=== PATIENT | female | born 1960 | race African-American/Black ===

== ENCOUNTER → 2017-08-13 | Outpatient (CLI) | payer MEDICARE, MEDICAID ==
[~2017-08-13] MED LIST: APIX5TAB PO; ATOR20TA50 PO; BENA10TA9 PO; FURO20TA3 PO; GABA300C10 PO; ISOS60TA24 PO; METO25TA62 PO; NITR0.4S29 SL
[2017-08-13 13:49] LABS: Urine Amorphous Crystal FEW /hpf (None Seen); Urine Bacteria FEW /hpf (None Seen); Urine Blood Negative /uL (Negative); Urine Specific Gravity 1.004 (1.001-1.035); Urine WBC <1 /hpf (0 - 5)
[2017-08-13 13:52] LABS: Basophils # (auto) 0.1 uL; Basophils % (auto) 1.9 % (0.0-2.0); Eosinophils # (auto) 0 uL; Eosinophils % (auto) 0.2 % (0.0-7.0); Hematocrit 44.4 % (36.0-46.0); Hemoglobin 14.7 g/dL (12.2-16.2); Lymphocytes # (auto) 2.1 uL; Lymphocytes % (auto) 41.7 % (10.0-50.0); Mean Corpuscular Hemoglobin 30.1 pg (28.0-32.0); Mean Corpuscular Hgb Conc. 33.1 g/dL (32.0-36.0); Mean Corpuscular Volume 90.8 fL (80.0-100.0); Monocytes # (auto) 0.6 uL; Monocytes % (auto) 12.1 % (0.0-12.0); Neutrophils # (auto) 2.2 uL; Neutrophils % (auto) 44.1 % (37.0-80.0); Nucleated Red Blood Cells % 0.2 %; Platelet Count (auto) 111 10^3/uL (140-450); Red Cell Distribution Width 13.2 % (11.8-14.3)
[2017-08-13 15:14] LABS: Albumin 2.9 g/dL (3.4-5.0); BUN/Creatinine Ratio 7.8; Bilirubin, Total 0.6 mg/dL (0.2-1.0); Calcium 8.5 mg/dL (8.5-10.1); Potassium 3.7 mmol/L (3.5-5.1); Total Protein 7.6 g/dL (6.4-8.2)
[2017-08-13 15:44] LABS: Folate (Folic Acid) 6.49 ng/mL (5.38-24)
== END | disposition home or self-care (01) ==
LOC: LAB 13:13
PROVIDERS: ATTEND Family Medicine
DX: E78.5 Hyperlipidemia, unspecified (principal); I10 Essential (primary) hypertension; E55.9 Vitamin D deficiency, unspecified; R79.89 Other specified abnormal findings of blood chemistry; Z79.899 Other long term (current) drug therapy
CPT/HCPCS: 36415; 80053; 80061; 81001; 82306; 82607; 82746; 83036; 84443; 85025

== ENCOUNTER → 2018-11-04 | Outpatient (CLI) | payer MEDICARE, MEDICAID | END | disposition home or self-care (01) | LOC: XYW 09:23 | PROVIDERS: ATTEND Internal Medicine | DX: I08.3 Combined rheumatic disorders of mitral, aortic and tricuspid valves (principal); I11.0 Hypertensive heart disease with heart failure; I50.9 Heart failure, unspecified | CPT/HCPCS: 93306 ==

== ENCOUNTER 2018-11-30 09:19 | Day surgery (SDC) | payer MEDICARE, MEDICAID ==
[2018-11-26 11:57] LABS: Urine WBC None Seen /hpf (0 - 5)
[2018-11-26 12:02] LABS: Basophils # (auto) 0 uL; Basophils % (auto) 0.4 % (0.0-2.0); Eosinophils # (auto) 0 uL; Eosinophils % (auto) 0.5 % (0.0-7.0); Hematocrit 44.9 % (36.0-46.0); Hemoglobin 14.7 g/dL (12.2-16.2); Lymphocytes # (auto) 1.1 uL; Lymphocytes % (auto) 25.1 % (10.0-50.0); Mean Corpuscular Hemoglobin 30.5 pg (28.0-32.0); Mean Corpuscular Hgb Conc. 32.7 g/dL (32.0-36.0); Mean Corpuscular Volume 93.3 fL (80.0-100.0); Monocytes # (auto) 0.5 uL; Monocytes % (auto) 10.9 % (0.0-12.0); Neutrophils # (auto) 2.8 uL; Neutrophils % (auto) 63.1 % (37.0-80.0); Nucleated Red Blood Cells % 0.2 %; Platelet Count (auto) 103 10^3/uL (140-450); Red Blood Cells 4.81 10^6/uL (4.0-5.20); White Blood Cell 4.4 10^3/uL (4.4-10.8)
[2018-11-26 12:08] LABS: Urine Bacteria FEW /hpf (None Seen); Urine Blood 1+ /uL (Negative); Urine Specific Gravity 1.021 (1.001-1.035)
[2018-11-26 12:17] LABS: INR 0.93 (0.9-1.15); Partial Thromboplastin Time 25.9 sec (23.64-32.05)
[2018-11-26 13:17] LABS: Albumin 2.8 g/dL (3.4-5.0); Calcium 8.4 mg/dL (8.5-10.1)
[2018-11-26 13:22] LABS: Bilirubin, Total 0.6 mg/dL (0.2-1.0); Total Protein 6.9 g/dL (6.4-8.2)
[~2018-11-30] VITALS: Ht 167.6 cm; Wt 166.0 kg
[~2018-11-30 09:19] MED LIST changes: +FOLI1TAB6 PO; -NITR0.4S29 SL
[2018-11-30] MEDS ORDERED: MIDAZOLAM HCL 1MG/1ML-2 ML VIAL ONE (10:52)
[2018-11-30] MEDS ORDERED: GLYCOPYRROLATE 0.2 MG/ML 1ML VIAL ONE (10:53)
[2018-11-30] MEDS ORDERED: diphenhdrAMINE HCL 50 MG/1 ML VL ONE (10:53)
[2018-11-30] MEDS ORDERED: METOCLOPRAMIDE HCL 5MG/ml INJ 2ml VIAL ONE (10:53)
[2018-11-30] MEDS ORDERED: PROPOFOL 10 MG/ML 20 ML IV ONE (10:55)
[2018-11-30] MEDS ORDERED: NALOXONE HCL 0.4 MG/ML VIAL IV PRN (11:15)
[2018-11-30] MEDS ORDERED: ONDANSETRON HCL 4 MG/2 ML VIAL IV ONE (11:15)
[2018-11-30] MEDS ORDERED: HYDROmorphone HCL 2 MG/ML VL IV PRN (11:15)
[2018-11-30 11:48] VITALS: BP 120/67
== END 2018-11-30 12:08 | disposition home or self-care (01) ==
LOC: GI 09:19
PROVIDERS: ATTEND Internal Medicine Gastroenterology
DX: Z12.11 Encounter for screening for malignant neoplasm of colon (principal); K57.30 Diverticulosis of large intestine without perforation or abscess without bleeding; K64.8 Other hemorrhoids; E66.8 Other obesity; J45.909 Unspecified asthma, uncomplicated; G47.33 Obstructive sleep apnea (adult) (pediatric); K21.9 Gastro-esophageal reflux disease without esophagitis; I11.0 Hypertensive heart disease with heart failure; I50.9 Heart failure, unspecified; E78.00 Pure hypercholesterolemia, unspecified; G62.9 Polyneuropathy, unspecified; I26.99 Other pulmonary embolism without acute cor pulmonale; Z68.43 Body mass index [BMI] 50.0-59.9, adult; Z78.0 Asymptomatic menopausal state; Z79.82 Long term (current) use of aspirin; Z79.899 Other long term (current) drug therapy; Z88.8 Allergy status to other drugs, medicaments and biological substances; Z98.890 Other specified postprocedural states; Z90.49 Acquired absence of other specified parts of digestive tract; Z82.49 Family history of ischemic heart disease and other diseases of the circulatory system
CPT/HCPCS: 36415; 80053; 81001; 85025; 85610; 85730; G0121; J1200; J2250; J2704; J2765; J7030

== ENCOUNTER 2018-12-14 19:00 | Inpatient (IN) | payer MEDICARE, MEDICAID ==
[~2018-12-14] VITALS: Ht 167.6 cm; Wt 185.5 kg
[2018-12-14 20:08] LABS: Urine Bacteria MANY /hpf (None Seen); Urine Blood 2+ /uL (Negative); Urine Mucus FEW (None Seen); Urine Specific Gravity 1.019 (1.001-1.035); Urine WBC 3 /hpf (0 - 5)
[2018-12-14 20:18] LABS: Basophils # (auto) 0 uL; Basophils % (auto) 0.3 % (0.0-2.0); Eosinophils # (auto) 0 uL; Eosinophils % (auto) 0.1 % (0.0-7.0); Hematocrit 43.8 % (36.0-46.0); Hemoglobin 14.5 g/dL (12.2-16.2); Lymphocytes # (auto) 1.7 uL; Lymphocytes % (auto) 20.1 % (10.0-50.0); Mean Corpuscular Hemoglobin 30.4 pg (28.0-32.0); Mean Corpuscular Hgb Conc. 33.2 g/dL (32.0-36.0); Mean Corpuscular Volume 91.7 fL (80.0-100.0); Monocytes % (auto) 11.3 % (0.0-12.0); Neutrophils # (auto) 5.7 uL; Neutrophils % (auto) 68.2 % (37.0-80.0); Platelet Count (auto) 115 10^3/uL (140-450); Red Blood Cells 4.78 10^6/uL (4.0-5.20); Red Cell Distribution Width 13.2 % (11.8-14.3); White Blood Cell 8.4 10^3/uL (4.4-10.8)
[2018-12-14 20:31] LABS: Albumin 2.7 g/dL (3.4-5.0); BUN/Creatinine Ratio 7.6; Calcium 8.2 mg/dL (8.5-10.1); Potassium 3.4 mmol/L (3.5-5.1)
[2018-12-14 20:34] LABS: Total Protein 7.4 g/dL (6.4-8.2)
[2018-12-14] MEDS ORDERED: IOHEXOL 300 MG/ML 100ML BOTTLE IJ ONE (23:43)
[2018-12-15] MEDS ORDERED: SODIUM CHLORIDE 0.9% 500 ML IV ONE
[2018-12-15] MEDS ORDERED: LIDOCAINE W/ EPINEPHRINE 1% 20ML VIAL SC ONE (00:15)
[2018-12-15] MEDS ORDERED: BACITRACIN TOP OINT 1 UD PKG TOP ONE (00:15)
[2018-12-15] MEDS ORDERED: metroNIDAZOLE 500MG/100ML 100 ML IV ONE (01:15)
[2018-12-15] MEDS ORDERED: CIPROFLOXACIN 400MG/200ML 200 ML IV ONE (01:15)
[2018-12-15] MEDS ORDERED: HYDROmorphone HCL 2 MG/ML VL IV ONE (02:00)
[2018-12-15] MEDS ORDERED: ONDANSETRON HCL 4 MG/2 ML VIAL IV PRN (03:15)
[2018-12-15] MEDS ORDERED: SODIUM CHLORIDE 0.9% 1,000 ML IV SCH (03:15)
[2018-12-15] MEDS ORDERED: MORPHINE SULF INJ 2 MG/ML SYRINGE 1ML IV PRN (03:15)
[2018-12-15] MEDS: cefTRIAXone 1GM/50ML D5W 50 ML IV SCH (04:06)
[2018-12-15 04:40] VITALS: BP 126/52
--- NOTE | 2018-12-15 05:00 | NUR ---
MED SURG ADMIT FROM ER RECEIVED PATIENT VIA WHEELCHAIR FROM ER. PATIENT SHOWING NO S/S OF DISTRESS OR SOB. NO PAIN NOTED OR REPORTED AT THIS TIME. PATIENT IS A/O X4, AMBULATORY. LEFT MIDDLE FINGER IV INFILTRATED, WILL ATTEMPT NEW IV. UPDATED PATIENT ON POC, VERBALIZED UNDERSTANDING. BED LOCKED IN LOW POSITION, CALL LIGHT WITHIN REACH. WILL CONTINUE TO MONITOR PATIENT Q1HR AND PRN.
[2018-12-15 05:36] VITALS: BP 126/52
[2018-12-15] MEDS: SODIUM CHLORIDE 0.9% 1,000 ML IV SCH ×2 (05:43→21:48)
--- NOTE | 2018-12-15 08:00 | NUR ---
Morning note patient resting in bed with even and unlabored respirations, no distress noted. Instructed patient on POC, fall precautions and to call for assistance. Patient verbalized understanding. Fall precautions in place with call light within reach. Will continue to monitor q1hr & PRN.
--- NOTE | 2018-12-15 08:25 | NUR ---
Paged PICC/Midline RN
[2018-12-15] MEDS: ACETAMINOPHEN 500 MG TAB PO PRN ×2 (08:53→17:41)
[2018-12-15] MEDS: PANTOPRAZOLE 40 MG TAB PO SCH (08:53)
[2018-12-15] MEDS: FOLIC ACID 1 MG TAB PO SCH (08:53)
[2018-12-15] MEDS: FUROSEMIDE 40 MG TAB PO SCH (08:54)
[2018-12-15] MEDS: ISOSORBIDE MONONITRATE 60 MG TAB PO SCH (08:54)
[2018-12-15] MEDS: METOPROLOL SUCCINATE XL 50 MG TAB PO SCH (08:55)
[2018-12-15] MEDS: BENAZEPRIL HCL 10 MG TAB PO SCH ×2 (08:55→21:59)
[2018-12-15] MEDS: metroNIDAZOLE 500MG/100ML 100 ML IV SCH ×2 (08:55→17:38)
[2018-12-15 09:00] VITALS: BP 101/59
--- NOTE | 2018-12-15 09:13 | NUR ---
Patient ambulated to restroom with a steady gait. Patient returned to bed with no complications. Call light within reach.
[2018-12-15 09:54] LABS: Basophils # (auto) 0 uL; Basophils % (auto) 0.4 % (0.0-2.0); Eosinophils # (auto) 0 uL; Eosinophils % (auto) 0.5 % (0.0-7.0); Hematocrit 38.7 % (36.0-46.0); Hemoglobin 12.9 g/dL (12.2-16.2); Lymphocytes # (auto) 1.1 uL; Lymphocytes % (auto) 19.1 % (10.0-50.0); Mean Corpuscular Hemoglobin 30.4 pg (28.0-32.0); Mean Corpuscular Hgb Conc. 33.3 g/dL (32.0-36.0); Mean Corpuscular Volume 91.4 fL (80.0-100.0); Monocytes # (auto) 0.9 uL; Monocytes % (auto) 15.8 % (0.0-12.0); Neutrophils # (auto) 3.7 uL; Neutrophils % (auto) 64.2 % (37.0-80.0); Nucleated Red Blood Cells % 0.3 %; Platelet Count (auto) 110 10^3/uL (140-450); Red Blood Cells 4.23 10^6/uL (4.0-5.20); Red Cell Distribution Width 13.4 % (11.8-14.3); White Blood Cell 5.8 10^3/uL (4.4-10.8)
[2018-12-15 10:12] LABS: Calcium 7.7 mg/dL (8.5-10.1); Potassium 3.1 mmol/L (3.5-5.1)
[2018-12-15 10:15] LABS: BUN/Creatinine Ratio 7.4
--- NOTE | 2018-12-15 11:49 | NUR ---
was at bedside - Dr. Fry Orders received and read back to verify.
[2018-12-15] MEDS ORDERED: APIXABAN 5 MG TAB PO ONE (12:00)
[2018-12-15] MEDS: traMADol HCL 50 MG TAB PO PRN ×2 (12:26→21:59)
--- NOTE | 2018-12-15 12:33 | NUR ---
Midline Placement Patient educated on need for midline placement. All risks and benefits explained and all questions and concerns addresses prior to procedure. 18g/10cm midline inserted via right basilic vein using Ultrasound. Sterile technique utilized. Blood return obtained from single lumen and flushed easily with NS using proper technique. Midline secured with saline lock; biodisc and occlusive dressing applied. Primary RN notified. Midline lot #[id number].
--- NOTE | 2018-12-15 12:51 | NUR ---
IV removed IV removed from left finger with clean technique, catheter intact. Dressing applied. Patient tolerated well.
[2018-12-15 14:40] VITALS: BP 116/50
[2018-12-15] MEDS ORDERED: POTASSIUM CHLORIDE 60 MEQ, LIDOCAINE 1% (LOCAL ANESTH.) 6 ML in SODIUM CHL 0.9% 500 ML IV ONE (15:00)
--- NOTE | 2018-12-15 15:10 | NUR ---
Tay Fry to clarify medication order. Addendum: 12/15/18 at 1906 by Treva Michel RN Order was clarified at 1530.
[2018-12-15 16:42] VITALS: BP 120/61
--- NOTE | 2018-12-15 19:00 | NUR ---
Care endorsed to PATRICIA Meza.
--- NOTE | 2018-12-15 19:05 | NUR ---
closing note patient resting in bed with even and unlabored respirations, no distress noted. Fall precautions in place with call light within reach.
--- NOTE | 2018-12-15 19:45 | NUR ---
OPENING SHIFT NOTE RECEIVED REPORT FROM DAYSHIFT RN. PATIENT RESTING COMFORTABLY IN BED WATCHING TELEVISION. NO S/S OF DISTRESS OR SOB, PATIENT DENIES PAIN AT THIS TIME. PATIENT A/O X4, AMBULATORY. UPDATED PATIENT ON POC, VERBALIZED UNDERSTANDING. BED LOCKED IN LOW POSITION, CALL LIGHT WITHIN REACH. WILL CONTINUE TO MONITOR PATIENT Q1HR AND PRN.
[2018-12-15] MEDS: APIXABAN 5 MG TAB PO SCH (21:58)
[2018-12-15] MEDS: GABAPENTIN 300 MG CAP PO SCH (21:59)
[2018-12-15 22:00] VITALS: BP 122/55
[2018-12-16] MEDS: metroNIDAZOLE 500MG/100ML 100 ML IV SCH ×3 (00:41→18:26)
[2018-12-16] MEDS: cefTRIAXone 1GM/50ML D5W 50 ML IV SCH (03:42)
[2018-12-16 05:00] VITALS: BP 127/66
--- NOTE | 2018-12-16 07:35 | NUR ---
Opening Shift Note Assumed care of patient, awake and alert, sitting up in bed watching television. No S/S of distress/SOB, no pain noted or reported at this time. Respirations are even and unlabored. Instructed on POC and instructed to call for assistance as needed, pt. verbalized understanding. Bed locked in lowest position, side rails up x2, call light within reach. Will continue to monitor for changes Q1hr and PRN.
[2018-12-16 08:56] LABS: Albumin 2.2 g/dL (3.4-5.0); Magnesium 2.5 mg/dL (1.6-2.6)
[2018-12-16 09:00] VITALS: BP 136/57
[2018-12-16 09:00] LABS: BUN/Creatinine Ratio 7.1; Bilirubin, Total 0.7 mg/dL (0.2-1.0); Total Protein 6.2 g/dL (6.4-8.2)
[2018-12-16] MEDS: METOPROLOL SUCCINATE XL 50 MG TAB PO SCH (09:09)
[2018-12-16] MEDS: PANTOPRAZOLE 40 MG TAB PO SCH (09:09)
[2018-12-16] MEDS: APIXABAN 5 MG TAB PO SCH ×2 (09:10→22:55)
[2018-12-16] MEDS: ISOSORBIDE MONONITRATE 60 MG TAB PO SCH (09:10)
[2018-12-16] MEDS: FUROSEMIDE 40 MG TAB PO SCH (09:10)
[2018-12-16] MEDS: FOLIC ACID 1 MG TAB PO SCH (09:11)
[2018-12-16] MEDS: BENAZEPRIL HCL 10 MG TAB PO SCH ×2 (09:11→22:55)
[2018-12-16] MEDS: SODIUM CHLORIDE 0.9% 1,000 ML IV SCH (09:11)
[2018-12-16] MEDS: traMADol HCL 50 MG TAB PO PRN (09:13)
[2018-12-16 12:46] VITALS: BP 140/63
[2018-12-16 17:23] VITALS: BP 130/55
--- NOTE | 2018-12-16 18:49 | NUR ---
Endorsed care to steward/stewardess night RN. No S/S of distress or SOB, respirations are even and unlabored.
--- NOTE | 2018-12-16 19:40 | NUR ---
received pt from day rn poc reviewed
[2018-12-16 22:00] VITALS: BP 154/79
[2018-12-16] MEDS: GABAPENTIN 300 MG CAP PO SCH (22:32)
--- NOTE | 2018-12-16 22:45 | NUR ---
resting comfortable no c/o discomfort
[2018-12-17] MEDS: SODIUM CHLORIDE 0.9% 1,000 ML IV SCH ×2 (01:49→14:12)
[2018-12-17] MEDS: metroNIDAZOLE 500MG/100ML 100 ML IV SCH ×3 (01:50→18:03)
[2018-12-17] MEDS: cefTRIAXone 1GM/50ML D5W 50 ML IV SCH (04:17)
[2018-12-17 05:00] VITALS: BP 122/60
--- NOTE | 2018-12-17 06:58 | NUR ---
resting with no c/o discomfort will report off to am nurse
[2018-12-17 09:00] VITALS: BP 124/67
[2018-12-17] MEDS: PANTOPRAZOLE 40 MG TAB PO SCH (09:29)
[2018-12-17] MEDS: APIXABAN 5 MG TAB PO SCH ×2 (09:29→21:25)
[2018-12-17] MEDS: FOLIC ACID 1 MG TAB PO SCH (09:31)
[2018-12-17] MEDS: ISOSORBIDE MONONITRATE 60 MG TAB PO SCH (09:31)
[2018-12-17] MEDS: METOPROLOL SUCCINATE XL 50 MG TAB PO SCH (09:31)
[2018-12-17] MEDS: FUROSEMIDE 40 MG TAB PO SCH (09:33)
[2018-12-17] MEDS: BENAZEPRIL HCL 10 MG TAB PO SCH ×2 (09:33→21:25)
[2018-12-17 12:42] VITALS: BP 125/69
[2018-12-17 16:34] VITALS: BP 133/72
--- NOTE | 2018-12-17 19:15 | NUR ---
Change of shift given to concrete tester RN. No distress noted.
--- NOTE | 2018-12-17 19:56 | NUR ---
RECEIVED PT FROM DAY RN POC REVIEWED
[2018-12-17] MEDS: GABAPENTIN 300 MG CAP PO SCH (21:24)
[2018-12-17] MEDS: traMADol HCL 50 MG TAB PO PRN (21:26)
[2018-12-17 22:00] VITALS: BP 127/68
[2018-12-18] MEDS: metroNIDAZOLE 500MG/100ML 100 ML IV SCH ×3 (02:36→16:58)
[2018-12-18 05:30] VITALS: BP 135/65
[2018-12-18] MEDS: SODIUM CHLORIDE 0.9% 1,000 ML IV SCH ×2 (05:31→18:43)
[2018-12-18] MEDS: ACETAMINOPHEN 500 MG TAB PO PRN (06:24)
--- NOTE | 2018-12-18 07:25 | NUR ---
Opening Note Received report from foundation coordinator RN. Patient is awake, alert and oriented x4. No signs or symptoms of distress noted at this time. Patient denies pain at this time. Patient is on room air, respirations even and unlabored, denies shortness of breath at this time. Patient states she has not had a bowel movement today. Reviewed plan of care with patient, patient verbalized understanding. Bed in low and locked position, call light within reach. Will continue to monitor Q1 hour and PRN.
[2018-12-18 08:00] VITALS: BP 130/59
[2018-12-18 08:29] LABS: Basophils # (auto) 0 uL; Basophils % (auto) 0.8 % (0.0-2.0); Eosinophils # (auto) 0 uL; Eosinophils % (auto) 1.1 % (0.0-7.0); Hemoglobin 13.1 g/dL (12.2-16.2); Lymphocytes % (auto) 26.5 % (10.0-50.0); Mean Corpuscular Hemoglobin 30.5 pg (28.0-32.0); Mean Corpuscular Hgb Conc. 33.5 g/dL (32.0-36.0); Mean Corpuscular Volume 91.1 fL (80.0-100.0); Monocytes # (auto) 0.7 uL; Monocytes % (auto) 17.6 % (0.0-12.0); Neutrophils # (auto) 2.1 uL; Nucleated Red Blood Cells % 1.4 %; Platelet Count (auto) 117 10^3/uL (140-450); Red Blood Cells 4.28 10^6/uL (4.0-5.20); Red Cell Distribution Width 13.2 % (11.8-14.3); White Blood Cell 3.9 10^3/uL (4.4-10.8)
[2018-12-18 08:42] LABS: Albumin 2.3 g/dL (3.4-5.0); BUN/Creatinine Ratio 6.1; Calcium 7.6 mg/dL (8.5-10.1); Potassium 3.4 mmol/L (3.5-5.1)
[2018-12-18 08:45] LABS: Bilirubin, Total 0.4 mg/dL (0.2-1.0); Total Protein 6.1 g/dL (6.4-8.2)
[2018-12-18] MEDS: LEVOFLOXACIN 750MG 150 ML IV SCH (09:48)
[2018-12-18] MEDS: BENAZEPRIL HCL 10 MG TAB PO SCH ×2 (09:48→22:18)
[2018-12-18] MEDS: APIXABAN 5 MG TAB PO SCH ×2 (09:49→22:17)
[2018-12-18] MEDS: FOLIC ACID 1 MG TAB PO SCH (09:49)
[2018-12-18] MEDS: METOPROLOL SUCCINATE XL 50 MG TAB PO SCH (09:49)
[2018-12-18] MEDS: PANTOPRAZOLE 40 MG TAB PO SCH (09:49)
[2018-12-18] MEDS: ISOSORBIDE MONONITRATE 60 MG TAB PO SCH (09:49)
[2018-12-18] MEDS: FUROSEMIDE 40 MG TAB PO SCH (09:50)
[2018-12-18] MEDS ORDERED: POTASSIUM CHL 20 Meq TABLET PO ONE (11:00)
[2018-12-18 12:11] VITALS: BP 144/53
--- NOTE | 2018-12-18 12:15 | NUR ---
Dr. Fry at bedside Dr. Fry at bedside reviewing plan of care with patient.
--- NOTE | 2018-12-18 14:51 | NUR ---
Nutrition Assessment Notes Please see attached link for complete assessment Est. Needs ABW [id number] kcal (17-20 kcal/kgBW), 120-132 gms pro (1.0-1.1 gms/kgBW). Will continue to monitor pertinent labs and reassess nutrient need prn Addendum: 12/18/18 at [address] Amended: Links added.
[2018-12-18 16:29] VITALS: BP 130/94
--- NOTE | 2018-12-18 17:25 | NUR ---
Closing Note Report given to nightclub manager RN. Patient is awake, alert and oriented x4. No signs or symptoms of distress noted at this time.
--- NOTE | 2018-12-18 20:00 | NUR ---
Opening Shift Note Assumed care of patient, awake and alert. Patient states she had taken a large pill earlier (possibly Potassium pill) and she feels she needs to "burp". Denies chest pain and shortness of breath. Instructed on POC and to call for assist PRN, will continue to monitor for changes Q1hr and PRN.
[2018-12-18 22:01] VITALS: BP 131/70
[2018-12-18] MEDS: GABAPENTIN 300 MG CAP PO SCH (22:19)
--- NOTE | 2018-12-18 23:11 | NUR ---
Patient provided with a Coke from the [employer] machine per her request. Symptom of the need of "burping" has been relieved. No distress noted at this time.
[2018-12-19] MEDS: metroNIDAZOLE 500MG/100ML 100 ML IV SCH ×3 (01:02→17:00)
[2018-12-19 05:00] VITALS: BP 121/60
[2018-12-19] MEDS: SODIUM CHLORIDE 0.9% 1,000 ML IV SCH (05:51)
[2018-12-19 07:58] VITALS: BP 140/64
[2018-12-19] MEDS: APIXABAN 5 MG TAB PO SCH (08:56)
[2018-12-19] MEDS: FOLIC ACID 1 MG TAB PO SCH (08:56)
[2018-12-19] MEDS: BENAZEPRIL HCL 10 MG TAB PO SCH (08:56)
[2018-12-19] MEDS: ISOSORBIDE MONONITRATE 60 MG TAB PO SCH (08:56)
[2018-12-19] MEDS: PANTOPRAZOLE 40 MG TAB PO SCH (08:56)
[2018-12-19] MEDS: METOPROLOL SUCCINATE XL 50 MG TAB PO SCH (08:57)
[2018-12-19] MEDS: FUROSEMIDE 40 MG TAB PO SCH (08:57)
[2018-12-19] MEDS ORDERED: POTASSIUM CHL 20 Meq TABLET PO ONE (09:45)
[2018-12-19] MEDS ORDERED: FUROSEMIDE 20 MG/2 ML VIAL IV ONE (09:45)
[2018-12-19] MEDS: LEVOFLOXACIN 750MG 150 ML IV SCH (10:05)
[2018-12-19 12:00] VITALS: BP 133/69
--- NOTE | 2018-12-19 12:40 | NUR ---
at bedside MD Fry at bedside, aware of patient's status. MD states patient will be d/c home today. New prescription for Levaquin, flagyl and probiotic obtained and will be given to patient on d/c. Awaiting d/c order at this time. Pt verbalized understanding. Cont care
--- NOTE | 2018-12-19 15:44 | NUR ---
Discharge instructions given as ordered. Encourage to follow up with PMD and specialist as instructed. All questions and concerns addressed. Patient verbalized understanding. Medication reconciliation form completed and copy given to patient. IV removed with catheter intact, pressure dressing applied. Patient will change at this time and waiting on her daughter to pick her up "from down the hill." No distress noted, sob or pain at this time.
--- NOTE | 2018-12-19 17:16 | NUR ---
Patient transported via wheelchair to vehicle, with all personal belongings. No distress or sob noted on departure. Patient Addendum: 12/19/18 at 1732 by Gilda Johnson RN Patient accompanied by staff and daughter.
== END 2018-12-19 17:30 | disposition home or self-care (01) | DRG 392 ==
LOC: ER 19:00 → OVERFLOW 19:01 → WEST WING 12-15 04:51
PROVIDERS: ADMIT Nurse Practitioner Family; ATTEND Internal Medicine
DX: K57.32 Diverticulitis of large intestine without perforation or abscess without bleeding (principal); N39.0 Urinary tract infection, site not specified; E44.0 Moderate protein-calorie malnutrition; I50.32 Chronic diastolic (congestive) heart failure; Z68.44 Body mass index [BMI] 60.0-69.9, adult; A04.72 Enterocolitis due to Clostridium difficile, not specified as recurrent; E87.6 Hypokalemia; E78.5 Hyperlipidemia, unspecified; E66.9 Obesity, unspecified; I11.0 Hypertensive heart disease with heart failure; D69.6 Thrombocytopenia, unspecified; Z88.6 Allergy status to analgesic agent; Z83.3 Family history of diabetes mellitus; Z79.01 Long term (current) use of anticoagulants; Z86.711 Personal history of pulmonary embolism; Z90.49 Acquired absence of other specified parts of digestive tract; Z79.899 Other long term (current) drug therapy
CPT/HCPCS: 36415; 74176; 74177; 80048; 80053; 81001; 82150; 83605; 83690; 83735; 83880; 85025; 87045; 87086; 87493; 87899; 96365; 96375; G0378; J0696; J1956; J2001; J2405; J3490

== ENCOUNTER → 2020-02-03 | Outpatient (CLI) | payer MEDICARE, MEDICAID ==
[~2020-02-03] MED LIST changes: -METO25TA62 PO; +METO25TA93 PO
[2020-02-03 10:50] LABS: Basophils # (auto) 0 10 ^3/uL (0-0.2); Basophils % (auto) 0.5 % (0.0-2.0); Eosinophils # (auto) 0.1 10 ^3/uL (0-0.8); Eosinophils % (auto) 1.9 % (0.0-7.0); Hematocrit 42.2 % (36.0-46.0); Hemoglobin 13.7 g/dL (12.2-16.2); Lymphocytes # (auto) 1.3 10 ^3/uL (0.4-5.4); Lymphocytes % (auto) 39.5 % (10.0-50.0); Mean Corpuscular Hemoglobin 29.6 pg (28.0-32.0); Mean Corpuscular Hgb Conc. 32.5 g/dL (32.0-36.0); Mean Corpuscular Volume 91.1 fL (80.0-100.0); Monocytes # (auto) 0.5 10 ^3/uL (0-1.3); Monocytes % (auto) 14.3 % (0.0-12.0); Neutrophils # (auto) 1.5 10 ^3/uL (1.6-8.6); Neutrophils % (auto) 43.8 % (37.0-80.0); Platelet Count (auto) 89 10^3/uL (140-450); Red Blood Cells 4.63 10^6/uL (4.0-5.20); White Blood Cell 3.4 10^3/uL (4.4-10.8)
[2020-02-03 11:14] LABS: Urine Bacteria NONE SEEN /hpf (None Seen); Urine Blood Negative /uL (Negative); Urine Specific Gravity 1.019 (1.001-1.035); Urine WBC 1 /hpf (0 - 5)
[2020-02-03 12:05] LABS: Albumin 2.9 g/dL (3.4-5.0); Calcium 8.8 mg/dL (8.5-10.1); Potassium 3.8 mmol/L (3.5-5.1)
[2020-02-03 12:09] LABS: BUN/Creatinine Ratio 12.2; Bilirubin, Total 0.6 mg/dL (0.2-1.0); Total Protein 7.2 g/dL (6.4-8.2)
== END | disposition home or self-care (01) ==
LOC: LAB 10:29
PROVIDERS: ATTEND Nurse Practitioner
DX: I10 Essential (primary) hypertension (principal); E78.5 Hyperlipidemia, unspecified
CPT/HCPCS: 36415; 80053; 80061; 81001; 85025

== ENCOUNTER → 2020-04-11 | Outpatient (CLI) | payer MEDICARE, MEDICAID ==
[2020-04-11 10:13] LABS: Basophils # (auto) 0 10 ^3/uL (0-0.2); Basophils % (auto) 0.3 % (0.0-2.0); Eosinophils # (auto) 0 10 ^3/uL (0-0.8); Eosinophils % (auto) 1.3 % (0.0-7.0); Hematocrit 40.6 % (36.0-46.0); Hemoglobin 13.3 g/dL (12.2-16.2); Lymphocytes # (auto) 1.4 10 ^3/uL (0.4-5.4); Lymphocytes % (auto) 40.6 % (10.0-50.0); Mean Corpuscular Hemoglobin 30.2 pg (28.0-32.0); Mean Corpuscular Hgb Conc. 32.9 g/dL (32.0-36.0); Monocytes # (auto) 0.5 10 ^3/uL (0-1.3); Monocytes % (auto) 14.4 % (0.0-12.0); Neutrophils # (auto) 1.4 10 ^3/uL (1.6-8.6); Neutrophils % (auto) 43.4 % (37.0-80.0); Nucleated Red Blood Cells % 0.1 %; Platelet Count (auto) 91 10^3/uL (140-450); Red Blood Cells 4.41 10^6/uL (4.0-5.20); Red Cell Distribution Width 13.1 % (11.8-14.3); White Blood Cell 3.3 10^3/uL (4.4-10.8)
[2020-04-11 10:18] LABS: INR 1.01 (0.9-1.15); Partial Thromboplastin Time 25.6 sec (23.0-31.2)
[2020-04-11 10:57] LABS: Potassium 3.9 mmol/L (3.5-5.1)
[2020-04-11 11:16] LABS: Albumin 2.9 g/dL (3.4-5.0); BUN/Creatinine Ratio 12.7; Bilirubin, Total 0.7 mg/dL (0.2-1.0); Calcium 8.7 mg/dL (8.5-10.1); Total Protein 7.3 g/dL (6.4-8.2)
== END | disposition home or self-care (01) ==
LOC: LAB 09:13
PROVIDERS: ATTEND Nurse Practitioner
DX: Z01.818 Encounter for other preprocedural examination (principal); Z01.812 Encounter for preprocedural laboratory examination; I50.32 Chronic diastolic (congestive) heart failure
CPT/HCPCS: 36415; 80053; 85025; 85610; 85730

== ENCOUNTER 2020-06-16 09:22 | Emergency (ER) | payer MEDICARE, MEDICAID ==
[~2020-06-16] VITALS: Ht 167.6 cm; Wt 140.6 kg
[2020-06-16 13:15] VITALS: BP 150/52
[2020-06-16 13:51] LABS: Basophils # (auto) 0 10 ^3/uL (0-0.2); Basophils % (auto) 0.3 % (0.0-2.0); Eosinophils # (auto) 0 10 ^3/uL (0-0.8); Eosinophils % (auto) 0.3 % (0.0-7.0); Hemoglobin 13.5 g/dL (12.2-16.2); Lymphocytes # (auto) 1.1 10 ^3/uL (0.4-5.4); Lymphocytes % (auto) 27.6 % (10.0-50.0); Mean Corpuscular Hemoglobin 30.8 pg (28.0-32.0); Mean Corpuscular Hgb Conc. 33.7 g/dL (32.0-36.0); Mean Corpuscular Volume 91.3 fL (80.0-100.0); Monocytes # (auto) 0.5 10 ^3/uL (0-1.3); Monocytes % (auto) 12.2 % (0.0-12.0); Neutrophils # (auto) 2.4 10 ^3/uL (1.6-8.6); Neutrophils % (auto) 59.6 % (37.0-80.0); Nucleated Red Blood Cells % 0.2 %; Platelet Count (auto) 90 10^3/uL (140-450); Red Blood Cells 4.38 10^6/uL (4.0-5.20); Red Cell Distribution Width 12.7 % (11.8-14.3)
[2020-06-16 14:06] LABS: INR 1.04 (0.9-1.15); Partial Thromboplastin Time 26.2 sec (23.0-31.2)
[2020-06-16 14:13] LABS: BUN/Creatinine Ratio 14.3; Calcium 8.8 mg/dL (8.5-10.1); Potassium 3.7 mmol/L (3.5-5.1)
== END 2020-06-16 17:48 | disposition home or self-care (01) ==
LOC: ER 09:22
DX: H54.7 Unspecified visual loss (principal); E23.7 Disorder of pituitary gland, unspecified; I10 Essential (primary) hypertension; Z90.49 Acquired absence of other specified parts of digestive tract; Z88.6 Allergy status to analgesic agent
CPT/HCPCS: 36415; 70450; 80048; 85025; 85610; 85730

== ENCOUNTER → 2021-04-09 | Outpatient (CLI) | payer MEDICARE, MEDICAID ==
[~2021-04-09] MED LIST changes: +BENA10TA15 PO; -BENA10TA9 PO
[2021-04-09 10:58] LABS: Basophils # (auto) 0 10 ^3/uL (0-0.2); Basophils % (auto) 0.5 % (0.0-2.0); Eosinophils # (auto) 0 10 ^3/uL (0-0.8); Eosinophils % (auto) 0.3 % (0.0-7.0); Hematocrit 43.3 % (36.0-46.0); Lymphocytes # (auto) 1.6 10 ^3/uL (0.4-5.4); Lymphocytes % (auto) 35.3 % (10.0-50.0); Mean Corpuscular Hemoglobin 29.1 pg (28.0-32.0); Mean Corpuscular Hgb Conc. 32.2 g/dL (32.0-36.0); Mean Corpuscular Volume 90.4 fL (80.0-100.0); Monocytes # (auto) 0.7 10 ^3/uL (0-1.3); Monocytes % (auto) 15.8 % (0.0-12.0); Neutrophils # (auto) 2.2 10 ^3/uL (1.6-8.6); Neutrophils % (auto) 48.1 % (37.0-80.0); Nucleated Red Blood Cells % 0.1 %; Red Cell Distribution Width 12.8 % (11.8-14.3); White Blood Cell 4.6 10^3/uL (4.4-10.8)
[2021-04-09 11:18] LABS: Urine Bacteria FEW /hpf (None Seen); Urine Blood Negative /uL (Negative); Urine Specific Gravity 1.007 (1.001-1.035); Urine WBC <1 /hpf (0 - 5)
[2021-04-09 11:21] LABS: Potassium 3.9 mmol/L (3.5-5.1)
[2021-04-09 11:29] LABS: BUN/Creatinine Ratio 12.4; Bilirubin, Total 0.5 mg/dL (0.2-1.0); Total Protein 7.7 g/dL (6.4-8.2)
== END | disposition home or self-care (01) ==
LOC: LAB 10:41
PROVIDERS: ATTEND Nurse Practitioner
DX: I10 Essential (primary) hypertension (principal); E78.5 Hyperlipidemia, unspecified
CPT/HCPCS: 36415; 80053; 80061; 81001; 85025

== ENCOUNTER 2021-07-08 16:16 | Emergency (ER) | payer MEDICARE, MEDICAID ==
[~2021-07-08] VITALS: Ht 167.6 cm; Wt 149.7 kg
[2021-07-08] MEDS ORDERED: HYDROcodone-ACET 10/325MG TAB PO ONE (23:15)
[2021-07-09 02:30] VITALS: BP 119/64
== END 2021-07-09 02:02 | disposition home or self-care (01) ==
LOC: EDBD 16:16 → ER 16:16
DX: M79.672 Pain in left foot (principal); I10 Essential (primary) hypertension; Z90.49 Acquired absence of other specified parts of digestive tract
CPT/HCPCS: 73630

== ENCOUNTER → 2022-04-24 | Outpatient (CLI) | payer MEDICARE, MEDICAID | END | disposition home or self-care (01) | LOC: XYW 10:42 | PROVIDERS: ATTEND Podiatrist | DX: I77.9 Disorder of arteries and arterioles, unspecified (principal) | CPT/HCPCS: 93925 ==

== ENCOUNTER → 2022-08-15 | Outpatient (CLI) | payer MEDICARE, MEDICAID ==
[2022-08-15 11:13] LABS: Basophils # (auto) 0 10 ^3/uL (0-0.2); Basophils % (auto) 0.7 % (0.0-2.0); Eosinophils # (auto) 0 10 ^3/uL (0-0.8); Eosinophils % (auto) 0.3 % (0.0-7.0); Hemoglobin 13.2 g/dL (12.2-16.2); Lymphocytes # (auto) 1.2 10 ^3/uL (0.4-5.4); Mean Corpuscular Hemoglobin 29.7 pg (28.0-32.0); Mean Corpuscular Hgb Conc. 33.1 g/dL (32.0-36.0); Mean Corpuscular Volume 89.9 fL (80.0-100.0); Monocytes # (auto) 0.5 10 ^3/uL (0-1.3); Monocytes % (auto) 12.3 % (0.0-12.0); Neutrophils # (auto) 2.1 10 ^3/uL (1.6-8.6); Neutrophils % (auto) 54.7 % (37.0-80.0); Nucleated Red Blood Cells % 0.1 %; Red Blood Cells 4.45 10^6/uL (4.0-5.20); Red Cell Distribution Width 13.1 % (11.8-14.3); White Blood Cell 3.9 10^3/uL (4.4-10.8)
[2022-08-15 11:46] LABS: Urine Bacteria MANY /hpf (None Seen); Urine Blood TRACE /uL (Negative); Urine Mucus FEW (None Seen); Urine Specific Gravity 1.012 (1.001-1.035); Urine WBC 27 /hpf (0 - 5)
[2022-08-15 11:51] LABS: Albumin 3.2 g/dL (3.4-5.0); BUN/Creatinine Ratio 10.1; Calcium 8.9 mg/dL (8.5-10.1); Potassium 3.9 mmol/L (3.5-5.1); Total Protein 7.4 g/dL (6.4-8.2)
[2022-08-15 12:00] LABS: Bilirubin, Total 0.8 mg/dL (0.2-1.0)
== END | disposition home or self-care (01) ==
LOC: LAB 10:57
PROVIDERS: ATTEND Nurse Practitioner
DX: I10 Essential (primary) hypertension (principal); E78.5 Hyperlipidemia, unspecified
CPT/HCPCS: 36415; 80053; 80061; 81001; 85025

== ENCOUNTER → 2023-01-08 | Outpatient (CLI) | payer MEDICARE, MEDICAID ==
[~2023-01-08] MED LIST changes: +BENA-19 PO; -BENA10TA15 PO; +FOLI-119 PO; -FOLI1TAB6 PO; +GABA-1250 PO; -GABA300C10 PO
[2023-01-08 13:22] LABS: Basophils # (auto) 0 10 ^3/uL (0-0.2); Basophils % (auto) 0.6 % (0.0-2.0); Eosinophils # (auto) 0 10 ^3/uL (0-0.8); Eosinophils % (auto) 0.4 % (0.0-7.0); Hematocrit 40.9 % (36.0-46.0); Hemoglobin 13.1 g/dL (12.2-16.2); Lymphocytes # (auto) 2.1 10 ^3/uL (0.4-5.4); Lymphocytes % (auto) 47.6 % (10.0-50.0); Mean Corpuscular Hemoglobin 28.8 pg (28.0-32.0); Mean Corpuscular Hgb Conc. 31.9 g/dL (32.0-36.0); Mean Corpuscular Volume 90.4 fL (80.0-100.0); Monocytes # (auto) 0.6 10 ^3/uL (0-1.3); Monocytes % (auto) 13.6 % (0.0-12.0); Neutrophils # (auto) 1.6 10 ^3/uL (1.6-8.6); Neutrophils % (auto) 37.8 % (37.0-80.0); Nucleated Red Blood Cells % 0.1 %; Red Blood Cells 4.52 10^6/uL (4.0-5.20); Red Cell Distribution Width 13.4 % (11.8-14.3); White Blood Cell 4.3 10^3/uL (4.4-10.8)
[2023-01-08 14:32] LABS: Folate (Folic Acid) 11.48 ng/mL (5.38-24)
[2023-01-08 14:35] LABS: Ferritin 36.2 ng/mL (10-322)
[2023-01-08 16:58] LABS: % Iron Saturation 21.5 % (15-50)
[2023-01-08 17:09] LABS: Alanine Aminotransferase 15 U/L (13-56); Albumin 3.3 g/dL (3.4-5.0); Alkaline Phosphatase 107 U/L (45-117); Anion Gap 9 (5-15); Aspartate Aminotransferase 15 U/L (15-37); BUN/Creatinine Ratio 7.4 (10.0-20.0); Bilirubin, Total 0.5 mg/dL (0.2-1.0); Blood Urea Nitrogen 10 mg/dL (7-18); Carbon Dioxide 25 mmol/L (21-32); Chloride 107 mmol/L (98-107); GFR African American 51 mL/min; GFR Non-African American 42 mL/min; Glucose 94 mg/dL (74-106); Potassium 4.8 mmol/L (3.5-5.1); Sodium 141 mmol/L (136-145); Total Protein 7.5 g/dL (6.4-8.2)
== END | disposition home or self-care (01) ==
LOC: LAB 12:44
PROVIDERS: ATTEND Internal Medicine
DX: D51.9 Vitamin B12 deficiency anemia, unspecified (principal); E66.01 Morbid (severe) obesity due to excess calories; K57.30 Diverticulosis of large intestine without perforation or abscess without bleeding; D69.6 Thrombocytopenia, unspecified; Z88.8 Allergy status to other drugs, medicaments and biological substances
CPT/HCPCS: 36415; 80053; 82607; 82728; 82746; 83540; 83550; 83615; 85025

== ENCOUNTER → 2023-06-12 | Outpatient (CLI) | payer MEDICARE, MEDICAID ==
[2023-06-12 14:19] LABS: Basophils # (auto) 0 10 ^3/uL (0-0.2); Basophils % (auto) 0.6 % (0.0-2.0); Eosinophils # (auto) 0 10 ^3/uL (0-0.8); Hematocrit 39.4 % (36.0-46.0); Hemoglobin 12.9 g/dL (12.2-16.2); Lymphocytes # (auto) 1.7 10 ^3/uL (0.4-5.4); Lymphocytes % (auto) 47.8 % (10.0-50.0); Mean Corpuscular Hemoglobin 28.9 pg (28.0-32.0); Mean Corpuscular Hgb Conc. 32.7 g/dL (32.0-36.0); Mean Corpuscular Volume 88.5 fL (80.0-100.0); Monocytes # (auto) 0.5 10 ^3/uL (0-1.3); Monocytes % (auto) 14.5 % (0.0-12.0); Neutrophils # (auto) 1.3 10 ^3/uL (1.6-8.6); Neutrophils % (auto) 36.1 % (37.0-80.0); Nucleated Red Blood Cells % 0.1 %; Red Blood Cells 4.45 10^6/uL (4.0-5.20); Red Cell Distribution Width 13.6 % (11.8-14.3); White Blood Cell 3.6 10^3/uL (4.4-10.8)
[2023-06-12 14:34] LABS: INR 1.03 (0.9-1.15); Partial Thromboplastin Time 28.4 SEC (24.5-34.5); Prothrombin Time 10.8 sec (9.3-11.8)
[2023-06-12 14:52] LABS: Alanine Aminotransferase 15 U/L (7-40); Alkaline Phosphatase 128 U/L (46-116); Anion Gap 8 (5-15); Aspartate Aminotransferase 17 U/L (13-40); BUN/Creatinine Ratio 11.8 (10.0-20.0); Bilirubin, Total 0.6 mg/dL (0.2-1.0); Blood Urea Nitrogen 16 mg/dL (9-23); Calcium 9.4 mg/dL (8.5-10.1); Carbon Dioxide 27 mmol/L (20-30); Chloride 105 mmol/L (98-107); Glucose 85 mg/dL (74-106); Sodium 140 mmol/L (136-145); Total Protein 7.6 g/dL (5.7-8.2)
[2023-06-12 14:53] LABS: % Iron Saturation 25.8 % (15-50)
[2023-06-12 14:56] LABS: Hepatitis B Surface Antibody Positive (Negative)
[2023-06-12 15:02] LABS: Folate (Folic Acid) 11.24 ng/mL (>5.38)
[2023-06-12 15:03] LABS: Ferritin 33.7 ng/mL (10-291)
[2023-06-12 15:09] LABS: Hepatitis B Surface Antigen Negative (Negative)
[2023-06-12 15:30] LABS: Hepatitis C Antibody Negative (Negative)
== END | disposition home or self-care (01) ==
LOC: LAB 13:41
PROVIDERS: ATTEND Physician Assistant
DX: E66.01 Morbid (severe) obesity due to excess calories (principal); D51.9 Vitamin B12 deficiency anemia, unspecified; D69.6 Thrombocytopenia, unspecified; K57.30 Diverticulosis of large intestine without perforation or abscess without bleeding
CPT/HCPCS: 36415; 80053; 82607; 82728; 82746; 83540; 83550; 83615; 85025; 85610; 85730; 86038; 86706; 86803; 87340

== ENCOUNTER → 2023-08-25 | Outpatient (CLI) | payer MEDICARE, MEDICAID ==
[2023-08-25 10:41] LABS: Basophils # (auto) 0 10 ^3/uL (0-0.2); Basophils % (auto) 0.4 % (0.0-2.0); Eosinophils # (auto) 0 10 ^3/uL (0-0.8); Eosinophils % (auto) 0.6 % (0.0-7.0); Hematocrit 39.1 % (36.0-46.0); Hemoglobin 12.6 g/dL (12.2-16.2); Mean Corpuscular Hemoglobin 28.5 pg (28.0-32.0); Mean Corpuscular Hgb Conc. 32.1 g/dL (32.0-36.0); Mean Corpuscular Volume 88.7 fL (80.0-100.0); Monocytes # (auto) 0.6 10 ^3/uL (0-1.3); Monocytes % (auto) 12.4 % (0.0-12.0); Neutrophils # (auto) 2.3 10 ^3/uL (1.6-8.6); Neutrophils % (auto) 46.6 % (37.0-80.0); Nucleated Red Blood Cells % 0.2 %; Red Blood Cells 4.41 10^6/uL (4.0-5.20); Red Cell Distribution Width 13.7 % (11.8-14.3)
[2023-08-25 11:19] LABS: Urine Bacteria NONE SEEN /hpf (None Seen); Urine Blood TRACE /uL (Negative); Urine Clarity HAZY (Clear); Urine Color Yellow (Yellow); Urine Protein, UAD TRACE (Negative); Urine Specific Gravity 1.017 (1.001-1.035); Urine Urobilinogen Normal (Negative); Urine WBC 94 /hpf (0 - 5)
[2023-08-25 11:28] LABS: Alanine Aminotransferase 13 U/L (7-40); Albumin 3.9 g/dL (3.2-4.8); Alkaline Phosphatase 135 U/L (46-116); Anion Gap 5 (5-15); Aspartate Aminotransferase 15 U/L (13-40); BUN/Creatinine Ratio 9.7 (10.0-20.0); Blood Urea Nitrogen 14 mg/dL (9-23); Calcium 9.5 mg/dL (8.5-10.1); Carbon Dioxide 26 mmol/L (20-30); Chloride 108 mmol/L (98-107); Glucose 95 mg/dL (74-106); LDL Cholesterol 41 mg/dL (< 100); Potassium 4.5 mmol/L (3.5-5.1); Sodium 139 mmol/L (136-145); Triglycerides 62 mg/dL (< 150)
[2023-08-25 11:29] LABS: Bilirubin, Total 0.8 mg/dL (0.2-1.0); Cholesterol 90 mg/dL (< 200); HDL Cholesterol 38 mg/dL (40-59); Total Protein 7.1 g/dL (5.7-8.2)
== END | disposition home or self-care (01) ==
LOC: LAB 10:06
PROVIDERS: ATTEND Nurse Practitioner
DX: I10 Essential (primary) hypertension (principal); E78.5 Hyperlipidemia, unspecified; R73.9 Hyperglycemia, unspecified; E03.9 Hypothyroidism, unspecified
CPT/HCPCS: 36415; 80053; 80061; 81001; 83036; 84443; 85025

== ENCOUNTER → 2023-09-05 | Outpatient (CLI) | payer MEDICARE, MEDICAID ==
[2023-09-05 10:55] LABS: Basophils # (auto) 0 10 ^3/uL (0-0.2); Basophils % (auto) 0.4 % (0.0-2.0); Eosinophils # (auto) 0 10 ^3/uL (0-0.8); Eosinophils % (auto) 0.9 % (0.0-7.0); Hematocrit 38.9 % (36.0-46.0); Hemoglobin 12.7 g/dL (12.2-16.2); Lymphocytes # (auto) 1.9 10 ^3/uL (0.4-5.4); Lymphocytes % (auto) 37.9 % (10.0-50.0); Mean Corpuscular Hemoglobin 28.5 pg (28.0-32.0); Mean Corpuscular Hgb Conc. 32.6 g/dL (32.0-36.0); Mean Corpuscular Volume 87.5 fL (80.0-100.0); Monocytes # (auto) 0.7 10 ^3/uL (0-1.3); Monocytes % (auto) 13.8 % (0.0-12.0); Neutrophils # (auto) 2.3 10 ^3/uL (1.6-8.6); Nucleated Red Blood Cells % 0.1 %; Red Blood Cells 4.45 10^6/uL (4.0-5.20); Red Cell Distribution Width 14.1 % (11.8-14.3)
[2023-09-05 12:02] LABS: Folate (Folic Acid) 16.65 ng/mL (>5.38)
[2023-09-05 12:03] LABS: Albumin 3.8 g/dL (3.2-4.8); Alkaline Phosphatase 141 U/L (46-116); Anion Gap 4 (5-15); Aspartate Aminotransferase 13 U/L (13-40); BUN/Creatinine Ratio 10.2 (10.0-20.0); Bilirubin, Total 0.6 mg/dL (0.2-1.0); Blood Urea Nitrogen 14 mg/dL (9-23); Calcium 9.3 mg/dL (8.7-10.4); Carbon Dioxide 28 mmol/L (20-30); Chloride 107 mmol/L (98-107); Ferritin 16.9 ng/mL (10-291); Glucose 96 mg/dL (74-106); Potassium 4.5 mmol/L (3.5-5.1); Sodium 139 mmol/L (136-145); Total Protein 7.4 g/dL (5.7-8.2)
[2023-09-05 12:13] LABS: Alanine Aminotransferase < 9 U/L (7-40)
[2023-09-05 12:52] LABS: % Iron Saturation 15.1 % (15-50)
== END | disposition home or self-care (01) ==
LOC: LAB 10:02
DX: D51.9 Vitamin B12 deficiency anemia, unspecified (principal); D69.6 Thrombocytopenia, unspecified; K57.30 Diverticulosis of large intestine without perforation or abscess without bleeding; E66.01 Morbid (severe) obesity due to excess calories
CPT/HCPCS: 36415; 80053; 82607; 82728; 82746; 83540; 83550; 85025

== ENCOUNTER → 2024-01-12 | Outpatient (CLI) | payer MEDICARE, MEDICAID ==
[~2024-01-12] MED LIST changes: -BENA-19 PO; +BENA10TA90 PO; +ISOS1TAB29 PO; -ISOS60TA24 PO
[2024-01-12 12:54] LABS: Basophils # (auto) 0 10 ^3/uL (0-0.2); Basophils % (auto) 0.4 % (0.0-2.0); Eosinophils # (auto) 0.1 10 ^3/uL (0-0.8); Eosinophils % (auto) 1.1 % (0.0-7.0); Hematocrit 38.1 % (36.0-46.0); Hemoglobin 12.6 g/dL (12.2-16.2); Lymphocytes # (auto) 1.9 10 ^3/uL (0.4-5.4); Lymphocytes % (auto) 37.9 % (10.0-50.0); Monocytes # (auto) 0.6 10 ^3/uL (0-1.3); Monocytes % (auto) 12.5 % (0.0-12.0); Neutrophils # (auto) 2.5 10 ^3/uL (1.6-8.6); Neutrophils % (auto) 48.1 % (37.0-80.0); Nucleated Red Blood Cells % 0.1 %; Red Blood Cells 4.32 10^6/uL (4.0-5.20); Red Cell Distribution Width 14.2 % (11.8-14.3); White Blood Cell 5.1 10^3/uL (4.4-10.8)
[2024-01-12 13:29] LABS: % Iron Saturation 18.5 % (15-50)
== END | disposition home or self-care (01) ==
LOC: LAB 12:19
PROVIDERS: ATTEND Internal Medicine
DX: K57.30 Diverticulosis of large intestine without perforation or abscess without bleeding (principal); D51.9 Vitamin B12 deficiency anemia, unspecified; E66.01 Morbid (severe) obesity due to excess calories; D69.6 Thrombocytopenia, unspecified
CPT/HCPCS: 36415; 82728; 83540; 83550; 85025

== ENCOUNTER → 2024-02-12 | Outpatient (CLI) | payer MEDICARE, MEDICAID ==
[2024-02-12 14:31] LABS: Basophils # (auto) 0 10 ^3/uL (0-0.2); Basophils % (auto) 0.6 % (0.0-2.0); Eosinophils # (auto) 0 10 ^3/uL (0-0.8); Eosinophils % (auto) 0.5 % (0.0-7.0); Hematocrit 34.8 % (36.0-46.0); Hemoglobin 11.5 g/dL (12.2-16.2); Lymphocytes % (auto) 35.6 % (10.0-50.0); Mean Corpuscular Hgb Conc. 32.9 g/dL (32.0-36.0); Monocytes # (auto) 0.9 10 ^3/uL (0-1.3); Monocytes % (auto) 15.9 % (0.0-12.0); Neutrophils # (auto) 2.6 10 ^3/uL (1.6-8.6); Neutrophils % (auto) 47.4 % (37.0-80.0); Nucleated Red Blood Cells % 0.1 %; Platelet Count (auto) 109 10^3/uL (140-450); Red Blood Cells 3.95 10^6/uL (4.0-5.20); Red Cell Distribution Width 14.4 % (11.8-14.3); White Blood Cell 5.5 10^3/uL (4.4-10.8)
[2024-02-12 15:07] LABS: Alanine Aminotransferase 12 U/L (7-40); Albumin 3.7 g/dL (3.2-4.8); Alkaline Phosphatase 131 U/L (46-116); Anion Gap 5 (5-15); Aspartate Aminotransferase 15 U/L (13-40); BUN/Creatinine Ratio 12.1 (10.0-20.0); Bilirubin, Total 0.8 mg/dL (0.2-1.0); Blood Urea Nitrogen 17 mg/dL (9-23); Calcium 9.7 mg/dL (8.7-10.4); Carbon Dioxide 27 mmol/L (20-30); Chloride 108 mmol/L (98-107); Glucose 80 mg/dL (74-106); Potassium 4.4 mmol/L (3.5-5.1); Sodium 140 mmol/L (136-145); Total Protein 7.3 g/dL (5.7-8.2)
[2024-02-12 15:10] LABS: Folate (Folic Acid) 10.58 ng/mL (>5.38)
== END | disposition home or self-care (01) ==
LOC: LAB 14:11
PROVIDERS: ATTEND Nurse Practitioner Family
DX: K57.30 Diverticulosis of large intestine without perforation or abscess without bleeding (principal); D51.9 Vitamin B12 deficiency anemia, unspecified; E66.01 Morbid (severe) obesity due to excess calories; D69.6 Thrombocytopenia, unspecified
CPT/HCPCS: 36415; 80053; 82607; 82728; 82746; 83540; 83550; 85025

== ENCOUNTER 2025-04-15 22:08 | Inpatient (IN) | payer MEDICARE, MEDICAID ==
[~2025-04-15] VITALS: Ht 162.6 cm; Wt 157.9 kg
--- NOTE | 2025-04-15 22:42 | ED.PDOC ---
History of Present Illness HPI Comments 65 y/o morbidly obese F is BIBA for c/c of nonradiating, lower abdominal pain and nausea. Significant history for CVA w/left-sided deficits, diverticulitis, hypertension, and UTI's. Patient endorses 4x day history of pain following initial, unprovoked and atraumatic onset. She comments on pain feeling similar to previous time she had diverticulitis. No reported recent travel or sick contact. Denies any vomiting, diarrhea, constipation, urinary problems, or further acute symptoms. Per EMS personnel report, patient received 100umg fentanyl IM. Chief Complaint: Abdominal Pain Time Seen by MD: 23:00 Reviewed Notes: Nurses Notes, Medications, Allergies Allergies: Coded Allergies: Acetaminophen (Verified Allergy, Unknown, 04/15/25) Aspirin (Verified Allergy, Unknown, 04/15/25) Information Source: Patient Mode of Arrival: EMS Severity: Moderate Timing: Days Duration: Since onset Prehospital treatment: None Past Medical History PAST MEDICAL HISTORY: CVA (with left-sided deficits), HTN, UTI'S Past Medical History (Other): Morbid obesity Diverticulitis Surgical History: Denies all surgeries Family History Family History: Unknown Social History Smoker: Non-Smoker Alcohol: Denies ETOH Use Drugs: Denies Drug Use Lives In: Home All Other Systems: Reviewed and Negative (Comprehensive systems review obtained and negative except for what is stated in the HPI.) Physical Exam General Appearance: No Apparent Distress, Obese HEENT: Normal ENT Inspection, Pharynx Normal, TMs Normal Neck: Full Range of Motion, Non-Tender, Normal, Normal Inspection Respiratory: Chest Non-Tender, Lungs Clear, No Accessory Muscle Use, No Respiratory Distress, Normal Breath Sounds Cardiovascular: No Edema, No JVD, No Murmur, No Gallop, Normal Peripheral Pulses, Regular Rate/Rhythm Breast Exam: Deferred Gastrointestinal: Diffuse (tenderness ), No Organomegaly, No Pulsatile Mass, Normal Bowel Sounds, Soft, Tenderness (diffused ) Genitalia: Deferred Pelvic: Deferred Rectal: Deferred Extremities: No calf tenderness, Normal capillary refill, Normal inspection, Normal range of motion, Non-tender, No pedal edema Musculoskeletal : Apperance: Normal Neurologic: Alert, correctional treatment specialist II-XII nml as Tested, No Motor Deficits, Normal Affect, Normal Mood, No Sensory Deficits Cerebellar Function: Normal Reflexes: Normal Skin: Dry, Normal Color, Warm Lymphatic: No Adenopathy Was a procedure done? Was a procedure done?: No Differential Dx Considerations may include: diverticulitis, gastritis, gastroenteritis, GERD, cholelithiasis, nephrolithiasis, pyelonephritis, cystitis, among others X-Ray, Labs, Meds, VS Vital Signs Date Time Temp Pulse Resp B/P (MAP) Pulse Ox O2 Delivery O2 Flow Rate FiO2 04/16/25 01:11 98.1 71 20 114/46 (68) 97 98.1 04/15/25 22:29 98.7 79 13 107/52 (70) 99 98.7 04/15/25 22:28 Room Air* 0 21 04/15/25 22:15 78 04/15/25 22:10 97.3 80 20 134/53 100 97.3 Lab Test 04/15/25 23:59 04/15/25 22:53 Range/Units Urine Color Yellow Yellow Urine Clarity Ex.turbid Clear Urine pH 5.5 5.0-9.0 Urine Specific [place] 1.038 H 1.001-1.035 Urine Protein 1+ H Negative Urine Ketones Trace Negative Urine Blood 3+ H Negative /uL Urine Nitrite Negative Negative Urine Bilirubin Negative Negative Urine Urobilinogen 2 H Negative mg/dL Urine Leukocyte Esterase 3+ Negative /uL Urine RBC 147 0 - 4 /hpf Urine Microscopic WBC 67 H 0-5 /HPF Urine Squamous Epithelial Cells Many <5 /hpf Urine Calcium Oxalate Crystals Few None Seen Urine Bacteria None seen None Seen /hpf Urine Mucus Few None Seen Urine Glucose Normal Normal mg/dL White Blood Count 7.0 4.4-10.8 10^3/uL Red Blood Count 2.65 L 4.0-5.20 10^6/uL Hemoglobin 7.7 L 12.2-16.2 g/dL Hematocrit 24.0 L 36.0-46.0 % Mean Corpuscular Volume 90.7 80.0-100.0 fL Mean Corpuscular Hemoglobin 29.0 28.0-32.0 pg Mean Corpuscular Hemoglobin Concent 32.0 32.0-36.0 g/dL Red Cell Distribution Width 18.1 H 11.8-14.3 % Platelet Count 245 140-450 10^3/uL Mean Platelet Volume 6.9 6.9-10.8 fL Neutrophils (%) (Auto) 74.3 37.0-80.0 % Lymphocytes (%) (Auto) 16.0 10.0-50.0 % Monocytes (%) (Auto) 8.7 0.0-12.0 % Eosinophils (%) (Auto) 0.5 0.0-7.0 % Basophils (%) (Auto) 0.5 0.0-2.0 % Neutrophils # (Auto) 5.2 1.6-8.6 10 ^3/uL Lymphocytes # (Auto) 1.1 0.4-5.4 10 ^3/uL Monocytes # (Auto) 0.6 0-1.3 10 ^3/uL Eosinophils # (Auto) 0 0-0.8 10 ^3/uL Basophils # (Auto) 0 0-0.2 10 ^3/uL Nucleated Red Blood Cells 0.2 % Sodium Level 138 136-145 mmol/L Potassium Level 3.5 3.5-5.1 mmol/L Chloride Level 108 H 98-107 mmol/L Carbon Dioxide Level 21 20-31 mmol/L Anion Gap 9 5-15 Blood Urea Nitrogen 11 9-23 mg/dL Creatinine 0.66 0.550-1.02 mg/dL Glomerular Filtration Rate Calc 97 >90 mL/min BUN/Creatinine Ratio 16.7 10.0-20.0 Serum Glucose 83 74-106 mg/dL Calcium Level 7.8 L 8.7-10.4 mg/dL Total Bilirubin 0.3 0.2-1.0 mg/dL Aspartate Amino Transferase (AST) 22 13-40 U/L Alanine Aminotransferase (ALT) 20 7-40 U/L Alkaline Phosphatase 97 46-116 U/L Total Protein 5.9 5.7-8.2 g/dL Albumin 2.4 L 3.2-4.8 g/dL Lipase 31 12-53 U/L X-Ray, Labs, Meds, VS Comment Patient will be admitted for abdominal pain urinary tract infection Patient be started on Rocephin 1 g IM Patient may need social service consult upon discharge Time of 1ST Reevaluation: 01:37 Reevaluation 1ST: Unchanged Patient Education/Counseling: Diagnosis, Treatment Family Education/Counseling: No Family Present SEPSIS Sepsis Screen Date sepsis recognized/suspect: Apr 15, 2025 Time Sepsis recognized/suspect: 2209 Recent Procedure: No On Antibiotic Therapy: No Respiratory Rate >20: Yes Heart Rate >90: No Temp<36 C (96.8 F) or >38.3 C: Yes SBP <90 or MAP <65 mmHG: No New Acute Mental Status Change: No Is the patient on CPAP, BIPAP,: No Physician Orders Electrocardigram (04/15/25 22:29) Ct Ab Pel Wo Con-No Oral Or Iv (04/15/25 22:37) Ceftriaxone W Lidocaine (Rocephin W Lido (04/16/25 01:45) Vital Signs Date Time Temp Pulse Resp B/P (MAP) Pulse Ox O2 Delivery O2 Flow Rate FiO2 04/16/25 01:11 98.1 71 20 114/46 (68) 97 98.1 04/15/25 22:29 98.7 79 13 107/52 (70) 99 98.7 04/15/25 22:28 Room Air* 0 21 04/15/25 22:15 78 04/15/25 22:10 97.3 80 20 134/53 100 97.3 Laboratory Tests Test 04/15/25 22:53 White Blood Count 7.0 10^3/uL (4.4-10.8) Departure 1 Departure Time of Disposition: 00:18 Impression: Primary Impression: Non-specific colitis Additional Impressions: Abdominal pain Qualified Codes: R10.84 - Generalized abdominal pain UTI (urinary tract infection) Qualified Codes: N30.01 - Acute cystitis with hematuria Disposition: ADMITTED INPATIENT Condition: Stable Discharged With: Self Critical Care Note Critical Care Time?: No Stability Stability form required: No Heart Score Heart Score: Heart Score Response (Comments) Value History N/A 0 EKG N/A 0 Age N/A 0 Risk Factors N/A 0 Troponin N/A 0 Total 0 I personally scribed for ESTRELLA POSADAS ([email or web address]) on 04/15/25 at 22:42. Electronically submitted by Milind Delgado ([email or web address]). ESTRELLA POSADAS Apr 15, 2025 22:42
[2025-04-15 23:02] LABS: Hemoglobin 7.7 g/dL (12.2-16.2); Nucleated Red Blood Cells % 0.2 %
[2025-04-15 23:04] LABS: Hematocrit 24.0 % (36.0-46.0); Mean Corpuscular Hemoglobin 29.0 pg (28.0-32.0); Mean Corpuscular Volume 90.7 fL (80.0-100.0)
[2025-04-15 23:21] LABS: Alanine Aminotransferase 20 U/L (7-40); Alkaline Phosphatase 97 U/L (46-116); Anion Gap 9 (5-15); BUN/Creatinine Ratio 16.7 (10.0-20.0); Blood Urea Nitrogen 11 mg/dL (9-23); Carbon Dioxide 21 mmol/L (20-31); Glucose 83 mg/dL (74-106); Lipase 31 U/L (12-53); Potassium 3.5 mmol/L (3.5-5.1); Sodium 138 mmol/L (136-145); Total Protein 5.9 g/dL (5.7-8.2)
[2025-04-15 23:22] LABS: Albumin 2.4 g/dL (3.2-4.8); Bilirubin, Total 0.3 mg/dL (0.2-1.0); Calcium 7.8 mg/dL (8.7-10.4); Chloride 108 mmol/L (98-107)
--- NOTE | 2025-04-15 23:47 | DVH ---
Exam: CT CT AB PEL WO CON-NO ORAL OR IV History: abd pain Comparison Study: None TECHNIQUE: Multidetector CT of the abdomen and pelvis was performed from lung bases to pubic symphysi s. Imaging was performed without IV contrast. Axial, coronal, and sagittal multiplanar reformats were obtained from the axial data set by the technologist. RADIATION DOSE: CTDI vol 27.14 mGy. DLP 1505.89 mGy.cm Findings: Limited evaluation of the solid organs in the absence of IV contrast. Evaluation is also degraded by poor signal to noise ratio. Lungs: Minimal basilar atelectasis. Liver: Unremarkable. Spleen: Unremarkable. Pancreas: Unremarkable. Gallbladder: Prior cholecystectomy. Adrenals: Unremarkable Kidneys: Unremarkable. Pelvic Viscera: Unremarkable. Vasculature: Unremarkable. Retroperitoneum: Nonspecific surgical clips/radiopaque densities are seen within the right pelvis. Bowel: No bowel obstruction. Colonic diverticulosis without CT evidence of diverticulitis. The append ix is normal. Musculoskeletal: Unremarkable. Soft tissues: Unremarkable Impression: 1. Limited evaluation as above without acute abdominopelvic abnormality.
[2025-04-16 01:27] LABS: Urine Protein, UAD 1+ (Negative)
[2025-04-16] MEDS: cefTRIAXone W LIDOCAINE 1 GM IM IM ONE ×2 (01:45→03:52)
[2025-04-16] MEDS ORDERED: ONDANSETRON HCL 4 MG/2 ML VIAL IV PRN (02:00)
[2025-04-16] MEDS ORDERED: DOCUSATE SOD 100 MG CAP PO PRN (02:00)
[2025-04-16] MEDS: CALCIUM GLUC 1,000mg/50ml-NS 50 ML IV ONE (02:00)
[2025-04-16 02:17] LABS: Hemoglobin 7.9 g/dL (12.2-16.2)
[2025-04-16 02:18] LABS: Hematocrit 24.4 % (36.0-46.0); Mean Corpuscular Hemoglobin 28.9 pg (28.0-32.0); Mean Corpuscular Volume 89.2 fL (80.0-100.0); Nucleated Red Blood Cells % 0.2 %
[2025-04-16 02:35] LABS: Alanine Aminotransferase 21 U/L (7-40); Alkaline Phosphatase 101 U/L (46-116); Anion Gap 9 (5-15); BUN/Creatinine Ratio 19.7 (10.0-20.0); Bilirubin, Total 0.3 mg/dL (0.2-1.0); Blood Urea Nitrogen 13 mg/dL (9-23); Carbon Dioxide 23 mmol/L (20-31); Glucose 84 mg/dL (74-106); Potassium 3.6 mmol/L (3.5-5.1); Sodium 139 mmol/L (136-145); Total Protein 6.1 g/dL (5.7-8.2)
[2025-04-16 02:36] LABS: Albumin 2.5 g/dL (3.2-4.8); Calcium 7.8 mg/dL (8.7-10.4); Chloride 107 mmol/L (98-107)
[2025-04-16] MEDS ORDERED: NITROGLYCERIN 0.4 MG SL TAB SL PRN (03:30)
[2025-04-16] MEDS ORDERED: MORPHINE SULFATE INJ 2 MG/ml SYRG IV PRN (03:30)
[2025-04-16] MEDS: ALBUMIN 25% 100 ML IV ONE (03:30)
--- NOTE | 2025-04-16 03:54 | DVHHP2 ---
History of Present Illness Reason for Visit: Abdominal pain History of Present Illness The patient is a 65-year-old female morbidly obese with past medical history of diverticulitis, hypertension, CVA with left-sided deficit, and UTIs presented to [facility] ED with complaint of abdominal pain. Patient reports she has been experiencing lower abdominal pain, rating 8/10 numeric scale, associated with nausea and vomiting. Patient was seen and evaluated in the ED, laboratory data shows WBC 7.0, hemoglobin 7.7, hematocrit 24.0, platelets 245, sodium 138, potassium 3.5, BUN 11, creatinine 0.66, glucose 83, calcium 7.8, albumin 2.4, lipase 31, blood pressure 114/46, heart rate 72, temperature 98.1 F, O2 saturation 97% on room air. Abdomen/pelvis CT showed no acute abdominopelvic abnormality; urinalysis positive for urinary tract infection. Patient was started on IV antibiotic regimen Rocephin, please see medication orders section in the computer. On my assessment, patient denied chest pain, no headache, dizziness, diaphoresis, shortness of breaths, no abdominal pain, diar cale, nausea or vomiting at this moment, fever, no chills. Patient was admitted for further evaluation and medical management. Past Medical History CVA, Hypertension, UTIs, Morbid obesity, Diverticulitis Past Surgical History Abdominal surgery Family History Reviewed, noncontributory to the management of this case. Past Social History The patient lives at home, denies smoking, alcohol or illicit drugs abuse. Review of Systems Constitutional: No: Fever, Chills, Sweats, Weakness, Malaise, Other Eyes: No: Pain, Vision change, Conjunctivae inflammation, Eyelid inflammation, Other, Redness ENT: No: Ear pain, Ear discharge, Nose pain, Nose discharge, Nose congestion, Mouth pain, Mouth swelling, Throat pain, Throat swelling, Other Respiratory: No: Cough, Dry, Shortness of breath, SOB with excertion, Wheezing, Hemoptysis, Pleuritic Pain, Sputum, Wheezing, Other Cardiovascular: No: Chest Pain, Palpitations, Orthopnea, Paroxysmal Noc. Dysp elian, Edema, Lt Headedness, Other Gastrointestinal: Nausea, Vomiting, Abdominal Pain; No: Diarrhea, Constipation, Melena, Hematochezia, Other Genitourinary: No Dysuria, No Frequency, No Incontinence, No Hematuria, No Retention, No Other Musculoskeletal: No: other, neck pain, shoulder pain, arm pain, back pain, hand pain, leg pain, foot pain Skin: No: Rash, Lesions, Jaundice, Bruising, Other Neurological: No: Weakness, Numbness, Incoordination, Change in speech, Confusion, Seizures, Other Allergies: Coded Allergies: Acetaminophen (Verified Allergy, Unknown, 04/15/25) Aspirin (Verified Allergy, Unknown, 04/15/25) Medications Current Medications Medications Dose Ordered Sig/Jon Route Start Time Stop Time Status Last Admin Dose Admin Ceftriaxone Sodium 50 ml @ 100 mls/hr DAILY@09 IV 04/16/25 09:00 Sodium Chloride 1,000 ml @ 60 mls/hr [id number] IV 04/16/25 02:00 Ondansetron HCl 4 mg Q4HP PRN IV 04/16/25 02:00 Docusate Sodium 100 mg BIDPRN PRN PO 04/16/25 02:00 Tramadol HCl 50 mg Q6HP PRN PO 04/16/25 02:00 Exam Vital Signs Vital Signs Date Time Temp Pulse Resp B/P (MAP) Pulse Ox O2 Delivery O2 Flow Rate FiO2 04/16/25 03:13 98.1 81 20 114/46 (68) 97 98.1 04/15/25 22:28 Room Air* 0 21 General Appearance: Alert, Oriented X3, Cooperative, No acute distress HEENT: Atraumatic, PERRLA, EOMI, Mucous membr. moist/pink Respiratory: Normal air movement Cardiovascular: Regular rate, Normal S1, Normal S2, No murmurs Abdominal: Normal bowel sounds, Soft, No hepatospenomegaly, No masses, Other (Reports tenderness) Extremities: No clubbing, No cyanosis, No edema, Normal pulses, No tenderness/swelling Skin: No rashes, No significant lesion Neuro: Normal speech, Normal tone, Sensation intact, Cranial nerves 3-12 NL, Reflexes 2+, Other (Weakness) Psych/Mental Status: Mental status NL, Mood NL Labs/Xrays Labs Test 04/16/25 02:08 04/15/25 23:59 04/15/25 22:53 Range/Units White Blood Count 6.0 4.4-10.8 10^3/uL Red Blood Count 2.73 L 4.0-5.20 10^6/uL Hemoglobin 7.9 L 12.2-16.2 g/dL Hematocrit 24.4 L 36.0-46.0 % Mean Corpuscular Volume 89.2 80.0-100.0 fL Mean Corpuscular Hemoglobin 28.9 28.0-32.0 pg Mean Corpuscular Hemoglobin Concent 32.4 32.0-36.0 g/dL Red Cell Distribution Width 17.0 H 11.8-14.3 % Platelet Count 258 140-450 10^3/uL Mean Platelet Volume 6.8 L 6.9-10.8 fL Neutrophils (%) (Auto) 77.4 37.0-80.0 % Lymphocytes (%) (Auto) 15.7 10.0-50.0 % Monocytes (%) (Auto) 6.0 0.0-12.0 % Eosinophils (%) (Auto) 0.5 0.0-7.0 % Basophils (%) (Auto) 0.4 0.0-2.0 % Neutrophils # (Auto) 4.6 1.6-8.6 10 ^3/uL Lymphocytes # (Auto) 0.9 0.4-5.4 10 ^3/uL Monocytes # (Auto) 0.4 0-1.3 10 ^3/uL Eosinophils # (Auto) 0 0-0.8 10 ^3/uL Basophils # (Auto) 0 0-0.2 10 ^3/uL Nucleated Red Blood Cells 0.2 % Sodium Level 139 136-145 mmol/L Potassium Level 3.6 3.5-5.1 mmol/L Chloride Level 107 98-107 mmol/L Carbon Dioxide Level 23 20-31 mmol/L Anion Gap 9 5-15 Blood Urea Nitrogen 13 9-23 mg/dL Creatinine 0.66 0.550-1.02 mg/dL Glomerular Filtration Rate Calc 97 >90 mL/min BUN/Creatinine Ratio 19.7 10.0-20.0 Serum Glucose 84 74-106 mg/dL Calcium Level 7.8 L 8.7-10.4 mg/dL Total Bilirubin 0.3 0.2-1.0 mg/dL Aspartate Amino Transferase (AST) 22 13-40 U/L Alanine Aminotransferase (ALT) 21 7-40 U/L Alkaline Phosphatase 101 46-116 U/L Total Protein 6.1 5.7-8.2 g/dL Albumin 2.5 L 3.2-4.8 g/dL Urine Color Yellow Yellow Urine Clarity Ex.turbid Clear Urine pH 5.5 5.0-9.0 Urine Specific [place] 1.038 H 1.001-1.035 Urine Protein 1+ H Negative Urine Ketones Trace Negative Urine Blood 3+ H Negative /uL Urine Nitrite Negative Negative Urine Bilirubin Negative Negative Urine Urobilinogen 2 H Negative mg/dL Urine Leukocyte Esterase 3+ Negative /uL Urine RBC 147 0 - 4 /hpf Urine Microscopic WBC 67 H 0-5 /HPF Urine Squamous Epithelial Cells Many <5 /hpf Urine Calcium Oxalate Crystals Few None Seen Urine Bacteria None seen None Seen /hpf Urine Mucus Few None Seen Urine Glucose Normal Normal mg/dL Lipase 31 12-53 U/L PATIENT: ROMINA COMER ACCT: [id number] UNIT: [id number] : 12/06/1959 LOC: ER ROOM / BED: / AGE / SEX: 65 / F ADM STATUS: REG ER SERVICE 36 ORDERING PHYSICIAN: ESTRELLA POSADAS PROCEDURE(s): ABPL - CT AB PEL WO CON-NO ORAL OR IV REASON: abd pain ORDER NUMBER(s): [id number], ACCESSION NUMBER(s): [id number] Exam: CT CT AB PEL WO CON-NO ORAL OR IV History: abd pain Comparison Study: None TECHNIQUE: Multidetector CT of the abdomen and pelvis was performed from lung bases to pubic symphysis. Imaging was performed without IV contrast. Axial, coronal, and sagittal multiplanar reformats were obtained from the axial data set by the technologist. RADIATION DOSE: CTDI vol 27.14 mGy. DLP 1505.89 mGy.cm Findings: Limited evaluation of the solid organs in the absence of IV contrast. Evaluation is also degraded by poor signal to noise ratio. Lungs: Minimal basilar atelectasis. Liver: Unremarkable. Spleen: Unremarkable. Pancreas: Unremarkable. Gallbladder: Prior cholecystectomy. Adrenals: Unremarkable Kidneys: Unremarkable. Pelvic Viscera: Unremarkable. Vasculature: Unremarkable. Retroperitoneum: Nonspecific surgical clips/radiopaque densities are seen within the right pelvis. Bowel: No bowel obstruction. Colonic diverticulosis without CT evidence of diverticulitis. The appendix is normal. Musculoskeletal: Unremarkable. Soft tissues: Unremarkable Impression: 1. Limited evaluation as above without acute abdominopelvic abnormality. SEPSIS Sepsis Screen Date sepsis recognized/suspect: Apr 15, 2025 Time Sepsis recognized/suspect: 2209 Recent Procedure: No On Antibiotic Therapy: No Respiratory Rate >20: Yes Heart Rate >90: No Temp<36 C (96.8 F) or >38.3 C: Yes SBP <90 or MAP <65 mmHG: No New Acute Mental Status Change: No Is the patient on CPAP, BIPAP,: No Physician Orders Electrocardigram (04/15/25 22:29) Ct Ab Pel Wo Con-No Oral Or Iv (04/15/25 22:37) Urine Bacterial Culture (04/16/25 01:50) Ceftriaxone 1gm/50ml (Rocephin) (04/16/25 09:00) Type And Screen (04/16/25 01:50) Allergies (04/16/25 01:50) Code Status (04/16/25 01:50) Sodium Chloride 0.9% (04/16/25 02:00) Oxygen Per Hour (04/16/25 01:50) Ondansetron Hcl (Zofran) (04/16/25 02:00) Docusate Sodium Capsule (Colace Capsule) (04/16/25 02:00) Fall Risk Precautions In Place QSHIFT (04/16/25 01:50) Complete Blood Count (04/17/25 04:00) Comprehensive Metabolic Panel (04/17/25 04:00) Cardiac Diet-2gna,Lofat,Lochol (04/16/25 Breakfast) Condition: Serious (04/16/25 01:50) Maintain Bed Rest (04/16/25 01:50) Sequential Compression Device (04/16/25 ) Tramadol Hcl (Ultram) (04/16/25 02:00) * Picc Line Consult (04/16/25 02:56) Vital Signs Date Time Temp Pulse Resp B/P (MAP) Pulse Ox O2 Delivery O2 Flow Rate FiO2 04/16/25 03:13 98.1 81 20 114/46 (68) 97 98.1 04/16/25 01:11 98.1 71 20 114/46 (68) 97 98.1 04/16/25 00:00 79 04/15/25 22:29 98.7 79 13 107/52 (70) 99 98.7 04/15/25 22:28 Room Air* 0 21 04/15/25 22:15 78 04/15/25 22:10 97.3 80 20 134/53 100 97.3 Laboratory Tests Test 04/15/25 22:53 04/16/25 02:08 White Blood Count 7.0 10^3/uL (4.4-10.8) 6.0 10^3/uL (4.4-10.8) Assessment/Plan Assessment/Plan Abdominal pain Urinary tract infection Anemia, unspecified Electrolyte imbalance Generalized weakness Plan 1. Admit to med surge unit 2. Breathing treatment 3. Pain control management 4. IV antibiotic management 5. Management of fluids and electrolytes 6. Consultation for hospitalist 7. Diagnostic test abdomen/pelvis CT 8. DVT prophylaxis on SCDs 9. Repeat labs CBC, CMP in a.m. 10. Continue with current medical management 11. Treatment plan discussed with patient and RN. Patient verbalized understanding. Plan discussed with: Patient, Other (RN) My Orders Orders - STIVEN MCNEIL DNP Procedure Category Date Status Time Urine Bacterial NEREIDA 04/16/25 Logged Culture 01:50 Ceftriaxone 1gm/50ml PHA 04/16/25 In Process (Rocephin) 09:00 Type And Screen BBK 04/16/25 In Process 01:50 Allergies EDUARDO 04/16/25 In Process 01:50 Code Status CODE 04/16/25 Transmitted 01:50 Sodium Chloride 0.9% PHA 04/16/25 In Process 02:00 Oxygen Per Hour RT 04/16/25 Transmitted 01:50 Ondansetron Hcl PHA 04/16/25 In Process (Zofran) 02:00 Docusate Sodium PHA 04/16/25 In Process Capsule (Colace 02:00 Fall Risk Precautions EDUARDO 04/16/[address] 01:50 Complete Blood Count LAB 04/17/25 Verified 04:00 Comprehensive LAB 04/17/25 Verified Metabolic Panel 04:00 Cardiac DIET 04/16/25 Transmitted Diet-2gna,Lofat,Lochol Breakfast Condition: Serious EDUARDO 04/16/25 In Process 01:50 Maintain Bed Rest EDUARDO 04/16/25 In Process 01:50 Sequential EDUARDO 04/16/25 In Process Compression Device Tramadol Hcl (Ultram) PHA 04/16/25 In Process 02:00 * Picc Line Consult CONS 04/16/25 Transmitted 02:56 Problem List: (1) Abdominal pain (2) UTI (urinary tract infection) (3) Anemia, unspecified (4) Electrolyte imbalance (5) Generalized weakness Date of Service: Apr 16, 2025 Billing Provider: STIVEN MCNEIL DNP Common Visit Codes: [id number] INP/OBS CARE (HIGH) STIVEN MCNEIL DNP Apr 16, 2025 03:54
[2025-04-16 09:00] VITALS: BP 111/49; PULSE 83; RESP 16; TEMP 97.9; O2SAT 98
[2025-04-16 12:36] VITALS: BP 108/82; PULSE 77; RESP 16; TEMP 98.2; O2SAT 100
--- NOTE | 2025-04-16 13:10 | DVHPN2 ---
Reviewed: Care Plan, H&P, Labs, Medications, Previous Orders, Radiology Changes from previous H/P or p: No Changes Eyes: No Pain, No Vision change, No Conjunctivae inflammation, No Eyelid inflammation, No Other, No Redness ENT: No Ear pain, No Ear discharge, No Nose pain, No Nose discharge, No Nose congestion, No Mouth pain, No Mouth swelling, No Throat pain, No Throat swelling, No Other Cardiovascular: No Chest Pain, No Palpitations, No Orthopnea, No Paroxysmal Noc. Dyspnea, No Edema, No Lt Headedness, No Other Respiratory: No Cough, No Dry, No Shortness of breath, No SOB with excertion, No Wheezing, No Hemoptysis, No Pleuritic Pain, No Sputum, No Other Gastrointestinal: Nausea, Vomiting, Abdominal Pain; No Diarrhea, No Constipation, No Melena, No Hematochezia, No Other Genitourinary: No Dysuria, No Frequency, No Incontinence, No Hematuria, No Retention, No Other Musculoskeletal: No other, No neck pain, No shoulder pain, No arm pain, No back pain, No hand pain, No leg pain, No foot pain Skin: No Rash, No Lesions, No Jaundice, No Bruising, No Other Objective Vitals Vital Signs Date Time Temp Pulse Resp B/P (MAP) Pulse Ox O2 Delivery O2 Flow Rate FiO2 04/16/25 12:36 98.2 77 16 108/82 (91) 100 98.2 04/15/25 22:28 Room Air* 0 21 Medications Current Medications Medications Dose Ordered Sig/Jon Route Start Time Stop Time Status Last Admin Dose Admin Ceftriaxone Sodium 50 ml @ 100 mls/hr DAILY@09 IV 04/17/25 09:00 Sodium Chloride 1,000 ml @ 60 mls/hr [id number] IV 04/16/25 02:00 Ondansetron HCl 4 mg Q4HP PRN IV 04/16/25 02:00 Docusate Sodium 100 mg BIDPRN PRN PO 04/16/25 02:00 Tramadol HCl 50 mg Q6HP PRN PO 04/16/25 02:00 Nitroglycerin 0.4 mg Q5MINP PRN SL 04/16/25 03:30 Morphine Sulfate 2 mg Q30M PRN IV 04/16/25 03:30 Laboratory Results Laboratory Tests 04/16/25 02:08 Chemistry Test 04/15/25 22:53 04/16/25 02:08 Albumin 2.4 g/dL (3.2-4.8) L 2.5 g/dL (3.2-4.8) L Calcium Level 7.8 mg/dL (8.7-10.4) L 7.8 mg/dL (8.7-10.4) L Total Protein 5.9 g/dL (5.7-8.2) 6.1 g/dL (5.7-8.2) Lipid panel Test 04/15/25 22:53 Lipase 31 U/L (12-53) LFT Test 04/15/25 22:53 04/16/25 02:08 Alanine Aminotransferase (ALT) 20 U/L (7-40) 21 U/L (7-40) Alkaline Phosphatase 97 U/L (46-116) 101 U/L (46-116) Aspartate Amino Transferase (AST) 22 U/L (13-40) 22 U/L (13-40) Total Bilirubin 0.3 mg/dL (0.2-1.0) 0.3 mg/dL (0.2-1.0) Urinalysis Test 04/15/25 23:59 Urine Color Yellow (Yellow) Urine Clarity Ex.turbid (Clear) Urine pH 5.5 (5.0-9.0) Urine Specific [place] 1.038 (1.001-1.035) Urine Protein 1+ (Negative) H Urine Ketones Trace (Negative) Urine Blood 3+ /uL (Negative) H Urine Nitrite Negative (Negative) Urine Bilirubin Negative (Negative) Urine Urobilinogen 2 mg/dL (Negative) H Urine Leukocyte Esterase 3+ /uL (Negative) Urine RBC 147 /hpf (0 - 4) Urine Microscopic WBC 67 /HPF (0-5) H Urine Squamous Epithelial Cells Many /hpf (<5) Urine Calcium Oxalate Crystals Few (None Seen) Urine Bacteria None seen /hpf (None Seen) Urine Mucus Few (None Seen) Urine Glucose Normal mg/dL (Normal) Labs and/or images reviewed: Labs reviewed by me, Image(s) reviewed by me Assessment/Plan Assessment/Plan Sepsis secondary to urinary tract infection: Blood cultures urine cultures Rocephin Acute abdominal pain CT abdomen pelvis without contrast negative Anemia hemoglobin 7.7: Consult for GI Dr. Fam to rule out GI causes for anemia History of diverticulosis Acute generalized weakness Hypertension History of CVA Moderate obesity Time spent 70 minutes Advanced care planning time 20 mts Patient is full code Plan discussed with: Patient My Orders Orders - BELLA TOSCANO MD Procedure Category Date Status Time * Gi Dvh Qc Manager CONS 04/16/25 Transmitted 13:04 Pantoprazole PHA 04/17/25 Verified (Protonix) 10:00 Pantoprazole PHA 04/16/25 Verified (Protonix) 13:15 Date of Service: Apr 16, 2025 Billing Provider: BELLA TOSCANO MD Common Visit Codes: [id number] CARE 30-74 MIN BELLA TOSCANO MD Apr 16, 2025 13:10
[2025-04-16] MEDS: PANTOPRAZOLE 40 MG/10 ML VIAL INJ IV ONE (13:35)
[2025-04-16] MEDS: SODIUM CHLORIDE 0.9% 1,000 ML IV SCH (13:36)
[2025-04-16 17:00] VITALS: BP 126/30; PULSE 77; RESP 20; TEMP 98.3; O2SAT 100
--- NOTE | 2025-04-16 17:17 | DVHINCON2 ---
Date of service: Apr 16, 2025 Referring Physician Jeffrey Reason for Consultation Anemia History of Present Illness The patient is a 65-year-old female with a history of hypertension history of CVA with left-sided residual, history of UTI history of diverticulosis admitted with abdominal pain found to be anemia in a care with a hemoglobin of 7.7. Repeat hemoglobin 7.9. Patient denies any recent colonoscopy she denies any anemia. Patient is not the best historian due to side effects. Prior stroke. She has not noted to have any gross bleeding since admission. MCV was normal. CT scan of the abdomen was normal. Patient is on a pureed diet. GI consultation was obtained for evaluation. Patient is on Eliquis for history of CVA Past Medical History As above Past Surgical History Prior cholecystectomy Family History: Diabetes mellitus G8 BROTHER FH: lung cancer G8 MOTHER Hypertension G8 MOTHER G8 BROTHER Social History No tobacco alcohol recreational drug use currently Allergies: Coded Allergies: Acetaminophen (Unverified Allergy, Unknown, 04/15/25) Aspirin (Verified Allergy, Unknown, 11/26/18) Tomato (Unverified Allergy, Unknown, 04/16/25) Home Meds Reported Medications Folic Acid (Folic Acid) 1 Mg Tab, 1 MG PO DAILY for 30 Days, MG 11/26/18 Furosemide (Furosemide) 20 Mg Tab, 20 MG PO DAILY for 30 Days, MG 05/07/17 Benazepril Hcl (Benazepril Hcl) 10 Mg Tab, 10 MG PO BID for 30 Days, MG 05/07/17 Metoprolol Succinate (Metoprolol Succinate Er) 25 Mg Tab, 25 MG PO BID for 30 Days, MG 05/07/17 Apixaban Base (ELIQUIS) 5 Mg Tab, 5 MG PO BID, TAB 05/07/17 Isosorbide Mononitrate (Isosorbide Mononitrate Er) 60 Mg Tab, 1.5 TAB PO DAILY for 30 Days, MG 05/07/17 Atorvastatin Calcium (ATORVASTATIN CALCIUM) 20 Mg Tab, 20 MG PO DAILY, TAB 05/07/17 Gabapentin (Gabapentin) 300 Mg Cap, 300 MG PO HS for 30 Days, MG 05/07/17 Current Medications Current Medications Medications (Trade) Dose Ordered Sig/Jon Route PRN Reason Start Time Stop Time Status Last Admin Ceftriaxone Sodium 50 ml @ 100 mls/hr DAILY@09 IV 04/17/25 09:00 Sodium Chloride 1,000 ml @ 60 mls/hr [id number] IV 04/16/25 02:00 04/16/25 13:36 Ondansetron HCl (Zofran) 4 mg Q4HP PRN IV NAUSEA / VOMITING 04/16/25 02:00 Docusate Sodium (Colace Capsule) 100 mg BIDPRN PRN PO FOR CONSTIPATION 04/16/25 02:00 Tramadol HCl (Ultram) 50 mg Q6HP PRN PO MILD PAIN (1-3 PAIN SCALE) 04/16/25 02:00 04/16/25 13:36 Nitroglycerin (Ntrostat Sublingual) 0.4 mg Q5MINP PRN SL FOR CHEST PAIN 04/16/25 03:30 Morphine Sulfate 2 mg Q30M PRN IV FOR CHEST PAIN 04/16/25 03:30 Pantoprazole Sodium (Protonix) 40 mg DAILY IV 04/17/25 10:00 Review of Systems Review of systems as per HPI Vital Signs Vital Signs Date Time Temp Pulse Resp B/P (MAP) Pulse Ox O2 Delivery O2 Flow Rate FiO2 04/16/25 12:36 98.2 77 16 108/82 (91) 100 98.2 04/15/25 22:28 Room Air* 0 21 Physical Exam Morbidly obese female NC/AT EOMI O/P clear Regular rate and rhythm Soft nondistended mild right upper quadrant tenderness to palpation Morbidly obese No clubbing cyanosis or edema Left-sided side effects from CVA Labs/Diagnostic Data Labs Test 04/16/25 02:08 04/15/25 23:59 04/15/25 22:53 Range/Units White Blood Count 6.0 4.4-10.8 10^3/uL Red Blood Count 2.73 L 4.0-5.20 10^6/uL Hemoglobin 7.9 L 12.2-16.2 g/dL Hematocrit 24.4 L 36.0-46.0 % Mean Corpuscular Volume 89.2 80.0-100.0 fL Mean Corpuscular Hemoglobin 28.9 28.0-32.0 pg Mean Corpuscular Hemoglobin Concent 32.4 32.0-36.0 g/dL Red Cell Distribution Width 17.0 H 11.8-14.3 % Platelet Count 258 140-450 10^3/uL Mean Platelet Volume 6.8 L 6.9-10.8 fL Neutrophils (%) (Auto) 77.4 37.0-80.0 % Lymphocytes (%) (Auto) 15.7 10.0-50.0 % Monocytes (%) (Auto) 6.0 0.0-12.0 % Eosinophils (%) (Auto) 0.5 0.0-7.0 % Basophils (%) (Auto) 0.4 0.0-2.0 % Neutrophils # (Auto) 4.6 1.6-8.6 10 ^3/uL Lymphocytes # (Auto) 0.9 0.4-5.4 10 ^3/uL Monocytes # (Auto) 0.4 0-1.3 10 ^3/uL Eosinophils # (Auto) 0 0-0.8 10 ^3/uL Basophils # (Auto) 0 0-0.2 10 ^3/uL Nucleated Red Blood Cells 0.2 % Sodium Level 139 136-145 mmol/L Potassium Level 3.6 3.5-5.1 mmol/L Chloride Level 107 98-107 mmol/L Carbon Dioxide Level 23 20-31 mmol/L Anion Gap 9 5-15 Blood Urea Nitrogen 13 9-23 mg/dL Creatinine 0.66 0.550-1.02 mg/dL Glomerular Filtration Rate Calc 97 >90 mL/min BUN/Creatinine Ratio 19.7 10.0-20.0 Serum Glucose 84 74-106 mg/dL Calcium Level 7.8 L 8.7-10.4 mg/dL Total Bilirubin 0.3 0.2-1.0 mg/dL Aspartate Amino Transferase (AST) 22 13-40 U/L Alanine Aminotransferase (ALT) 21 7-40 U/L Alkaline Phosphatase 101 46-116 U/L Total Protein 6.1 5.7-8.2 g/dL Albumin 2.5 L 3.2-4.8 g/dL Urine Color Yellow Yellow Urine Clarity Ex.turbid Clear Urine pH 5.5 5.0-9.0 Urine Specific [place] 1.038 H 1.001-1.035 Urine Protein 1+ H Negative Urine Ketones Trace Negative Urine Blood 3+ H Negative /uL Urine Nitrite Negative Negative Urine Bilirubin Negative Negative Urine Urobilinogen 2 H Negative mg/dL Urine Leukocyte Esterase 3+ Negative /uL Urine RBC 147 0 - 4 /hpf Urine Microscopic WBC 67 H 0-5 /HPF Urine Squamous Epithelial Cells Many <5 /hpf Urine Calcium Oxalate Crystals Few None Seen Urine Bacteria None seen None Seen /hpf Urine Mucus Few None Seen Urine Glucose Normal Normal mg/dL Lipase 31 12-53 U/L Assessment CVA Anemia History of anticoagulant use Hypertension Morbid obese Differential diagnosis includes IBS versus peptic ulcer disease versus muscul oskeletal versus other. CT scan negative in the patient has had a cholecystectomy Problems(with codes): (1) Anemia, unspecified (2) Abdominal pain (3) UTI (urinary tract infection) Plan/Recommendation Follow H&H and transfuse Hold Eliquis Consider EGD and colonoscopy Iron supplementation Pain management We will follow Continue thyroid Ppi Plan discussed with: Patient NORMA SCOTT MD Apr 16, 2025 17:17
[2025-04-16 17:59] VITALS: PULSE 78; RESP 18; O2SAT 100
[2025-04-16 20:00] VITALS: PULSE 80; RESP 18; O2SAT 96
[2025-04-16 21:00] VITALS: BP 136/54; PULSE 80; RESP 16; TEMP 98.1; O2SAT 96
[2025-04-17] VITALS (8 sets, daily range): BP systolic 115–140; BP diastolic 48–88; PULSE 72–84; RESP 16–18; TEMP 97–98.7; O2SAT 96–100
[2025-04-17 06:23] LABS: Hematocrit 30.3 % (36.0-46.0); Hemoglobin 9.7 g/dL (12.2-16.2); Mean Corpuscular Hemoglobin 29.6 pg (28.0-32.0); Mean Corpuscular Volume 92.5 fL (80.0-100.0); Nucleated Red Blood Cells % 0.1 %
[2025-04-17 06:54] LABS: Alanine Aminotransferase 19 U/L (7-40); Alkaline Phosphatase 110 U/L (46-116); Anion Gap 10 (5-15); BUN/Creatinine Ratio 22.4 (10.0-20.0); Blood Urea Nitrogen 13 mg/dL (9-23); Carbon Dioxide 23 mmol/L (20-31); Potassium 3.9 mmol/L (3.5-5.1); Sodium 141 mmol/L (136-145); Total Protein 6.0 g/dL (5.7-8.2)
[2025-04-17 06:56] LABS: Bilirubin, Total 0.4 mg/dL (0.2-1.0)
[2025-04-17 07:01] LABS: Albumin 2.5 g/dL (3.2-4.8); Calcium 7.7 mg/dL (8.7-10.4); Chloride 108 mmol/L (98-107); Glucose 68 mg/dL (74-106)
[2025-04-17] MEDS: PANTOPRAZOLE 40 MG/10 ML VIAL INJ IV SCH (08:53)
--- NOTE | 2025-04-17 09:22 | DVHPN2 ---
Reviewed: Care Plan, H&P, Labs, Medications, Previous Orders, Radiology Changes from previous H/P or p: No Changes Eyes: No Pain, No Vision change, No Conjunctivae inflammation, No Eyelid inflammation, No Other, No Redness ENT: No Ear pain, No Ear discharge, No Nose pain, No Nose discharge, No Nose congestion, No Mouth pain, No Mouth swelling, No Throat pain, No Throat swelling, No Other Cardiovascular: No Chest Pain, No Palpitations, No Orthopnea, No Paroxysmal Noc. Dyspnea, No Edema, No Lt Headedness, No Other Respiratory: No Cough, No Dry, No Shortness of breath, No SOB with excertion, No Wheezing, No Hemoptysis, No Pleuritic Pain, No Sputum, No Other Gastrointestinal: Nausea, Vomiting, Abdominal Pain; No Diarrhea, No Constipation, No Melena, No Hematochezia, No Other Genitourinary: No Dysuria, No Frequency, No Incontinence, No Hematuria, No Retention, No Other Musculoskeletal: No other, No neck pain, No shoulder pain, No arm pain, No back pain, No hand pain, No leg pain, No foot pain Skin: No Rash, No Lesions, No Jaundice, No Bruising, No Other Objective Vitals Vital Signs Date Time Temp Pulse Resp B/P (MAP) Pulse Ox O2 Delivery O2 Flow Rate FiO2 04/17/25 08:02 17 96 Room Air* 0 21 04/17/25 05:00 97.8 82 125/66 (85) 97.8 Intake/Output Intake and Output 04/17/25 07:00 Intake Total 1550 ml Output Total 50 ml Balance 1500 ml Intake Oral 550 ml IV Total 1000 ml Output Urine Total 50 ml # Bowel Movements 1 Medications Current Medications Medications Dose Ordered Sig/Jon Route Start Time Stop Time Status Last Admin Dose Admin Ceftriaxone Sodium 50 ml @ 100 mls/hr DAILY@09 IV 04/17/25 09:00 04/17/25 08:54 100 MLS/HR Sodium Chloride 1,000 ml @ 60 mls/hr [id number] IV 04/16/25 02:00 04/16/25 19:31 60 MLS/HR Ondansetron HCl 4 mg Q4HP PRN IV 04/16/25 02:00 Docusate Sodium 100 mg BIDPRN PRN PO 04/16/25 02:00 Tramadol HCl 50 mg Q6HP PRN PO 04/16/25 02:00 04/16/25 13:36 50 MG Nitroglycerin 0.4 mg Q5MINP PRN SL 04/16/25 03:30 Morphine Sulfate 2 mg Q30M PRN IV 04/16/25 03:30 Pantoprazole Sodium 40 mg DAILY IV 04/17/25 10:00 04/17/25 08:53 40 MG Laboratory Results Laboratory Tests 04/17/25 04:55 Chemistry Test 04/17/25 04:55 Albumin 2.5 g/dL (3.2-4.8) L Calcium Level 7.7 mg/dL (8.7-10.4) L Total Protein 6.0 g/dL (5.7-8.2) LFT Test 04/17/25 04:55 Alanine Aminotransferase (ALT) 19 U/L (7-40) Alkaline Phosphatase 110 U/L (46-116) Aspartate Amino Transferase (AST) 21 U/L (13-40) Total Bilirubin 0.4 mg/dL (0.2-1.0) Urinalysis Test 04/15/25 23:59 Urine Color Yellow (Yellow) Urine Clarity Ex.turbid (Clear) Urine pH 5.5 (5.0-9.0) Urine Specific [place] 1.038 (1.001-1.035) Urine Protein 1+ (Negative) H Urine Ketones Trace (Negative) Urine Blood 3+ /uL (Negative) H Urine Nitrite Negative (Negative) Urine Bilirubin Negative (Negative) Urine Urobilinogen 2 mg/dL (Negative) H Urine Leukocyte Esterase 3+ /uL (Negative) Urine RBC 147 /hpf (0 - 4) Urine Microscopic WBC 67 /HPF (0-5) H Urine Squamous Epithelial Cells Many /hpf (<5) Urine Calcium Oxalate Crystals Few (None Seen) Urine Bacteria None seen /hpf (None Seen) Urine Mucus Few (None Seen) Urine Glucose Normal mg/dL (Normal) Labs and/or images reviewed: Labs reviewed by me, Image(s) reviewed by me Assessment/Plan Assessment/Plan Sepsis secondary to urinary tract infection: Blood cultures pending, urine cultures pending, continue Rocephin Acute abdominal pain CT abdomen pelvis without contrast negative Anemia hemoglobin 7.7: Consult for GI Dr. Fam to rule out GI causes for anemia appreciated History of diverticulosis Acute generalized weakness Hypertension History of CVA: With left hemiplegia, Hold Eliquis for possible endoscopy Moderate obesity Time spent 50 minutes Advanced care planning time 20 mts Patient is full code Plan discussed with: Patient My Orders Orders - BELLA TOSCANO MD Procedure Category Date Status Time * Gi Dvh Senior Interactive Producer CONS 04/16/25 Transmitted 13:04 Pantoprazole PHA 04/17/25 In Process (Protonix) 10:00 Pureed DIET 04/16/25 Transmitted Dinner Date of Service: Apr 17, 2025 Billing Provider: BELLA TOSCANO MD Common Visit Codes: [id number] INP/OBS CARE(HIGH) BELLA TOSCANO MD Apr 17, 2025 09:22
--- NOTE | 2025-04-17 15:29 | PRN ---
Misceleneous Note Note Note April 17, 2025 Subjective: Patient still has abdominal pain that does not change with or without eating. Current Medications Medications (Trade) Dose Ordered Sig/Jon Route Start Time Stop Time Status Last Admin Dose Admin Ceftriaxone Sodium 50 ml @ 100 mls/hr DAILY@09 IV 04/17/25 09:00 04/17/25 08:54 100 MLS/HR Sodium Chloride 1,000 ml @ 60 mls/hr [id number] IV 04/16/25 02:00 04/16/25 19:31 60 MLS/HR Ondansetron HCl (Zofran) 4 mg Q4HP PRN IV 04/16/25 02:00 Docusate Sodium (Colace Capsule) 100 mg BIDPRN PRN PO 04/16/25 02:00 Tramadol HCl (Ultram) 50 mg Q6HP PRN PO 04/16/25 02:00 04/17/25 10:35 50 MG Nitroglycerin (Ntrostat Sublingual) 0.4 mg Q5MINP PRN SL 04/16/25 03:30 Morphine Sulfate 2 mg Q30M PRN IV 04/16/25 03:30 Pantoprazole Sodium (Protonix) 40 mg DAILY IV 04/17/25 10:00 04/17/25 08:53 40 MG Vital Signs Date Time Temp Pulse Resp B/P (MAP) Pulse Ox O2 Delivery O2 Flow Rate FiO2 04/17/25 12:31 97.6 72 16 140/76 (97) 100 97.6 04/17/25 08:02 Room Air* 0 21 General: Obese HEENT: NC/AT EOMI PERRLA O/P clear, no JVD or cervical lymphadenopathy, no scleral icterus Heart: Regular rate and rhythm, no murmurs rubs or gallops Lungs: Clear to auscultation bilaterally, no wheezes rales or rhonchi Abdomen: Soft, mild epigastric tenderness to palpation Extremity: No clubbing cyanosis or edema, no rashes or bruises Neuro: Residual left-sided weakness and contracture Vital Signs Date Time Temp Pulse Resp B/P (MAP) Pulse Ox O2 Delivery O2 Flow Rate FiO2 04/17/25 12:31 97.6 72 16 140/76 (97) 100 97.6 04/17/25 09:00 97.0 73 16 119/48 (71) 97 97.0 04/17/25 08:02 17 96 Room Air* 0 21 04/17/25 05:00 97.8 82 18 125/66 (85) 100 97.8 04/17/25 01:00 98.2 84 16 115/56 (75) 100 98.2 04/16/25 21:00 98.1 80 16 136/54 (81) 96 98.1 04/16/25 20:00 80 18 96 Room Air* 0 21 04/16/25 17:59 78 18 100 Room Air* 0 21 04/16/25 17:00 98.3 77 20 126/30 (62) 100 98.3 Lab Test 04/17/25 04:55 Range/Units White Blood Count 5.0 4.4-10.8 10^3/uL Red Blood Count 3.27 L 4.0-5.20 10^6/uL Hemoglobin 9.7 #L 12.2-16.2 g/dL Hematocrit 30.3 #L 36.0-46.0 % Mean Corpuscular Volume 92.5 80.0-100.0 fL Mean Corpuscular Hemoglobin 29.6 28.0-32.0 pg Mean Corpuscular Hemoglobin Concent 32.0 32.0-36.0 g/dL Red Cell Distribution Width 18.0 H 11.8-14.3 % Platelet Count 197 140-450 10^3/uL Mean Platelet Volume 6.7 L 6.9-10.8 fL Neutrophils (%) (Auto) 68.4 37.0-80.0 % Lymphocytes (%) (Auto) 20.9 10.0-50.0 % Monocytes (%) (Auto) 8.8 0.0-12.0 % Eosinophils (%) (Auto) 1.4 0.0-7.0 % Basophils (%) (Auto) 0.5 0.0-2.0 % Neutrophils # (Auto) 3.4 1.6-8.6 10 ^3/uL Lymphocytes # (Auto) 1.0 0.4-5.4 10 ^3/uL Monocytes # (Auto) 0.4 0-1.3 10 ^3/uL Eosinophils # (Auto) 0.1 0-0.8 10 ^3/uL Basophils # (Auto) 0 0-0.2 10 ^3/uL Nucleated Red Blood Cells 0.1 % Sodium Level 141 136-145 mmol/L Potassium Level 3.9 3.5-5.1 mmol/L Chloride Level 108 H 98-107 mmol/L Carbon Dioxide Level 23 20-31 mmol/L Anion Gap 10 5-15 Blood Urea Nitrogen 13 9-23 mg/dL Creatinine 0.58 0.550-1.02 mg/dL Glomerular Filtration Rate Calc 100 >90 mL/min BUN/Creatinine Ratio 22.4 H 10.0-20.0 Serum Glucose 68 L 74-106 mg/dL Calcium Level 7.7 L 8.7-10.4 mg/dL Total Bilirubin 0.4 0.2-1.0 mg/dL Aspartate Amino Transferase (AST) 21 13-40 U/L Alanine Aminotransferase (ALT) 19 7-40 U/L Alkaline Phosphatase 110 46-116 U/L Total Protein 6.0 5.7-8.2 g/dL Albumin 2.5 L 3.2-4.8 g/dL Current Medications Medications (Trade) Dose Ordered Sig/Jon Route Start Time Stop Time Status Last Admin Ceftriaxone Sodium 50 ml @ 100 mls/hr DAILY@09 IV 04/17/25 09:00 04/17/25 08:54 Pantoprazole Sodium (Protonix) 40 mg DAILY IV 04/17/25 10:00 04/17/25 08:53 Impression: History of CVA History of anticoagulation Anemia Abdominal pain UTI Hemoglobin stable no gross bleeding Abdominal pain still persists Recommendations: 1. Diet as tolerated 2. Hold anticoagulation for now 3. Follow H&H 4. Iron supplementation 5. Proton pump inhibitor twice daily 6. We will arrange for inpatient endoscopy with NORMA Miller MD Apr 17, 2025 15:29
[2025-04-18] VITALS (8 sets, daily range): BP systolic 120–132; BP diastolic 46–68; PULSE 61–83; RESP 17–19; TEMP 97.3–98.2; O2SAT 92–100
[2025-04-18] MEDS: PANTOPRAZOLE 40 MG/10 ML VIAL INJ IV SCH (11:00)
[2025-04-18] MEDS: FLUCONAZOLE 200MG/100ML 100 ML IV ONE (11:00)
--- NOTE | 2025-04-18 11:02 | DVHPN2 ---
Reviewed: Care Plan, H&P, Labs, Medications, Previous Orders, Radiology Changes from previous H/P or p: No Changes Eyes: No Pain, No Vision change, No Conjunctivae inflammation, No Eyelid inflammation, No Other, No Redness ENT: No Ear pain, No Ear discharge, No Nose pain, No Nose discharge, No Nose congestion, No Mouth pain, No Mouth swelling, No Throat pain, No Throat swelling, No Other Cardiovascular: No Chest Pain, No Palpitations, No Orthopnea, No Paroxysmal Noc. Dyspnea, No Edema, No Lt Headedness, No Other Respiratory: No Cough, No Dry, No Shortness of breath, No SOB with excertion, No Wheezing, No Hemoptysis, No Pleuritic Pain, No Sputum, No Other Gastrointestinal: Nausea, Vomiting, Abdominal Pain; No Diarrhea, No Constipation, No Melena, No Hematochezia, No Other Genitourinary: No Dysuria, No Frequency, No Incontinence, No Hematuria, No Retention, No Other Musculoskeletal: No other, No neck pain, No shoulder pain, No arm pain, No back pain, No hand pain, No leg pain, No foot pain Skin: No Rash, No Lesions, No Jaundice, No Bruising, No Other Objective Vitals Vital Signs Date Time Temp Pulse Resp B/P (MAP) Pulse Ox O2 Delivery O2 Flow Rate FiO2 04/18/25 09:00 97.8 61 18 126/68 (87) 98 97.8 04/18/25 07:54 Room Air* 0 21 Intake/Output Intake and Output 04/18/25 07:00 Intake Total 1360 ml Output Total 275 ml Balance 1085 ml Intake Oral 700 ml IV Total 660 ml Output Urine Total 275 ml Medications Current Medications Medications Dose Ordered Sig/Jon Route Start Time Stop Time Status Last Admin Dose Admin Ceftriaxone Sodium 50 ml @ 100 mls/hr DAILY@09 IV 04/17/25 09:00 04/18/25 08:46 100 MLS/HR Sodium Chloride 1,000 ml @ 60 mls/hr [id number] IV 04/16/25 02:00 04/17/25 11:20 60 MLS/HR Ondansetron HCl 4 mg Q4HP PRN IV 04/16/25 02:00 Docusate Sodium 100 mg BIDPRN PRN PO 04/16/25 02:00 Tramadol HCl 50 mg Q6HP PRN PO 04/16/25 02:00 04/17/25 22:05 50 MG Nitroglycerin 0.4 mg Q5MINP PRN SL 04/16/25 03:30 Morphine Sulfate 2 mg Q30M PRN IV 04/16/25 03:30 Pantoprazole Sodium 40 mg BID IV 04/18/25 11:00 UNV Fluconazole 100 ml @ 100 mls/hr DAILY IV 04/19/25 10:00 UNV Laboratory Results Laboratory Tests 04/17/25 04:55 Urinalysis Test 04/15/25 23:59 Urine Color Yellow (Yellow) Urine Clarity Ex.turbid (Clear) Urine pH 5.5 (5.0-9.0) Urine Specific [place] 1.038 (1.001-1.035) Urine Protein 1+ (Negative) H Urine Ketones Trace (Negative) Urine Blood 3+ /uL (Negative) H Urine Nitrite Negative (Negative) Urine Bilirubin Negative (Negative) Urine Urobilinogen 2 mg/dL (Negative) H Urine Leukocyte Esterase 3+ /uL (Negative) Urine RBC 147 /hpf (0 - 4) Urine Microscopic WBC 67 /HPF (0-5) H Urine Squamous Epithelial Cells Many /hpf (<5) Urine Calcium Oxalate Crystals Few (None Seen) Urine Bacteria None seen /hpf (None Seen) Urine Mucus Few (None Seen) Urine Glucose Normal mg/dL (Normal) Microbiology Microbiology Date/Time Source Procedure Growth Status 04/15/25 23:59 Voided Urine Urine Culture - Preliminary Presumptive Terrie albicans Resulted Labs and/or images reviewed: Labs reviewed by me, Image(s) reviewed by me Assessment/Plan Assessment/Plan Sepsis secondary to urinary tract infection: Blood cultures pending, urine cultures growing yeast, continue Rocephin, add Diflucan Acute abdominal pain CT abdomen pelvis without contrast negative Anemia hemoglobin 7.7: Consult for GI Dr. Fam to rule out GI causes for anemia appreciated, possible EGD by Dr. Brett Curtis History of diverticulosis Acute generalized weakness Hypertension History of CVA: With left hemiplegia, Hold Eliquis for possible endoscopy Moderate obesity Stage II sacral decubitus ulcer present on admission History of stroke 06/15 Left hemiplegia Chronically bed-bound Sister Tracy/ Yanet [phone] at bedside Time spent 50 minutes Advanced care planning time 20 mts Patient is full code Plan discussed with: Patient My Orders Orders - TOSCANO,BELLA M MD Procedure Category Date Status Time * Dietary Consult CONS 04/17/25 Transmitted 11:16 Cleanse Wound With EDUARDO 04/17/25 In Process Wound Clean 11:16 Apply: EDUARDO 04/17/25 In Process 11:16 Pantoprazole PHA 04/18/25 Logged (Protonix) 11:00 Fluconazole PHA 04/19/25 Logged 200mg/100ml (Diflucan 10:00 Fluconazole PHA 04/18/25 Logged 200mg/100ml (Diflucan 11:00 Date of Service: Apr 18, 2025 Billing Provider: BELLA TOSCANO MD Common Visit Codes: [id number] CARE 30-74 MIN BELLA TOSCANO MD Apr 18, 2025 11:02
--- NOTE | 2025-04-18 16:56 | DVHPN2 ---
Progress Note - Dictate Date Seen: Apr 18, 2025 Medical Necessity Reason Pt with a Central, PICC or Fol: No Subjective No new complaints No active GI bleeding reported Hemoglobin is stable at 9.7; no transfusion required Patient is tolerating a pureed diet Abdominal pain likely related to her UTI awaiting urine culture Suspect anemia of chronic disease vital signs Vital Sign Date Time Temp Pulse Resp B/P (MAP) Pulse Ox O2 Delivery O2 Flow Rate FiO2 04/18/25 13:00 97.8 73 18 120/56 (77) 94 97.8 04/18/25 07:54 Room Air* 0 21 Total Intake and Output 04/17/25 04/17/25 04/18/25 15:00 23:00 07:00 Intake Total 220 ml 1140 ml Output Total 125 ml 150 ml Balance 95 ml 990 ml medications Current Medications Medications Dose Ordered Sig/Jon Route Start Time Stop Time Status Last Admin Dose Admin Ceftriaxone Sodium 50 ml @ 100 mls/hr DAILY@09 IV 04/17/25 09:00 04/18/25 08:46 100 MLS/HR Sodium Chloride 1,000 ml @ 60 mls/hr [id number] IV 04/16/25 02:00 04/17/25 11:20 60 MLS/HR Ondansetron HCl 4 mg Q4HP PRN IV 04/16/25 02:00 Docusate Sodium 100 mg BIDPRN PRN PO 04/16/25 02:00 Tramadol HCl 50 mg Q6HP PRN PO 04/16/25 02:00 04/17/25 22:05 50 MG Nitroglycerin 0.4 mg Q5MINP PRN SL 04/16/25 03:30 Morphine Sulfate 2 mg Q30M PRN IV 04/16/25 03:30 Pantoprazole Sodium 40 mg BID IV 04/18/25 11:00 04/18/25 11:00 40 MG Fluconazole 100 ml @ 100 mls/hr DAILY IV 04/19/25 10:00 objective HEENT: NC/AT EOMI PERRLA O/P clear, no JVD or cervical lymphadenopathy, no scleral icterus Heart: Regular rate and rhythm, no murmurs rubs or gallops Lungs: Clear to auscultation bilaterally, no wheezes rales or rhonchi Abdomen: Soft, mild epigastric tenderness to palpation Extremity: No clubbing cyanosis or edema, no rashes or bruises Neuro: Residual left-sided weakness and contracture laboratory and microbiology Laboratory Tests 04/17/25 04:55 Test 04/17/25 04:55 Range/Units Serum Glucose 68 L 74-106 mg/dL Problems(with codes): (1) Abdominal pain (2) Anemia, unspecified (3) Generalized weakness (4) UTI (urinary tract infection) Prognosis Plan At this time I would recommend anemia workup with stool for occult blood vitamin B12 serum folate iron panel Continue to monitor labs ; patient also had some hematuria and blood loss in her urine Continue IV Protonix I believe she has anemia of chronic disease I will follow up patient with you Recommend conservative management for now Dietary Evaluation Review Recommendations by RD: Dietary education by RD, Protein Supplementation Comments: 1) Initiate MVI @ 1 tb qd 2) Initiate vitamin C @ 500 mg bid and zinc sulfate @ 220 mg qd for 7 days 3) Initiate Artie @ 1 pk bid 4) Initiate Ensure High Protein qd 5) Add cardiac restriction to pureed diet 6) Refer to outpatient RD for weight management 7) Follow-up with gastroenterology and neurology 8) Continue to monitor I&O, labs, and skin integrity Expected Outcomes/Goals: 1) appetite and labs to improve 2) wounds to improve 3) gradual wt loss 4) f/u in 3-5 days Plan discussed with: Patient LIGIA WATKINS MD Apr 18, 2025 16:56
[2025-04-19] VITALS (7 sets, daily range): BP systolic 130–138; BP diastolic 35–56; PULSE 75–87; RESP 18–20; TEMP 97–97.5; O2SAT 97–100
--- NOTE | 2025-04-19 10:43 | DVHPN2 ---
Reviewed: Care Plan, H&P, Labs, Medications, Previous Orders, Radiology Changes from previous H/P or p: No Changes Eyes: No Pain, No Vision change, No Conjunctivae inflammation, No Eyelid inflammation, No Other, No Redness ENT: No Ear pain, No Ear discharge, No Nose pain, No Nose discharge, No Nose congestion, No Mouth pain, No Mouth swelling, No Throat pain, No Throat swelling, No Other Cardiovascular: No Chest Pain, No Palpitations, No Orthopnea, No Paroxysmal Noc. Dyspnea, No Edema, No Lt Headedness, No Other Respiratory: No Cough, No Dry, No Shortness of breath, No SOB with excertion, No Wheezing, No Hemoptysis, No Pleuritic Pain, No Sputum, No Other Gastrointestinal: Nausea, Vomiting, Abdominal Pain; No Diarrhea, No Constipation, No Melena, No Hematochezia, No Other Genitourinary: No Dysuria, No Frequency, No Incontinence, No Hematuria, No Retention, No Other Musculoskeletal: No other, No neck pain, No shoulder pain, No arm pain, No back pain, No hand pain, No leg pain, No foot pain Skin: No Rash, No Lesions, No Jaundice, No Bruising, No Other Objective Vitals Vital Signs Date Time Temp Pulse Resp B/P (MAP) Pulse Ox O2 Delivery O2 Flow Rate FiO2 04/19/25 09:02 97.0 87 18 134/51 (78) 100 97.0 04/18/25 20:00 Room Air* 0 21 Intake/Output Intake and Output 04/19/25 07:00 Intake Total 745 ml Output Total 200 ml Balance 545 ml Intake Oral 745 ml Output Urine Total 200 ml # Bowel Movements 1 Medications Current Medications Medications Dose Ordered Sig/Jon Route Start Time Stop Time Status Last Admin Dose Admin Ceftriaxone Sodium 50 ml @ 100 mls/hr DAILY@09 IV 04/17/25 09:00 04/18/25 08:46 100 MLS/HR Sodium Chloride 1,000 ml @ 60 mls/hr [id number] IV 04/16/25 02:00 04/17/25 11:20 60 MLS/HR Ondansetron HCl 4 mg Q4HP PRN IV 04/16/25 02:00 Docusate Sodium 100 mg BIDPRN PRN PO 04/16/25 02:00 Tramadol HCl 50 mg Q6HP PRN PO 04/16/25 02:00 04/17/25 22:05 50 MG Nitroglycerin 0.4 mg Q5MINP PRN SL 04/16/25 03:30 Morphine Sulfate 2 mg Q30M PRN IV 04/16/25 03:30 Pantoprazole Sodium 40 mg BID IV 04/18/25 11:00 04/18/25 23:12 40 MG Fluconazole 100 ml @ 100 mls/hr DAILY IV 04/19/25 10:00 Laboratory Results Laboratory Tests 04/17/25 04:55 Urinalysis Test 04/15/25 23:59 Urine Color Yellow (Yellow) Urine Clarity Ex.turbid (Clear) Urine pH 5.5 (5.0-9.0) Urine Specific [place] 1.038 (1.001-1.035) Urine Protein 1+ (Negative) H Urine Ketones Trace (Negative) Urine Blood 3+ /uL (Negative) H Urine Nitrite Negative (Negative) Urine Bilirubin Negative (Negative) Urine Urobilinogen 2 mg/dL (Negative) H Urine Leukocyte Esterase 3+ /uL (Negative) Urine RBC 147 /hpf (0 - 4) Urine Microscopic WBC 67 /HPF (0-5) H Urine Squamous Epithelial Cells Many /hpf (<5) Urine Calcium Oxalate Crystals Few (None Seen) Urine Bacteria None seen /hpf (None Seen) Urine Mucus Few (None Seen) Urine Glucose Normal mg/dL (Normal) Microbiology Microbiology Date/Time Source Procedure Growth Status 04/18/25 11:55 Blood Blood Culture - Preliminary Resulted 04/15/25 23:59 Voided Urine Urine Culture - Preliminary Presumptive Terrie albicans Resulted Labs and/or images reviewed: Labs reviewed by me, Image(s) reviewed by me Assessment/Plan Assessment/Plan Sepsis secondary to urinary tract infection: urine cultures growing yeast, continue Rocephin, add Diflucan Bacteremia with Gram-positive cocci in clusters: Start vancomycin for possible MRSA Acute abdominal pain CT abdomen pelvis without contrast negative Anemia hemoglobin 7.7: Consult for GI Dr. Fam to rule out GI causes for anemia appreciated, Dr. Brett Curtis advised conservative management for the present, continue pantoprazole Anemia of chronic disease History of diverticulosis Acute generalized weakness Hypertension History of CVA: With left hemiplegia, Hold Eliquis for possible endoscopy Moderate obesity Stage II sacral decubitus ulcer present on admission History of stroke 06/15 Left hemiplegia Chronically bed-bound Sister Luke Pryor/ Yanet [phone] at bedside Time spent 50 minutes Advanced care planning time 20 mts Patient is full code Plan discussed with: Patient My Orders Orders - BELLA TOSCANO MD Procedure Category Date Status Time Pantoprazole PHA 04/18/25 In Process (Protonix) 11:00 Fluconazole PHA 04/19/25 In Process 200mg/100ml (Diflucan 10:00 Blood Culture NEREIDA 04/18/25 In Process 10:56 Vancomycin PHA 04/20/25 Verified 10:00 Vancomycin PHA 04/19/25 Verified 10:45 Date of Service: Apr 19, 2025 Billing Provider: BELLA TOSCANO MD Common Visit Codes: [id number] CARE 30-74 MIN BELLA TOSCANO MD Apr 19, 2025 10:43
[2025-04-19] MEDS ORDERED: VANCOMYCIN PER PHARMACY 0 MG IV SCH (10:45)
[2025-04-19] MEDS: FLUCONAZOLE 200MG/100ML 100 ML IV SCH (13:57)
[2025-04-19] MEDS: VANCOMYCIN 1GM/250ML KIT 250 ML IV SCH (17:34)
--- NOTE | 2025-04-19 18:51 | DVHPN2 ---
Progress Note - Dictate Date Seen: Apr 19, 2025 Medical Necessity Reason Pt with a Central, PICC or Fol: No Subjective No new complaints No active GI bleeding reported Hemoglobin is stable at 9.7; no transfusion required Patient is tolerating a pureed diet Abdominal pain likely related to her UTI awaiting urine culture Suspect anemia of chronic disease vital signs Vital Sign Date Time Temp Pulse Resp B/P (MAP) Pulse Ox O2 Delivery O2 Flow Rate FiO2 04/19/25 17:15 97.2 87 18 138/56 (83) 98 97.2 04/19/25 08:30 Room Air* 0 21 Total Intake and Output 04/18/25 04/18/25 04/19/25 15:00 23:00 07:00 Intake Total 440 ml 305 ml Output Total 100 ml 100 ml Balance 340 ml 205 ml medications Current Medications Medications Dose Ordered Sig/Jon Route Start Time Stop Time Status Last Admin Dose Admin Ceftriaxone Sodium 50 ml @ 100 mls/hr DAILY@09 IV 04/17/25 09:00 04/19/25 12:52 100 MLS/HR Sodium Chloride 1,000 ml @ 60 mls/hr [id number] IV 04/16/25 02:00 04/19/25 13:20 60 MLS/HR Ondansetron HCl 4 mg Q4HP PRN IV 04/16/25 02:00 Docusate Sodium 100 mg BIDPRN PRN PO 04/16/25 02:00 Tramadol HCl 50 mg Q6HP PRN PO 04/16/25 02:00 04/19/25 18:32 50 MG Nitroglycerin 0.4 mg Q5MINP PRN SL 04/16/25 03:30 Morphine Sulfate 2 mg Q30M PRN IV 04/16/25 03:30 Pantoprazole Sodium 40 mg BID IV 04/18/25 11:00 04/19/25 12:52 40 MG Fluconazole 100 ml @ 100 mls/hr DAILY IV 04/19/25 10:00 04/19/25 13:57 100 MLS/HR Vancomycin HCl 250 ml @ 250 mls/hr Q1H IV 04/19/25 17:00 04/19/25 18:59 04/19/25 18:32 250 MLS/HR Vancomycin HCl 0 ml @ 0 mls/hr PER PHARMACY IV 04/19/25 10:45 objective HEENT: NC/AT EOMI PERRLA O/P clear, no JVD or cervical lymphadenopathy, no scleral icterus Heart: Regular rate and rhythm, no murmurs rubs or gallops Lungs: Clear to auscultation bilaterally, no wheezes rales or rhonchi Abdomen: Soft, mild epigastric tenderness to palpation Extremity: No clubbing cyanosis or edema, no rashes or bruises Neuro: Residual left-sided weakness and contracture laboratory and microbiology Laboratory Tests 04/17/25 04:55 Test 04/17/25 04:55 Range/Units Serum Glucose 68 L 74-106 mg/dL Problems(with codes): (1) Electrolyte imbalance (2) Generalized weakness (3) Anemia, unspecified (4) Abdominal pain (5) UTI (urinary tract infection) Prognosis Plan Patient is on antibiotics for Gram-positive septicemia also UTI Continue IV Protonix At this time I would recommend anemia workup with stool for occult blood vitamin B12 serum folate iron panel Continue to monitor labs ; I will order labs for tomorrow Patient also had some hematuria due to UTI and blood loss in her urine I believe she has anemia of chronic disease; bed bound with chronic sacral decubitus I will follow up patient with you Recommend conservative management for now Dietary Evaluation Review Recommendations by RD: Dietary education by RD, Protein Supplementation Comments: 1) Initiate MVI @ 1 tb qd 2) Initiate vitamin C @ 500 mg bid and zinc sulfate @ 220 mg qd for 7 days 3) Initiate Artie @ 1 pk bid 4) Initiate Ensure High Protein qd 5) Add cardiac restriction to pureed diet 6) Refer to outpatient RD for weight management 7) Follow-up with gastroenterology and neurology 8) Continue to monitor I&O, labs, and skin integrity Expected Outcomes/Goals: 1) appetite and labs to improve 2) wounds to improve 3) gradual wt loss 4) f/u in 3-5 days Plan discussed with: Patient LIGIA WATKINS MD Apr 19, 2025 18:51
[2025-04-20 00:42] VITALS: BP 132/56; PULSE 80; RESP 18; TEMP 97.1; O2SAT 99
[2025-04-20 05:00] VITALS: BP 119/53; PULSE 82; RESP 18; TEMP 97; O2SAT 98
[2025-04-20 08:00] VITALS: PULSE 79; RESP 18; O2SAT 94
[2025-04-20 09:05] VITALS: BP 125/52; PULSE 79; RESP 18; TEMP 97; O2SAT 94
--- NOTE | 2025-04-20 10:08 | DVHPN2 ---
Reviewed: Care Plan, H&P, Labs, Medications, Previous Orders, Radiology Changes from previous H/P or p: No Changes Eyes: No Pain, No Vision change, No Conjunctivae inflammation, No Eyelid inflammation, No Other, No Redness ENT: No Ear pain, No Ear discharge, No Nose pain, No Nose discharge, No Nose congestion, No Mouth pain, No Mouth swelling, No Throat pain, No Throat swelling, No Other Cardiovascular: No Chest Pain, No Palpitations, No Orthopnea, No Paroxysmal Noc. Dyspnea, No Edema, No Lt Headedness, No Other Respiratory: No Cough, No Dry, No Shortness of breath, No SOB with excertion, No Wheezing, No Hemoptysis, No Pleuritic Pain, No Sputum, No Other Gastrointestinal: Nausea, Vomiting, Abdominal Pain; No Diarrhea, No Constipation, No Melena, No Hematochezia, No Other Genitourinary: No Dysuria, No Frequency, No Incontinence, No Hematuria, No Retention, No Other Musculoskeletal: No other, No neck pain, No shoulder pain, No arm pain, No back pain, No hand pain, No leg pain, No foot pain Skin: No Rash, No Lesions, No Jaundice, No Bruising, No Other Objective Vitals Vital Signs Date Time Temp Pulse Resp B/P (MAP) Pulse Ox O2 Delivery O2 Flow Rate FiO2 04/20/25 09:05 97.0 79 18 125/52 (76) 94 97.0 04/19/25 20:00 Room Air* 0 21 Intake/Output Intake and Output 04/20/25 07:00 Intake Total 1530 ml Output Total 150 ml Balance 1380 ml Intake Oral 500 ml IV Total 1030 ml Output Urine Total 150 ml Medications Current Medications Medications Dose Ordered Sig/Jon Route Start Time Stop Time Status Last Admin Dose Admin Ceftriaxone Sodium 50 ml @ 100 mls/hr DAILY@09 IV 04/17/25 09:00 04/20/25 09:04 100 MLS/HR Sodium Chloride 1,000 ml @ 60 mls/hr [id number] IV 04/16/25 02:00 04/19/25 20:40 60 MLS/HR Ondansetron HCl 4 mg Q4HP PRN IV 04/16/25 02:00 Docusate Sodium 100 mg BIDPRN PRN PO 04/16/25 02:00 Tramadol HCl 50 mg Q6HP PRN PO 04/16/25 02:00 04/19/25 18:32 50 MG Nitroglycerin 0.4 mg Q5MINP PRN SL 04/16/25 03:30 Morphine Sulfate 2 mg Q30M PRN IV 04/16/25 03:30 Pantoprazole Sodium 40 mg BID IV 04/18/25 11:00 04/19/25 21:24 40 MG Fluconazole 100 ml @ 100 mls/hr DAILY IV 04/19/25 10:00 04/19/25 13:57 100 MLS/HR Vancomycin HCl 0 ml @ 0 mls/hr PER PHARMACY IV 04/19/25 10:45 Laboratory Results Laboratory Tests 04/17/25 04:55 Urinalysis Test 04/15/25 23:59 Urine Color Yellow (Yellow) Urine Clarity Ex.turbid (Clear) Urine pH 5.5 (5.0-9.0) Urine Specific [place] 1.038 (1.001-1.035) Urine Protein 1+ (Negative) H Urine Ketones Trace (Negative) Urine Blood 3+ /uL (Negative) H Urine Nitrite Negative (Negative) Urine Bilirubin Negative (Negative) Urine Urobilinogen 2 mg/dL (Negative) H Urine Leukocyte Esterase 3+ /uL (Negative) Urine RBC 147 /hpf (0 - 4) Urine Microscopic WBC 67 /HPF (0-5) H Urine Squamous Epithelial Cells Many /hpf (<5) Urine Calcium Oxalate Crystals Few (None Seen) Urine Bacteria None seen /hpf (None Seen) Urine Mucus Few (None Seen) Urine Glucose Normal mg/dL (Normal) Microbiology Microbiology Date/Time Source Procedure Growth Status 04/18/25 11:55 Blood Blood Culture - Preliminary Resulted 04/15/25 23:59 Voided Urine Urine Culture - Final Presumptive Terrie albicans Complete Labs and/or images reviewed: Labs reviewed by me, Image(s) reviewed by me Assessment/Plan Assessment/Plan Sepsis secondary to urinary tract infection: urine cultures growing yeast, continue Rocephin, add Diflucan Bacteremia with Gram-positive cocci in clusters: Vancomycin 1 g IV daily for three weeks Acute abdominal pain CT abdomen pelvis without contrast negative Anemia hemoglobin 7.7: Consult for GI Dr. Fam to rule out GI causes for anemia appreciated, Dr. Brett Curtis advised conservative management for the present, continue pantoprazole Anemia of chronic disease History of diverticulosis Acute generalized weakness Hypertension History of CVA: With left hemiplegia, continue Eliquis as no endoscopies planned Moderate obesity Stage II sacral decubitus ulcer present on admission History of stroke 06/15 Left hemiplegia Chronically bed-bound Sister Luke Pryor/ dog daycare provider Yanet [phone] at bedside Time spent 50 minutes Advanced care planning time 20 mts Patient is full code Plan discussed with: Patient My Orders Orders - BELLA TOSCANO MD Procedure Category Date Status Time Vancomycin Per PHA 04/19/25 In Process Pharmacy 10:45 Complete Blood Count LAB 04/20/25 Logged 04:00 Creatinine LAB 04/20/25 Logged 04:00 Vancomycin,Random LAB 04/20/25 Logged 08:56 * Picc Line Consult CONS 04/20/25 Transmitted 09:39 Pt Request For Service PT 04/20/25 Logged 09:44 Covid19 Antigen Lana LAB 04/20/25 Logged * Ct Scan Technologist CONS 04/20/25 Transmitted Consult Date of Service: Apr 20, 2025 Billing Provider: BELLA TOSCANO MD Common Visit Codes: [id number] CARE 30-74 MIN BELLA TOSCANO MD Apr 20, 2025 10:08
--- NOTE | 2025-04-20 10:16 | DVHDS2 ---
Discharge Summary Date of Admission Apr 16, 2025 at 03:21 Date of Discharge: Apr 20, 2025 Admitting Diagnosis Generalized weakness and altered mental status Wounds: Stage II sacral decubitus ulcer Labs/Diagnostic Data: Laboratory Results Test 04/20/25 09:58 04/20/25 09:55 04/17/25 04:55 04/15/25 23:59 Eosinophils (%) (Auto) 1.4 % (0.0-7.0) Eosinophils # (Auto) 0.1 10 ^3/uL (0-0.8) Basophils # (Auto) 0 10 ^3/uL (0-0.2) Nucleated Red Blood Cells 0.1 % Sodium Level 141 mmol/L (136-145) Potassium Level 3.9 mmol/L (3.5-5.1) Chloride Level 108 mmol/L (98-107) Carbon Dioxide Level 23 mmol/L (20-31) Anion Gap 10 (5-15) Blood Urea Nitrogen 13 mg/dL (9-23) BUN/Creatinine Ratio 22.4 (10.0-20.0) Serum Glucose 68 mg/dL (74-106) Calcium Level 7.7 mg/dL (8.7-10.4) Total Bilirubin 0.4 mg/dL (0.2-1.0) Aspartate Amino Transferase (AST) 21 U/L (13-40) Alanine Aminotransferase (ALT) 19 U/L (7-40) Alkaline Phosphatase 110 U/L (46-116) Total Protein 6.0 g/dL (5.7-8.2) Albumin 2.5 g/dL (3.2-4.8) Urine Color Yellow (Yellow) Urine Clarity Ex.turbid (Clear) Urine pH 5.5 (5.0-9.0) Urine Specific [place] 1.038 (1.001-1.035) Urine Protein 1+ (Negative) Urine Ketones Trace (Negative) Urine Blood 3+ /uL (Negative) Urine Nitrite Negative (Negative) Urine Bilirubin Negative (Negative) Urine Urobilinogen 2 mg/dL (Negative) Urine Leukocyte Esterase 3+ /uL (Negative) Urine RBC 147 /hpf (0 - 4) Urine Microscopic WBC 67 /HPF (0-5) Urine Squamous Epithelial Cells Many /hpf (<5) Urine Calcium Oxalate Crystals Few (None Seen) Urine Bacteria None seen /hpf (None Seen) Urine Mucus Few (None Seen) Urine Glucose Normal mg/dL (Normal) Test 04/15/25 22:53 Lipase 31 U/L (12-53) Other Laboratory Tests 04/17/25 04:55 Brief Hx & Hospital Course: 65-year-old female with a history of hypertension CVA in 2023 resulting in left hemiplegia on Eliquis anemia of chronic disease diverticulosis chronically bedridden since stroke came in for altered mental status and confusion and generalized weakness found to have sepsis secondary to urinary tract infection started on Rocephin urine cultures growing yeast started on Diflucan. Bacteremia with a Gram-positive cocci in clusters started on vancomycin IV for three weeks she also had anemia hemoglobin 7.7 year seen by GI Dr. Ramos and Dr. Brett Curtis advised conservative management as she has no active GI bleed. Disease Eliquis was held as there with the plan for endoscopy but put back as no endoscopy is planned The [facility] antibiotics vancomycin and Rocephin for three weeks for bacteremia Plan discussed with the patient's caregiver Yanet and she agrees. Consults/Reason for consult GI Dr. Fam GI Dr.N Curtis Operations or Procedures CT abdomen pelvis without contrast Condition at Discharge: Poor Final Diagnosis/Problems List Sepsis secondary to urinary tract infection: urine cultures growing yeast, continue Rocephin, add Diflucan Bacteremia with Gram-positive cocci in clusters: Vancomycin 1 g IV daily for three weeks Acute abdominal pain CT abdomen pelvis without contrast negative Anemia hemoglobin 7.7: Consult for GI Dr. Fam to rule out GI causes for anemia appreciated, Dr. Brett Curtis advised conservative management for the present, continue pantoprazole Anemia of chronic disease History of diverticulosis Acute generalized weakness Hypertension History of CVA: With left hemiplegia, continue Eliquis as no endoscopies planned Moderate obesity Stage II sacral decubitus ulcer present on admission History of stroke 06/15 Left hemiplegia Chronically bed-bound Discharge Disposition: Shelter Facility Discharge Instruct/Medications Diet: Cardiac 2g Na,low cholest Activity: Bed rest Follow Up/Referral: Follow up with the correction Medications: Vancomycin 1 g IV daily for three weeks Rocephin 1 g IV daily for three weeks For bacteremia with Gram-positive cocci in clusters Scheduled Apixaban Base (Eliquis), 5 MG PO BID, (Reported) Atorvastatin Calcium (Atorvastatin Calcium), 20 MG PO DAILY, (Reported) Benazepril Hcl (Benazepril Hcl), 10 MG PO BID, (Reported) Folic Acid (Folic Acid), 1 MG PO DAILY, (Reported) Furosemide (Furosemide), 20 MG PO DAILY, (Reported) Gabapentin (Gabapentin), 300 MG PO HS, (Reported) Isosorbide Mononitrate (Isosorbide Mononitrate Er), 1.5 TAB PO DAILY, (Reported) Metoprolol Succinate (Metoprolol Succinate Er), 25 MG PO BID, (Reported) 39 (Time taken for discharge summary 39 minutes) Discharge Statement: "Patient was advised to return to the ER or call 911 if any headaches, dizziness, shortness of breath, chest pain, abdominal pain, bleeding, fevers, or worsening of medical condition. Patient was counseled about treatment plan, medications, possible side effects, patientverbalized understanding. All questions were answered to the best of my ability. This discharge took greater then 30 minutes in planning, reviewing documentation, counseling the patient, and discussing with other team members." ASSESSMENT ASSESSMENT Hospital Course Marginally improved Assessment Sepsis secondary to urinary tract infection: urine cultures growing yeast, continue Rocephin, add Diflucan Bacteremia with Gram-positive cocci in clusters: Vancomycin 1 g IV daily for three weeks Acute abdominal pain CT abdomen pelvis without contrast negative Anemia hemoglobin 7.7: Consult for GI Dr. Fam to rule out GI causes for anemia appreciated, Dr. Brett Curtis advised conservative management for the present, continue pantoprazole Anemia of chronic disease History of diverticulosis Acute generalized weakness Hypertension History of CVA: With left hemiplegia, continue Eliquis as no endoscopies planned Moderate obesity Stage II sacral decubitus ulcer present on admission History of stroke 06/15 Left hemiplegia Chronically bed-bound Date of Service: Apr 20, 2025 Billing Provider: BELLA TOSCANO MD Common Visit Codes: [id number] DISCH DAY >30min BELLA TOSCANO MD Apr 20, 2025 10:16
[2025-04-20 10:29] LABS: Hematocrit 29.0 % (36.0-46.0); Hemoglobin 9.2 g/dL (12.2-16.2); Mean Corpuscular Hemoglobin 29.2 pg (28.0-32.0); Mean Corpuscular Volume 92.3 fL (80.0-100.0); Nucleated Red Blood Cells % 0.2 %
[2025-04-20 10:30] LABS: Iron 29.0 ug/dL (50-170)
[2025-04-20 10:34] LABS: Total Iron Binding Capacity 174.0 ug/dL (250-425)
[2025-04-20 12:48] VITALS: BP 132/51; PULSE 76; RESP 18; TEMP 97.3; O2SAT 100
--- NOTE | 2025-04-20 13:36 | DVHPN2 ---
Progress Note - Dictate Date Seen: Apr 20, 2025 Medical Necessity Reason Pt with a Central, PICC or Fol: No Subjective No new complaints No active GI bleeding reported Hemoglobin is stable at 9.2; no transfusion required Patient is tolerating a pureed diet Abdominal pain likely related to her UTI awaiting urine culture Suspect anemia of chronic disease vital signs Vital Sign Date Time Temp Pulse Resp B/P (MAP) Pulse Ox O2 Delivery O2 Flow Rate FiO2 04/20/25 12:48 97.3 76 18 132/51 (78) 100 97.3 04/20/25 08:00 Room Air* 0 21 Total Intake and Output 04/19/25 04/19/25 04/20/25 15:00 23:00 07:00 Intake Total 150 ml 450 ml 930 ml Output Total 0 ml 150 ml Balance 150 ml 450 ml 780 ml medications Current Medications Medications Dose Ordered Sig/Jon Route Start Time Stop Time Status Last Admin Dose Admin Ceftriaxone Sodium 50 ml @ 100 mls/hr DAILY@09 IV 04/17/25 09:00 04/20/25 09:04 100 MLS/HR Sodium Chloride 1,000 ml @ 60 mls/hr [id number] IV 04/16/25 02:00 04/19/25 20:40 60 MLS/HR Ondansetron HCl 4 mg Q4HP PRN IV 04/16/25 02:00 Docusate Sodium 100 mg BIDPRN PRN PO 04/16/25 02:00 Tramadol HCl 50 mg Q6HP PRN PO 04/16/25 02:00 04/19/25 18:32 50 MG Nitroglycerin 0.4 mg Q5MINP PRN SL 04/16/25 03:30 Morphine Sulfate 2 mg Q30M PRN IV 04/16/25 03:30 Pantoprazole Sodium 40 mg BID IV 04/18/25 11:00 04/20/25 10:25 40 MG Fluconazole 100 ml @ 100 mls/hr DAILY IV 04/19/25 10:00 04/20/25 10:25 100 MLS/HR Vancomycin HCl 0 ml @ 0 mls/hr PER PHARMACY IV 04/19/25 10:45 Apixaban 5 mg BID PO 04/20/25 22:00 Vancomycin HCl 250 ml @ 166.667 mls/hr Q12H IV 04/20/25 13:00 objective HEENT: NC/AT EOMI PERRLA O/P clear, no JVD or cervical lymphadenopathy, no scleral icterus Heart: Regular rate and rhythm, no murmurs rubs or gallops Lungs: Clear to auscultation bilaterally, no wheezes rales or rhonchi Abdomen: Soft, mild epigastric tenderness to palpation Extremity: No clubbing cyanosis or edema, no rashes or bruises Neuro: Residual left-sided weakness and contracture laboratory and microbiology Laboratory Tests 04/20/25 09:58 04/17/25 04:55 Test 04/17/25 04:55 Range/Units Serum Glucose 68 L 74-106 mg/dL Problems(with codes): (1) Generalized weakness (2) Anemia, unspecified (3) Abdominal pain (4) UTI (urinary tract infection) (5) Anemia in chronic illness Prognosis Plan Discharge planning is in progress to [facility] for IV antibiotics for 2-3 weeks Continue supportive care Iron panel consistent with anemia of chronic disease as suspected Vitamin B12 level is normal Continue Protonix 40 mg p.o. daily Dietary Evaluation Review Recommendations by RD: Dietary education by RD, Protein Supplementation Comments: 1) Initiate MVI @ 1 tb qd 2) Initiate vitamin C @ 500 mg bid and zinc sulfate @ 220 mg qd for 7 days 3) Initiate Artie @ 1 pk bid 4) Initiate Ensure High Protein qd 5) Add cardiac restriction to pureed diet 6) Refer to outpatient RD for weight management 7) Follow-up with gastroenterology and neurology 8) Continue to monitor I&O, labs, and skin integrity Expected Outcomes/Goals: 1) appetite and labs to improve 2) wounds to improve 3) gradual wt loss 4) f/u in 3-5 days Plan discussed with: Patient LIGIA WATKINS MD Apr 20, 2025 13:36
[2025-04-20] MEDS: VANCOMYCIN 1.5GM/250ML 250 ML IV SCH (13:40)
[2025-04-20 14:43] LABS: INR 1.05 (0.9-1.15); Partial Thromboplastin Time 20.6 SEC (24.5-34.5); Prothrombin Time 11.1 sec (9.3-11.8)
[2025-04-20] MEDS: LIDOCAINE 1% (LOCAL ANESTH.) PF 5ml SDV ID ONE (16:53)
[2025-04-20] MEDS ORDERED: SODIUM CHLOR 0.9% PF (SALINE LOCK) 10ML VIAL/SYR IV SCH (22:00)
[2025-04-20] MEDS ORDERED: APIXABAN 5 MG TAB PO SCH (22:00)
--- NOTE | 2025-04-21 13:38 | ECG ---
[facility] Test Date: 2025-04-15 Test Time: 22:15:36 Pat Name: ROMINA COMER Department: [facility] ED Patient ID: [id number] Room: 0240 A Gender: F Technology Education Teacher: VOLODYMYR : 1960 Requested By: ESTRELLA POSADAS Order Number: [id number] Reading MD: Chuck Marcus Measurements Intervals [place] Rate: 78 P: 8 NV: 160 QRS: 3 QRSD: 105 T: 3 QT: 367 QTc: 419 Interpretive Statements Sinus rhythm Abnormal R-wave progression, early transition Left ventricular hypertrophy Electronically Signed On 04-26-2025 13:13:06 PST by Chuck Marcus Please click the below link to view image of tracing.
== END 2025-04-20 19:00 | DRG 871 ==
LOC: EDBD 22:08 → ER 22:12 → OVERFLOW 04-16 03:21 → EDUNIT# 04-16 03:21 → EAST 04-16 17:25
PROVIDERS: ADMIT Family Medicine; ATTEND Family Medicine
PROC: 02HV33Z Insertion of Infusion Device into Superior Vena Cava, Percutaneous Approach (ICD-10-PCS; principal; 2025-04-20)
PROC: B548ZZA Ultrasonography of Superior Vena Cava, Guidance (ICD-10-PCS; 2025-04-20)
DX: A41.89 Other specified sepsis (principal); G93.41 Metabolic encephalopathy; R53.2 Functional quadriplegia; I69.354 Hemiplegia and hemiparesis following cerebral infarction affecting left non-dominant side; N39.0 Urinary tract infection, site not specified; Z68.43 Body mass index [BMI] 50.0-59.9, adult; E44.0 Moderate protein-calorie malnutrition; D64.9 Anemia, unspecified; I10 Essential (primary) hypertension; E66.01 Morbid (severe) obesity due to excess calories; L89.152 Pressure ulcer of sacral region, stage 2; E87.8 Other disorders of electrolyte and fluid balance, not elsewhere classified; D63.8 Anemia in other chronic diseases classified elsewhere; K52.9 Noninfective gastroenteritis and colitis, unspecified; Z74.01 Bed confinement status; Z79.01 Long term (current) use of anticoagulants; Z80.1 Family history of malignant neoplasm of trachea, bronchus and lung; Z82.49 Family history of ischemic heart disease and other diseases of the circulatory system; Z83.3 Family history of diabetes mellitus; Z88.6 Allergy status to analgesic agent; Z90.49 Acquired absence of other specified parts of digestive tract; Z79.899 Other long term (current) drug therapy
CPT/HCPCS: 36415; 36569; 74176; 80053; 80202; 81001; 82565; 82607; 83540; 83550; 83690; 85025; 85610; 85730; 86850; 86900; 86901; 87040; 87077; 87086; 87088; 87186; 93005; 96365; 97163; G0378; J0696; J1450; J2470; P9047

== ENCOUNTER 2025-04-27 19:25 | Inpatient (IN) | payer MEDICARE, MEDICAID ==
[~2025-04-27] VITALS: Ht 170.2 cm; Wt 154.5 kg
--- NOTE | 2025-04-27 19:56 | ECG ---
[facility] Test Date: 2025-04-27 Test Time: 19:41:52 Pat Name: ROMINA COMER Department: [facility] ED Patient ID: [facility]-[id number] Room: 0214 Gender: F Cement Worker: VON : 1960 Requested By: ESTRELLA POSADAS Order Number: [id number] Reading MD: Chuck Marcus Measurements Intervals [place] Rate: 87 P: 0 UT: 57 QRS: 16 QRSD: 102 T: -6 QT: 363 QTc: 437 Interpretive Statements Sinus rhythm Short UT interval Right atrial enlargement Abnormal R-wave progression, early transition LVH with secondary repolarization abnormality Artifact in lead(s) I,II,aVR,aVL Electronically Signed On 05-02-2025 10:51:46 PST by Chuck Marcus Please click the below link to view image of tracing.
--- NOTE | 2025-04-27 20:49 | ECG ---
[facility] Test Date: 2025-04-27 Test Time: 20:46:33 Pat Name: ROMINA COMER Department: [facility] Patient ID: [facility]-[id number] Room: 0214 Gender: F Informatics Coordinator: VON : 1960 Requested By: ESTRELLA POSADAS Order Number: [id number] Reading MD: Chuck Marcus Measurements Intervals [place] Rate: 81 P: 39 VT: 189 QRS: 20 QRSD: 106 T: -9 QT: 361 QTc: 419 Interpretive Statements Sinus rhythm Consider right atrial enlargement Abnormal R-wave progression, early transition LVH with secondary repolarization abnormality Minimal ST elevation, inferior leads Artifact in lead(s) I,II,aVR,aVL Electronically Signed On 05-02-2025 10:51:50 PST by Chuck Marcus Please click the below link to view image of tracing.
[2025-04-27 21:30] LABS: Alanine Aminotransferase 14 U/L (7-40); Alkaline Phosphatase 108 U/L (46-116); Anion Gap 10 (5-15); BUN/Creatinine Ratio 4.8 (10.0-20.0); Bilirubin, Total 0.3 mg/dL (0.2-1.0); Blood Urea Nitrogen 10 mg/dL (9-23); Carbon Dioxide 21 mmol/L (20-31); Glucose 93 mg/dL (74-106); Lipase 20 U/L (12-53)
[2025-04-27 21:42] LABS: Albumin 2.2 g/dL (3.2-4.8); Calcium 7.9 mg/dL (8.7-10.4); Chloride 116 mmol/L (98-107); Potassium 3.2 mmol/L (3.5-5.1); Sodium 147 mmol/L (136-145); Total Protein 5.5 g/dL (5.7-8.2)
[2025-04-27 22:08] LABS: Hematocrit 25.1 % (36.0-46.0); Hemoglobin 8.1 g/dL (12.2-16.2); Mean Corpuscular Hemoglobin 29.4 pg (28.0-32.0); Mean Corpuscular Volume 91.9 fL (80.0-100.0); Nucleated Red Blood Cells % 0.1 %
[2025-04-27 22:24] LABS: Anisocytosis Slight
--- NOTE | 2025-04-27 22:55 | DVH ---
TRANSABDOMINAL PELVIC ULTRASOUND CLINICAL HISTORY: vag bleed TECHNIQUE: Multiple grayscale ultrasound images were obtained of the pelvis via transabdominal approach. Limited color Doppler and spectral Doppler acquisitions were also obtained. COMPARISON: None FINDINGS: Uterus: 6.6 x 3.8 x 4.4 cm. The uterine contour is smooth. No myometrial masses are seen. Endometrium: 4.8 mm No endometrial mass is seen. No blood flow or discrete lesion is seen. Right adnexa: right ovary not visualized. No right adnexal mass seen. Left adnexa: left ovary not visualized. No left adnexal mass seen. Other: None IMPRESSION: 1. Borderline thickening of the endometrium. No blood flow. DDX includes mild endometrial hyperplasia, less likely polyp or neoplasm. This could be further evaluated with endometrial sampling if clinically indicated.
[2025-04-28] VITALS (8 sets, daily range): BP systolic 121–135; BP diastolic 30–53; PULSE 62–82; RESP 14–20; TEMP 97.5–98; O2SAT 90–100
--- NOTE | 2025-04-28 01:56 | ED.PDOC ---
History of Present Illness HPI Comments Patient brought in by EMS. Patient returned from [facility]. Patient was having vaginal bleeding yesterday and continued today. Night's have noticed that patient had blood saturated through her undergarments. They called 911. Patient complaining of mild suprapubic/pelvic pain. Patient does have prior stroke with left-sided deficits. Patient is bed-bound. Chief Complaint: Abdominal Pain Time Seen by MD: 19:29 Primary Care Provider: SAVANAH Reviewed Notes: Nurses Notes Allergies: Coded Allergies: Acetaminophen (Unverified Allergy, Unknown, 04/15/25) Aspirin (Verified Allergy, Unknown, 11/26/18) Tomato (Unverified Allergy, Unknown, 04/16/25) Home Meds Reported Medications Folic Acid (Folic Acid) 1 Mg Tab, 1 MG PO DAILY for 30 Days, MG 11/26/18 Furosemide (Furosemide) 20 Mg Tab, 20 MG PO DAILY for 30 Days, MG 05/07/17 Benazepril Hcl (Benazepril Hcl) 10 Mg Tab, 10 MG PO BID for 30 Days, MG 05/07/17 Metoprolol Succinate (Metoprolol Succinate Er) 25 Mg Tab, 25 MG PO BID for 30 Days, MG 05/07/17 Apixaban Base (ELIQUIS) 5 Mg Tab, 5 MG PO BID, TAB 05/07/17 Isosorbide Mononitrate (Isosorbide Mononitrate Er) 60 Mg Tab, 1.5 TAB PO DAILY for 30 Days, MG 05/07/17 Atorvastatin Calcium (ATORVASTATIN CALCIUM) 20 Mg Tab, 20 MG PO DAILY, TAB 05/07/17 Gabapentin (Gabapentin) 300 Mg Cap, 300 MG PO HS for 30 Days, MG 05/07/17 Information Source: Emergency Med Personnel Mode of Arrival: EMS Past Medical History PAST MEDICAL HISTORY: CVA, HTN, UTI'S Surgical History: Denies all surgeries BOBTAIL DRIVER History: Ovarian Cysts Family History Family History: Unknown Social History Smoker: Non-Smoker Alcohol: Denies ETOH Use Drugs: Denies Drug Use Lives In: Home Physical Exam General Appearance: Moderate Distress, Obese HEENT: Normal ENT Inspection, Pharynx Normal, TMs Normal Neck: Non-Tender Respiratory: Chest Non-Tender, Lungs Clear, No Accessory Muscle Use, No Respiratory Distress, Normal Breath Sounds Cardiovascular: No Edema, No JVD, No Murmur, No Gallop, Normal Peripheral Pulses, Regular Rate/Rhythm Breast Exam: Deferred Gastrointestinal: Distended, No Organomegaly, Normal Bowel Sounds, Soft Genitalia: Deferred Pelvic: Deferred Rectal: Deferred Extremities: NOT DONE Musculoskeletal : Location: NOT DONE Apperance: Normal Neurologic: Alert, commercial stripper II-XII nml as Tested, Sensory Deficit (Left side of his) Cerebellar Function: Normal Reflexes: Normal Skin: Dry, Normal Color, Warm Lymphatic: No Adenopathy Was a procedure done? Was a procedure done?: No Differential Dx Considerations may include: UTI, urosepsis, dehydration, uterine cancer, X-Ray, Labs, Meds, VS Vital Signs Date Time Temp Pulse Resp B/P (MAP) Pulse Ox O2 Delivery O2 Flow Rate FiO2 04/27/25 20:46 81 04/27/25 19:41 87 04/27/25 19:27 97.5 80 16 128/87 98 97.5 Lab Test 04/27/25 21:55 04/27/25 21:00 Range/Units White Blood Count 4.9 4.4-10.8 10^3/uL Red Blood Count 2.73 L 4.0-5.20 10^6/uL Hemoglobin 8.1 L 12.2-16.2 g/dL Hematocrit 25.1 L 36.0-46.0 % Mean Corpuscular Volume 91.9 80.0-100.0 fL Mean Corpuscular Hemoglobin 29.4 28.0-32.0 pg Mean Corpuscular Hemoglobin Concent 32.0 32.0-36.0 g/dL Red Cell Distribution Width 20.5 H 11.8-14.3 % Platelet Count 37 L 140-450 10^3/uL Mean Platelet Volume 8.6 6.9-10.8 fL Neutrophils (%) (Auto) 76.6 37.0-80.0 % Lymphocytes (%) (Auto) 12.6 10.0-50.0 % Monocytes (%) (Auto) 8.9 0.0-12.0 % Eosinophils (%) (Auto) 1.4 0.0-7.0 % Basophils (%) (Auto) 0.5 0.0-2.0 % Neutrophils # (Auto) 3.8 1.6-8.6 10 ^3/uL Lymphocytes # (Auto) 0.6 0.4-5.4 10 ^3/uL Monocytes # (Auto) 0.4 0-1.3 10 ^3/uL Eosinophils # (Auto) 0.1 0-0.8 10 ^3/uL Basophils # (Auto) 0 0-0.2 10 ^3/uL Nucleated Red Blood Cells 0.1 % Platelet Estimate Decreased Large Platelets Few Anisocytosis (manual) Slight Imer Cells Few Sodium Level 147 H 136-145 mmol/L Potassium Level 3.2 L 3.5-5.1 mmol/L Chloride Level 116 H 98-107 mmol/L Carbon Dioxide Level 21 20-31 mmol/L Anion Gap 10 5-15 Blood Urea Nitrogen 10 9-23 mg/dL Creatinine 2.09 H 0.550-1.02 mg/dL Glomerular Filtration Rate Calc 26 >90 mL/min BUN/Creatinine Ratio 4.8 L 10.0-20.0 Serum Glucose 93 74-106 mg/dL Calcium Level 7.9 L 8.7-10.4 mg/dL Total Bilirubin 0.3 0.2-1.0 mg/dL Aspartate Amino Transferase (AST) 19 13-40 U/L Alanine Aminotransferase (ALT) 14 7-40 U/L Alkaline Phosphatase 108 46-116 U/L Total Protein 5.5 L 5.7-8.2 g/dL Albumin 2.2 L 3.2-4.8 g/dL Lipase 20 12-53 U/L X-Ray, Labs, Meds, VS Comment Patient being admitted for dehydration, hypernatremia, vaginal bleeding, hypokalemia Patient hemodynamically stable Prior records reviewed by this provider Vital signs reviewed by this provider Time of 1ST Reevaluation: 01:54 Reevaluation 1ST: Unchanged Patient Education/Counseling: Diagnosis, Treatment, Need For Follow Up Family Education/Counseling: Diagnosis, Treatment SEPSIS Sepsis Screen Date sepsis recognized/suspect: Apr 27, 2025 Time Sepsis recognized/suspect: 1930 Recent Procedure: No On Antibiotic Therapy: No Respiratory Rate >20: No Heart Rate >90: No Temp<36 C (96.8 F) or >38.3 C: No SBP <90 or MAP <65 mmHG: No New Acute Mental Status Change: No Is the patient on CPAP, BIPAP,: No Physician Orders Urinalysis (04/27/25 20:08) Pelvic (04/27/25 20:08) Ok To Use Existing Picc (04/27/25 21:08) Lactated Ringers Lr (04/28/25 02:00) Potassium Effervesent Tab (Klor-Con/Ef) (04/28/25 02:00) Vital Signs Date Time Temp Pulse Resp B/P (MAP) Pulse Ox O2 Delivery O2 Flow Rate FiO2 04/27/25 20:46 81 04/27/25 19:41 87 04/27/25 19:27 97.5 80 16 128/87 98 97.5 Laboratory Tests Test 04/27/25 21:55 White Blood Count 4.9 10^3/uL (4.4-10.8) Departure 1 Departure Time of Disposition: 01:52 Impression: Primary Impression: Anemia in chronic illness Additional Impressions: Endometriosis Hypernatremia Dehydration Disposition: ADMITTED INPATIENT Condition: Stable Discharged With: Self Critical Care Note Critical Care Time?: No Stability Stability form required: No Heart Score Heart Score: Heart Score Response (Comments) Value History N/A 0 EKG N/A 0 Age N/A 0 Risk Factors N/A 0 Troponin N/A 0 Total 0 ESTRELLA POSADAS Apr 28, 2025 01:56
[2025-04-28] MEDS: LACTATED RINGER'S 1,000 ML IV ONE ×2 (03:32→04:24)
[2025-04-28] MEDS: POTASSIUM CHL 20 Meq TABLET PO ONE (03:45)
[2025-04-28] MEDS ORDERED: HYDROcodone-ACET 5/325MG TAB PO PRN (03:45)
[2025-04-28] MEDS ORDERED: ACETAMINOPHEN 325 MG TAB PO PRN (03:45)
[2025-04-28] MEDS: POTASSIUM EFFERVESENT TAB 25 MEQ PO ONE (03:50)
--- NOTE | 2025-04-28 04:28 | DVHHPRES ---
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 Patient reports that the pain is 10/10 in intensity, nonradiating, no aggravating or relieving factors, associated with bleeding from the vagina and nausea. Patient reports that she used 2-3 diapers yesterday for the bleeding and this has not happened before. Her last menstrual period was in her 40s. Patient denies any fever, chills, vomiting, GERD symptoms, chest pain, shortness of breaths or any other symptoms. She reports her urine and bowel movements have been normal. Vitals were stable on admission, hemoglobin 8.1, potassium 3.2, creatinine 2.09. Ultrasound of the pelvis shows thickened endometrium / endometrial hyperplasia. We are admitting the patient for further workup ad management. PMH: As stated above PSH: Cholecystectomy Family history: Reviewed and noncontributory to the management of this case Social history: Patient denies smoking, drinking alcohol or illicit drug abuse Allergies: Acetaminophen, aspirin, tomato PCP: Dr. Richardson code status: DNR /DNI, chemical code (okay to pressors) Review of Systems Constitutional: No: Fever, Chills, Sweats, Weakness, Malaise, Other Eyes: No: Pain, Vision change, Conjunctivae inflammation, Eyelid inflammation, Other, Redness ENT: No: Ear pain, Ear discharge, Nose pain, Nose discharge, Nose congestion, Mouth pain, Mouth swelling, Throat pain, Throat swelling, Other Respiratory: No: Cough, Dry, Shortness of breath, SOB with excertion, Wheezing, Hemoptysis, Pleuritic Pain, Sputum, Wheezing, Other Cardiovascular: No: Chest Pain, Palpitations, Orthopnea, Paroxysmal Noc. Dyspnea, Edema, Lt Headedness, Other Gastrointestinal: Abdominal Pain; No: Nausea, Vomiting, Diarrhea, Constipation, Melena, Hematochezia, Other Genitourinary: No Dysuria, No Frequency, No Incontinence, No Hematuria, No Retention; Other (Vaginal bleeding) Musculoskeletal: No: other, neck pain, shoulder pain, arm pain, back pain, hand pain, leg pain, foot pain Skin: No: Rash, Lesions, Jaundice, Bruising, Other Neurological: No: Weakness, Numbness, Incoordination, Change in speech, Confusion, Seizures, Other Allergies: Coded Allergies: Acetaminophen (Unverified Allergy, Unknown, 04/15/25) Aspirin (Verified Allergy, Unknown, 11/26/18) Tomato (Unverified Allergy, Unknown, 04/16/25) Medications Current Medications Medications Dose Ordered Sig/Jon Route Start Time Stop Time Status Last Admin Dose Admin Acetaminophen/ Hydrocodone Bitart 1 tab Q4HP PRN PO 04/28/25 03:45 Hold Ondansetron HCl 4 mg Q4HP PRN IV 04/28/25 03:45 Acetaminophen 650 mg Q6HP PRN PO 04/28/25 03:45 Hold Atorvastatin Calcium 20 mg DAILY PO 04/28/25 10:00 Gabapentin 300 mg HS PO 04/28/25 22:00 Iron Sucrose 110 ml @ 110 mls/hr DAILY@1200 IV 04/28/25 12:00 05/02/25 12:59 Exam Vital Signs Vital Signs Date Time Temp Pulse Resp B/P (MAP) Pulse Ox O2 Delivery O2 Flow Rate FiO2 04/27/25 20:46 81 04/27/25 19:27 97.5 16 128/87 98 97.5 Exam Pt is lying on bed General Appearance: Alert, Oriented X3, Cooperative, Not in acute distress, bed-bound, left-sided hemiparesis HEENT: Atraumatic, Mucous membranes moist/pink Respiratory: Clear to auscultation, Normal air movement, No added sounds Cardiovascular: Regular rate, Normal S1, Normal S2, No murmurs Abdominal: Active bowel sounds, Soft, no distention, no tenderness Extremities: No edema, Normal pulses, No tenderness/swelling Skin: No Significant rash, except past surgical scars Neuro: Normal speech, power 0/5 in left upper and lower extremity, 2/5 in lower right extremity, 5/5 in upper right extremity Psych/Mental Status: Mental status NL, Mood NL Nurse was there as functional director during examination Labs/Xrays Labs Test 04/27/25 21:55 04/27/25 21:00 Range/Units White Blood Count 4.9 4.4-10.8 10^3/uL Red Blood Count 2.73 L 4.0-5.20 10^6/uL Hemoglobin 8.1 L 12.2-16.2 g/dL Hematocrit 25.1 L 36.0-46.0 % Mean Corpuscular Volume 91.9 80.0-100.0 fL Mean Corpuscular Hemoglobin 29.4 28.0-32.0 pg Mean Corpuscular Hemoglobin Concent 32.0 32.0-36.0 g/dL Red Cell Distribution Width 20.5 H 11.8-14.3 % Platelet Count 37 L 140-450 10^3/uL Mean Platelet Volume 8.6 6.9-10.8 fL Neutrophils (%) (Auto) 76.6 37.0-80.0 % Lymphocytes (%) (Auto) 12.6 10.0-50.0 % Monocytes (%) (Auto) 8.9 0.0-12.0 % Eosinophils (%) (Auto) 1.4 0.0-7.0 % Basophils (%) (Auto) 0.5 0.0-2.0 % Neutrophils # (Auto) 3.8 1.6-8.6 10 ^3/uL Lymphocytes # (Auto) 0.6 0.4-5.4 10 ^3/uL Monocytes # (Auto) 0.4 0-1.3 10 ^3/uL Eosinophils # (Auto) 0.1 0-0.8 10 ^3/uL Basophils # (Auto) 0 0-0.2 10 ^3/uL Nucleated Red Blood Cells 0.1 % Platelet Estimate Decreased Large Platelets Few Anisocytosis (manual) Slight [place] Cells Few Sodium Level 147 H 136-145 mmol/L Potassium Level 3.2 L 3.5-5.1 mmol/L Chloride Level 116 H 98-107 mmol/L Carbon Dioxide Level 21 20-31 mmol/L Anion Gap 10 5-15 Blood Urea Nitrogen 10 9-23 mg/dL Creatinine 2.09 H 0.550-1.02 mg/dL Glomerular Filtration Rate Calc 26 >90 mL/min BUN/Creatinine Ratio 4.8 L 10.0-20.0 Serum Glucose 93 74-106 mg/dL Calcium Level 7.9 L 8.7-10.4 mg/dL Total Bilirubin 0.3 0.2-1.0 mg/dL Aspartate Amino Transferase (AST) 19 13-40 U/L Alanine Aminotransferase (ALT) 14 7-40 U/L Alkaline Phosphatase 108 46-116 U/L Total Protein 5.5 L 5.7-8.2 g/dL Albumin 2.2 L 3.2-4.8 g/dL Lipase 20 12-53 U/L SEPSIS Sepsis Screen Date sepsis recognized/suspect: Apr 27, 2025 Time Sepsis recognized/suspect: 1930 Recent Procedure: No On Antibiotic Therapy: No Respiratory Rate >20: No Heart Rate >90: No Temp<36 C (96.8 F) or >38.3 C: No SBP <90 or MAP <65 mmHG: No New Acute Mental Status Change: No Is the patient on CPAP, BIPAP,: No Physician Orders Ok To Use Existing Picc (04/27/25 21:08) Admit (04/28/25 03:35) Code Status (04/28/25 03:35) Hydrocodone-Acet 5/325mg Tab ([place] 5/32 (04/28/25 03:45) Ondansetron Hcl (Zofran) (04/28/25 03:45) Complete Blood Count (04/28/25 04:00) Comprehensive Metabolic Panel (04/28/25 04:00) Cardiac Diet-2gna,Lofat,Lochol (04/28/25 Breakfast) Condition: Unstable (04/28/25 03:35) Acetaminophen Tablet (Tylenol Tablet) (04/28/25 03:45) Magnesium (04/28/25 03:35) Atorvastatin (Lipitor) (04/28/25 10:00) Gabapentin Capsule (Neurontin Capsule) (04/28/25 22:00) Type And Screen (04/28/25 03:35) Drug Screen (04/28/25 03:35) Chest Xray 1 View (04/28/25 03:35) * [employer] In[employer] Consultation (04/28/25 03:35) Lactated Ringer's (04/28/25 03:45) Lactic Acid W/ Reflex Order (04/28/25 03:35) Iron Sucrose Complex (Venofer) (04/28/25 12:00) Stool Occult Blood (04/28/25 03:35) * Swallow Request (04/28/25 04:18) PTPTT (04/28/25 04:20) Ct Ab Pel Wo Con-No Oral Or Iv (04/28/25 04:20) Vital Signs Date Time Temp Pulse Resp B/P (MAP) Pulse Ox O2 Delivery O2 Flow Rate FiO2 04/27/25 20:46 81 Laboratory Tests Test 04/27/25 21:55 White Blood Count 4.9 10^3/uL (4.4-10.8) Medications Medications Dose Ordered Sig/Jon Route Start Time Stop Time Status Last Admin Dose Admin Lactated Ringer's 1,000 ml @ 1,000 mls/hr Q1H ONCE IV 04/28/25 02:00 04/28/25 02:59 DC 04/28/25 03:32 1,000 MLS/HR Assessment/Plan Assessment/Plan #Blood loss anemia due to bleeding per vagina #Endometrial hyperplasia, rule out malignancy/polyp #Chronic iron-deficiency anemia - last iron profile on 04/20/2025 iron 29, TIBC 174,% saturation 16.7 - IV iron x5 days - type and screen - pelvic USG shows: Borderline thickening of the endometrium. No blood flow. DDX includes mild endometrial hyperplasia, less likely polyp or neoplasm. This could be further evaluated with endometrial sampling if clinically indicated. - OBGYN consult - pain management - IV ondansetron 4 mg q.4 PRN - PT 12.3, INR 1.8 - CT abdomen and pelvis without contrast - lactic acid #History of stroke #HLD #Hypertension - swallow evaluation - hold atorvastatin 20 mg p.o. daily until swallow evaluation completed - Ct head without contrast - hold BP medication for now - patient on Eliquis, therapeutic Lovenox not given as patient hemoglobin 7.2 and is bleeding - cxr: Cardiomegaly. #Thrombocytopenia -platelet transfusion once #Hypokalemia - repleted # FRANK due to VMN - IV NS 0.9% - IV Ringer's lactate 140ml/hr maintenance - UDS - avoid nephrotoxic drugs #Morbid Obesity, BMI 62.7/m2 - patient counselled regarding dietary modification for weight loss for over 5 minutes DVT prophylaxis: Held for now as patient is bleeding Diet: cardiac diet Goals of care discussed with the patient for more than 27 minutes: DNR/DNI,chemical code status Case discussed with Dr. Fry, patient Plan discussed with: Patient My Orders Orders - HARJIT LIEBERMAN RESIDENT Procedure Category Date Status Time Admit ADMIT 04/28/25 Transmitted 03:35 Code Status CODE 11/6/25 Transmitted 03:35 Hydrocodone-Acet PHA 04/28/25 In Process 5/325mg Tab ([place] 03:45 Ondansetron Hcl PHA 04/28/25 In Process (Zofran) 03:45 Complete Blood Count LAB 04/28/25 Logged 04:00 Comprehensive LAB 04/28/25 Logged Metabolic Panel 04:00 Cardiac DIET 04/28/25 Transmitted Diet-2gna,Lofat,Lochol Breakfast Condition: Unstable EDUARDO 04/28/25 In Process 03:35 Acetaminophen Tablet PHA 04/28/25 In Process (Tylenol Tablet) 03:45 Magnesium LAB 04/28/25 Logged 03:35 Atorvastatin (Lipitor) PHA 04/28/25 In Process 10:00 Gabapentin Capsule PHA 04/28/25 In Process (Neurontin Capsule) 22:00 Type And Screen BBK 04/28/25 Logged 03:35 Drug Screen LAB 04/28/25 Logged 03:35 Chest Xray 1 View XY 04/28/25 Taken 03:35 * [employer] Instructor Consultation CONS 04/28/25 Transmitted 03:35 Lactated Ringer's PHA 04/28/25 In Process 03:45 Lactic Acid W/ Reflex LAB 04/28/25 Logged Order 03:35 Iron Sucrose Complex PHA 04/28/25 In Process (Venofer) 12:00 Stool Occult Blood LAB 04/28/25 Logged 03:35 * Swallow Request ST 04/28/25 Transmitted 04:18 PTPTT LAB 04/28/25 Logged 04:20 Ct Ab Pel Wo Con-No CT 04/28/25 Logged Oral Or Iv 04:20 Date of Service: Apr 28, 2025 Billing Provider: NELLY FRY MD Common Visit Codes: [id number] INP/OBS CARE (HIGH) Secondary Visit Codes: [id number] CARE PLAN 30 MINUTES HARJIT LIEBERMAN RESIDENT Apr 28, 2025 04:28
--- NOTE | 2025-04-28 04:32 | DVH ---
CHEST RADIOGRAPH Indication: sob Technique: Single frontal view of the chest was obtained Comparison: None FINDINGS: Lines and Tubes: There is a right PICC with its tip terminating in the superior vena cava. Lungs: No focal consolidation. Pleura: No effusion. No pneumothorax. Cardiomediastinal contours: Cardiomegaly. Bones: No acute osseous abnormality. IMPRESSION: 1. Cardiomegaly. 2. No acute pulmonary process.
[2025-04-28 05:24] LABS: Hematocrit 25.4 % (36.0-46.0); Hemoglobin 8.1 g/dL (12.2-16.2); Mean Corpuscular Hemoglobin 29.3 pg (28.0-32.0); Mean Corpuscular Volume 92.2 fL (80.0-100.0); Nucleated Red Blood Cells % 0.5 %
[2025-04-28 05:37] LABS: INR 1.18 (0.9-1.15); Partial Thromboplastin Time 29.1 SEC (24.5-34.5); Prothrombin Time 12.3 sec (9.3-11.8)
[2025-04-28 05:42] LABS: Alanine Aminotransferase 13 U/L (7-40); Alkaline Phosphatase 108 U/L (46-116); Anion Gap 11 (5-15); BUN/Creatinine Ratio 4.1 (10.0-20.0); Bilirubin, Total 0.3 mg/dL (0.2-1.0); Blood Urea Nitrogen 9 mg/dL (9-23); Carbon Dioxide 21 mmol/L (20-31); Glucose 90 mg/dL (74-106); Magnesium 2.1 mg/dL (1.6-2.6); Potassium 3.8 mmol/L (3.5-5.1)
[2025-04-28 05:56] LABS: Albumin 2.2 g/dL (3.2-4.8); Calcium 8.1 mg/dL (8.7-10.4); Chloride 116 mmol/L (98-107); Sodium 148 mmol/L (136-145); Total Protein 5.5 g/dL (5.7-8.2)
--- NOTE | 2025-04-28 06:46 | DVH ---
EXAM: CT HEAD WITHOUT CONTRAST INDICATION: Difficulty swallowing now suddenly, history of stroke TECHNIQUE: CT of the head without intravenous contrast. Coronal and sagittal reformatted images are submitted. Radiation Dose : 1. Head: CT Dose: CTDI volume is 53.69 mGy. Dose-length product is 1077.34 mGy*cm The dose indicators for CT are the volume Computed Tomography (CT) Dose Index (CTDIvol) and the Dose Length Product (DLP), and are measured in units of mGy and mGy-cm, respectively. These indicators are not patient dose, but values generated from the CT scanner acquisition factors. The report includes radiation exposure data for exposures received during this examination. All CT scans at this medical facility are performed using dose modulation techniques as appropriate to a performed exam including the following: Automated exposure control was utilized; adjustment of the MA and/or KV according to patient size; and use of iterative reconstruction technique. COMPARISON: None FINDINGS: There is no evidence of acute intracranial hemorrhage, extra-axial collection, mass effect, midline shift, herniation or hydrocephalus. Old right MCA infarct. Generalized parenchymal volume loss. The ventricles, sulci and cisterns are age appropriate. The mosqueda-white differentiation is intact. The visualized paranasal sinuses and mastoid air cells are clear. No depressed calvarial fracture. The surrounding soft tissues are unremarkable. IMPRESSION: 1. No acute intracranial abnormality. 2. Large right old MCA infarct. This May Limited evaluation and if there strong clinical concern for infarct, MRI of the brain without intravenous contrast and CT angiography of the head is recommended.
--- NOTE | 2025-04-28 07:19 | DVH ---
Exam: CT CT AB PEL WO CON-NO ORAL OR IV History: Uterine bleeding, r/o mass Comparison Study: None. Technique: Multidetector spiral CT of the abdomen and pelvis was performed from lung bases to pubic symphysis. Imaging was performed without intravenous contrast. Coronal and sagittal multiplanar reformats were obtained from the axial data set by the technologist. Radiation Dose : 1. Abdomen/Pelvis: CTDIvol 25.56 mGy, DLP 1632.33 mGy*cm. Findings: Evaluation of vasculature and solid organs is limited due to lack of intravenous contrast use. Lung Bases: Lung bases are clear. Visualized portions of the heart and pericardium are unremarkable. Liver: The liver is normal in size. No focal lesions. Gallbladder and Biliary Tree: The gallbladder is surgically absent. No intrahepatic or extrahepatic biliary ductal dilatation. Spleen: Unremarkable Pancreas: The pancreas is grossly unremarkable. Adrenal Glands: Unremarkable Kidneys: Kidneys are unremarkable without calculi or hydronephrosis. GI tract: The stomach is grossly normal in appearance. No evidence of small bowel wall thickening or abnormal dilatation to suggest bowel obstruction. Colonic diverticulosis without acute diverticulitis. The appendix is not visualized, however no inflammatory changes in the right lower quadrant to sugg est acute appendicitis. Peritoneum/mesentery/retroperitoneum. No evidence of free intraperitoneal air. No pelvic free fluid or abdominal ascites. Lymph nodes: No evidence of suspicious lymphadenopathy. Abdominal Wall: Unremarkable. Vasculature: The visualized abdominal aorta is normal in size and caliber. Evaluation of abdominal and pelvic vessels is limited due to lack of intravenous contrast. Urinary Bladder: Grossly unremarkable for degree of distention. Pelvic Organs: The uterus appears grossly unremarkable however evaluation is limited without intravenous contrast. Musculoskeletal: No aggressive focal bony lesions, acute fractures or dislocation. IMPRESSION: 1. No acute abdominal or pelvic findings. 2. Uterus not well evaluated on noncontrast CT. Pelvic ultrasound recommended. No pelvic free fluid. 3. Colonic diverticulosis without acute diverticulitis.
[2025-04-28] MEDS: D5W/SOD CHL 0.45% 1,000 ML IV SCH (09:45)
[2025-04-28 10:29] LABS: Iron 53.0 ug/dL (50-170)
--- NOTE | 2025-04-28 10:29 | DVHPNRES ---
Progress Note Date Seen: Apr 28, 2025 Resident Creating Document: SHANNAN SHAW RESIDENT Medical Necessity Reason Pt with a Central, PICC or Fol: No Subjective Review of Systems Karolina Mendoza is a 65-year old female with past medical history of CVA with residual left hemiplegia on Eliquis at home, hypertension, hyperlipidemia, diverticulosis, chronically bedridden with the chief complaint of lower abdominal pain and vaginal bleeding. The patient mentions she has had lower abdominal pain since 4-5 days, 10/10 in intensity, associated with bleeding from the vagina, soaking 3 diapers yesterday. Patient had her last menstrual period around 20 years back. She denies any fever, chills, nausea or vomiting and recent weight loss. Pelvic ultrasound showed endometrial thickness 4.8 mm. Abdomen/pelvis CT showed no acute abdominal or pelvic findings. OBGYN was consulted and they recommended outpatient follow up. Past medical history: CVA with residual left hemiplegia on Eliquis at home, hypertension, hyperlipidemia, chronically bedridden,diverticulosis Past surgical history: Cholecystectomy Social & Personal history: denies alcohol, smoking and drugs Allergies: acetaminophen, aspirin, tomatoes Patient seen and examined at bedside. Patient is alert and oriented to time, place person and responding to all questions. Eyes: No Pain, No Vision change, No Conjunctivae inflammation, No Eyelid inflammation, No Redness ENT: No Ear pain, No Ear discharge, No Nose pain, No Nose discharge, No Nose congestion, No Mouth pain, No Mouth swelling, No Throat pain, No Throat swelling Cardiovascular: No Chest Pain, No Palpitations, No Orthopnea, No Paroxysmal No Dyspnea, No Edema, No Lt Headedness Respiratory: No Cough, No Dry, No Shortness of breath, No SOB with exertion, No Wheezing, No Hemoptysis, No Pleuritic Pain, No Sputum Gastrointestinal: No Nausea, No Vomiting, Abdominal Pain, No Diarrhea, No Constipation, No Melena, No Hematochezia Genitourinary: No Dysuria, No Frequency, No Incontinence, No Hematuria, No Retention, vaginal bleeding Objective vital signs Vital Sign Date Time Temp Pulse Resp B/P (MAP) Pulse Ox O2 Delivery O2 Flow Rate FiO2 04/28/25 09:00 98.0 70 15 132/50 (77) 100 98.0 04/28/25 07:30 Room Air* 0 21 Total Intake and Output 04/27/25 04/27/25 04/28/25 15:00 23:00 07:00 Intake Total 280 ml Balance 280 ml medications Current Medications Medications Dose Ordered Sig/Jon Route Start Time Stop Time Status Last Admin Dose Admin Acetaminophen/ Hydrocodone Bitart 1 tab Q4HP PRN PO 04/28/25 03:45 Hold Ondansetron HCl 4 mg Q4HP PRN IV 04/28/25 03:45 Acetaminophen 650 mg Q6HP PRN PO 04/28/25 03:45 Hold Atorvastatin Calcium 20 mg DAILY PO 04/28/25 10:00 Gabapentin 300 mg HS PO 04/28/25 22:00 Iron Sucrose 110 ml @ 110 mls/hr DAILY@1200 IV 04/28/25 12:00 05/02/25 12:59 Dextrose/Sodium Chloride 1,000 ml @ 75 mls/hr [id number] IV 04/28/25 09:45 Examination General Appearance: Cooperative. Well developed. Well nourished. NAD Head Exam: Normal inspection Neck Exam: Normal inspection. Non-tender. Normal alignment Pulmonary/Respiratory: Chest non-tender. Clear bilateral breath sounds, no crackles, no wheezing. Cardiovascular/Chest: Regular rate and rhythm. No murmurs. No JVD. Peripheral Pulses: 2+ Radial (R). 2+ Radial (L). 2+ Pedal (R). 2+ Pedal (L) Abdominal Exam: Normal bowel sounds. Soft. normal abdomen, no visible veins, tenderness in lower abdomen, No hepatospenomegaly. No masses Ankle Exam: Negative ankle edema Lower extremities: Negative lower extremity edema Neuro/Mental Status: A&O x4. Coherent, strength 0/5 in left upper and lower extremity, 3/5 in right upper extremity and 2/5 in right lower extremity Thoughts/Psych: Normal thought pattern. Appropriate mood and affect. Good judgement and insight Skin Exam: Normal inspection. Normal color. Warm. Dry, sacral ulcer on right buttock around 2cm stage 2 NOREEN: no external hemorrhoids visible, sphincter tone is normal, empty rectal vault, no active bleeding Nurse Ioana was present as loan funder during the examination. laboratory and microbiology Laboratory Tests 04/28/25 05:04 Test 04/28/25 05:04 Range/Units Serum Glucose 90 74-106 mg/dL Labs and/or images reviewed: Labs reviewed by me, Image(s) reviewed by me Problem List/Assessment/Plan Problem List/Assessment/Plan Assessment and plan: # Acute on chronic normocytic anemia, secondary to acute vaginal bleeding # Acute post menopausal bleeding secondary to endometrial hyperplasia, rule out uterine malignancy - History of anticoagulant use, currently on hold due to the active bleeding -Pelvic ultrasound showed endometrial thickness 4.8mm -OBGYN consult- outpatient follow up recommended -Hb is 8.1 -Monitor H&H # FRANK, likely due to VMN # Hypernatremia -free water deficit is 2.5L -started on D5W with 1/2 NS at 75ml/hr # Severe protein caloric malnutrition -albumin 2.2 # Thrombocytopenia s/p 1 platelet transfusion # History of bacteremia, gram positive cocci on 04/18/25 - blood culture ordered - IV vancomycin per pharmacy and IV ceftriaxone 1 gm daily. - Ordered Echo to rule out infective endocarditis # Stage 2 sacral ulcer, present on admission -wound care consult #History of CVA with left hemiplegia # Morbid obesity BMI 62.7 DVT prophylaxis: held because of bleeding Goals of care: DNR/DNI,only chemical code discussed for >23 minutes Plan discussed with patient Plan discussed with Dr Fry Plan discussed with: Patient Date of Service: Apr 28, 2025 Billing Provider: NELLY FRY MD Common Visit Codes: [id number] INP/OBS CARE(HIGH) SHANNAN SHAW RESIDENT Apr 28, 2025 10:29 BEBA ANGLIN RESIDENT Apr 28, 2025 20:28
[2025-04-28] MEDS: ATORVASTATIN 20 MG TAB PO SCH ×2 (10:35→22:00)
[2025-04-28 10:36] LABS: Total Iron Binding Capacity 158.0 ug/dL (250-425)
[2025-04-28] MEDS ORDERED: VANCOMYCIN PER PHARMACY 0 MG IV SCH (12:15)
[2025-04-28] MEDS: IRON SUCROSE COMPLEX 110 ML IV SCH (13:04)
--- NOTE | 2025-04-28 13:29 | DVHINCON2 ---
DATE OF CONSULTATION: 04/28/2025 REASON FOR CONSULTATION: Vaginal bleeding. HISTORY OF PRESENT ILLNESS: The patient is a 65-year-old 3 para 3 bedridden female with last menstrual period approximately at age 40, admitted for vaginal bleeding anemia. The patient stated that she started bleeding yesterday. Her CT was essentially normal. Sono reveals 6.6 x 3.8 x 4 cm uterus with endometrial thickness of 4.8 mm. The patient was on Eliquis. Her last Pap was 20 years ago. The patient is a poor historian. PAST MEDICAL HISTORY: CVA, hypertension, diabetes, hyperlipidemia. PAST SURGICAL HISTORY: Tubal ligation, cholecystectomy. SOCIAL HISTORY: Three vaginal deliveries. ALLERGIES: No known drug allergies. FAMILY HISTORY: Not applicable. PHYSICAL EXAMINATION: VITAL SIGNS: Stable. GENERAL: The patient is alert, however, somewhat not quite responding well. HEENT: Pale conjunctivae. CARDIOVASCULAR: Regular rate and rhythm. LUNGS: Clear to auscultation. BREASTS: Symmetrical. No masses. ABDOMEN: Obese, nontender. PELVIC: External genitalia appears normal. Upon doing manual examination, the patient was unable to stand the exam or cooperate. She was completely uncooperative. Exam cannot be done. Some dark blood noted. EXTREMITIES: No cyanosis or edema. IMPRESSION: * Postmenopausal bleeding. No evidence of endometrial hyperplasia per ultrasound findings. Endometrium appears to be within normal limits. * Cannot rule out cervical cancer. Exam incomplete due to the patient's difficulty tolerating the vaginal examination. RECOMMENDATIONS: * D/c Eliquis as this can clearly be the cause of her postmenopausal bleeding. In view of my incomplete examination, I am not sure if there are any cervical masses or any possibility of cervical cancer. The patient is DNR. Currently, the patient is not bleeding. Recommend followup outpatient if possible. * Transfuse if needed. Thank you very much for this consultation. DO SAE Ferreira TID: [id number] RECEIPT: [id number]
[2025-04-28] MEDS: VANCOMYCIN 1GM/250ML KIT 250 ML IV ONE ×2 (17:42→18:24)
[2025-04-28] MEDS: GABAPENTIN 300 MG CAP PO SCH (22:00)
[2025-04-29] VITALS (8 sets, daily range): BP systolic 115–146; BP diastolic 43–84; PULSE 61–84; RESP 16–19; TEMP 97.4–98.3; O2SAT 95–100
[2025-04-29 07:23] LABS: Hemoglobin 8.1 g/dL (12.2-16.2); Nucleated Red Blood Cells % 0.5 %
[2025-04-29 07:24] LABS: Hematocrit 25.5 % (36.0-46.0); Mean Corpuscular Hemoglobin 30.0 pg (28.0-32.0); Mean Corpuscular Volume 93.9 fL (80.0-100.0)
[2025-04-29 07:31] LABS: Anion Gap 12 (5-15); Carbon Dioxide 21 mmol/L (20-31); Potassium 4.6 mmol/L (3.5-5.1)
[2025-04-29 07:35] LABS: Calcium 7.9 mg/dL (8.7-10.4); Chloride 118 mmol/L (98-107); Sodium 151 mmol/L (136-145)
[2025-04-29 07:38] LABS: BUN/Creatinine Ratio 3.9 (10.0-20.0); Blood Urea Nitrogen 10 mg/dL (9-23); Glucose 93 mg/dL (74-106)
[2025-04-29] MEDS: D5W 5% 1,000 ML IV SCH (08:55)
[2025-04-29] MEDS: SODIUM BICARB 50mEq/50ml Vial 100 ML in D5W 5% 1,000 ML IV SCH (15:02)
--- NOTE | 2025-04-29 16:07 | DVHSR ---
APPROVED REPORT EXAM: Two-dimensional and M-mode echocardiogram with Doppler and color Doppler. Blood Pressure: 131/43 mmHg INDICATION bactermia RISK FACTORS Obesity: Height: 5'7, Weight: 400 DIMENSIONS LVDd 6.2 (3.8-5.7cm) LA (2D) (1.9-4.0cm) Aortic Root 2.8 (2.0-3.7cm) LVDs 4.8 (2.5-4.0cm) LA (MM) (1.9-4.0cm) Aortic Cusp Exc 1.6 (1.5-2.0cm) EF (%) 50.0 (55-70%) Rt. Atrium (1.9-4.0cm) Asc. Aorta cm IVSd 0.9 (0.7-1.1cm) RV (D) (1.8-2.4cm) PWd 1.1 (0.7-1.1cm) Mitral Valve Mitral Mitral Stenosis E wave 0.80m/s MV Mean GR. mmHg A wave 1.06m/s MV Peak GR. 148mmHg E/A ratio 0.8 2D MVA cm2 DECEL Time 207ms PRESS 1/2 Time ms Aortic Valve Aortic Valve Aortic Stenosis V1 0.94m/s AO Mean GR. 12mmHg V2 2.46m/s AO Peak GR. 24mmHg LVOT Diameter 2.1 (1.8-2.4cm) Doppler ADELFO 1.32cm2 AI P 1/2 Time 316.44ms Pulmonic Valve V2 1.90m/s Tricuspid Valve TR Velocity 2.19m/s RVSP 19mmHg Other Information Quality : Technically Limited Rhythm : Technically limited study due to pt over 400 lbs, mobility resticted. body habitus.patient position. Conclusion EF 50-55% MILD AI MILD TR.MR
[2025-04-29 16:24] LABS: Alanine Aminotransferase 13.0 U/L (7-40); Alkaline Phosphatase 105.0 U/L (46-116); Bilirubin, Direct 0.1 mg/dL (<0.3)
[2025-04-29 16:27] LABS: Albumin 2.2 g/dL (3.2-4.8); Bilirubin, Total 0.2 mg/dL (0.2-1.0); Total Protein 5.4 g/dL (5.7-8.2)
--- NOTE | 2025-04-29 18:23 | DVHPNRES ---
Progress Note Date Seen: Apr 29, 2025 Resident Creating Document: SHANNAN SHAW RESIDENT Medical Necessity Reason Pt with a Central, PICC or Fol: No Subjective Review of Systems Karolina Mendoza is a 65-year old female with past medical history of CVA with residual left hemiplegia on Eliquis at home, hypertension, hyperlipidemia, diverticulosis, chronically bedridden with the chief complaint of lower abdominal pain and vaginal bleeding. The patient mentions she has had lower abdominal pain since 4-5 days, 10/10 in intensity, associated with bleeding from the vagina, soaking 3 diapers yesterday. Patient had her last menstrual period around 20 years back. She denies any fever, chills, nausea or vomiting and recent weight loss. Pelvic ultrasound showed endometrial thickness 4.8 mm. Abdomen/pelvis CT showed no acute abdominal or pelvic findings. OBGYN was consulted and they recommended outpatient follow up. Past medical history: CVA with residual left hemiplegia on Eliquis at home, hypertension, hyperlipidemia, chronically bedridden,diverticulosis Past surgical history: Cholecystectomy Social & Personal history: denies alcohol, smoking and drugs Allergies: acetaminophen, aspirin, tomatoes Patient seen and examined at bedside. Patient is alert and oriented to time, place person and responding to all questions. Eyes: No Pain, No Vision change, No Conjunctivae inflammation, No Eyelid inflammation, No Redness ENT: No Ear pain, No Ear discharge, No Nose pain, No Nose discharge, No Nose congestion, No Mouth pain, No Mouth swelling, No Throat pain, No Throat swelling Cardiovascular: No Chest Pain, No Palpitations, No Orthopnea, No Paroxysmal No Dyspnea, No Edema, No Lt Headedness Respiratory: No Cough, No Dry, No Shortness of breath, No SOB with exertion, No Wheezing, No Hemoptysis, No Pleuritic Pain, No Sputum Gastrointestinal: No Nausea, No Vomiting, Abdominal Pain, No Diarrhea, No Constipation, No Melena, No Hematochezia Genitourinary: No Dysuria, No Frequency, No Incontinence, No Hematuria, No Retention, vaginal bleeding 04/29/25- The patient was seen at bedside today. Her vancomycin trough was 59, so vancomycin was stopped. She was started on D5W with bicarb at 100ml/hr. Patient refused blood draw for evaluation of thrombocytopenia and pink stain. The nurse will collect urine sample for UA and culture with straight cath as patient refuses catheterisation. Objective vital signs Vital Sign Date Time Temp Pulse Resp B/P (MAP) Pulse Ox O2 Delivery O2 Flow Rate FiO2 04/29/25 17:00 98.3 84 19 123/84 (97) 100 98.3 04/29/25 08:00 Room Air* 0 21 Total Intake and Output 04/28/25 04/28/25 04/29/25 14:59 22:59 06:59 Intake Total 600 ml 400 ml Balance 600 ml 400 ml medications Current Medications Medications Dose Ordered Sig/Jon Route Start Time Stop Time Status Last Admin Dose Admin Acetaminophen/ Hydrocodone Bitart 1 tab Q4HP PRN PO 04/28/25 03:45 Hold Ondansetron HCl 4 mg Q4HP PRN IV 04/28/25 03:45 Acetaminophen 650 mg Q6HP PRN PO 04/28/25 03:45 Hold Gabapentin 300 mg HS PO 04/28/25 22:00 Iron Sucrose 110 ml @ 110 mls/hr DAILY@1200 IV 04/28/25 12:00 05/02/25 12:59 04/29/25 11:45 110 MLS/HR Ceftriaxone Sodium 50 ml @ 100 mls/hr DAILY@09 IV 04/29/25 09:00 04/29/25 09:09 100 MLS/HR Atorvastatin Calcium 20 mg HS PO 04/28/25 22:00 Sodium Bicarbonate 100 ml/Dextrose 1,100 ml @ 100 mls/hr Q11H IV 04/29/25 11:15 04/29/25 15:02 100 MLS/HR Examination General Appearance: Cooperative. Well developed. Well nourished. NAD Head Exam: Normal inspection Neck Exam: Normal inspection. Non-tender. Normal alignment Pulmonary/Respiratory: Chest non-tender. Clear bilateral breath sounds, no crackles, no wheezing. Cardiovascular/Chest: Regular rate and rhythm. No murmurs. No JVD. Peripheral Pulses: 2+ Radial (R). 2+ Radial (L). 2+ Pedal (R). 2+ Pedal (L) Abdominal Exam: Normal bowel sounds. Soft. normal abdomen, no visible veins, tenderness in lower abdomen, No hepatospenomegaly. No masses Ankle Exam: Negative ankle edema Lower extremities: Negative lower extremity edema Neuro/Mental Status: A&O x4. Coherent, strength 0/5 in left upper and lower extremity, 3/5 in right upper extremity and 2/5 in right lower extremity Thoughts/Psych: Normal thought pattern. Appropriate mood and affect. Good judgement and insight Skin Exam: Normal inspection. Normal color. Warm. Dry, sacral ulcer on right buttock around 2cm stage 2 NOREEN: no external hemorrhoids visible, sphincter tone is normal, empty rectal vault, no active bleeding Nurse Ioana was present as substitute school nurse during the examination. laboratory and microbiology Laboratory Tests 04/29/25 06:15 Test 04/29/25 06:15 Range/Units Serum Glucose 93 74-106 mg/dL Labs and/or images reviewed: Labs reviewed by me, Image(s) reviewed by me Problem List/Assessment/Plan Problem List/Assessment/Plan Assessment and plan: # Acute on chronic normocytic anemia, secondary to acute vaginal bleeding # Acute post menopausal bleeding secondary to endometrial hyperplasia, rule out uterine malignancy - History of anticoagulant use, currently on hold due to the active bleeding -Pelvic ultrasound showed endometrial thickness 4.8mm -OBGYN consult- outpatient follow up recommended -Hb is 8.1 -Monitor H&H -stool occult blood negative # FRANK, likely due to VMN # Hypernatremia -free water deficit is 2.5L -started on D5W with bicarb at 100ml/hr # Severe protein caloric malnutrition -albumin 2.2 # Thrombocytopenia s/p 1 platelet transfusion # History of bacteremia, gram positive cocci on 04/18/25 - blood culture ordered - IV vancomycin on hold and IV ceftriaxone 1 gm daily. - Ordered Echo to rule out infective endocarditis # Stage 1-2 sacral ulcer, present on admission -wound care consult #History of CVA with left hemiplegia # Morbid obesity BMI 62.7 DVT prophylaxis: held because of bleeding Goals of care: DNR/DNI,only chemical code discussed for >23 minutes Plan discussed with patient Plan discussed with Dr Fry Plan discussed with: Patient My Orders My Orders Orders - SHANNAN SHAW RESIDENT Procedure Category Date Status Time Discontinue Tele EDUARDO 04/29/25 In Process 10:43 Basic Metabolic Panel LAB 04/29/25 Logged 15:00 Cleanse Wound With EDUARDO 04/29/25 In Process Wound Clean 12:58 Cleanse Wound With EDUARDO 04/29/25 In Process Mild Soap A 14:01 Dietary Evaluation Review Comments: Nutrition Recommendation: 1) Artie 1 pk BID 2) Monitor PO intake, lab values, weight trend, and I/O Expected Outcomes/Goals: Wound to improve Lab values to improve FU 3-5 days Date of Service: Apr 29, 2025 Billing Provider: NELLY FRY MD Common Visit Codes: [id number] INP/OBS CARE(HIGH) SHANNAN SHAW RESIDENT Apr 29, 2025 18:23
[2025-04-29 23:45] LABS: Anion Gap 9 (5-15); Carbon Dioxide 23 mmol/L (20-31)
[2025-04-29 23:50] LABS: Calcium 7.4 mg/dL (8.7-10.4); Chloride 118 mmol/L (98-107); Potassium 3.0 mmol/L (3.5-5.1); Sodium 150 mmol/L (136-145)
[2025-04-29 23:51] LABS: BUN/Creatinine Ratio 6.5 (10.0-20.0); Blood Urea Nitrogen 15 mg/dL (9-23); Glucose 90 mg/dL (74-106)
[2025-04-30] VITALS (8 sets, daily range): BP systolic 108–120; BP diastolic 39–70; PULSE 68–90; RESP 17–18; TEMP 97.6–98.3; O2SAT 95–100
[2025-04-30] MEDS: POTASSIUM EFFERVESENT TAB 25 MEQ PO ONE (07:15)
[2025-04-30] MEDS ORDERED: POTASSIUM CHLORIDE 80 MEQ, LIDOCAINE 1% (LOCAL ANESTH.) 6 ML in SODIUM CHL 0.9% 500 ML IV ONE (07:30)
[2025-04-30] MEDS: POTASSIUM CHL 20MEQ/100ML 100 ML IV ONE (08:06)
[2025-04-30] MEDS ORDERED: MAGNESIUM OXIDE 400 MG TAB PO ONE (11:30)
[2025-04-30] MEDS ORDERED: MAGNESIUM SULFATE 1GM/100ML 100 ML IV ONE (11:30)
[2025-04-30 11:41] LABS: Urine Protein, UAD Negative (Negative)
[2025-04-30 11:56] LABS: Amphetamine Screen, Urine Neg (NEGATIVE); Barbiturate Scree,Urine Neg (NEGATIVE); Benzodiazephine Screen, Urine Neg (NEGATIVE); Cannabinoid Screen, Urine Neg (NEGATIVE); Cocaine Screen, Urine Neg (NEGATIVE); Opiate Scree,Urine Neg (NEGATIVE); Phencyclidine Screen, Urine Neg (NEGATIVE)
--- NOTE | 2025-04-30 17:42 | DVHPNRES ---
Progress Note Date Seen: Apr 30, 2025 Resident Creating Document: SHANNAN SHAW RESIDENT Medical Necessity Reason Pt with a Central, PICC or Fol: No Subjective Review of Systems Karolina Mendoza is a 65-year old female with past medical history of CVA with residual left hemiplegia on Eliquis at home, hypertension, hyperlipidemia, diverticulosis, chronically bedridden with the chief complaint of lower abdominal pain and vaginal bleeding. The patient mentions she has had lower abdominal pain since 4-5 days, 10/10 in intensity, associated with bleeding from the vagina, soaking 3 diapers yesterday. Patient had her last menstrual period around 20 years back. She denies any fever, chills, nausea or vomiting and recent weight loss. Pelvic ultrasound showed endometrial thickness 4.8 mm. Abdomen/pelvis CT showed no acute abdominal or pelvic findings. OBGYN was consulted and they recommended outpatient follow up. Past medical history: CVA with residual left hemiplegia on Eliquis at home, hypertension, hyperlipidemia, chronically bedridden,diverticulosis Past surgical history: Cholecystectomy Social & Personal history: denies alcohol, smoking and drugs Allergies: acetaminophen, aspirin, tomatoes Patient seen and examined at bedside. Patient is alert and oriented to time, place person and responding to all questions. Eyes: No Pain, No Vision change, No Conjunctivae inflammation, No Eyelid inflammation, No Redness ENT: No Ear pain, No Ear discharge, No Nose pain, No Nose discharge, No Nose congestion, No Mouth pain, No Mouth swelling, No Throat pain, No Throat swelling Cardiovascular: No Chest Pain, No Palpitations, No Orthopnea, No Paroxysmal No Dyspnea, No Edema, No Lt Headedness Respiratory: No Cough, No Dry, No Shortness of breath, No SOB with exertion, No Wheezing, No Hemoptysis, No Pleuritic Pain, No Sputum Gastrointestinal: No Nausea, No Vomiting, Abdominal Pain, No Diarrhea, No Constipation, No Melena, No Hematochezia Genitourinary: No Dysuria, No Frequency, No Incontinence, No Hematuria, No Retention, vaginal bleeding 04/29/25- The patient was seen at bedside today. Her vancomycin trough was 59, so vancomycin was stopped. She was started on D5W with bicarb at 100ml/hr. Patient refused blood draw for evaluation of thrombocytopenia and pink stain. The nurse will collect urine sample for UA and culture with straight cath as patient refuses catheterisation. 04/30/25- The patient was seen at bedside today. Her potassium form last night was 3 and it was replenished. She refused blood draw for morning labs. She was explained the importance of collecting the urine sample and blood draw for helping diagnosis and evaluation, which she agreed to. We tried to reach the family on multiple occasions, but were unable to do so. Family called the nurse and got updates from them about the patients's status. Objective vital signs Vital Sign Date Time Temp Pulse Resp B/P (MAP) Pulse Ox O2 Delivery O2 Flow Rate FiO2 04/30/25 13:00 98.3 90 18 120/70 (87) 95 98.3 04/30/25 08:00 Room Air* 0 21 Total Intake and Output 04/29/25 04/29/25 04/30/25 15:00 23:00 07:00 Intake Total 220 ml 0 ml Balance 220 ml 0 ml medications Current Medications Medications Dose Ordered Sig/Jon Route Start Time Stop Time Status Last Admin Dose Admin Acetaminophen/ Hydrocodone Bitart 1 tab Q4HP PRN PO 04/28/25 03:45 Hold Ondansetron HCl 4 mg Q4HP PRN IV 04/28/25 03:45 Acetaminophen 650 mg Q6HP PRN PO 04/28/25 03:45 Hold Gabapentin 300 mg HS PO 04/28/25 22:00 Iron Sucrose 110 ml @ 110 mls/hr DAILY@1200 IV 04/28/25 12:00 05/02/25 12:59 04/30/25 12:08 110 MLS/HR Ceftriaxone Sodium 50 ml @ 100 mls/hr DAILY@09 IV 04/29/25 09:00 04/30/25 10:39 100 MLS/HR Atorvastatin Calcium 20 mg HS PO 04/28/25 22:00 Sodium Bicarbonate 100 ml/Dextrose 1,100 ml @ 100 mls/hr Q11H IV 04/29/25 11:15 04/30/25 03:00 100 MLS/HR Examination General Appearance: Cooperative. Well developed. Well nourished. NAD. Patient has active bleeding from vagina. Head Exam: Normal inspection Neck Exam: Normal inspection. Non-tender. Normal alignment Pulmonary/Respiratory: Chest non-tender. Clear bilateral breath sounds, no crackles, no wheezing. Cardiovascular/Chest: Regular rate and rhythm. No murmurs. No JVD. Peripheral Pulses: 2+ Radial (R). 2+ Radial (L). 2+ Pedal (R). 2+ Pedal (L) Abdominal Exam: Normal bowel sounds. Soft. normal abdomen, no visible veins, tenderness in lower abdomen, No hepatospenomegaly. No masses Ankle Exam: Negative ankle edema Lower extremities: Negative lower extremity edema Neuro/Mental Status: A&O x4. Coherent, strength 0/5 in left upper and lower extremity, 3/5 in right upper extremity and 2/5 in right lower extremity Thoughts/Psych: Normal thought pattern. Appropriate mood and affect. Good judgement and insight Skin Exam: Normal inspection. Normal color. Warm. Dry, sacral ulcer on right buttock around 2cm stage 2 NOREEN: no external hemorrhoids visible, sphincter tone is normal, empty rectal vault, no active bleeding Nurse Ioana was present as registered physical therapist during the examination. laboratory and microbiology Laboratory Tests 04/29/25 23:11 04/29/25 06:15 Test 04/29/25 23:11 Range/Units Serum Glucose 90 74-106 mg/dL Labs and/or images reviewed: Labs reviewed by me, Image(s) reviewed by me Problem List/Assessment/Plan Problem List/Assessment/Plan Assessment and plan: # Acute on chronic normocytic anemia, secondary to acute vaginal bleeding # Acute post menopausal bleeding secondary to endometrial hyperplasia, rule out uterine malignancy - History of anticoagulant use, currently on hold due to the active bleeding -Pelvic ultrasound showed endometrial thickness 4.8mm -OBGYN consult- outpatient follow up recommended -Hb is 8.1 on 04/29/25- refused blood draw this morning -Monitor H&H -stool occult blood negative -stat H&H, BMP and magnesium ordered # FRANK, likely due to VMN # Hypernatremia -free water deficit is 2.5L -started on D5W with bicarb at 100ml/hr # Severe protein caloric malnutrition -albumin 2.2 # Thrombocytopenia s/p 1 platelet transfusion # History of bacteremia, gram positive cocci on 04/18/25 - blood culture ordered - IV vancomycin on hold and IV ceftriaxone 1 gm daily. - Ordered Echo to rule out infective endocarditis- EF is 50-55%, mild AI, TR and MR # Stage 1-2 sacral ulcer, present on admission -wound care consult # Hypokalemia -replenished #History of CVA with left hemiplegia # Morbid obesity BMI 62.7 DVT prophylaxis: held because of bleeding Goals of care: DNR/DNI,only chemical code discussed for >23 minutes Plan discussed with patient Plan discussed with Dr Fry Plan discussed with: Patient My Orders My Orders Orders - SHANNAN SHAW Procedure Category Date Status Time Hemoglobin & LAB 04/30/25 Logged Hematocrit 04:00 Dietary Evaluation Review Comments: Nutrition Recommendation: 1) Artie 1 pk BID 2) Monitor PO intake, lab values, weight trend, and I/O Expected Outcomes/Goals: Wound to improve Lab values to improve FU 3-5 days Date of Service: Apr 30, 2025 Billing Provider: NELLY FRY MD Common Visit Codes: [id number] INP/OBS CARE(HIGH) SHANNAN SHAW RESIDENT Apr 30, 2025 17:42
[2025-04-30] MEDS: SODIUM BICARB 8.4% 50Meq/50ml SYR Vial IV ONE (21:56)
[2025-05-01] VITALS (10 sets, daily range): BP systolic 109–144; BP diastolic 31–60; PULSE 60–73; RESP 16–20; TEMP 96.9–98.3; O2SAT 90–100
[2025-05-01] MEDS: MORPHINE SULFATE 4 MG/ML SYR/VIAL IV ONE ×2 (00:26→06:12)
[2025-05-01] MEDS ORDERED: MORPHINE SULFATE 4 MG/ML SYR/VIAL IM ONE (05:30)
[2025-05-01] MEDS ORDERED: MORPHINE SULFATE INJ 2 MG/ml SYRG IV ONE (06:00)
[2025-05-01 09:36] LABS: Nucleated Red Blood Cells % 0.2 %
[2025-05-01 09:38] LABS: Hematocrit 21.0 % (36.0-46.0); Mean Corpuscular Hemoglobin 29.7 pg (28.0-32.0); Mean Corpuscular Volume 90.2 fL (80.0-100.0)
[2025-05-01 09:43] LABS: Hemoglobin 6.9 g/dL (12.2-16.2)
[2025-05-01 09:50] LABS: Anion Gap 11 (5-15); Carbon Dioxide 25 mmol/L (20-31)
[2025-05-01 09:55] LABS: BUN/Creatinine Ratio 5.0 (10.0-20.0); Blood Urea Nitrogen 12 mg/dL (9-23); Glucose 86 mg/dL (74-106)
[2025-05-01 09:56] LABS: Calcium 7.5 mg/dL (8.7-10.4); Chloride 114 mmol/L (98-107); Potassium 3.1 mmol/L (3.5-5.1); Sodium 150 mmol/L (136-145)
--- NOTE | 2025-05-01 11:43 | DVHINCON2 ---
Date of service: May 01, [address] Fry Reason for Consultation Acute kidney injury History of Present Illness Patient is 65-year-old morbidly obese female who has past medical history significant for CVA, HTN, UTI'S and Chronic Kidney Disease is admitted from [facility] for vaginal bleeding and significant anemia due to blood loss. On admission patient found to have elevated BUN creatinine nephrology is consulted for acute kidney injury Past Medical History PAST MEDICAL HISTORY: CVA, HTN, UTI'S, Chronic Kidney Disease Past Surgical History Surgical History: Denies all surgeries Allergies: Coded Allergies: Acetaminophen (Unverified Allergy, Unknown, 04/15/25) Aspirin (Verified Allergy, Unknown, 11/26/18) Tomato (Unverified Allergy, Unknown, 04/16/25) Home Meds Reported Medications Folic Acid (Folic Acid) 1 Mg Tab, 1 MG PO DAILY for 30 Days, MG 11/26/18 Furosemide (Furosemide) 20 Mg Tab, 20 MG PO DAILY for 30 Days, MG 05/07/17 Benazepril Hcl (Benazepril Hcl) 10 Mg Tab, 10 MG PO BID for 30 Days, MG 05/07/17 Metoprolol Succinate (Metoprolol Succinate Er) 25 Mg Tab, 25 MG PO BID for 30 Days, MG 05/07/17 Apixaban Base (ELIQUIS) 5 Mg Tab, 5 MG PO BID, TAB 05/07/17 Isosorbide Mononitrate (Isosorbide Mononitrate Er) 60 Mg Tab, 1.5 TAB PO DAILY for 30 Days, MG 05/07/17 Atorvastatin Calcium (ATORVASTATIN CALCIUM) 20 Mg Tab, 20 MG PO DAILY, TAB 05/07/17 Gabapentin (Gabapentin) 300 Mg Cap, 300 MG PO HS for 30 Days, MG 05/07/17 Current Medications Current Medications Medications (Trade) Dose Ordered Sig/Jon Route PRN Reason Start Time Stop Time Status Last Admin Dextrose 1,000 ml @ 100 mls/hr Q10H IV 05/01/25 11:15 Family History: Diabetes mellitus G8 BROTHER FH: lung cancer G8 MOTHER Hypertension G8 MOTHER G8 BROTHER Review of Systems All 12 item review of systems reviewed with the patient nonsignificant except what is mentioned in the history of present illness H&P Exam Vital Signs/I&O Vital Sign Date Time Temp Pulse Resp B/P (MAP) Pulse Ox O2 Delivery O2 Flow Rate FiO2 05/01/25 09:00 97.3 73 20 123/56 (78) 100 97.3 05/01/25 08:00 Room Air* 0 21 Intake and Output 04/30/25 05/01/25 19:00 07:00 Intake Total 560 ml 0 ml Balance 560 ml 0 ml Intake Oral 0 ml 0 ml IV Total 560 ml # Voids 1 Physical Exam Morbidly obese female lying in bed appears in no acute distress Lungs clear to auscultation bilaterally Cardiac exam regular rate and rhythm Abdomen obese bowel sounds are present was normal Extremity 1+ edema Neuro patient is awake and alert Labs/Diagnostic Data Labs/Diagnostic Data Laboratory Tests Test 05/01/25 09:09 04/29/25 23:11 04/29/25 06:15 04/28/25 19:30 Range/Units White Blood Count 4.0 L 4.6 4.4-10.8 10^3/uL Red Blood Count 2.33 L 2.71 L 4.0-5.20 10^6/uL Hemoglobin 6.9 *L 8.1 L 12.2-16.2 g/dL Hematocrit 21.0 #L 25.5 L 36.0-46.0 % Mean Corpuscular Volume 90.2 93.9 80.0-100.0 fL Mean Corpuscular Hemoglobin 29.7 30.0 28.0-32.0 pg Mean Corpuscular Hemoglobin Concent 32.9 32.0 32.0-36.0 g/dL Red Cell Distribution Width 20.0 H 20.5 H 11.8-14.3 % Platelet Count 40 L 53 L 140-450 10^3/uL Mean Platelet Volume 9.9 8.9 6.9-10.8 fL Neutrophils (%) (Auto) 72.6 77.9 37.0-80.0 % Lymphocytes (%) (Auto) 13.9 11.3 10.0-50.0 % Monocytes (%) (Auto) 8.6 8.9 0.0-12.0 % Eosinophils (%) (Auto) 4.4 1.3 0.0-7.0 % Basophils (%) (Auto) 0.5 0.6 0.0-2.0 % Neutrophils # (Auto) 2.9 3.6 1.6-8.6 10 ^3/uL Lymphocytes # (Auto) 0.6 0.5 0.4-5.4 10 ^3/uL Monocytes # (Auto) 0.3 0.4 0-1.3 10 ^3/uL Eosinophils # (Auto) 0.2 0.1 0-0.8 10 ^3/uL Basophils # (Auto) 0 0 0-0.2 10 ^3/uL Nucleated Red Blood Cells 0.2 0.5 % Sodium Level 150 H 150 H 151 H 136-145 mmol/L Potassium Level 3.1 L 3.0 L 4.6 3.5-5.1 mmol/L Chloride Level 114 H 118 H 118 H 98-107 mmol/L Carbon Dioxide Level 25 23 21 20-31 mmol/L Anion Gap 11 9 12 5-15 Blood Urea Nitrogen 12 15 10 9-23 mg/dL Creatinine 2.41 H 2.31 H 2.54 H 0.550-1.02 mg/dL Glomerular Filtration Rate Calc 22 23 20 >90 mL/min BUN/Creatinine Ratio 5.0 L 6.5 L 3.9 L 10.0-20.0 Serum Glucose 86 90 93 74-106 mg/dL Calcium Level 7.5 L 7.4 L 7.9 L 8.7-10.4 mg/dL Total Bilirubin 0.2 0.2-1.0 mg/dL Direct Bilirubin 0.1 <0.3 mg/dL Aspartate Amino Transferase (AST) 33 13-40 U/L Alanine Aminotransferase (ALT) 13 7-40 U/L Alkaline Phosphatase 105 46-116 U/L Total Protein 5.4 L 5.7-8.2 g/dL Albumin 2.2 L 3.2-4.8 g/dL Random Vancomycin Level 59.0 *H 5-10 ug/mL Stool Occult Blood Negative Negative Stool Occult Blood Sample #2 Negative Negative Stool Occult Blood Sample #3 Negative Negative Test 04/28/25 09:42 04/28/25 05:24 04/28/25 05:04 04/27/25 21:55 Range/Units Urine Color Colorless Yellow Urine Clarity Turbid H Clear Urine pH 5.5 5.0-9.0 Urine Specific [place] 1.007 1.001-1.035 Urine Protein Negative Negative Urine Ketones Negative Negative Urine Blood 2+ H Negative /uL Urine Nitrite Negative Negative Urine Bilirubin Negative Negative Urine Urobilinogen Normal Negative mg/dL Urine Leukocyte Esterase Negative Negative /uL Urine RBC 4 0 - 4 /hpf Urine Microscopic WBC 2 0-5 /HPF Urine Squamous Epithelial Cells Few <5 /hpf Urine Bacteria Few H None Seen /hpf Urine Glucose Normal Normal mg/dL Urine Opiates Screen Neg NEGATIVE Urine Fentanyl Screen Neg NEGATIVE Urine Barbiturates Screen Neg NEGATIVE Urine Phencyclidine Screen Neg NEGATIVE Urine Amphetamines Screen Neg NEGATIVE Urine Benzodiazepines Screen Neg NEGATIVE Urine Cocaine Screen Neg NEGATIVE Urine Cannabinoids Screen Neg NEGATIVE CA 125 Antigen 38.4 H 0.0-38.1 U/mL White Blood Count 4.6 4.9 4.4-10.8 10^3/uL Red Blood Count 2.76 L 2.73 L 4.0-5.20 10^6/uL Hemoglobin 8.1 L 8.1 L 12.2-16.2 g/dL Hematocrit 25.4 L 25.1 L 36.0-46.0 % Mean Corpuscular Volume 92.2 91.9 80.0-100.0 fL Mean Corpuscular Hemoglobin 29.3 29.4 28.0-32.0 pg Mean Corpuscular Hemoglobin Concent 31.8 L 32.0 32.0-36.0 g/dL Red Cell Distribution Width 20.3 H 20.5 H 11.8-14.3 % Platelet Count 41 L 37 L 140-450 10^3/uL Mean Platelet Volume 8.8 8.6 6.9-10.8 fL Neutrophils (%) (Auto) 74.9 76.6 37.0-80.0 % Lymphocytes (%) (Auto) 14.2 12.6 10.0-50.0 % Monocytes (%) (Auto) 8.9 8.9 0.0-12.0 % Eosinophils (%) (Auto) 1.3 1.4 0.0-7.0 % Basophils (%) (Auto) 0.7 0.5 0.0-2.0 % Neutrophils # (Auto) 3.4 3.8 1.6-8.6 10 ^3/uL Lymphocytes # (Auto) 0.7 0.6 0.4-5.4 10 ^3/uL Monocytes # (Auto) 0.4 0.4 0-1.3 10 ^3/uL Eosinophils # (Auto) 0.1 0.1 0-0.8 10 ^3/uL Basophils # (Auto) 0 0 0-0.2 10 ^3/uL Nucleated Red Blood Cells 0.5 0.1 % Prothrombin Time 12.3 H 9.3-11.8 sec Prothrombin Time INR 1.18 H 0.9-1.15 Activated Partial Thromboplast Time 29.1 24.5-34.5 SEC Sodium Level 148 H 136-145 mmol/L Potassium Level 3.8 3.5-5.1 mmol/L Chloride Level 116 H 98-107 mmol/L Carbon Dioxide Level 21 20-31 mmol/L Anion Gap 11 5-15 Blood Urea Nitrogen 9 9-23 mg/dL Creatinine 2.20 H 0.550-1.02 mg/dL Glomerular Filtration Rate Calc 24 >90 mL/min BUN/Creatinine Ratio 4.1 L 10.0-20.0 Serum Glucose 90 74-106 mg/dL Lactic Acid Level 2.0 0.4-2.0 mmol/L Calcium Level 8.1 L 8.7-10.4 mg/dL Magnesium Level 2.1 1.6-2.6 mg/dL Iron Level 53 50-170 ug/dL Total Iron Binding Capacity 158 L 250-425 ug/dL Percent Iron Saturation 33.5 15-50 % Ferritin 33.6 10-291 ng/mL Total Bilirubin 0.3 0.2-1.0 mg/dL Aspartate Amino Transferase (AST) 21 13-40 U/L Alanine Aminotransferase (ALT) 13 7-40 U/L Alkaline Phosphatase 108 46-116 U/L B-Type Natriuretic Peptide 325.04 0-100 pg/mL Total Protein 5.5 L 5.7-8.2 g/dL Albumin 2.2 L 3.2-4.8 g/dL Vitamin B12 Level 563 211-911 pg/mL Vitamin D 25-Hydroxy 54.5 30.0-100 ng/mL Thyroid Stimulating Hormone (TSH) 3.11 0.55-4.78 uIU/mL Platelet Estimate Decreased Large Platelets Few Anisocytosis (manual) Slight Imer Cells Few Test 04/27/25 21:00 Range/Units Sodium Level 147 H 136-145 mmol/L Potassium Level 3.2 L 3.5-5.1 mmol/L Chloride Level 116 H 98-107 mmol/L Carbon Dioxide Level 21 20-31 mmol/L Anion Gap 10 5-15 Blood Urea Nitrogen 10 9-23 mg/dL Creatinine 2.09 H 0.550-1.02 mg/dL Glomerular Filtration Rate Calc 26 >90 mL/min BUN/Creatinine Ratio 4.8 L 10.0-20.0 Serum Glucose 93 74-106 mg/dL Calcium Level 7.9 L 8.7-10.4 mg/dL Total Bilirubin 0.3 0.2-1.0 mg/dL Aspartate Amino Transferase (AST) 19 13-40 U/L Alanine Aminotransferase (ALT) 14 7-40 U/L Alkaline Phosphatase 108 46-116 U/L Total Protein 5.5 L 5.7-8.2 g/dL Albumin 2.2 L 3.2-4.8 g/dL Lipase 20 12-53 U/L Assessment Acute kidney injury superimposed Chronic Kidney Disease secondary hemodynamic mediated Vancomycin toxicity Anemia due to blood loss Vaginal bleeding Hyponatremia due to dehydration Hypokalemia due to potassium loss Hypoalbuminemia Morbidly obesity Recommendations Closely monitor fluid and electrolytes Avoid nephrotoxic medications Discontinue vancomycin Strict I&Os Check urine electrolytes Kidneys reported within normal limit on CT scan KCL replacement I agree with D5W IV fluid hydration Packed red blood cell transfusion p.r.n. Radiation Protection Technician evaluation We will continue to follow-up Patient seen and examined by myself. I discussed my plan of care with the patient and primary nurse at the bedside I would like to thank Dr. Fry for the consult, will follow up Plan discussed with: Patient GISSEL SALINAS MD May 01, 2025 11:43
--- NOTE | 2025-05-01 13:20 | DVH ---
INDICATION: FRANK TECHNIQUE: Multiple real-time sonographic images of the kidneys and bladder were obtained. COMPARISON: None FINDINGS: RIGHT kidney not visible LEFT kidney visible No large intraluminal masses are seen in the bladder. Prevoid bladder volume 132.87 cc. Bladder mason 0.22 cm Post void residual not received. IMPRESSION: 1. Prevoid bladder volume 132 mL. 2. Unable to visualize kidneys.
[2025-05-01] MEDS ORDERED: VANCOMYCIN PER PHARMACY 0 MG IV SCH (14:15)
[2025-05-01] MEDS ORDERED: VANCOMYCIN 1GM/250ML KIT 250 ML IV ONE ×2 (14:45→19:00)
--- NOTE | 2025-05-01 15:26 | DVHPNRES ---
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 The patient came to [facility] via EMS with the chief complaint of 4 days of abdominal pain, 04/01, localized in the pelvic region, cramp-like, with no irradiation, no alleviation or agravating factors; Associated with vaginal bleeding, red-brownish color, soaking 3 diapers per yesterday. On further questioning, the patient had her last menstrual period around 20 years ago. The bleeding did not stop and the abdominal pain persisted 04/01, this prompted her visit to the ED. The patient denies any fever, chills, nausea or vomiting and recent weight loss. In the ED a pelvic ultrasound was ordered and showed endometrial thickness 4.8 mm. Abdomen/pelvis CT showed no acute abdominal or pelvic findings. The patient was admitted for further diagnosed and management. Past medical history: CVA with residual left hemiplegia on Eliquis at home, hypertension, hyperlipidemia, chronically bedridden,diverticulosis Past surgical history: Cholecystectomy Social & Personal history: denies alcohol, smoking and drugs Allergies: acetaminophen, aspirin, tomatoes Hospital course: 04/29/25- The patient was seen at bedside today. Her vancomycin trough was 59, so vancomycin was stopped. She was started on D5W with bicarb at 100ml/hr. Patient refused blood draw for evaluation of thrombocytopenia and pink stain. The nurse will collect urine sample for UA and culture with straight cath as patient refuses catheterisation. 04/30/25- The patient was seen at bedside today. Her potassium form last night was 3 and it was replenished. She refused blood draw for morning labs. She was explained the importance of collecting the urine sample and blood draw for helping diagnosis and evaluation, which she agreed to. We tried to reach the family on multiple occasions, but were unable to do so. Family called the nurse and got updates from them about the patients's status. 05/01/25- The patient was evaluated and examined at bedside today. VS, laboratories and chart was reviewed. The patient reports feeling better, her pelvic pain is improving, she is still report active vaginal bleeding. Her potassium is 3.1 and was replenished and magnesium 800mg po was added today. The Hb is 6.9 this morning, 1 RBC unit was ordered and administered. We will continue evaluating with periodically H&H. Gynecology is on board, they recommend endometrial biopsy as an outpatient. I was informed that the patient is refusing blood draws and urine sample collection; I spoke with the patient and explained the importance of collecting the urine sample and blood draw for helping diagnosis and evaluation, which she agreed to. I have spoken with Mrs. Mendoza sister, I have address her concerns and responds to all her questions, the patient's sister agrees with the current management. Due to low GFR and high creatinine a nephrology consult was placed Vancomycin was discontinued. Blood cultures growth: Gram positive coccus in cluster, in order to cover those microorganisms, oral doxycycline 100mg po bid was started today. We will follow up with the progress of this patient. ROS Constitutional: fatigue, Denies: fever, malaise, sweats, weakness, others EENTM: denies: blurred vision, double vision, ear bleeding, ear discharge, ear drainage, ear pain, ear ringing, eye pain or others Respiratory: denies: cough, hemoptysis, orthopnea, SOB at rest, shortness of breath, SOB with excertion, stridor, wheezing, others Cardiovascular: denies: chest pain, dizzy spells, diaphoresis, Dyspnea on exertion, edema, irregular heart beat, left arm pain, lightheadedness, palpitations, PND, syncope, others Gastrointestinal: denies: abdomen distended, abdominal pain, blood streaked bowels, constipated, diarrhea, dysphagia, difficulty swallowing, hematemesis, melena, nausea, poor appetite, poor fluid intake, rectal bleeding, rectal pain, vomiting, others Genitourinary: Abnormal vagina bleeding and pelvic pain. Denies: burning, dyspareunia, dysuria, flank pain, frequency, hematuria, incontinence, pain, vagina discharge, urgency, others Neurological: pre-existing deficit: left sided numbness, left sided weakness, Denies: seizure, speech problems, tingling, tremors, weakness, others Musculoskeletal: reports: others (As stated in HPI) Integumetry: reports: others (As stated in HPI) Allergic/Immunocompromised: denies: Difficulty Healing, Frequent Infections, Hives, Itching, others Hematologic/Lymphatic: denies: anemia, blood clots, easy bleeding, easy bruising, swollen glands, others Endocrine: denies: excessive hunger, excessive sweating, excessive thirst, excessive urination, flushing, intolerance to cold, intolerance to heat, unexplained weight gain, unexplained weight loss, others Psychiatric: denies: anxiety, bipolar disorder, depression or others, Objective vital signs Vital Sign Date Time Temp Pulse Resp B/P (MAP) Pulse Ox O2 Delivery O2 Flow Rate FiO2 05/01/25 09:00 97.3 73 20 123/56 (78) 100 97.3 05/01/25 08:00 Room Air* 0 21 Total Intake and Output 04/30/25 04/30/25 05/01/25 15:00 23:00 07:00 Intake Total 260 ml 300 ml 0 ml Balance 260 ml 300 ml 0 ml medications Current Medications Medications Dose Ordered Sig/Jon Route Start Time Stop Time Status Last Admin Dose Admin Acetaminophen/ Hydrocodone Bitart 1 tab Q4HP PRN PO 04/28/25 03:45 Hold Ondansetron HCl 4 mg Q4HP PRN IV 04/28/25 03:45 Acetaminophen 650 mg Q6HP PRN PO 04/28/25 03:45 Hold Gabapentin 300 mg HS PO 04/28/25 22:00 Iron Sucrose 110 ml @ 110 mls/hr DAILY@1200 IV 04/28/25 12:00 05/02/25 12:59 05/01/25 12:20 110 MLS/HR Ceftriaxone Sodium 50 ml @ 100 mls/hr DAILY@09 IV 04/29/25 09:00 05/01/25 10:15 100 MLS/HR Atorvastatin Calcium 20 mg HS PO 04/28/25 22:00 Dextrose 1,000 ml @ 100 mls/hr Q10H IV 05/01/25 11:15 Magnesium Oxide 800 mg BID PO 05/01/25 22:00 Vancomycin HCl 0 ml @ 0 mls/hr PER PHARMACY IV 05/01/25 14:15 UNV Examination General Appearance: alert, oriented in person and placed, not in time, pale, in mild distress. cooperative. Head Exam: Normal inspection Neck Exam: Normal inspection. Non-tender. Normal alignment Pulmonary/Respiratory: Chest non-tender. Clear bilateral breath sounds, no crackles, no wheezing. Cardiovascular/Chest: Regular rate and rhythm. No murmurs. No JVD. Peripheral Pulses: 2+ Radial (R). 2+ Radial (L). 2+ Pedal (R). 2+ Pedal (L) Abdominal Exam: Normal bowel sounds. Soft, Pelvic pain on deep palpation. No rebound. Lower extremities: mild lower extremity edema Neuro/Mental Status:Motor deficit on the left: strength 0/5 in left upper and lower extremity, Motor deficit on the right: 3/5 in right upper extremity and 2/5 in right lower extremity Skin Exam: Sacral ulcer on right buttock around 2cm stage 2-3. External Vaginal exam: Active vaginal bleeding, moderate, brown-red bleeding. Nurse Felicia (RN) was present as boot and shoe repairman during the vaginal and general examination. laboratory and microbiology Laboratory Tests 05/01/25 09:09 Test 05/01/25 09:09 Range/Units Serum Glucose 86 74-106 mg/dL Microbiology Date/Time Source Procedure Growth Status 04/30/25 15:25 Blood Blood Culture - Preliminary Resulted Problem List/Assessment/Plan Problem List/Assessment/Plan # Acute on chronic severe normocytic anemia, secondary to acute vaginal bleeding # Acute post menopausal bleeding secondary to endometrial hyperplasia, rule out uterine malignancy - History of anticoagulant use, currently on hold due to the active bleeding -Pelvic ultrasound showed endometrial thickness 4.8mm -OBGYN consult- outpatient endometrial biopsy and follow up recommended -Hb is 6.9 on 05/01/25- RBC unit was ordered. -Monitor H&H -stool occult blood negative # FRANK, on CKD stage likely due to VMN # Acute Hypernatremia -GFR 22, Crea: 2.41 05/01/25 -free water deficit is 2.5L -D/C: D5W with bicarb at 100ml/hr. -Start: D5W only. -Monitor Crea/BUN -Avoid nephrotoxic drug. -Urine osmolarity, Na in urine, Na serum. #Severe protein caloric malnutrition -albumin 2.2 #Acute on Chronic SevereThrombocytopenia s/p 1 platelet transfusion Platelet: 40,000 #Bacteremia -Blood culture:Gram positive cocci in cluster - Oral doxycycline was started. - IV vancomycin was discontinued for possible nephrotoxicity - IV ceftriaxone 1 gm daily. - Echo to rule out infective endocarditis: EF is 50-55%, mild AI, TR and MR - New urine and blood cultures #Chronic Stage 1-2 sacral ulcer -Ulcer was present on admission - Wound care consult #Acute Hypokalemia -K: 3.1 05/01/25: replenished #Chronic CVA with left hemiplegia -PT consult # Morbid obesity BMI 62.7 Counseling about healthy life style >10min DVT prophylaxis: held because of bleeding Diet: Mechanical soft Goals of care: DNR/DNI,only chemical code discussed for >30 minutes PCP: Angeline Medel Plan discussed with patient and patient's sister. Plan discussed with Dr Fry Plan discussed with: Patient, Other (Sister.) My Orders My Orders Orders - FAISAL ERNANDEZ RESIDENT Procedure Category Date Status Time Potassium LAB 05/01/25 Logged 14:00 Magnesium LAB 05/01/25 Logged 14:00 Blood Culture NEREIDA 05/01/25 Logged 10:54 Wound Culture W/ Gs NEREIDA 05/01/25 Logged 10:57 Magnesium Oxide PHA 05/01/25 In Process Tablet (Mag-Ox Tablet) 22:00 Order Specialty EDUARDO 05/01/25 In Process Mattress 12:27 Transfuse Blood ORDERS 05/01/25 Transmitted Product 13:55 Communication Order ORDERS 05/01/25 Transmitted 13:55 Hemoglobin & LAB 05/01/25 Logged Hematocrit 17:00 Vancomycin Per PHA 05/01/25 Logged Pharmacy 14:15 Dietary Evaluation Review Comments: Nutrition Recommendation: 1) Artie 1 pk BID 2) Monitor PO intake, lab values, weight trend, and I/O Expected Outcomes/Goals: Wound to improve Lab values to improve FU 3-5 days Date of Service: May 01, 2025 Billing Provider: NELLY FRY MD Common Visit Codes: [id number] INP/OBS CARE(HIGH) FAISAL ERNANDEZ RESIDENT May 01, 2025 15:26
[2025-05-01] MEDS: D5W 5% 1,000 ML IV SCH (18:10)
[2025-05-01] MEDS: POTASSIUM CHL 20MEQ/100ML 100 ML IV ONE (18:14)
[2025-05-01] MEDS: DOXYCYCLINE 100MG/100ML 100 ML IV SCH (18:15)
[2025-05-01 19:25] LABS: Hematocrit 26.4 % (36.0-46.0); Hemoglobin 8.7 g/dL (12.2-16.2)
[2025-05-01 19:39] LABS: Magnesium 1.9 mg/dL (1.6-2.6)
[2025-05-01 19:46] LABS: Potassium 3.3 mmol/L (3.5-5.1)
[2025-05-01] MEDS: MAGNESIUM OXIDE 400 MG TAB PO SCH (22:00)
[2025-05-01] MEDS ORDERED: DOXYCYCLINE 100 MG TAB/CAP PO SCH (22:00)
[2025-05-02] VITALS (12 sets, daily range): BP systolic 113–137; BP diastolic 36–99; PULSE 67–95; RESP 18–19; TEMP 97.3–98.4; O2SAT 91–98
--- NOTE | 2025-05-02 05:13 | DVH ---
CHEST RADIOGRAPH Indication: possible aspiration concern Technique: Single frontal view of the chest was obtained Comparison: XY CHEST XRAY 1 VIEW on DOS: 04/28/25 FINDINGS: Lines and Tubes: None Lungs: Bibasilar opacities are noted. Pleura: No effusion. No pneumothorax. Cardiomediastinal contours: Cardiomegaly. Bones: No acute osseous abnormality. IMPRESSION: 1. Bilateral opacities which may reflect pulmonary edema or pneumonia.
[2025-05-02 05:38] LABS: Hematocrit 26.2 % (36.0-46.0); Hemoglobin 8.7 g/dL (12.2-16.2); Mean Corpuscular Hemoglobin 29.5 pg (28.0-32.0); Mean Corpuscular Volume 88.7 fL (80.0-100.0); Nucleated Red Blood Cells % 0.4 %
[2025-05-02 05:53] LABS: Anion Gap 11 (5-15); Calcium 7.5 mg/dL (8.7-10.4); Carbon Dioxide 24 mmol/L (20-31); Chloride 114 mmol/L (98-107); Potassium 3.2 mmol/L (3.5-5.1); Sodium 149 mmol/L (136-145)
[2025-05-02 05:58] LABS: BUN/Creatinine Ratio 5.7 (10.0-20.0); Blood Urea Nitrogen 14 mg/dL (9-23); Glucose 88 mg/dL (74-106)
[2025-05-02] MEDS: POTASSIUM CHL 20MEQ/100ML 100 ML IV SCH (06:56)
[2025-05-02] MEDS ORDERED: VANCOMYCIN 1GM/250ML KIT 250 ML IV SCH (10:00)
[2025-05-02] MEDS: ALBUTEROL SULF 2.5 MG/0.5ML(0.5%) NEB SOLN ONE (10:14)
[2025-05-02] MEDS: ACETYLCYSTEINE 10 %(100MG/ML) SOL 4ML NEB ONE (10:19)
--- NOTE | 2025-05-02 16:34 | DVHPN2 ---
Progress Note Date Seen: May 02, 2025 Medical Necessity Reason Pt with a Central, PICC or Fol: No Subjective Patient reports: Other Review of Systems: Deferred Objective vital signs Vital Sign Date Time Temp Pulse Resp B/P (MAP) Pulse Ox O2 Delivery O2 Flow Rate FiO2 05/02/25 13:19 97.7 80 18 122/59 (80) 97 97.7 05/02/25 10:41 Room Air* 0 21 21 Total Intake and Output 05/01/25 05/01/25 05/02/25 15:00 23:00 07:00 Intake Total 1460 ml 300 ml 100 ml Balance 1460 ml 300 ml 100 ml medications Current Medications Medications Dose Ordered Sig/Jon Route Start Time Stop Time Status Last Admin Dose Admin Acetaminophen/ Hydrocodone Bitart 1 tab Q4HP PRN PO 04/28/25 03:45 Hold Ondansetron HCl 4 mg Q4HP PRN IV 04/28/25 03:45 Acetaminophen 650 mg Q6HP PRN PO 04/28/25 03:45 Hold Gabapentin 300 mg HS PO 04/28/25 22:00 Ceftriaxone Sodium 50 ml @ 100 mls/hr DAILY@09 IV 04/29/25 09:00 05/02/25 10:37 100 MLS/HR Atorvastatin Calcium 20 mg HS PO 04/28/25 22:00 Dextrose 1,000 ml @ 100 mls/hr Q10H IV 05/01/25 11:15 05/01/25 18:10 100 MLS/HR Magnesium Oxide 800 mg BID PO 05/01/25 22:00 Doxycycline Hyclate 100 ml @ 50 mls/hr Q12H IV 05/01/25 16:45 05/02/25 04:28 50 MLS/HR laboratory and microbiology Laboratory Tests 05/02/25 05:13 Test 05/02/25 05:13 Range/Units Serum Glucose 88 74-106 mg/dL Microbiology Date/Time Source Procedure Growth Status 04/30/25 15:40 Blood Blood Culture - Preliminary Resulted Problem List/Assessment/Plan Problem List/Assessment/Plan Acute kidney injury superimposed Chronic Kidney Disease secondary hemodynamic mediated Vancomycin toxicity Anemia due to blood loss Vaginal bleeding Hypernatremia due to dehydration Hypokalemia due to potassium loss Hypoalbuminemia Morbidly obesity Recommendations Closely monitor fluid and electrolytes Avoid nephrotoxic medications Discontinue vancomycin d5w iv Plan discussed with: Other Dietary Evaluation Review Comments: Nutrition Recommendation: 1) Artie 1 pk BID 2) Monitor PO intake, lab values, weight trend, and I/O Expected Outcomes/Goals: Wound to improve Lab values to improve FU 3-5 days KAILA GONZALEZ MD May 02, 2025 16:34
--- NOTE | 2025-05-02 16:51 | DVHPNRES ---
Progress Note Date Seen: May 02, 2025 Resident Creating Document: SHANNAN SHAW RESIDENT Medical Necessity Reason Pt with a Central, PICC or Fol: No Subjective Review of Systems Karolina Mendoza is a 65-year old female with past medical history of CVA with residual left hemiplegia on Eliquis at home, hypertension, hyperlipidemia, diverticulosis, chronically bedridden with the chief complaint of lower abdominal pain and vaginal bleeding. The patient mentions she has had lower abdominal pain since 4-5 days, 10 in intensity, associated with bleeding from the vagina, soaking 3 diapers yesterday. Patient had her last menstrual period around 20 years back. She denies any fever, chills, nausea or vomiting and recent weight loss. Pelvic ultrasound showed endometrial thickness 4.8 mm. Abdomen/pelvis CT showed no acute abdominal or pelvic findings. OBGYN was consulted and they recommended outpatient follow up. Past medical history: CVA with residual left hemiplegia on Eliquis at home, hypertension, hyperlipidemia, chronically bedridden,diverticulosis Past surgical history: Cholecystectomy Social & Personal history: denies alcohol, smoking and drugs Allergies: acetaminophen, aspirin, tomatoes Patient seen and examined at bedside. Patient is alert and oriented to time, place person and responding to all questions. Eyes: No Pain, No Vision change, No Conjunctivae inflammation, No Eyelid inflammation, No Redness ENT: No Ear pain, No Ear discharge, No Nose pain, No Nose discharge, No Nose congestion, No Mouth pain, No Mouth swelling, No Throat pain, No Throat swelling Cardiovascular: No Chest Pain, No Palpitations, No Orthopnea, No Paroxysmal No Dyspnea, No Edema, No Lt Headedness Respiratory: No Cough, No Dry, No Shortness of breath, No SOB with exertion, No Wheezing, No Hemoptysis, No Pleuritic Pain, No Sputum Gastrointestinal: No Nausea, No Vomiting, Abdominal Pain, No Diarrhea, No Constipation, No Melena, No Hematochezia Genitourinary: No Dysuria, No Frequency, No Incontinence, No Hematuria, No Retention, vaginal bleeding 04/29/25- The patient was seen at bedside today. Her vancomycin trough was 59, so vancomycin was stopped. She was started on D5W with bicarb at 100ml/hr. Patient refused blood draw for evaluation of thrombocytopenia and pink stain. The nurse will collect urine sample for UA and culture with straight cath as patient refuses catheterisation. 04/30/25- The patient was seen at bedside today. Her potassium form last night was 3 and it was replenished. She refused blood draw for morning labs. She was explained the importance of collecting the urine sample and blood draw for helping diagnosis and evaluation, which she agreed to. We tried to reach the family on multiple occasions, but were unable to do so. Family called the nurse and got updates from them about the patients's status. 05/01/25- The patient was evaluated and examined at bedside today. VS, laboratories and chart was reviewed. The patient reports feeling better, her pelvic pain is improving, She is still reporting of active vaginal bleeding. Her potassium is 3.1 and was replenished and magnesium 800mg po was added today. The Hb is 6.9 this morning, 1 RBC unit was ordered and administered. We will continue evaluating with periodic H&H. Gynecology is on board, they recommend endometrial biopsy as an outpatient. I was informed that the patient is refusing blood draws and urine sample collection; I spoke with the patient and explained the importance of collecting the urine sample and blood draw for helping diagnosis and evaluation, which she agreed to. I have spoken with Mrs. Mendoza sister, I have address her concerns and responds to all her questions, the patient's sister agrees with the current management. Due to low GFR and high creatinine a nephrology consult was placed Vancomycin was discontinued. Blood cultures growth: Gram positive coccus in cluster, in order to cover those microorganisms, oral doxycycline 100mg po bid was started today. We will follow up with the progress of this patient. 05/02/25- The patient was seen at bedside today. Bedside swallow evaluation was tried yesterday and the patient aspirated and developed aspiration pneumonia. We will keep her NPO. There were 75cc nasogastric secretions. The patient was initially refusing all blood draws and urine sample collection. We called her family and discussed the possibility of placing the patient on hospice, but the family did not agree to this. They called the patient and convinced her to agree to blood draws and urine sample collection. Salomon catheter was pleased, urine sample was collected and blood was drawn for repeat blood culture. Possible discharge tomorrow to SNF. Nephrology was consulted and recommended close monitoring of fluid and electrolytes, avoiding nephrotoxic medications and continuing with D5W. We placed a request for PT evaluation. Objective vital signs Vital Sign Date Time Temp Pulse Resp B/P (MAP) Pulse Ox O2 Delivery O2 Flow Rate FiO2 05/02/25 13:19 97.7 80 18 122/59 (80) 97 97.7 05/02/25 10:41 Room Air* 0 21 21 Total Intake and Output 05/01/25 05/01/25 05/02/25 15:00 23:00 07:00 Intake Total 1460 ml 300 ml 100 ml Balance 1460 ml 300 ml 100 ml medications Current Medications Medications Dose Ordered Sig/Jon Route Start Time Stop Time Status Last Admin Dose Admin Acetaminophen/ Hydrocodone Bitart 1 tab Q4HP PRN PO 04/28/25 03:45 Hold Ondansetron HCl 4 mg Q4HP PRN IV 04/28/25 03:45 Acetaminophen 650 mg Q6HP PRN PO 04/28/25 03:45 Hold Gabapentin 300 mg HS PO 04/28/25 22:00 Ceftriaxone Sodium 50 ml @ 100 mls/hr DAILY@09 IV 04/29/25 09:00 05/02/25 10:37 100 MLS/HR Atorvastatin Calcium 20 mg HS PO 04/28/25 22:00 Dextrose 1,000 ml @ 100 mls/hr Q10H IV 05/01/25 11:15 05/01/25 18:10 100 MLS/HR Magnesium Oxide 800 mg BID PO 05/01/25 22:00 Doxycycline Hyclate 100 ml @ 50 mls/hr Q12H IV 05/01/25 16:45 05/02/25 04:28 50 MLS/HR Examination General Appearance: Cooperative. Well developed. Well nourished. NAD. Patient has active bleeding from vagina. Head Exam: Normal inspection Neck Exam: Normal inspection. Non-tender. Normal alignment Pulmonary/Respiratory: Chest non-tender. Clear bilateral breath sounds, no crackles, no wheezing. Cardiovascular/Chest: Regular rate and rhythm. No murmurs. No JVD. Peripheral Pulses: 2+ Radial (R). 2+ Radial (L). 2+ Pedal (R). 2+ Pedal (L) Abdominal Exam: Normal bowel sounds. Soft. normal abdomen, no visible veins, tenderness in lower abdomen, No hepatospenomegaly. No masses Ankle Exam: Negative ankle edema Lower extremities: Negative lower extremity edema Neuro/Mental Status: A&O x4. Coherent, strength 0/5 in left upper and lower extremity, 3/5 in right upper extremity and 2/5 in right lower extremity Thoughts/Psych: Normal thought pattern. Appropriate mood and affect. Good judgement and insight Skin Exam: Normal inspection. Normal color. Warm. Dry, sacral ulcer on right buttock around 2cm stage 2 NOREEN: no external hemorrhoids visible, sphincter tone is normal, empty rectal vault, no active bleeding Nurse Ioana was present as terra cotta roofer helper during the examination. laboratory and microbiology Laboratory Tests 05/02/25 05:13 Test 05/02/25 05:13 Range/Units Serum Glucose 88 74-106 mg/dL Microbiology Date/Time Source Procedure Growth Status 04/30/25 15:40 Blood Blood Culture - Preliminary Resulted Labs and/or images reviewed: Labs reviewed by me, Image(s) reviewed by me Problem List/Assessment/Plan Problem List/Assessment/Plan Assessment and plan: # Acute on chronic normocytic anemia, secondary to acute vaginal bleeding # Acute post menopausal bleeding secondary to endometrial hyperplasia, rule out uterine malignancy - History of anticoagulant use, currently on hold due to the active bleeding -Pelvic ultrasound showed endometrial thickness 4.8mm -OBGYN consult- outpatient follow up recommended -Hb is 8.7 today -Monitor H&H -stool occult blood negative # Bacteremia -Blood culture:Gram positive cocci in cluster - Oral doxycycline was started. - IV vancomycin was discontinued for possible nephrotoxicity - IV ceftriaxone 1 gm daily. - Echo to rule out infective endocarditis: EF is 50-55%, mild AI, TR and MR - Pending follow up urine and blood cultures # FRANK, likely due to VMN # Hypernatremia -free water deficit is 2.5L -D5W 100ml/hr - Pending Urine osmolarity, urine sodium and creatinine to calculate FENa -nephrology consulted- recommended close monitoring of fluids and electrolytes,avoid nephrotoxic medications,continue D5W # Severe protein caloric malnutrition -albumin 2.2 # Thrombocytopenia s/p 1 platelet transfusion # Stage 1-2 sacral ulcer, present on admission -wound care consult # Hypokalemia -replenished #History of CVA with left hemiplegia # Morbid obesity BMI 62.7 DVT prophylaxis: held because of bleeding Goals of care: DNR/DNI,only chemical code discussed for >23 minutes Plan discussed with patient Plan discussed with Dr Fry Plan discussed with: Patient, Daughter, Other My Orders My Orders Orders - SHANNAN SHAW RESIDENT Procedure Category Date Status Time Pt Request For Service PT 05/02/25 Logged 15:59 Blood Culture NEREIDA 05/02/25 Logged 16:09 Dietary Evaluation Review Comments: Nutrition Recommendation: 1) Artie 1 pk BID 2) Monitor PO intake, lab values, weight trend, and I/O Expected Outcomes/Goals: Wound to improve Lab values to improve FU 3-5 days Date of Service: May 02, 2025 Billing Provider: NELLY FRY MD Common Visit Codes: [id number] INP/OBS CARE(HIGH) SHANNAN SHAW RESIDENT May 02, 2025 16:51 BEBA ANGLIN RESIDENT May 02, 2025 18:55
[2025-05-02 20:10] LABS: Urine Amorphous Crystal FEW /hpf (None Seen); Urine Protein, UAD Negative (Negative)
[2025-05-02 20:11] LABS: Protein, Urine 26.9 mg/dL (1-14)
[2025-05-03] VITALS (8 sets, daily range): BP systolic 93–118; BP diastolic 42–57; PULSE 74–90; RESP 19–20; TEMP 97.1–98; O2SAT 96–100
[2025-05-03 09:14] LABS: Potassium 4.1 mmol/L (3.5-5.1)
[2025-05-03 09:15] LABS: Anion Gap 12 (5-15); Carbon Dioxide 22 mmol/L (20-31)
[2025-05-03 09:20] LABS: BUN/Creatinine Ratio 4.0 (10.0-20.0); Blood Urea Nitrogen 11 mg/dL (9-23); Calcium 7.3 mg/dL (8.7-10.4); Chloride 112 mmol/L (98-107); Glucose 81 mg/dL (74-106); Sodium 146 mmol/L (136-145)
[2025-05-03] MEDS: MAGNESIUM SULFATE 1GM/100ML 100 ML IV ONE (09:22)
[2025-05-03] MEDS ORDERED: TPN PER PHARMACY 0 ML IV SCH (11:45)
[2025-05-03 12:28] LABS: Hematocrit 24.9 % (36.0-46.0)
[2025-05-03 12:30] LABS: Hemoglobin 8.2 g/dL (12.2-16.2); Mean Corpuscular Hemoglobin 29.6 pg (28.0-32.0); Mean Corpuscular Volume 90.3 fL (80.0-100.0); Nucleated Red Blood Cells % 0.6 %
[2025-05-03 13:54] LABS: Magnesium 1.8 mg/dL (1.6-2.6)
--- NOTE | 2025-05-03 14:11 | DVHPN2 ---
Progress Note Date Seen: May 03, 2025 Medical Necessity Reason Pt with a Central, PICC or Fol: No Subjective Patient reports: Other (Patient's daughter is bedside patient also has sitter bedside) Review of Systems: Deferred Objective vital signs Vital Sign Date Time Temp Pulse Resp B/P (MAP) Pulse Ox O2 Delivery O2 Flow Rate FiO2 05/03/25 13:00 78 19 105/51 (69) 98 05/03/25 08:00 Room Air* 0 21 05/03/25 04:30 97.1 97.1 Total Intake and Output 05/02/25 05/02/25 05/03/25 15:00 23:00 07:00 Intake Total 260 ml 0 ml 0 ml Output Total 225 ml Balance 260 ml 0 ml -225 ml medications Current Medications Medications Dose Ordered Sig/Jon Route Start Time Stop Time Status Last Admin Dose Admin Acetaminophen/ Hydrocodone Bitart 1 tab Q4HP PRN PO 04/28/25 03:45 Hold Ondansetron HCl 4 mg Q4HP PRN IV 04/28/25 03:45 Acetaminophen 650 mg Q6HP PRN PO 04/28/25 03:45 Hold Gabapentin 300 mg HS PO 04/28/25 22:00 Ceftriaxone Sodium 50 ml @ 100 mls/hr DAILY@09 IV 04/29/25 09:00 05/03/25 08:26 100 MLS/HR Atorvastatin Calcium 20 mg HS PO 04/28/25 22:00 Dextrose 1,000 ml @ 100 mls/hr Q10H IV 05/01/25 11:15 05/02/25 04:45 100 MLS/HR Magnesium Oxide 800 mg BID PO 05/01/25 22:00 Doxycycline Hyclate 100 ml @ 50 mls/hr Q12H IV 05/01/25 16:45 05/03/25 04:43 50 MLS/HR Diagnostic Test (Pha) 1 strip Q6HR 05/04/25 00:00 Insulin Human Regular FOLLOW SLIDING SCALE Q6HR SC 05/04/25 00:00 Dextrose 50 ml UD IV 05/04/25 00:00 Amino Acids/ Electrolytes/ Dextrose 1,000 ml @ 41 mls/hr DAILY@2200 IV 05/03/25 22:00 05/04/25 21:59 Examination: GENERAL:Abnormal, LUNGS:Abnormal, MSK:Abnormal laboratory and microbiology Laboratory Tests 05/03/25 12:00 05/03/25 08:44 Test 05/03/25 08:44 Range/Units Serum Glucose 81 74-106 mg/dL Microbiology Date/Time Source Procedure Growth Status 05/01/25 21:36 Blood Blood Culture - Preliminary NO GROWTH AFTER 24 HOURS OF INCUBATION. Resulted Problem List/Assessment/Plan Problem List/Assessment/Plan Acute kidney injury superimposed Chronic Kidney Disease secondary hemodynamic mediated Vancomycin toxicity Anemia due to blood loss Vaginal bleeding Hypernatremia due to dehydration Hypokalemia due to potassium loss Hypoalbuminemia Morbidly obesity Recommendations Renal function slightly worse Avoid nephrotoxic medications Discontinue vancomycin d5w iv Discussed with daughter bedside Plan discussed with: Daughter Dietary Evaluation Review Comments: Nutrition Recommendation: 1) Artie 1 pk BID 2) Monitor PO intake, lab values, weight trend, and I/O Expected Outcomes/Goals: Wound to improve Lab values to improve FU 3-5 days KAILA GONZALEZ MD May 03, 2025 14:11
[2025-05-03] MEDS: ONDANSETRON HCL 4 MG/2 ML VIAL IV PRN (14:47)
--- NOTE | 2025-05-03 16:05 | DVHPNRES ---
Progress Note Date Seen: May 03, 2025 Resident Creating Document: SHANNAN SHAW RESIDENT Medical Necessity Reason Pt with a Central, PICC or Fol: No Subjective Review of Systems Karolina Mendoza is a 65-year old female with past medical history of CVA with residual left hemiplegia on Eliquis at home, hypertension, hyperlipidemia, diverticulosis, chronically bedridden with the chief complaint of lower abdominal pain and vaginal bleeding. The patient mentions she has had lower abdominal pain since 4-5 days, 10/10 in intensity, associated with bleeding from the vagina, soaking 3 diapers yesterday. Patient had her last menstrual period around 20 years back. She denies any fever, chills, nausea or vomiting and recent weight loss. Pelvic ultrasound showed endometrial thickness 4.8 mm. Abdomen/pelvis CT showed no acute abdominal or pelvic findings. OBGYN was consulted and they recommended outpatient follow up. Past medical history: CVA with residual left hemiplegia on Eliquis at home, hypertension, hyperlipidemia, chronically bedridden,diverticulosis Past surgical history: Cholecystectomy Social & Personal history: denies alcohol, smoking and drugs Allergies: acetaminophen, aspirin, tomatoes Patient seen and examined at bedside. Patient is alert and oriented to time, place person and responding to all questions. Eyes: No Pain, No Vision change, No Conjunctivae inflammation, No Eyelid inflammation, No Redness ENT: No Ear pain, No Ear discharge, No Nose pain, No Nose discharge, No Nose congestion, No Mouth pain, No Mouth swelling, No Throat pain, No Throat swelling Cardiovascular: No Chest Pain, No Palpitations, No Orthopnea, No Paroxysmal No Dyspnea, No Edema, No Lt Headedness Respiratory: No Cough, No Dry, No Shortness of breath, No SOB with exertion, No Wheezing, No Hemoptysis, No Pleuritic Pain, No Sputum Gastrointestinal: No Nausea, No Vomiting, Abdominal Pain, No Diarrhea, No Constipation, No Melena, No Hematochezia Genitourinary: No Dysuria, No Frequency, No Incontinence, No Hematuria, No Retention, vaginal bleeding 04/29/25- The patient was seen at bedside today. Her vancomycin trough was 59, so vancomycin was stopped. She was started on D5W with bicarb at 100ml/hr. Patient refused blood draw for evaluation of thrombocytopenia and pink stain. The nurse will collect urine sample for UA and culture with straight cath as patient refuses catheterisation. 04/30/25- The patient was seen at bedside today. Her potassium form last night was 3 and it was replenished. She refused blood draw for morning labs. She was explained the importance of collecting the urine sample and blood draw for helping diagnosis and evaluation, which she agreed to. We tried to reach the family on multiple occasions, but were unable to do so. Family called the nurse and got updates from them about the patients's status. 05/01/25- The patient was evaluated and examined at bedside today. VS, laboratories and chart was reviewed. The patient reports feeling better, her pelvic pain is improving, She is still reporting of active vaginal bleeding. Her potassium is 3.1 and was replenished and magnesium 800mg po was added today. The Hb is 6.9 this morning, 1 RBC unit was ordered and administered. We will continue evaluating with periodic H&H. Gynecology is on board, they recommend endometrial biopsy as an outpatient. I was informed that the patient is refusing blood draws and urine sample collection; I spoke with the patient and explained the importance of collecting the urine sample and blood draw for helping diagnosis and evaluation, which she agreed to. I have spoken with Mrs. Mendoza sister, I have address her concerns and responds to all her questions, the patient's sister agrees with the current management. Due to low GFR and high creatinine a nephrology consult was placed Vancomycin was discontinued. Blood cultures growth: Gram positive coccus in cluster, in order to cover those microorganisms, oral doxycycline 100mg po bid was started today. We will follow up with the progress of this patient. 05/02/25- The patient was seen at bedside today. Bedside swallow evaluation was tried yesterday and the patient aspirated and developed aspiration pneumonia. We will keep her NPO. There were 75cc nasogastric secretions. The patient was initially refusing all blood draws and urine sample collection. We called her family and discussed the possibility of placing the patient on hospice, but the family did not agree to this. They called the patient and convinced her to agree to blood draws and urine sample collection. Salomon catheter was pleased, urine sample was collected and blood was drawn for repeat blood culture. Possible discharge tomorrow to SNF. Nephrology was consulted and recommended close monitoring of fluid and electrolytes, avoiding nephrotoxic medications and continuing with D5W. We placed a request for PT evaluation. 05/03/25- The patient was seen and evaluated at bedside today. Patient had hypokalemia and potassium was repleted. NG tube drainage collection was 75cc overnight. Swallow evaluation was done by speech therapist and she was able to tolerate thin liquids with a straw and puree diet with small bites with no overt signs or symptoms of aspiration and was given aspiration risk, feeding instruction, and safe position education. Patient was started on pureed diet. Her urine studies came back and FeNa was calculated as 0.6% pointing to prerenal cause of FRANK. Blood culture showed no growth after 24 hours of incubation. Extensive discussion was held with the daughter at bedside and all evaluation, management and plans were discussed with her. Possible discharge home tomorrow with resumption of home health was discussed with the patient and her daughter. Her daughter mentioned patient was on gtube feeding for 4 months post her stroke, which was discontinued in september 2024. Objective vital signs Vital Sign Date Time Temp Pulse Resp B/P (MAP) Pulse Ox O2 Delivery O2 Flow Rate FiO2 05/03/25 13:00 78 19 105/51 (69) 98 05/03/25 08:00 Room Air* 0 21 05/03/25 04:30 97.1 97.1 Total Intake and Output 05/02/25 05/02/25 05/03/25 15:00 23:00 07:00 Intake Total 260 ml 0 ml 0 ml Output Total 225 ml Balance 260 ml 0 ml -225 ml medications Current Medications Medications Dose Ordered Sig/Jon Route Start Time Stop Time Status Last Admin Dose Admin Acetaminophen/ Hydrocodone Bitart 1 tab Q4HP PRN PO 04/28/25 03:45 Hold Ondansetron HCl 4 mg Q4HP PRN IV 04/28/25 03:45 05/03/25 14:47 4 MG Acetaminophen 650 mg Q6HP PRN PO 04/28/25 03:45 Hold Gabapentin 300 mg HS PO 04/28/25 22:00 Ceftriaxone Sodium 50 ml @ 100 mls/hr DAILY@09 IV 04/29/25 09:00 05/03/25 08:26 100 MLS/HR Atorvastatin Calcium 20 mg HS PO 04/28/25 22:00 Dextrose 1,000 ml @ 100 mls/hr Q10H IV 05/01/25 11:15 05/03/25 14:47 100 MLS/HR Magnesium Oxide 800 mg BID PO 05/01/25 22:00 Doxycycline Hyclate 100 ml @ 50 mls/hr Q12H IV 05/01/25 16:45 05/03/25 04:43 50 MLS/HR Examination General Appearance: Cooperative. Well developed. Well nourished. NAD. Patient has minimal bleeding from vagina. Head Exam: Normal inspection Neck Exam: Normal inspection. Non-tender. Normal alignment Pulmonary/Respiratory: Chest non-tender. Clear bilateral breath sounds, no crackles, no wheezing. Cardiovascular/Chest: Regular rate and rhythm. No murmurs. No JVD. Peripheral Pulses: 2+ Radial (R). 2+ Radial (L). 2+ Pedal (R). 2+ Pedal (L) Abdominal Exam: Normal bowel sounds. Soft. normal abdomen, no visible veins, tenderness in lower abdomen, No hepatospenomegaly. No masses Ankle Exam: Negative ankle edema Lower extremities: Negative lower extremity edema Neuro/Mental Status: A&O x4. Coherent, strength 0/5 in left upper and lower extremity, 3/5 in right upper extremity and 2/5 in right lower extremity Thoughts/Psych: Normal thought pattern. Appropriate mood and affect. Good judgement and insight Skin Exam: Normal inspection. Normal color. Warm, sacral ulcer on right buttock around 2cm stage 1-2 NOREEN: no external hemorrhoids visible, sphincter tone is normal, empty rectal vault, no active bleeding Nurse Ioana was present as electric pile driver operator during the examination. laboratory and microbiology Laboratory Tests 05/03/25 12:00 05/03/25 08:44 Test 05/03/25 08:44 Range/Units Serum Glucose 81 74-106 mg/dL Microbiology Date/Time Source Procedure Growth Status 05/01/25 21:36 Blood Blood Culture - Preliminary NO GROWTH AFTER 24 HOURS OF INCUBATION. Resulted Labs and/or images reviewed: Labs reviewed by me, Image(s) reviewed by me Problem List/Assessment/Plan Problem List/Assessment/Plan Assessment and plan: # Acute on chronic normocytic anemia, secondary to acute vaginal bleeding # Acute post menopausal bleeding secondary to endometrial hyperplasia, rule out uterine malignancy -History of anticoagulant use, currently on hold due to the active bleeding -Pelvic ultrasound showed endometrial thickness 4.8mm -OBGYN consult- outpatient follow up recommended -Hb is 8.2 today -Monitor H&H -stool occult blood negative # Bacteremia -Blood culture:Gram positive cocci in clusters -doxycycline iv q12hrs -IV vancomycin was discontinued for possible nephrotoxicity -IV ceftriaxone 1 gm daily. -Echo to rule out infective endocarditis: EF is 50-55%, mild AI, TR and MR -repeat blood cultures- no growth after 24 hrs # FRANK, likely due to VMN # Hypernatremia -free water deficit is 2.5L -D5W 100ml/hr -urine Na-17, u creat 56.68, protein/creat ratio 0.47 FENa 0.6% -nephrology consulted- recommended close monitoring of fluids and electrolytes,avoid nephrotoxic medications,continue D5W # Severe protein caloric malnutrition -albumin 2.2 # Thrombocytopenia s/p 1 platelet transfusion # Stage 1-2 sacral ulcer, present on admission -wound care consult # Hypokalemia -repleted today #Hypophosphatemia -repleted #History of CVA with left hemiplegia # Morbid obesity BMI 62.7 DVT prophylaxis: held because of bleeding Goals of care: DNR/DNI,only chemical code discussed for >23 minutes Plan discussed with patient Plan discussed with Dr Fry Plan discussed with: Patient My Orders My Orders Orders - SHANNAN SHAW RESIDENT Procedure Category Date Status Time Pt Request For Service PT 05/02/25 Logged 15:59 Blood Culture NEREIDA 05/02/25 In Process 16:09 Pureed DIET 05/03/25 Transmitted Dinner * Drafter [employer] CONS 05/03/25 Transmitted Consult Dietary Evaluation Review Comments: Nutrition Recommendation: 1) Artie 1 pk BID 2) Monitor PO intake, lab values, weight trend, and I/O Expected Outcomes/Goals: Wound to improve Lab values to improve FU 3-5 days Date of Service: May 03, 2025 Billing Provider: NELLY FRY MD Common Visit Codes: [id number] INP/OBS CARE(MOD) SHANNAN SHAW RESIDENT May 03, 2025 16:05 BEBA ANGLIN RESIDENT May 03, 2025 16:43 NELLY FRY MD May 03, 2025 17:33
[2025-05-03] MEDS: POTASSIUM PHOSPHATE 22 MEQ in SODIUM CHL 0.9% 100 ML IV ONE (16:29)
[2025-05-03] MEDS ORDERED: AMINO ACID INFUSION IN D10W 1,000 ML IV SCH (22:00)
[2025-05-04] VITALS (7 sets, daily range): BP systolic 105–133; BP diastolic 62–89; PULSE 79–87; RESP 18–20; TEMP 97.8–98.4; O2SAT 97–99
[2025-05-04] MEDS ORDERED: DEXTROSE (50%) 50ML SYRG IV SCH
[2025-05-04] MEDS ORDERED: InsuLIN REG 1unit/0.01ml Soln (100units/ml) SC SCH
[2025-05-04] MEDS ORDERED: ACCU-CHEK COMFORT CURVE STRIP VI SCH
[2025-05-04 06:54] LABS: Hematocrit 27.1 % (36.0-46.0); Hemoglobin 8.5 g/dL (12.2-16.2)
[2025-05-04 07:02] LABS: Potassium 3.9 mmol/L (3.5-5.1); Sodium 143 mmol/L (136-145)
[2025-05-04 07:03] LABS: Anion Gap 13 (5-15); Carbon Dioxide 20 mmol/L (20-31)
[2025-05-04 07:08] LABS: BUN/Creatinine Ratio 4.5 (10.0-20.0); Blood Urea Nitrogen 12 mg/dL (9-23); Glucose 85 mg/dL (74-106)
[2025-05-04 07:10] LABS: Calcium 7.2 mg/dL (8.7-10.4); Chloride 110 mmol/L (98-107)
[2025-05-04] MEDS ORDERED: ONDANSETRON ODT 4 MG TAB PO PRN (16:45)
--- NOTE | 2025-05-04 18:04 | DVHPN2 ---
Progress Note Date Seen: May 04, 2025 Medical Necessity Reason Pt with a Central, PICC or Fol: No Subjective Patient reports: No new complaints Review of Systems: Deferred Objective vital signs Vital Sign Date Time Temp Pulse Resp B/P (MAP) Pulse Ox O2 Delivery O2 Flow Rate FiO2 05/04/25 17:28 98.3 79 20 133/65 (87) 97 98.3 05/04/25 07:40 Room Air* 0 21 Total Intake and Output 05/03/25 05/03/25 05/04/25 15:00 23:00 07:00 Intake Total 1000 ml 500 ml 0 ml Output Total 500 ml 500 ml Balance 1000 ml 0 ml -500 ml medications Current Medications Medications Dose Ordered Sig/Jon Route Start Time Stop Time Status Last Admin Dose Admin Acetaminophen/ Hydrocodone Bitart 1 tab Q4HP PRN PO 04/28/25 03:45 Hold Acetaminophen 650 mg Q6HP PRN PO 04/28/25 03:45 Hold Gabapentin 300 mg HS PO 04/28/25 22:00 Atorvastatin Calcium 20 mg HS PO 04/28/25 22:00 Magnesium Oxide 800 mg BID PO 05/01/25 22:00 05/04/25 09:03 800 MG Ondansetron HCl 4 mg Q8HP PRN PO 05/04/25 16:45 laboratory and microbiology Laboratory Tests 05/04/25 05:55 05/03/25 12:00 Test 05/04/25 05:55 Range/Units Serum Glucose 85 74-106 mg/dL Microbiology Date/Time Source Procedure Growth Status 05/02/25 17:00 Blood Blood Culture - Preliminary NO GROWTH AFTER 48 HOURS OF INCUBATION. Resulted Problem List/Assessment/Plan Problem List/Assessment/Plan Acute kidney injury superimposed Chronic Kidney Disease secondary hemodynamic mediated Vancomycin toxicity Anemia due to blood loss Vaginal bleeding Hypernatremia due to dehydration Hypokalemia due to potassium loss Hypoalbuminemia Morbidly obesity Recommendations Renal function stable Avoid nephrotoxic medications Plan discussed with: Daughter Dietary Evaluation Review Comments: Nutrition Recommendation: 1) Artie 1 pk BID 2) Monitor PO intake, lab values, weight trend, and I/O Expected Outcomes/Goals: Wound to improve Lab values to improve FU 3-5 days KAILA GONZALEZ MD May 04, 2025 18:04
--- NOTE | 2025-05-04 18:51 | DVHDSRES ---
Discharge Summary Date of Admission Resident Creating Document: SHANNAN SHAW RESIDENT Apr 28, 2025 at 03:35 Date of Discharge: May 04, 2025 Admitting Diagnosis Blood loss anemia Labs/Diagnostic Data: Laboratory Results Test 05/04/25 05:55 05/03/25 12:00 05/03/25 08:44 05/02/25 18:20 Hemoglobin 8.5 g/dL (12.2-16.2) Hematocrit 27.1 % (36.0-46.0) Sodium Level 143 mmol/L (136-145) Potassium Level 3.9 mmol/L (3.5-5.1) Chloride Level 110 mmol/L (98-107) Carbon Dioxide Level 20 mmol/L (20-31) Anion Gap 13 (5-15) Blood Urea Nitrogen 12 mg/dL (9-23) Creatinine 2.64 mg/dL (0.550-1.02) Glomerular Filtration Rate Calc 20 mL/min (>90) BUN/Creatinine Ratio 4.5 (10.0-20.0) Serum Glucose 85 mg/dL (74-106) Calcium Level 7.2 mg/dL (8.7-10.4) White Blood Count 4.4 10^3/uL (4.4-10.8) Red Blood Count 2.76 10^6/uL (4.0-5.20) Mean Corpuscular Volume 90.3 fL (80.0-100.0) Mean Corpuscular Hemoglobin 29.6 pg (28.0-32.0) Mean Corpuscular Hemoglobin Concent 32.7 g/dL (32.0-36.0) Red Cell Distribution Width 19.7 % (11.8-14.3) Platelet Count 32 10^3/uL (140-450) Mean Platelet Volume 9.2 fL (6.9-10.8) Neutrophils (%) (Auto) 70.4 % (37.0-80.0) Lymphocytes (%) (Auto) 14.9 % (10.0-50.0) Monocytes (%) (Auto) 9.4 % (0.0-12.0) Eosinophils (%) (Auto) 4.7 % (0.0-7.0) Basophils (%) (Auto) 0.6 % (0.0-2.0) Neutrophils # (Auto) 3.1 10 ^3/uL (1.6-8.6) Lymphocytes # (Auto) 0.7 10 ^3/uL (0.4-5.4) Monocytes # (Auto) 0.4 10 ^3/uL (0-1.3) Eosinophils # (Auto) 0.2 10 ^3/uL (0-0.8) Basophils # (Auto) 0 10 ^3/uL (0-0.2) Nucleated Red Blood Cells 0.6 % Platelet Estimate Decreased Phosphorus Level 1.9 mg/dL (2.4-5.1) Magnesium Level 1.8 mg/dL (1.6-2.6) Urine Color Colorless (Yellow) Urine Clarity Turbid (Clear) Urine pH 6.0 (5.0-9.0) Urine Specific [place] 1.007 (1.001-1.035) Urine Protein Negative (Negative) Urine Ketones Negative (Negative) Urine Blood Negative /uL (Negative) Urine Nitrite Negative (Negative) Urine Bilirubin Negative (Negative) Urine Urobilinogen Normal mg/dL (Negative) Urine Leukocyte Esterase Negative /uL (Negative) Urine RBC 2 /hpf (0 - 4) Urine Microscopic WBC 3 /HPF (0-5) Urine Squamous Epithelial Cells Few /hpf (<5) Urine Amorphous Crystals Few /hpf (None Seen) Urine Bacteria Few /hpf (None Seen) Urine Mucus Few (None Seen) Urine Creatinine 56.68 mg/dL (30.0-125.0) Urine Protein/Creatinine Ratio 0.47 Urine Sodium 17 mmol/L (40-220) Urine Glucose Normal mg/dL (Normal) Urine Total Protein 26.9 mg/dL (1-14) Test 05/01/25 10:43 04/29/25 06:15 04/28/25 19:30 04/28/25 09:42 Serum Osmolality 307 mOsm/kg (278-298) Total Bilirubin 0.2 mg/dL (0.2-1.0) Direct Bilirubin 0.1 mg/dL (<0.3) Aspartate Amino Transferase (AST) 33 U/L (13-40) Alanine Aminotransferase (ALT) 13 U/L (7-40) Alkaline Phosphatase 105 U/L (46-116) Total Protein 5.4 g/dL (5.7-8.2) Albumin 2.2 g/dL (3.2-4.8) Random Vancomycin Level 59.0 ug/mL (5-10) Stool Occult Blood Negative (Negative) Stool Occult Blood Sample #2 Negative (Negative) Stool Occult Blood Sample #3 Negative (Negative) Urine Opiates Screen Neg (NEGATIVE) Urine Fentanyl Screen Neg (NEGATIVE) Urine Barbiturates Screen Neg (NEGATIVE) Urine Phencyclidine Screen Neg (NEGATIVE) Urine Amphetamines Screen Neg (NEGATIVE) Urine Benzodiazepines Screen Neg (NEGATIVE) Urine Cocaine Screen Neg (NEGATIVE) Urine Cannabinoids Screen Neg (NEGATIVE) Test 04/28/25 05:24 04/28/25 05:04 04/27/25 21:55 04/27/25 21:00 CA 125 Antigen 38.4 U/mL (0.0-38.1) Prothrombin Time 12.3 sec (9.3-11.8) Prothrombin Time INR 1.18 (0.9-1.15) Activated Partial Thromboplast Time 29.1 SEC (24.5-34.5) Lactic Acid Level 2.0 mmol/L (0.4-2.0) Iron Level 53 ug/dL (50-170) Total Iron Binding Capacity 158 ug/dL (250-425) Percent Iron Saturation 33.5 % (15-50) Ferritin 33.6 ng/mL (10-291) B-Type Natriuretic Peptide 325.04 pg/mL (0-100) Vitamin B12 Level 563 pg/mL (211-911) Vitamin D 25-Hydroxy 54.5 ng/mL (30.0-100) Thyroid Stimulating Hormone (TSH) 3.11 uIU/mL (0.55-4.78) Large Platelets Few Anisocytosis (manual) Slight [place] Cells Few Lipase 20 U/L (12-53) Other Laboratory Tests 05/04/25 05:55 05/03/25 12:00 Brief Hx & Hospital Course: Karolina Mendoza is a 65-year old female with past medical history of CVA with residual left hemiplegia on Eliquis at home, hypertension, hyperlipidemia, diverticulosis, chronically bedridden with the chief complaint of lower abdominal pain and vaginal bleeding. The patient mentioned she has had lower abdominal pain since 4-5 days, 10/10 in intensity, associated with bleeding from the vagina, soaking 3 diapers on the day before admission. Patient had her last menstrual period around 20 years back. She denied any fever, chills, nausea or vomiting and recent weight loss. Pelvic ultrasound showed endometrial thickness 4.8 mm. Abdomen/pelvis CT showed no acute abdominal or pelvic findings. OBGYN was consulted and they recommended outpatient follow up for endometrial biopsy. The patient had history of bacteremia on recent previous hospitalization, so IV ceftriaxone was continued. Electrolytes were regularly monitored and repleted as required. Patient was given 1 unit of PRBC on 05/01/2025 and H&H was regularly monitored. The amount of vaginal bleeding reduced considerably over the course of her hospitalization. The patient refused blood draws and catheterization on multiple occasions, but agreed to it later after extensive discussions and explanation about the necessity of these. Family was regularly updated about ongoing management. The patient aspirated and developed aspiration pneumonia on 05/02/2025. Nephrology continued to follow up with the patient. The possibility of placing the patient on hospice was discussed with the family but they refused. Family also refused SNF placement. Swallow evaluation was done by speech therapist on 05/03/2025 and she was able to tolerate thin liquids with a straw and puree diet with small bites with no overt signs or symptoms of aspiration. Urine studies came back and FENA was calculated at 0.6% pointing to prerenal cause of FRANK. Repeat blood culture showed no growth after 24 hours of incubation. The patient is stable to be discharged home with resumption of home health, from a medical standpoint. The patient's daughter appealed the discharge. We ordered a repeat swallow evaluation for the patient. Past medical history: CVA with residual left hemiplegia on Eliquis at home, hypertension, hyperlipidemia, chronically bedridden,diverticulosis Past surgical history: Cholecystectomy Social & Personal history: denies alcohol, smoking and drugs Allergies: acetaminophen, aspirin, tomatoes General Appearance: Cooperative. Well developed. Well nourished. NAD. Head Exam: Normal inspection Neck Exam: Normal inspection. Non-tender. Normal alignment Pulmonary/Respiratory: Chest non-tender. Clear bilateral breath sounds, no crackles, no wheezing. Cardiovascular/Chest: Regular rate and rhythm. No murmurs. No JVD. Peripheral Pulses: 2+ Radial (R). 2+ Radial (L). 2+ Pedal (R). 2+ Pedal (L) Abdominal Exam: Normal bowel sounds. Soft. normal abdomen, no visible veins, tenderness in lower abdomen, No hepatospenomegaly. No masses Ankle Exam: Negative ankle edema Lower extremities: Negative lower extremity edema Neuro/Mental Status: A&O x4. Coherent, strength 0/5 in left upper and lower extremity, 3/5 in right upper extremity and 2/5 in right lower extremity Thoughts/Psych: Normal thought pattern. Appropriate mood and affect. Good judgement and insight Skin Exam: Normal inspection. Normal color. Warm, sacral ulcer on right buttock around 2cm stage 1-2 NOREEN: no external hemorrhoids visible, sphincter tone is normal, empty rectal vault, no active bleeding Nurse Ioana was present as deck engineer during the examination. Operations or Procedures 1.PROCEDURE(s): PELUS - PELVIC REASON: vag bleed ORDER NUMBER(s): [id number], ACCESSION NUMBER(s): [id number] TRANSABDOMINAL PELVIC ULTRASOUND CLINICAL HISTORY: vag bleed TECHNIQUE: Multiple grayscale ultrasound images were obtained of the pelvis via transabdominal approach. Limited color Doppler and spectral Doppler acquisitions were also obtained. COMPARISON: None FINDINGS: Uterus: 6.6 x 3.8 x 4.4 cm. The uterine contour is smooth. No myometrial masses are seen. Endometrium: 4.8 mm No endometrial mass is seen. No blood flow or discrete lesion is seen. Right adnexa: right ovary not visualized. No right adnexal mass seen. Left adnexa: left ovary not visualized. No left adnexal mass seen. Other: None IMPRESSION: 1. Borderline thickening of the endometrium. No blood flow. DDX includes mild endometrial hyperplasia, less likely polyp or neoplasm. This could be further evaluated with endometrial sampling if clinically indicated. 2.PROCEDURE(s): CXR1 - CHEST XRAY 1 VIEW REASON: sob ORDER NUMBER(s): [id number], ACCESSION NUMBER(s): [id number] CHEST RADIOGRAPH Indication: sob Technique: Single frontal view of the chest was obtained Comparison: None FINDINGS: Lines and Tubes: There is a right PICC with its tip terminating in the superior vena cava. Lungs: No focal consolidation. Pleura: No effusion. No pneumothorax. Cardiomediastinal contours: Cardiomegaly. Bones: No acute osseous abnormality. IMPRESSION: 1. Cardiomegaly. 2. No acute pulmonary process. 3.PROCEDURE(s): ABPL - CT AB PEL WO CON-NO ORAL OR IV REASON: uterine bleeding, r/o mass ORDER NUMBER(s): [id number], ACCESSION NUMBER(s): [id number] Exam: CT CT AB PEL WO CON-NO ORAL OR IV History: Uterine bleeding, r/o mass Comparison Study: None. Technique: Multidetector spiral CT of the abdomen and pelvis was performed from lung bases to pubic symphysis. Imaging was performed without intravenous contrast. Coronal and sagittal multiplanar reformats were obtained from the axial data set by the technologist. Radiation Dose : 1. Abdomen/Pelvis: CTDIvol 25.56 mGy, DLP 1632.33 mGy*cm. Findings: Evaluation of vasculature and solid organs is limited due to lack of intravenous contrast use. Lung Bases: Lung bases are clear. Visualized portions of the heart and pericardium are unremarkable. Liver: The liver is normal in size. No focal lesions. Gallbladder and Biliary Tree: The gallbladder is surgically absent. No intrahepatic or extrahepatic biliary ductal dilatation. Spleen: Unremarkable Pancreas: The pancreas is grossly unremarkable. Adrenal Glands: Unremarkable Kidneys: Kidneys are unremarkable without calculi or hydronephrosis. GI tract: The stomach is grossly normal in appearance. No evidence of small bowel wall thickening or abnormal dilatation to suggest bowel obstruction. Colonic diverticulosis without acute diverticulitis. The appendix is not visualized, however no inflammatory changes in the right lower quadrant to suggest acute appendicitis. Peritoneum/mesentery/retroperitoneum. No evidence of free intraperitoneal air. No pelvic free fluid or abdominal ascites. Lymph nodes: No evidence of suspicious lymphadenopathy. Abdominal Wall: Unremarkable. Vasculature: The visualized abdominal aorta is normal in size and caliber. Evaluation of abdominal and pelvic vessels is limited due to lack of intravenous contrast. Urinary Bladder: Grossly unremarkable for degree of distention. Pelvic Organs: The uterus appears grossly unremarkable however evaluation is limited without intravenous contrast. Musculoskeletal: No aggressive focal bony lesions, acute fractures or dislocation. IMPRESSION: 1. No acute abdominal or pelvic findings. 2. Uterus not well evaluated on noncontrast CT. Pelvic ultrasound recommended. No pelvic free fluid. 3. Colonic diverticulosis without acute diverticulitis. 4.PROCEDURE(s): HWOCT - HEAD WITHOUT CONTRAST REASON: difficulty swallowing now suddenly, history of stroke ORDER NUMBER(s): [id number], ACCESSION NUMBER(s): [id number] EXAM: CT HEAD WITHOUT CONTRAST INDICATION: Difficulty swallowing now suddenly, history of stroke TECHNIQUE: CT of the head without intravenous contrast. Coronal and sagittal reformatted images are submitted. Radiation Dose : 1. Head: CT Dose: CTDI volume is 53.69 mGy. Dose-length product is 1077.34 mGy*cm The dose indicators for CT are the volume Computed Tomography (CT) Dose Index (CTDIvol) and the Dose Length Product (DLP), and are measured in units of mGy and mGy-cm, respectively. These indicators are not patient dose, but values generated from the CT scanner acquisition factors. The report includes radiation exposure data for exposures received during this examination. All CT scans at this medical facility are performed using dose modulation techniques as appropriate to a performed exam including the following: Automated exposure control was utilized; adjustment of the MA and/or KV according to patient size; and use of iterative reconstruction technique. COMPARISON: None FINDINGS: There is no evidence of acute intracranial hemorrhage, extra-axial collection, mass effect, midline shift, herniation or hydrocephalus. Old right MCA infarct. Generalized parenchymal volume loss. The ventricles, sulci and cisterns are age appropriate. The mosqueda-white differentiation is intact. The visualized paranasal sinuses and mastoid air cells are clear. No depressed calvarial fracture. The surrounding soft tissues are unremarkable. IMPRESSION: 1. No acute intracranial abnormality. 2. Large right old MCA infarct. This May Limited evaluation and if there strong clinical concern for infarct, MRI of the brain without intravenous contrast and CT angiography of the head is recommended. 5.PROCEDURE(s): KIDUS - KIDNEY REASON: FRANK ORDER NUMBER(s): [id number], ACCESSION NUMBER(s): [id number] INDICATION: FRANK TECHNIQUE: Multiple real-time sonographic images of the kidneys and bladder were obtained. COMPARISON: None FINDINGS: RIGHT kidney not visible LEFT kidney visible No large intraluminal masses are seen in the bladder. Prevoid bladder volume 132.87 cc. Bladder mason 0.22 cm Post void residual not received. IMPRESSION: 1. Prevoid bladder volume 132 mL. 2. Unable to visualize kidneys. 6.PROCEDURE(s): CXR1 - CHEST XRAY 1 VIEW REASON: possible aspiration concern ORDER NUMBER(s): [id number], ACCESSION NUMBER(s): [id number] CHEST RADIOGRAPH Indication: possible aspiration concern Technique: Single frontal view of the chest was obtained Comparison: XY CHEST XRAY 1 VIEW on DOS: 04/28/25 FINDINGS: Lines and Tubes: None Lungs: Bibasilar opacities are noted. Pleura: No effusion. No pneumothorax. Cardiomediastinal contours: Cardiomegaly. Bones: No acute osseous abnormality. IMPRESSION: 1. Bilateral opacities which may reflect pulmonary edema or pneumonia. Condition at Discharge: Fair Final Diagnosis/Problems List Acute on chronic normocytic anemia, secondary to acute vaginal bleeding Acute post menopausal bleeding secondary to endometrial hyperplasia, rule out uterine malignancy Bacteremia,gram positive FRANK, likely due to VMN Hypernatremia Severe protein caloric malnutrition Thrombocytopenia s/p 1 platelet transfusion Stage 1-2 sacral ulcer, present on admission Hypokalemia Hypophosphatemia History of CVA with left hemiplegia Morbid obesity BMI 62.7 Discharge Disposition: Home with Health Services Discharge Instruct/Medications Diet: Cardiac 2g Na,low cholest Activity: No Restrictions, As Tolerated Follow Up/Referral: follow up in dc clinic in 1 week follow up with PCP in 1-2 weesk follow up with obgyn Scheduled Apixaban Base (Eliquis), 5 MG PO BID, (Reported) Atorvastatin Calcium (Atorvastatin Calcium), 20 MG PO DAILY, (Reported) Benazepril Hcl (Benazepril Hcl), 10 MG PO BID, (Reported) Folic Acid (Folic Acid), 1 MG PO DAILY, (Reported) Furosemide (Furosemide), 20 MG PO DAILY, (Reported) Gabapentin (Gabapentin), 300 MG PO HS, (Reported) Isosorbide Mononitrate (Isosorbide Mononitrate Er), 1.5 TAB PO DAILY, (Reported) Metoprolol Succinate (Metoprolol Succinate Er), 25 MG PO BID, (Reported) Discharge Statement: "Patient was advised to return to the ER or call 911 if any headaches, dizziness, shortness of breath, chest pain, abdominal pain, bleeding, fevers, or worsening of medical condition. Patient was counseled about treatment plan, medications, possible side effects, patientverbalized understanding. All questions were answered to the best of my ability. This discharge took greater then 30 minutes in planning, reviewing documentation, counseling the patient, and discussing with other team members." ASSESSMENT ASSESSMENT Assessment acute postmenopausal bleeding Date of Service: May 04, 2025 Billing Provider: NELLY RICHARDS MD Common Visit Codes: 71790-OYP/OBS DISCH DAY >30min SHANNAN SHAW RESIDENT May 04, 2025 18:51 NELLY RICHARDS MD May 05, 2025 09:55
[2025-05-05 01:00] VITALS: BP 110/65; PULSE 81; RESP 19; TEMP 98; O2SAT 97
[2025-05-05 05:00] VITALS: BP 127/54; PULSE 79; RESP 18; TEMP 97.9; O2SAT 98
[2025-05-05 09:00] VITALS: BP 109/54; PULSE 80; RESP 18; TEMP 97.9; O2SAT 100
[2025-05-05 13:00] VITALS: BP 106/56; PULSE 80; RESP 19; TEMP 98.2; O2SAT 96
--- NOTE | 2025-05-05 16:43 | DVHPN2 ---
Progress Note Date Seen: May 05, 2025 Medical Necessity Reason Pt with a Central, PICC or Fol: No Subjective Patient reports: Other (poor historian) Review of Systems: Deferred Objective vital signs Vital Sign Date Time Temp Pulse Resp B/P (MAP) Pulse Ox O2 Delivery O2 Flow Rate FiO2 05/05/25 13:00 98.2 80 19 106/56 (73) 96 98.2 05/05/25 08:00 Room Air* 0 21 Total Intake and Output 05/04/25 05/04/25 05/05/25 15:00 23:00 07:00 Intake Total 100 ml 75 ml Output Total 501 ml 550 ml Balance -401 ml -475 ml medications Current Medications Medications Dose Ordered Sig/Jon Route Start Time Stop Time Status Last Admin Dose Admin Acetaminophen/ Hydrocodone Bitart 1 tab Q4HP PRN PO 04/28/25 03:45 Hold Acetaminophen 650 mg Q6HP PRN PO 04/28/25 03:45 Hold Gabapentin 300 mg HS PO 04/28/25 22:00 05/04/25 22:13 300 MG Atorvastatin Calcium 20 mg HS PO 04/28/25 22:00 05/04/25 22:13 20 MG Magnesium Oxide 800 mg BID PO 05/01/25 22:00 05/04/25 22:13 800 MG Ondansetron HCl 4 mg Q8HP PRN PO 05/04/25 16:45 Examination: GENERAL:Abnormal, MSK:Abnormal laboratory and microbiology Laboratory Tests 05/04/25 05:55 05/03/25 12:00 Test 05/04/25 05:55 Range/Units Serum Glucose 85 74-106 mg/dL Microbiology Date/Time Source Procedure Growth Status 05/02/25 17:00 Blood Blood Culture - Preliminary NO GROWTH AFTER 48 HOURS OF INCUBATION. Resulted Problem List/Assessment/Plan Problem List/Assessment/Plan Acute kidney injury superimposed Chronic Kidney Disease secondary hemodynamic mediated Vancomycin toxicity Anemia due to blood loss Vaginal bleeding Hypernatremia due to dehydration Hypokalemia due to potassium loss Hypoalbuminemia Morbidly obesity Recommendations Renal function stable Avoid nephrotoxic medications dc pending outpt FRANK f/u basline normal renal function Plan discussed with: Patient, Other Dietary Evaluation Review Comments: Nutrition Recommendation: 1) Artie 1 pk BID 2) Monitor PO intake, lab values, weight trend, and I/O Expected Outcomes/Goals: Wound to improve Lab values to improve FU 3-5 days KAILA GONZALEZ MD May 05, 2025 16:43
[2025-05-05 18:00] VITALS: BP 112/56; PULSE 76; RESP 16; O2SAT 98
--- NOTE | 2025-05-05 18:23 | DVHPNRES ---
Progress Note Date Seen: May 05, 2025 Resident Creating Document: SHANNAN SHAW RESIDENT Medical Necessity Reason Pt with a Central, PICC or Fol: Yes Subjective Review of Systems Karolina Mendoza is a 65-year old female with past medical history of CVA with residual left hemiplegia on Eliquis at home, hypertension, hyperlipidemia, diverticulosis, chronically bedridden with the chief complaint of lower abdominal pain and vaginal bleeding. The patient mentions she has had lower abdominal pain since 4-5 days, 10/10 in intensity, associated with bleeding from the vagina, soaking 3 diapers yesterday. Patient had her last menstrual period around 20 years back. She denies any fever, chills, nausea or vomiting and recent weight loss. Pelvic ultrasound showed endometrial thickness 4.8 mm. Abdomen/pelvis CT showed no acute abdominal or pelvic findings. OBGYN was consulted and they recommended outpatient follow up. Past medical history: CVA with residual left hemiplegia on Eliquis at home, hypertension, hyperlipidemia, chronically bedridden,diverticulosis Past surgical history: Cholecystectomy Social & Personal history: denies alcohol, smoking and drugs Allergies: acetaminophen, aspirin, tomatoes Patient seen and examined at bedside. Patient is alert and oriented to time, place person and responding to all questions. Eyes: No Pain, No Vision change, No Conjunctivae inflammation, No Eyelid inflammation, No Redness ENT: No Ear pain, No Ear discharge, No Nose pain, No Nose discharge, No Nose congestion, No Mouth pain, No Mouth swelling, No Throat pain, No Throat swelling Cardiovascular: No Chest Pain, No Palpitations, No Orthopnea, No Paroxysmal No Dyspnea, No Edema, No Lt Headedness Respiratory: No Cough, No Dry, No Shortness of breath, No SOB with exertion, No Wheezing, No Hemoptysis, No Pleuritic Pain, No Sputum Gastrointestinal: No Nausea, No Vomiting, Abdominal Pain, No Diarrhea, No Constipation, No Melena, No Hematochezia Genitourinary: No Dysuria, No Frequency, No Incontinence, No Hematuria, No Retention, vaginal bleeding 04/29/25- The patient was seen at bedside today. Her vancomycin trough was 59, so vancomycin was stopped. She was started on D5W with bicarb at 100ml/hr. Patient refused blood draw for evaluation of thrombocytopenia and pink stain. The nurse will collect urine sample for UA and culture with straight cath as patient refuses catheterisation. 04/30/25- The patient was seen at bedside today. Her potassium form last night was 3 and it was replenished. She refused blood draw for morning labs. She was explained the importance of collecting the urine sample and blood draw for helping diagnosis and evaluation, which she agreed to. We tried to reach the family on multiple occasions, but were unable to do so. Family called the nurse and got updates from them about the patients's status. 05/01/25- The patient was evaluated and examined at bedside today. VS, laboratories and chart was reviewed. The patient reports feeling better, her pelvic pain is improving, She is still reporting of active vaginal bleeding. Her potassium is 3.1 and was replenished and magnesium 800mg po was added today. The Hb is 6.9 this morning, 1 RBC unit was ordered and administered. We will continue evaluating with periodic H&H. Gynecology is on board, they recommend endometrial biopsy as an outpatient. I was informed that the patient is refusing blood draws and urine sample collection; I spoke with the patient and explained the importance of collecting the urine sample and blood draw for helping diagnosis and evaluation, which she agreed to. I have spoken with Mrs. Mendoza sister, I have address her concerns and responds to all her questions, the patient's sister agrees with the current management. Due to low GFR and high creatinine a nephrology consult was placed Vancomycin was discontinued. Blood cultures growth: Gram positive coccus in cluster, in order to cover those microorganisms, oral doxycycline 100mg po bid was started today. We will follow up with the progress of this patient. 05/02/25- The patient was seen at bedside today. Bedside swallow evaluation was tried yesterday and the patient aspirated and developed aspiration pneumonia. We will keep her NPO. There were 75cc nasogastric secretions. The patient was initially refusing all blood draws and urine sample collection. We called her family and discussed the possibility of placing the patient on hospice, but the family did not agree to this. They called the patient and convinced her to agree to blood draws and urine sample collection. Salomon catheter was pleased, urine sample was collected and blood was drawn for repeat blood culture. Possible discharge tomorrow to SNF. Nephrology was consulted and recommended close monitoring of fluid and electrolytes, avoiding nephrotoxic medications and continuing with D5W. We placed a request for PT evaluation. 05/03/25- The patient was seen and evaluated at bedside today. Patient had hypokalemia and potassium was repleted. NG tube drainage collection was 75cc overnight. Swallow evaluation was done by speech therapist and she was able to tolerate thin liquids with a straw and puree diet with small bites with no overt signs or symptoms of aspiration and was given aspiration risk, feeding instruction, and safe position education. Patient was started on pureed diet. Her urine studies came back and FeNa was calculated as 0.6% pointing to prerenal cause of FRANK. Blood culture showed no growth after 24 hours of incubation. Extensive discussion was held with the daughter at bedside and all evaluation, management and plans were discussed with her. Possible discharge home tomorrow with resumption of home health was discussed with the patient and her daughter. Her daughter mentioned patient was on gtube feeding for 4 months post her stroke, which was discontinued in september 2024. 05/04/25- the patient was seen at bedside today. The plan was to discharge her home,but the family appealed against the discharge stating that she is not being able to swallow and eat. Extensive discussion was held with the family over call and all recommendations were explained to them. 05/05/25- the patient was seen and evaluated at bedside today. The caregiver was explained that there is no indication for placement of G-tube as the patient passed the swallow evaluation. The caregiver mentioned she is aware that the patient has passed the swallow evaluation test, but is unwilling to eat or drink anything and they want her to get G-tube placed to facilitate her feeding. Family was explained that no active intervention can be done at this time, and it shall be considered once the appeal is resolved. Objective vital signs Vital Sign Date Time Temp Pulse Resp B/P (MAP) Pulse Ox O2 Delivery O2 Flow Rate FiO2 05/05/25 13:00 98.2 80 19 106/56 (73) 96 98.2 05/05/25 08:00 Room Air* 0 21 Total Intake and Output 05/04/25 05/04/25 05/05/25 15:00 23:00 07:00 Intake Total 100 ml 75 ml Output Total 501 ml 550 ml Balance -401 ml -475 ml medications Current Medications Medications Dose Ordered Sig/Jon Route Start Time Stop Time Status Last Admin Dose Admin Acetaminophen/ Hydrocodone Bitart 1 tab Q4HP PRN PO 04/28/25 03:45 Hold Acetaminophen 650 mg Q6HP PRN PO 04/28/25 03:45 Hold Gabapentin 300 mg HS PO 04/28/25 22:00 05/04/25 22:13 300 MG Atorvastatin Calcium 20 mg HS PO 04/28/25 22:00 05/04/25 22:13 20 MG Magnesium Oxide 800 mg BID PO 05/01/25 22:00 05/04/25 22:13 800 MG Ondansetron HCl 4 mg Q8HP PRN PO 05/04/25 16:45 Examination General Appearance: Cooperative. Well developed. Well nourished. NAD. Head Exam: Normal inspection Neck Exam: Normal inspection. Non-tender. Normal alignment Pulmonary/Respiratory: Chest non-tender. Clear bilateral breath sounds, no crackles, no wheezing. Cardiovascular/Chest: Regular rate and rhythm. No murmurs. No JVD. Peripheral Pulses: 2+ Radial (R). 2+ Radial (L). 2+ Pedal (R). 2+ Pedal (L) Abdominal Exam: Normal bowel sounds. Soft. normal abdomen, no visible veins, tenderness in lower abdomen, No hepatospenomegaly. No masses Ankle Exam: Negative ankle edema Lower extremities: Negative lower extremity edema Neuro/Mental Status: A&O x4. Coherent, strength 0/5 in left upper and lower extremity, 3/5 in right upper extremity and 2/5 in right lower extremity Thoughts/Psych: Normal thought pattern. Appropriate mood and affect. Good judgement and insight Skin Exam: Normal inspection. Normal color. Warm, sacral ulcer on right buttock around 2cm stage 1-2 NOREEN: no external hemorrhoids visible, sphincter tone is normal, empty rectal vault, no active bleeding Nurse Ioana was present as gripper installer during the examination. laboratory and microbiology Laboratory Tests 05/04/25 05:55 05/03/25 12:00 Test 05/04/25 05:55 Range/Units Serum Glucose 85 74-106 mg/dL Microbiology Date/Time Source Procedure Growth Status 05/02/25 17:00 Blood Blood Culture - Preliminary NO GROWTH AFTER 72 HOURS OF INCUBATION. Resulted Labs and/or images reviewed: Labs reviewed by me, Image(s) reviewed by me Problem List/Assessment/Plan Problem List/Assessment/Plan # Acute on chronic normocytic anemia, secondary to acute vaginal bleeding # Acute post menopausal bleeding secondary to endometrial hyperplasia, rule out uterine malignancy -History of anticoagulant use, currently on hold due to the active bleeding -Pelvic ultrasound showed endometrial thickness 4.8mm -OBGYN consult- outpatient follow up recommended -stool occult blood negative # Bacteremia -Blood culture:Gram positive cocci in clusters -Echo to rule out infective endocarditis: EF is 50-55%, mild AI, TR and MR -repeat blood cultures- no growth after 24 hrs # FRANK, likely due to VMN # Hypernatremia -free water deficit is 2.5L -D5W 100ml/hr -urine Na-17, u creat 56.68, protein/creat ratio 0.47 FENa 0.6% -nephrology consulted- recommended close monitoring of fluids and electrolytes,avoid nephrotoxic medications # Severe protein caloric malnutrition -albumin 2.2 # Thrombocytopenia s/p 1 platelet transfusion # Stage 1-2 sacral ulcer, present on admission -wound care consult # Hypokalemia -repleted #Hypophosphatemia -repleted #History of CVA with left hemiplegia # Morbid obesity BMI 62.7 DVT prophylaxis: held because of bleeding Goals of care: DNR/DNI,only chemical code discussed for >23 minutes Plan discussed with patient and caregiver Plan discussed with Dr Fry Plan discussed with: Patient My Orders My Orders Orders - SHANNAN SHAW RESIDENT Procedure Category Date Status Time Initiate Vte [facility] 05/05/25 In Process Prophylaxis 13:38 Dietary Evaluation Review Comments: Nutrition Recommendation: 1) Artie 1 pk BID 2) Monitor PO intake, lab values, weight trend, and I/O Expected Outcomes/Goals: Wound to improve Lab values to improve FU 3-5 days Date of Service: May 05, 2025 Billing Provider: NELLY FRY MD Common Visit Codes: [id number] INP/OBS CARE(HIGH) SHANNAN SHAW RESIDENT May 05, 2025 18:23
[2025-05-05 21:00] VITALS: BP 142/74; PULSE 82; RESP 19; TEMP 98.5; O2SAT 100
[2025-05-06] VITALS (7 sets, daily range): BP systolic 125–159; BP diastolic 50–75; PULSE 59–81; RESP 16–19; TEMP 97.6–98.2; O2SAT 92–99
--- NOTE | 2025-05-06 14:27 | DVHPNRES ---
Progress Note Date Seen: May 06, 2025 Resident Creating Document: SHANNAN SHAW RESIDENT Medical Necessity Reason Pt with a Central, PICC or Fol: Yes Subjective Review of Systems Karolina Mendoza is a 65-year old female with past medical history of CVA with residual left hemiplegia on Eliquis at home, hypertension, hyperlipidemia, diverticulosis, chronically bedridden with the chief complaint of lower abdominal pain and vaginal bleeding. The patient mentions she has had lower abdominal pain since 4-5 days, 10/10 in intensity, associated with bleeding from the vagina, soaking 3 diapers yesterday. Patient had her last menstrual period around 20 years back. She denies any fever, chills, nausea or vomiting and recent weight loss. Pelvic ultrasound showed endometrial thickness 4.8 mm. Abdomen/pelvis CT showed no acute abdominal or pelvic findings. OBGYN was consulted and they recommended outpatient follow up. Past medical history: CVA with residual left hemiplegia on Eliquis at home, hypertension, hyperlipidemia, chronically bedridden,diverticulosis Past surgical history: Cholecystectomy Social & Personal history: denies alcohol, smoking and drugs Allergies: acetaminophen, aspirin, tomatoes Patient seen and examined at bedside. Patient is alert and oriented to time, place person and responding to all questions. Eyes: No Pain, No Vision change, No Conjunctivae inflammation, No Eyelid inflammation, No Redness ENT: No Ear pain, No Ear discharge, No Nose pain, No Nose discharge, No Nose congestion, No Mouth pain, No Mouth swelling, No Throat pain, No Throat swelling Cardiovascular: No Chest Pain, No Palpitations, No Orthopnea, No Paroxysmal No Dyspnea, No Edema, No Lt Headedness Respiratory: No Cough, No Dry, No Shortness of breath, No SOB with exertion, No Wheezing, No Hemoptysis, No Pleuritic Pain, No Sputum Gastrointestinal: No Nausea, No Vomiting, Abdominal Pain, No Diarrhea, No Constipation, No Melena, No Hematochezia Genitourinary: No Dysuria, No Frequency, No Incontinence, No Hematuria, No Retention, vaginal bleeding 04/29/25- The patient was seen at bedside today. Her vancomycin trough was 59, so vancomycin was stopped. She was started on D5W with bicarb at 100ml/hr. Patient refused blood draw for evaluation of thrombocytopenia and pink stain. The nurse will collect urine sample for UA and culture with straight cath as patient refuses catheterisation. 04/30/25- The patient was seen at bedside today. Her potassium form last night was 3 and it was replenished. She refused blood draw for morning labs. She was explained the importance of collecting the urine sample and blood draw for helping diagnosis and evaluation, which she agreed to. We tried to reach the family on multiple occasions, but were unable to do so. Family called the nurse and got updates from them about the patients's status. 05/01/25- The patient was evaluated and examined at bedside today. VS, laboratories and chart was reviewed. The patient reports feeling better, her pelvic pain is improving, She is still reporting of active vaginal bleeding. Her potassium is 3.1 and was replenished and magnesium 800mg po was added today. The Hb is 6.9 this morning, 1 RBC unit was ordered and administered. We will continue evaluating with periodic H&H. Gynecology is on board, they recommend endometrial biopsy as an outpatient. I was informed that the patient is refusing blood draws and urine sample collection; I spoke with the patient and explained the importance of collecting the urine sample and blood draw for helping diagnosis and evaluation, which she agreed to. I have spoken with Mrs. Mendoza sister, I have address her concerns and responds to all her questions, the patient's sister agrees with the current management. Due to low GFR and high creatinine a nephrology consult was placed Vancomycin was discontinued. Blood cultures growth: Gram positive coccus in cluster, in order to cover those microorganisms, oral doxycycline 100mg po bid was started today. We will follow up with the progress of this patient. 05/02/25- The patient was seen at bedside today. Bedside swallow evaluation was tried yesterday and the patient aspirated and developed aspiration pneumonia. We will keep her NPO. There were 75cc nasogastric secretions. The patient was initially refusing all blood draws and urine sample collection. We called her family and discussed the possibility of placing the patient on hospice, but the family did not agree to this. They called the patient and convinced her to agree to blood draws and urine sample collection. Salomon catheter was pleased, urine sample was collected and blood was drawn for repeat blood culture. Possible discharge tomorrow to SNF. Nephrology was consulted and recommended close monitoring of fluid and electrolytes, avoiding nephrotoxic medications and continuing with D5W. We placed a request for PT evaluation. 05/03/25- The patient was seen and evaluated at bedside today. Patient had hypokalemia and potassium was repleted. NG tube drainage collection was 75cc overnight. Swallow evaluation was done by speech therapist and she was able to tolerate thin liquids with a straw and puree diet with small bites with no overt signs or symptoms of aspiration and was given aspiration risk, feeding instruction, and safe position education. Patient was started on pureed diet. Her urine studies came back and FeNa was calculated as 0.6% pointing to prerenal cause of FRANK. Blood culture showed no growth after 24 hours of incubation. Extensive discussion was held with the daughter at bedside and all evaluation, management and plans were discussed with her. Possible discharge home tomorrow with resumption of home health was discussed with the patient and her daughter. Her daughter mentioned patient was on gtube feeding for 4 months post her stroke, which was discontinued in september 2024. 05/04/25- the patient was seen at bedside today. The plan was to discharge her home,but the family appealed against the discharge stating that she is not being able to swallow and eat. Extensive discussion was held with the family over call and all recommendations were explained to them. 05/05/25- the patient was seen and evaluated at bedside today. The caregiver was explained that there is no indication for placement of G-tube as the patient passed the swallow evaluation. The caregiver mentioned she is aware that the patient has passed the swallow evaluation test, but is unwilling to eat or drink anything and they want her to get G-tube placed to facilitate her feeding. Family was explained that no active intervention can be done at this time, and it shall be considered once the appeal is resolved. 05/06/25- The patient was seen at bedside today. Per nurse Milian, patient swallowed her pills with water and had apple sauce. Waiting for decision on the appeal. We will continue monitoring her. NO ACTIVE INTERVENTIONS OR LABS. Objective vital signs Vital Sign Date Time Temp Pulse Resp B/P (MAP) Pulse Ox O2 Delivery O2 Flow Rate FiO2 05/06/25 13:00 97.6 81 16 132/51 (78) 93 97.6 05/06/25 08:00 Room Air* 0 21 Total Intake and Output 05/05/25 05/05/25 05/06/25 15:00 23:00 07:00 Intake Total 100 ml 0 ml Output Total 600 ml 450 ml Balance -500 ml -450 ml medications Current Medications Medications Dose Ordered Sig/Jon Route Start Time Stop Time Status Last Admin Dose Admin Acetaminophen/ Hydrocodone Bitart 1 tab Q4HP PRN PO 04/28/25 03:45 Hold Acetaminophen 650 mg Q6HP PRN PO 04/28/25 03:45 Hold Gabapentin 300 mg HS PO 04/28/25 22:00 05/05/25 21:59 300 MG Atorvastatin Calcium 20 mg HS PO 04/28/25 22:00 05/05/25 21:59 20 MG Magnesium Oxide 800 mg BID PO 05/01/25 22:00 05/06/25 08:58 800 MG Ondansetron HCl 4 mg Q8HP PRN PO 05/04/25 16:45 Examination General Appearance: Cooperative. Well developed. Well nourished. NAD. Head Exam: Normal inspection Neck Exam: Normal inspection. Non-tender. Normal alignment Pulmonary/Respiratory: Chest non-tender. Clear bilateral breath sounds, no crackles, no wheezing. Cardiovascular/Chest: Regular rate and rhythm. No murmurs. No JVD. Peripheral Pulses: 2+ Radial (R). 2+ Radial (L). 2+ Pedal (R). 2+ Pedal (L) Abdominal Exam: Normal bowel sounds. Soft. normal abdomen, no visible veins, tenderness in lower abdomen, No hepatospenomegaly. No masses Ankle Exam: Negative ankle edema Lower extremities: Negative lower extremity edema Neuro/Mental Status: A&O x4. Coherent, strength 0/5 in left upper and lower extremity, 3/5 in right upper extremity and 2/5 in right lower extremity Thoughts/Psych: Normal thought pattern. Appropriate mood and affect. Good judgement and insight Skin Exam: Normal inspection. Normal color. Warm, sacral ulcer on right buttock around 2cm stage 1-2 NOREEN: no external hemorrhoids visible, sphincter tone is normal, empty rectal vault, no active bleeding Nurse Ioana was present as roll carrier during the examination laboratory and microbiology Laboratory Tests 05/04/25 05:55 05/03/25 12:00 Test 05/04/25 05:55 Range/Units Serum Glucose 85 74-106 mg/dL Microbiology Date/Time Source Procedure Growth Status 05/02/25 17:00 Blood Blood Culture - Preliminary NO GROWTH AFTER 72 HOURS OF INCUBATION. Resulted Labs and/or images reviewed: Labs reviewed by me, Image(s) reviewed by me Problem List/Assessment/Plan Problem List/Assessment/Plan # Acute on chronic normocytic anemia, secondary to acute vaginal bleeding # Acute post menopausal bleeding secondary to endometrial hyperplasia, rule out uterine malignancy -History of anticoagulant use, currently on hold due to the active bleeding -Pelvic ultrasound showed endometrial thickness 4.8mm -OBGYN consult- outpatient follow up recommended -stool occult blood negative # Bacteremia -Blood culture:Gram positive cocci in clusters -Echo to rule out infective endocarditis: EF is 50-55%, mild AI, TR and MR -repeat blood cultures- no growth after 72 hrs # FRANK, likely due to VMN # Hypernatremia -free water deficit is 2.5L -D5W 100ml/hr -urine Na-17, u creat 56.68, protein/creat ratio 0.47 FENa 0.6% -nephrology consulted- recommended close monitoring of fluids and electrolytes,avoid nephrotoxic medications # Severe protein caloric malnutrition -albumin 2.2 # Thrombocytopenia s/p 1 platelet transfusion # Stage 1-2 sacral ulcer, present on admission -wound care consult # Hypokalemia -repleted #Hypophosphatemia -repleted #History of CVA with left hemiplegia # Morbid obesity BMI 62.7 DVT prophylaxis: held because of bleeding Goals of care: DNR/DNI,only chemical code discussed for >23 minutes Plan discussed with patient Plan discussed with Dr Fry Plan discussed with: Patient Dietary Evaluation Review Comments: Nutrition Recommendation: 1) Artie 1 pk BID 2) Monitor PO intake, lab values, weight trend, and I/O Expected Outcomes/Goals: Wound to improve Lab values to improve FU 3-5 days Date of Service: May 06, 2025 Billing Provider: NELLY FRY MD Common Visit Codes: [id number] INP/OBS CARE(HIGH) SHANNAN SHAW RESIDENT May 06, 2025 14:27
--- NOTE | 2025-05-06 17:56 | DVHPN2 ---
Progress Note Date Seen: May 06, 2025 Medical Necessity Reason Pt with a Central, PICC or Fol: Yes Subjective Patient reports: Other (no new events) Review of Systems: Deferred Objective vital signs Vital Sign Date Time Temp Pulse Resp B/P (MAP) Pulse Ox O2 Delivery O2 Flow Rate FiO2 05/06/25 13:00 97.6 81 16 132/51 (78) 93 97.6 05/06/25 08:00 Room Air* 0 21 Total Intake and Output 05/05/25 05/05/25 05/06/25 15:00 23:00 07:00 Intake Total 100 ml 0 ml Output Total 600 ml 450 ml Balance -500 ml -450 ml medications Current Medications Medications Dose Ordered Sig/Jon Route Start Time Stop Time Status Last Admin Dose Admin Acetaminophen/ Hydrocodone Bitart 1 tab Q4HP PRN PO 04/28/25 03:45 Hold Acetaminophen 650 mg Q6HP PRN PO 04/28/25 03:45 Hold Gabapentin 300 mg HS PO 04/28/25 22:00 05/05/25 21:59 300 MG Atorvastatin Calcium 20 mg HS PO 04/28/25 22:00 05/05/25 21:59 20 MG Magnesium Oxide 800 mg BID PO 05/01/25 22:00 05/06/25 08:58 800 MG Ondansetron HCl 4 mg Q8HP PRN PO 05/04/25 16:45 laboratory and microbiology Laboratory Tests 05/04/25 05:55 05/03/25 12:00 Test 05/04/25 05:55 Range/Units Serum Glucose 85 74-106 mg/dL Microbiology Date/Time Source Procedure Growth Status 05/02/25 17:00 Blood Blood Culture - Preliminary NO GROWTH AFTER 72 HOURS OF INCUBATION. 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
--- NOTE | 2025-05-06 18:53 | DVHINCON2 ---
Date of service: May 06, [address] Burt Reason for Consultation Inability to eat weakness tiredness obesity hemiplegia History of Present Illness This 64-year-old female who is markedly obese with a history of hypertension CVA on Eliquis with a hemiplegia anemia chronic disease and diverticulosis admitted with since stroke came with complaints of lower abdominal pain and some bleeding from the vagina. Patient is on Eliquis no history of any GI bleeding the reason for the GI consult is patient because patient is afraid of food and unable to eat Patient apparently had a PEG tube in the past and was taken out a few months ago because she was eating better but now the family feels that patient is not eating okay and wants the G-tube back Past Medical History Obesity with malnutrition and had the PEG tube placement in the past with a history of stroke and left hemiplegia on Eliquis Past Surgical History Cholecystectomy Family History: Diabetes mellitus G8 BROTHER FH: lung cancer G8 MOTHER Hypertension G8 MOTHER G8 BROTHER Allergies: Coded Allergies: Acetaminophen (Unverified Allergy, Unknown, 04/15/25) Aspirin (Verified Allergy, Unknown, 11/26/18) Tomato (Unverified Allergy, Unknown, 04/16/25) Home Meds Reported Medications Folic Acid (Folic Acid) 1 Mg Tab, 1 MG PO DAILY for 30 Days, MG 11/26/18 Furosemide (Furosemide) 20 Mg Tab, 20 MG PO DAILY for 30 Days, MG 05/07/17 Benazepril Hcl (Benazepril Hcl) 10 Mg Tab, 10 MG PO BID for 30 Days, MG 05/07/17 Metoprolol Succinate (Metoprolol Succinate Er) 25 Mg Tab, 25 MG PO BID for 30 Days, MG 05/07/17 Apixaban Base (ELIQUIS) 5 Mg Tab, 5 MG PO BID, TAB 05/07/17 Isosorbide Mononitrate (Isosorbide Mononitrate Er) 60 Mg Tab, 1.5 TAB PO DAILY for 30 Days, MG 05/07/17 Atorvastatin Calcium (ATORVASTATIN CALCIUM) 20 Mg Tab, 20 MG PO DAILY, TAB 05/07/17 Gabapentin (Gabapentin) 300 Mg Cap, 300 MG PO HS for 30 Days, MG 05/07/17 Review of Systems Noncontributory Vital Signs Vital Signs Date Time Temp Pulse Resp B/P (MAP) Pulse Ox O2 Delivery O2 Flow Rate FiO2 05/06/25 17:00 97.7 59 16 126/56 (79) 92 97.7 05/06/25 08:00 Room Air* 0 21 Physical Exam Markedly obese female in no acute distress but looks depressed Vitals stable HEENT examination no pallor no icterus Lungs are clear Abdomen markedly obese no rigidity no guarding no masses no tenderness Extremities no edema Labs/Diagnostic Data Labs Test 05/04/25 05:55 05/03/25 12:00 05/03/25 08:44 05/02/25 18:20 Range/Units Hemoglobin 8.5 L 12.2-16.2 g/dL Hematocrit 27.1 L 36.0-46.0 % Sodium Level 143 136-145 mmol/L Potassium Level 3.9 3.5-5.1 mmol/L Chloride Level 110 H 98-107 mmol/L Carbon Dioxide Level 20 20-31 mmol/L Anion Gap 13 5-15 Blood Urea Nitrogen 12 9-23 mg/dL Creatinine 2.64 H 0.550-1.02 mg/dL Glomerular Filtration Rate Calc 20 >90 mL/min BUN/Creatinine Ratio 4.5 L 10.0-20.0 Serum Glucose 85 74-106 mg/dL Calcium Level 7.2 L 8.7-10.4 mg/dL White Blood Count 4.4 4.4-10.8 10^3/uL Red Blood Count 2.76 L 4.0-5.20 10^6/uL Mean Corpuscular Volume 90.3 80.0-100.0 fL Mean Corpuscular Hemoglobin 29.6 28.0-32.0 pg Mean Corpuscular Hemoglobin Concent 32.7 32.0-36.0 g/dL Red Cell Distribution Width 19.7 H 11.8-14.3 % Platelet Count 32 L 140-450 10^3/uL Mean Platelet Volume 9.2 6.9-10.8 fL Neutrophils (%) (Auto) 70.4 37.0-80.0 % Lymphocytes (%) (Auto) 14.9 10.0-50.0 % Monocytes (%) (Auto) 9.4 0.0-12.0 % Eosinophils (%) (Auto) 4.7 0.0-7.0 % Basophils (%) (Auto) 0.6 0.0-2.0 % Neutrophils # (Auto) 3.1 1.6-8.6 10 ^3/uL Lymphocytes # (Auto) 0.7 0.4-5.4 10 ^3/uL Monocytes # (Auto) 0.4 0-1.3 10 ^3/uL Eosinophils # (Auto) 0.2 0-0.8 10 ^3/uL Basophils # (Auto) 0 0-0.2 10 ^3/uL Nucleated Red Blood Cells 0.6 % Platelet Estimate Decreased Phosphorus Level 1.9 L 2.4-5.1 mg/dL Magnesium Level 1.8 1.6-2.6 mg/dL Urine Color Colorless Yellow Urine Clarity Turbid H Clear Urine pH 6.0 5.0-9.0 Urine Specific [place] 1.007 1.001-1.035 Urine Protein Negative Negative Urine Ketones Negative Negative Urine Blood Negative Negative /uL Urine Nitrite Negative Negative Urine Bilirubin Negative Negative Urine Urobilinogen Normal Negative mg/dL Urine Leukocyte Esterase Negative Negative /uL Urine RBC 2 0 - 4 /hpf Urine Microscopic WBC 3 0-5 /HPF Urine Squamous Epithelial Cells Few <5 /hpf Urine Amorphous Crystals Few None Seen /hpf Urine Bacteria Few H None Seen /hpf Urine Mucus Few None Seen Urine Creatinine 56.68 30.0-125.0 mg/dL Urine Protein/Creatinine Ratio 0.47 Urine Sodium 17 L 40-220 mmol/L Urine Glucose Normal Normal mg/dL Urine Total Protein 26.9 H 1-14 mg/dL Test 05/01/25 10:43 04/29/25 06:15 04/28/25 19:30 04/28/25 09:42 Range/Units Serum Osmolality 307 H 278-298 mOsm/kg Total Bilirubin 0.2 0.2-1.0 mg/dL Direct Bilirubin 0.1 <0.3 mg/dL Aspartate Amino Transferase (AST) 33 13-40 U/L Alanine Aminotransferase (ALT) 13 7-40 U/L Alkaline Phosphatase 105 46-116 U/L Total Protein 5.4 L 5.7-8.2 g/dL Albumin 2.2 L 3.2-4.8 g/dL Random Vancomycin Level 59.0 *H 5-10 ug/mL Stool Occult Blood Negative Negative Stool Occult Blood Sample #2 Negative Negative Stool Occult Blood Sample #3 Negative Negative Urine Opiates Screen Neg NEGATIVE Urine Fentanyl Screen Neg NEGATIVE Urine Barbiturates Screen Neg NEGATIVE Urine Phencyclidine Screen Neg NEGATIVE Urine Amphetamines Screen Neg NEGATIVE Urine Benzodiazepines Screen Neg NEGATIVE Urine Cocaine Screen Neg NEGATIVE Urine Cannabinoids Screen Neg NEGATIVE Test 04/28/25 05:24 04/28/25 05:04 04/27/25 21:55 04/27/25 21:00 Range/Units CA 125 Antigen 38.4 H 0.0-38.1 U/mL Prothrombin Time 12.3 H 9.3-11.8 sec Prothrombin Time INR 1.18 H 0.9-1.15 Activated Partial Thromboplast Time 29.1 24.5-34.5 SEC Lactic Acid Level 2.0 0.4-2.0 mmol/L Iron Level 53 50-170 ug/dL Total Iron Binding Capacity 158 L 250-425 ug/dL Percent Iron Saturation 33.5 15-50 % Ferritin 33.6 10-291 ng/mL B-Type Natriuretic Peptide 325.04 0-100 pg/mL Vitamin B12 Level 563 211-911 pg/mL Vitamin D 25-Hydroxy 54.5 30.0-100 ng/mL Thyroid Stimulating Hormone (TSH) 3.11 0.55-4.78 uIU/mL Large Platelets Few Anisocytosis (manual) Slight Imer Cells Few Lipase 20 12-53 U/L Microbiology Date/Time Source Procedure Growth Status 05/02/25 17:00 Blood Blood Culture - Preliminary NO GROWTH AFTER 72 HOURS OF INCUBATION. Resulted Assessment 64-year-old with a history of hypertension CVA left hemiplegia marked obesity anemia chronic disease and some vaginal bleeding patient is on Eliquis no history of any GI bleeding history of diverticulosis on the CAT scan. History of cholecystectomy now with a problems with inability to eat unable to keep anything down patient had a PEG before and wants the PEG back especially the family. The swallow test as all unremarkable Clinical impression is marked obesity difficulty with nutrition but no real difficulty to swallow Plan/Recommendation we will recommend to start feeding orally and advance as tolerated and see if unable to swallow and having problems with nutrition we will recommend PEG tube placement But for the time being we will recommend to eat slowly and advance the diet as possible. We will also recommend obesity treatment including possible Mounjaro or Wegovy etc. We will also check thyroid levels if it is not done in the past Follow the hemoglobin closely If any GI problems especially bleeding etc. will be to glad to re-evaluate if necessary Thank you DR Ada Plan discussed with: Patient SHARA LUCAS MD May 06, 2025 18:53
[2025-05-07 01:00] VITALS: BP 124/55; PULSE 70; RESP 17; TEMP 97.7; O2SAT 100
[2025-05-07 05:00] VITALS: BP 123/45; PULSE 83; RESP 17; TEMP 97.7; O2SAT 100
[2025-05-07 08:00] VITALS: PULSE 92; RESP 14; O2SAT 92
[2025-05-07 09:00] VITALS: BP 116/57; PULSE 92; RESP 14; TEMP 97; O2SAT 99
[2025-05-07 10:13] LABS: Potassium 3.6 mmol/L (3.5-5.1)
[2025-05-07 10:14] LABS: Anion Gap 11 (5-15); Carbon Dioxide 23 mmol/L (20-31)
[2025-05-07 10:19] LABS: BUN/Creatinine Ratio 4.7 (10.0-20.0); Blood Urea Nitrogen 12 mg/dL (9-23); Glucose 94 mg/dL (74-106)
[2025-05-07 10:20] LABS: Calcium 7.6 mg/dL (8.7-10.4); Chloride 114 mmol/L (98-107); Sodium 148 mmol/L (136-145)
[2025-05-07 13:00] VITALS: BP 138/62; PULSE 78; RESP 15; TEMP 97; O2SAT 96
--- NOTE | 2025-05-07 16:22 | DVHPNRES ---
Progress Note Date Seen: May 07, 2025 Resident Creating Document: SHANNAN SHAW RESIDENT Medical Necessity Reason Pt with a Central, PICC or Fol: Yes Subjective Review of Systems Karolina Mendoza is a 65-year old female with past medical history of CVA with residual left hemiplegia on Eliquis at home, hypertension, hyperlipidemia, diverticulosis, chronically bedridden with the chief complaint of lower abdominal pain and vaginal bleeding. The patient mentions she has had lower abdominal pain since 4-5 days, 10/10 in intensity, associated with bleeding from the vagina, soaking 3 diapers yesterday. Patient had her last menstrual period around 20 years back. She denies any fever, chills, nausea or vomiting and recent weight loss. Pelvic ultrasound showed endometrial thickness 4.8 mm. Abdomen/pelvis CT showed no acute abdominal or pelvic findings. OBGYN was consulted and they recommended outpatient follow up. Past medical history: CVA with residual left hemiplegia on Eliquis at home, hypertension, hyperlipidemia, chronically bedridden,diverticulosis Past surgical history: Cholecystectomy Social & Personal history: denies alcohol, smoking and drugs Allergies: acetaminophen, aspirin, tomatoes Patient seen and examined at bedside. Patient is alert and oriented to time, place person and responding to all questions. Eyes: No Pain, No Vision change, No Conjunctivae inflammation, No Eyelid inflammation, No Redness ENT: No Ear pain, No Ear discharge, No Nose pain, No Nose discharge, No Nose congestion, No Mouth pain, No Mouth swelling, No Throat pain, No Throat swelling Cardiovascular: No Chest Pain, No Palpitations, No Orthopnea, No Paroxysmal No Dyspnea, No Edema, No Lt Headedness Respiratory: No Cough, No Dry, No Shortness of breath, No SOB with exertion, No Wheezing, No Hemoptysis, No Pleuritic Pain, No Sputum Gastrointestinal: No Nausea, No Vomiting, Abdominal Pain, No Diarrhea, No Constipation, No Melena, No Hematochezia Genitourinary: No Dysuria, No Frequency, No Incontinence, No Hematuria, No Retention, vaginal bleeding 04/29/25- The patient was seen at bedside today. Her vancomycin trough was 59, so vancomycin was stopped. She was started on D5W with bicarb at 100ml/hr. Patient refused blood draw for evaluation of thrombocytopenia and pink stain. The nurse will collect urine sample for UA and culture with straight cath as patient refuses catheterisation. 04/30/25- The patient was seen at bedside today. Her potassium form last night was 3 and it was replenished. She refused blood draw for morning labs. She was explained the importance of collecting the urine sample and blood draw for helping diagnosis and evaluation, which she agreed to. We tried to reach the family on multiple occasions, but were unable to do so. Family called the nurse and got updates from them about the patients's status. 05/01/25- The patient was evaluated and examined at bedside today. VS, laboratories and chart was reviewed. The patient reports feeling better, her pelvic pain is improving, She is still reporting of active vaginal bleeding. Her potassium is 3.1 and was replenished and magnesium 800mg po was added today. The Hb is 6.9 this morning, 1 RBC unit was ordered and administered. We will continue evaluating with periodic H&H. Gynecology is on board, they recommend endometrial biopsy as an outpatient. I was informed that the patient is refusing blood draws and urine sample collection; I spoke with the patient and explained the importance of collecting the urine sample and blood draw for helping diagnosis and evaluation, which she agreed to. I have spoken with Mrs. Mendoza sister, I have address her concerns and responds to all her questions, the patient's sister agrees with the current management. Due to low GFR and high creatinine a nephrology consult was placed Vancomycin was discontinued. Blood cultures growth: Gram positive coccus in cluster, in order to cover those microorganisms, oral doxycycline 100mg po bid was started today. We will follow up with the progress of this patient. 05/02/25- The patient was seen at bedside today. Bedside swallow evaluation was tried yesterday and the patient aspirated and developed aspiration pneumonia. We will keep her NPO. There were 75cc nasogastric secretions. The patient was initially refusing all blood draws and urine sample collection. We called her family and discussed the possibility of placing the patient on hospice, but the family did not agree to this. They called the patient and convinced her to agree to blood draws and urine sample collection. Salomon catheter was pleased, urine sample was collected and blood was drawn for repeat blood culture. Possible discharge tomorrow to SNF. Nephrology was consulted and recommended close monitoring of fluid and electrolytes, avoiding nephrotoxic medications and continuing with D5W. We placed a request for PT evaluation. 05/03/25- The patient was seen and evaluated at bedside today. Patient had hypokalemia and potassium was repleted. NG tube drainage collection was 75cc overnight. Swallow evaluation was done by speech therapist and she was able to tolerate thin liquids with a straw and puree diet with small bites with no overt signs or symptoms of aspiration and was given aspiration risk, feeding instruction, and safe position education. Patient was started on pureed diet. Her urine studies came back and FeNa was calculated as 0.6% pointing to prerenal cause of FRANK. Blood culture showed no growth after 24 hours of incubation. Extensive discussion was held with the daughter at bedside and all evaluation, management and plans were discussed with her. Possible discharge home tomorrow with resumption of home health was discussed with the patient and her daughter. Her daughter mentioned patient was on gtube feeding for 4 months post her stroke, which was discontinued in september 2024. 05/04/25- the patient was seen at bedside today. The plan was to discharge her home,but the family appealed against the discharge stating that she is not being able to swallow and eat. Extensive discussion was held with the family over call and all recommendations were explained to them. 05/05/25- the patient was seen and evaluated at bedside today. The caregiver was explained that there is no indication for placement of G-tube as the patient passed the swallow evaluation. The caregiver mentioned she is aware that the patient has passed the swallow evaluation test, but is unwilling to eat or drink anything and they want her to get G-tube placed to facilitate her feeding. Family was explained that no active intervention can be done at this time, and it shall be considered once the appeal is resolved. 05/06/25- The patient was seen at bedside today. Per nurse Milian, patient swallowed her pills with water and had apple sauce. Waiting for decision on the appeal. We will continue monitoring her. NO ACTIVE INTERVENTIONS OR LABS. 05/07/25- the patient was seen and evaluated at bedside today. Denied patient's family appeal initially and process for discharge was initiated. Repeat swallow evaluation was done in the afternoon today and patient failed it. Patient will be kept NPO. We have consulted GI for possible G-tube placement evaluation. We will inform family about the same. Objective vital signs Vital Sign Date Time Temp Pulse Resp B/P (MAP) Pulse Ox O2 Delivery O2 Flow Rate FiO2 05/07/25 13:00 97.0 78 15 138/62 (87) 96 97.0 05/07/25 08:00 Room Air* 0 21 Total Intake and Output 05/06/25 05/06/25 05/07/25 15:00 23:00 07:00 Intake Total 120 ml 250 ml Output Total 501 ml 400 ml Balance -381 ml -150 ml medications Current Medications Medications Dose Ordered Sig/Jon Route Start Time Stop Time Status Last Admin Dose Admin Acetaminophen/ Hydrocodone Bitart 1 tab Q4HP PRN PO 04/28/25 03:45 Hold Acetaminophen 650 mg Q6HP PRN PO 04/28/25 03:45 Hold Gabapentin 300 mg HS PO 04/28/25 22:00 05/06/25 22:17 300 MG Atorvastatin Calcium 20 mg HS PO 04/28/25 22:00 05/06/25 22:17 20 MG Magnesium Oxide 800 mg BID PO 05/01/25 22:00 05/07/25 10:45 800 MG Ondansetron HCl 4 mg Q8HP PRN PO 05/04/25 16:45 Examination General Appearance: Cooperative. Well developed. Well nourished. NAD. Head Exam: Normal inspection Neck Exam: Normal inspection. Non-tender. Normal alignment Pulmonary/Respiratory: Chest non-tender. Clear bilateral breath sounds, no crackles, no wheezing. Cardiovascular/Chest: Regular rate and rhythm. No murmurs. No JVD. Peripheral Pulses: 2+ Radial (R). 2+ Radial (L). 2+ Pedal (R). 2+ Pedal (L) Abdominal Exam: Normal bowel sounds. Soft. normal abdomen, no visible veins, nontender, No hepatospenomegaly. No masses Ankle Exam: Negative ankle edema Lower extremities: Negative lower extremity edema Neuro/Mental Status: A&O x4. Coherent, strength 0/5 in left upper and lower extremity, 3/5 in right upper extremity and 2/5 in right lower extremity Thoughts/Psych: Normal thought pattern. Appropriate mood and affect. Good judgement and insight Skin Exam: Normal inspection. Normal color. Warm, sacral ulcer on right buttock around 2cm stage 1-2 NOREEN: no external hemorrhoids visible, sphincter tone is normal, empty rectal vault, no active bleeding Nurse Ioana was present as certification officer during the examination laboratory and microbiology Laboratory Tests 05/07/25 09:24 05/04/25 05:55 05/03/25 12:00 Test 05/07/25 09:24 Range/Units Serum Glucose 94 74-106 mg/dL Microbiology Date/Time Source Procedure Growth Status 05/02/25 17:00 Blood Blood Culture - Preliminary NO GROWTH AFTER 72 HOURS OF INCUBATION. Resulted Labs and/or images reviewed: Labs reviewed by me, Image(s) reviewed by me Problem List/Assessment/Plan Problem List/Assessment/Plan Assessment and plan: # Acute on chronic normocytic anemia, secondary to acute vaginal bleeding # Acute post menopausal bleeding secondary to endometrial hyperplasia, rule out uterine malignancy -History of anticoagulant use, currently on hold due to the active bleeding -Pelvic ultrasound showed endometrial thickness 4.8mm -OBGYN consult- outpatient follow up recommended -stool occult blood negative # Bacteremia -Blood culture:Gram positive cocci in clusters -Echo to rule out infective endocarditis: EF is 50-55%, mild AI, TR and MR -repeat blood cultures- no growth after 72 hrs # FRANK, likely due to VMN # Hypernatremia -free water deficit is 2.5L -D5W 100ml/hr -urine Na-17, u creat 56.68, protein/creat ratio 0.47 FENa 0.6% -nephrology consulted- recommended close monitoring of fluids and electrolytes,avoid nephrotoxic medications # Severe protein caloric malnutrition -albumin 2.2 # Thrombocytopenia s/p 1 platelet transfusion # Stage 1-2 sacral ulcer, present on admission -wound care # Hypokalemia -repleted #Hypophosphatemia -repleted #History of CVA with left hemiplegia # Morbid obesity DVT prophylaxis: held because of bleeding Goals of care: Rediscussed with the patient for 20 minutes; to continue as DNR/DNI,only chemical code Plan discussed with patient Plan discussed with Dr Khoury Plan discussed with: Patient, Other (RN) Dietary Evaluation Review Comments: Nutrition Recommendation: 1) Artie 1 pk BID 2) Monitor PO intake, lab values, weight trend, and I/O Expected Outcomes/Goals: Wound to improve Lab values to improve FU 3-5 days Date of Service: May 07, 2025 Billing Provider: ABUNDIO KHOURY MD Common Visit Codes: [id number] INP/OBS CARE(HIGH) Secondary Visit Codes: [id number] CARE PLAN 30 MINUTES (20 minutes) SHANNAN SHAW RESIDENT May 07, 2025 16:22 BEBA ANGLIN May 07, 2025 18:09 ABUNDIO KHOURY MD May 09, 2025 08:32
--- NOTE | 2025-05-07 17:48 | DVHPN2 ---
Progress Note - Dictate Date Seen: May 07, 2025 Medical Necessity Reason Pt with a Central, PICC or Fol: Yes Subjective Patient with complaints of not able to eat Repeat barium swallow was unsuccessful and patient failed No nausea vomiting or hematemesis vital signs Vital Sign Date Time Temp Pulse Resp B/P (MAP) Pulse Ox O2 Delivery O2 Flow Rate FiO2 05/07/25 13:00 97.0 78 15 138/62 (87) 96 97.0 05/07/25 08:30 Room Air* 0 21 Total Intake and Output 05/06/25 05/06/25 05/07/25 15:00 23:00 07:00 Intake Total 120 ml 250 ml Output Total 501 ml 400 ml Balance -381 ml -150 ml medications Current Medications Medications Dose Ordered Sig/Jon Route Start Time Stop Time Status Last Admin Dose Admin Acetaminophen/ Hydrocodone Bitart 1 tab Q4HP PRN PO 04/28/25 03:45 Hold Acetaminophen 650 mg Q6HP PRN PO 04/28/25 03:45 Hold Gabapentin 300 mg HS PO 04/28/25 22:00 05/06/25 22:17 300 MG Atorvastatin Calcium 20 mg HS PO 04/28/25 22:00 05/06/25 22:17 20 MG Magnesium Oxide 800 mg BID PO 05/01/25 22:00 05/07/25 10:45 800 MG Ondansetron HCl 4 mg Q8HP PRN PO 05/04/25 16:45 objective Markedly obese lady with markedly obese abdomen We will be unsuccessful to transilluminate and do a PEG And hence radiological placement of the PEG we will be more desirable for her We will recommend IR consult for the for the tube Thank you Dr. Caballero laboratory and microbiology Laboratory Tests 05/07/25 09:24 05/04/25 05:55 05/03/25 12:00 Test 05/07/25 09:24 Range/Units Serum Glucose 94 74-106 mg/dL Assessment/Plan 64-year-old with a history of hypertension CVA left hemiplegia marked obesity anemia chronic disease and some vaginal bleeding patient is on Eliquis no history of any GI bleeding history of diverticulosis on the CAT scan. History of cholecystectomy now with a problems with inability to eat unable to keep anything down patient had a PEG before and wants the PEG back especially the family. The swallow test was unsuccessful We will recommend PEG tube placement under PEG under IR guidance since patient is too obese for proper transillumination of the stomach for the PEG Thank you Dr. Caballero Dietary Evaluation Review Comments: Nutrition Recommendation: 1) Artie 1 pk BID 2) Monitor PO intake, lab values, weight trend, and I/O Expected Outcomes/Goals: Wound to improve Lab values to improve FU 3-5 days Plan discussed with: Patient SHARA CABALLERO MD May 07, 2025 17:48
[2025-05-07 21:00] VITALS: BP 143/72; PULSE 78; RESP 18; TEMP 97; O2SAT 99
[2025-05-08] MEDS: MORPHINE SULFATE INJ 2 MG/ml SYRG IV ONE (00:32)
[2025-05-08 01:00] VITALS: BP 126/64; PULSE 81; RESP 18; TEMP 97.1; O2SAT 99
[2025-05-08 05:00] VITALS: BP 136/54; PULSE 78; RESP 18; TEMP 97; O2SAT 98
[2025-05-08 16:30] VITALS: BP 128/63; PULSE 80; RESP 20; TEMP 97.7; O2SAT 100
--- NOTE | 2025-05-08 17:46 | DVHPN2 ---
Progress Note Date Seen: May 08, 2025 Medical Necessity Reason Pt with a Central, PICC or Fol: Yes Subjective Patient reports: Other Review of Systems: Deferred Objective vital signs Vital Sign Date Time Temp Pulse Resp B/P (MAP) Pulse Ox O2 Delivery O2 Flow Rate FiO2 05/08/25 08:00 Room Air* 0 21 05/08/25 05:00 97.0 78 18 136/54 (81) 98 97.0 Total Intake and Output 05/07/25 05/07/25 05/08/25 15:00 23:00 07:00 Intake Total 354 ml 0 ml Output Total 250 ml Balance 104 ml 0 ml medications Current Medications Medications Dose Ordered Sig/Jon Route Start Time Stop Time Status Last Admin Dose Admin Acetaminophen/ Hydrocodone Bitart 1 tab Q4HP PRN PO 04/28/25 03:45 Hold Acetaminophen 650 mg Q6HP PRN PO 04/28/25 03:45 Hold Gabapentin 300 mg HS PO 04/28/25 22:00 05/06/25 22:17 300 MG Atorvastatin Calcium 20 mg HS PO 04/28/25 22:00 05/06/25 22:17 20 MG Magnesium Oxide 800 mg BID PO 05/01/25 22:00 05/07/25 10:45 800 MG Ondansetron HCl 4 mg Q8HP PRN PO 05/04/25 16:45 laboratory and microbiology Laboratory Tests 05/07/25 09:24 05/04/25 05:55 05/03/25 12:00 Test 05/07/25 09:24 Range/Units Serum Glucose 94 74-106 mg/dL Microbiology Date/Time Source Procedure Growth Status 05/02/25 17:00 Blood Blood Culture - Final NO GROWTH AFTER 5 DAYS OF INCUBATION. Complete Problem List/Assessment/Plan Problem List/Assessment/Plan Acute kidney injury secondary to vanco toxicity Vancomycin toxicity Anemia due to blood loss Vaginal bleeding Hypernatremia due to dehydration Hypokalemia due to potassium loss Hypoalbuminemia Morbidly obesity Recommendations d5w iv for Na correction Renal function stable baseline normal renal function Plan discussed with: Other Dietary Evaluation Review Comments: Nutrition Recommendation: 1) Artie 1 pk BID 2) Monitor PO intake, lab values, weight trend, and I/O Expected Outcomes/Goals: Wound to improve Lab values to improve FU 3-5 days KAILA GONZALEZ MD May 08, 2025 17:46
--- NOTE | 2025-05-08 19:59 | DVHPNRES ---
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 The patient came to [facility] via EMS with the chief complaint of 4 days of abdominal pain, 04/01, localized in the pelvic region, cramp-like, with no irradiation, no alleviation or agravating factors; Associated with vaginal bleeding, red-brownish color, soaking 3 diapers per yesterday. On further questioning, the patient had her last menstrual period around 20 years ago. The bleeding did not stop and the abdominal pain persisted 04/01, this prompted her visit to the ED. The patient denies any fever, chills, nausea or vomiting and recent weight loss. In the ED a pelvic ultrasound was ordered and showed endometrial thickness 4.8 mm. Abdomen/pelvis CT showed no acute abdominal or pelvic findings. The patient was admitted for further diagnosed and management. Past medical history: CVA with residual left hemiplegia on Eliquis at home, hypertension, hyperlipidemia, chronically bedridden,diverticulosis Past surgical history: Cholecystectomy Social & Personal history: denies alcohol, smoking and drugs Allergies: acetaminophen, aspirin, tomatoes Hospital course: 04/29/25- The patient was seen at bedside today. Her vancomycin trough was 59, so vancomycin was stopped. She was started on D5W with bicarb at 100ml/hr. Patient refused blood draw for evaluation of thrombocytopenia and pink stain. The nurse will collect urine sample for UA and culture with straight cath as patient refuses catheterisation. 04/30/25- The patient was seen at bedside today. Her potassium form last night was 3 and it was replenished. She refused blood draw for morning labs. She was explained the importance of collecting the urine sample and blood draw for helping diagnosis and evaluation, which she agreed to. We tried to reach the family on multiple occasions, but were unable to do so. Family called the nurse and got updates from them about the patients's status. 05/01/25- The patient was evaluated and examined at bedside today. VS, laboratories and chart was reviewed. The patient reports feeling better, her pelvic pain is improving, She is still reporting of active vaginal bleeding. Her potassium is 3.1 and was replenished and magnesium 800mg po was added today. The Hb is 6.9 this morning, 1 RBC unit was ordered and administered. We will continue evaluating with periodic H&H. Gynecology is on board, they recommend endometrial biopsy as an outpatient. I was informed that the patient is refusing blood draws and urine sample collection; I spoke with the patient and explained the importance of collecting the urine sample and blood draw for helping diagnosis and evaluation, which she agreed to. I have spoken with Mrs. Mendoza sister, I have address her concerns and responds to all her questions, the patient's sister agrees with the current management. Due to low GFR and high creatinine a nephrology consult was placed Vancomycin was discontinued. Blood cultures growth: Gram positive coccus in cluster, in order to cover those microorganisms, oral doxycycline 100mg po bid was started today. We will follow up with the progress of this patient. 05/02/25- The patient was seen at bedside today. Bedside swallow evaluation was tried yesterday and the patient aspirated and developed aspiration pneumonia. We will keep her NPO. There were 75cc nasogastric secretions. The patient was initially refusing all blood draws and urine sample collection. We called her family and discussed the possibility of placing the patient on hospice, but the family did not agree to this. They called the patient and convinced her to agree to blood draws and urine sample collection. Salomon catheter was pleased, urine sample was collected and blood was drawn for repeat blood culture. Possible discharge tomorrow to SNF. Nephrology was consulted and recommended close monitoring of fluid and electrolytes, avoiding nephrotoxic medications and continuing with D5W. We placed a request for PT evaluation. 05/03/25- The patient was seen and evaluated at bedside today. Patient had hypokalemia and potassium was repleted. NG tube drainage collection was 75cc overnight. Swallow evaluation was done by speech therapist and she was able to tolerate thin liquids with a straw and puree diet with small bites with no overt signs or symptoms of aspiration and was given aspiration risk, feeding instruction, and safe position education. Patient was started on pureed diet. Her urine studies came back and FeNa was calculated as 0.6% pointing to prerenal cause of FRANK. Blood culture showed no growth after 24 hours of incubation. Extensive discussion was held with the daughter at bedside and all evaluation, management and plans were discussed with her. Possible discharge home tomorrow with resumption of home health was discussed with the patient and her daughter. Her daughter mentioned patient was on gtube feeding for 4 months post her stroke, which was discontinued in september 2024. 05/04/25- the patient was seen at bedside today. The plan was to discharge her home,but the family appealed against the discharge stating that she is not being able to swallow and eat. Extensive discussion was held with the family over call and all recommendations were explained to them. 05/05/25- the patient was seen and evaluated at bedside today. The caregiver was explained that there is no indication for placement of G-tube as the patient passed the swallow evaluation. The caregiver mentioned she is aware that the patient has passed the swallow evaluation test, but is unwilling to eat or drink anything and they want her to get G-tube placed to facilitate her feeding. Family was explained that no active intervention can be done at this time, and it shall be considered once the appeal is resolved. 05/06/25- The patient was seen at bedside today. Per nurse Rukhsana, patient swallowed her pills with water and had apple sauce. Waiting for decision on the appeal. We will continue monitoring her. NO ACTIVE INTERVENTIONS OR LABS. 05/07/25- the patient was seen and evaluated at bedside today. Denied patient's family appeal initially and process for discharge was initiated. Repeat swallow evaluation was done later this afternoon and patient failed it. Patient will be kept NPO. We have consulted GI for possible G-tube placement evaluation. We will inform family about the same. On 05/08/25, the patient was evaluated and examined at bedside. Dr. Khoury has discussed the case with Dr. Fry. The patient failed the swallow test. Dr. Fry has decided to cancel the discharge and has requested a new order to consult IR for G-tube placement. The patient reports feeling well today, but still with difficulty to swallow. The patient will continue NPO. New orders for H&H have been placed to evaluate the patient's Hb; New CBC and CMP will be ordered to determinate the patient's need for antibiotics. The blood culture continues negative at the moment. The patient will be followed with the new results. ROS: Constitutional: denies: fever chills, malaise. EENTM: denies: blurred vision, double vision, ear bleeding. Respiratory: denies: cough, hemoptysis, orthopnea, SOB at rest, shortness of breath, SOB with excertion, stridor, wheezing, others Cardiovascular: denies: chest pain, dyspnea, edema, irregular heart beat, left arm pain, lightheadedness, palpitations, PND, syncope, others Gastrointestinal: reports: Improvement, no new nausea, vomiting or diarrhea; but still difficult to swallow. denies: abdominal pain, blood streaked bowels, diarrhea. hematemesis, melena, rectal bleeding, rectal pain, others Genitourinary: denies: new vaginal bleeding. Denies burning, dysuria, flank pain, frequency, hematuria, incontinence, penile discharge, penile sore, pain, testicle pain, testicle swelling, urgency, others Neurological: reports: No headache; denies: dizziness, fainting, left sided numbness, left sided weakness, numbness, paresthesia, pre-existing deficit, right sided numbness, right sided weakness, seizure, speech problems, tingling, tremors, weakness, others Musculoskeletal: Left side deficit in upper and lower extremities. Integumetry: denies: bruises, change in color, change in hair/nails, dryness, laceration, lesions, lumps, rash, wounds, others Allergic/Immunocompromised: denies: Difficulty Healing, Frequent Infections, Hives, Itching, others Hematologic/Lymphatic: denies: anemia, blood clots, easy bleeding, easy bruising, swollen glands, others Endocrine: denies: excessive hunger, excessive sweating, excessive thirst, excessive urination, flushing, intolerance to cold, intolerance to heat, unexplained weight gain, unexplained weight loss, others Psychiatric: denies: anxiety, bipolar disorder, depression, hopeless, panic disorder, schizophrenia, sleepless, suicidal, others All Other Systems: Reviewed and Negative Objective vital signs Vital Sign Date Time Temp Pulse Resp B/P (MAP) Pulse Ox O2 Delivery O2 Flow Rate FiO2 05/08/25 16:30 97.7 80 20 128/63 (84) 100 97.7 05/08/25 08:00 Room Air* 0 21 Total Intake and Output 05/07/25 05/07/25 05/08/25 15:00 23:00 07:00 Intake Total 354 ml 0 ml Output Total 250 ml Balance 104 ml 0 ml medications Current Medications Medications Dose Ordered Sig/Jon Route Start Time Stop Time Status Last Admin Dose Admin Acetaminophen/ Hydrocodone Bitart 1 tab Q4HP PRN PO 04/28/25 03:45 Hold Acetaminophen 650 mg Q6HP PRN PO 04/28/25 03:45 Hold Gabapentin 300 mg HS PO 04/28/25 22:00 05/06/25 22:17 300 MG Atorvastatin Calcium 20 mg HS PO 04/28/25 22:00 05/06/25 22:17 20 MG Magnesium Oxide 800 mg BID PO 05/01/25 22:00 05/07/25 10:45 800 MG Ondansetron HCl 4 mg Q8HP PRN PO 05/04/25 16:45 Dextrose 1,000 ml @ 100 mls/hr Q10H IV 05/08/25 17:45 Examination General Appearance: Alert, Oriented X3, not in acute distress, the patient refused to talk in occasions when questioning. Head Exam: Normal inspection Neck Exam: Normal inspection. Non-tender. Normal alignment Pulmonary/Respiratory: Chest non-tender. Clear bilateral breath sounds, no crackles, no wheezing. Cardiovascular/Chest: Regular rate and rhythm. No murmurs. No JVD. Peripheral Pulses: 2+ Radial (R). 2+ Radial (L). 2+ Pedal (R). 2+ Pedal (L) Vaginal evaluation: patient did not consent it. Abdominal Exam: Prominent, normal bowel sounds, no tender to deep palpation. Lower extremities: Negative lower extremity edema Neuro: Motor deficit: Left upper extremity 3/5 motor deficit, sensation preserved Left lower extremity 2/5 motor deficit, sensation preserved. Skin Exam: sacral ulcer on right buttock around 2cm stage 1-2. Normal inspection. laboratory and microbiology Laboratory Tests 05/07/25 09:24 05/04/25 05:55 05/03/25 12:00 Test 05/07/25 09:24 Range/Units Serum Glucose 94 74-106 mg/dL Microbiology Date/Time Source Procedure Growth Status 05/02/25 17:00 Blood Blood Culture - Final NO GROWTH AFTER 5 DAYS OF INCUBATION. Complete Labs and/or images reviewed: Labs reviewed by me, Image(s) reviewed by me Problem List/Assessment/Plan Problem List/Assessment/Plan # Acute on chronic severe normocytic anemia, secondary to acute vaginal bleeding # Acute post menopausal bleeding secondary to endometrial hyperplasia, rule out uterine malignancy - History of anticoagulant use, currently on hold due to the active bleeding -Pelvic ultrasound showed endometrial thickness 4.8mm -OBGYN consult- outpatient endometrial biopsy and follow up was recommended -Hb is 6.9 on 05/01/25- RBC unit was administer -Hb on 05/04/25: 8.5 -Monitor H&H, new orders after the cancellation of the discharge: New H&H was placed. -CBC, CMP #Bacteremia, possible due pneumonia possible gram +/- - Stopped: Oral doxycycline - Stopped: IV vancomycin was discontinued for possible nephrotoxicity - Stopped: IV ceftriaxone 1 gm daily. - Echo to ruled out infective endocarditis: EF is 50-55%, mild AI, TR and MR - Blood cultures from05/02/25 negative. 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 #Severe protein caloric malnutrition -albumin 2.2 #Acute on Chronic Severe Thrombocytopenia s/p 1 platelet transfusion #Chronic Stage 1-2 sacral ulcer -Ulcer was present on admission - Wound care consult #Acute Hypokalemia -K: 3.1 05/01/25: replenished -Pending new labs. #Chronic CVA with left hemiplegia -Repeat Swallow Evaluation later on May 07, 2025: Patient failed to swallow. -NPO -IR consult for G-Tube placement (05/08/25) # Morbid obesity BMI 62.7 Counseling about healthy life style >10min DVT prophylaxis: held because of bleeding Diet: NPO due to fail of swallowing test on 05/07/25 Goals of care: DNR/DNI,only chemical code PCP: Angeline Medel Plan discussed with patient and patient's sister. Plan discussed with Dr Khoury I was physically present for the angulo portions of the service provided to patient by THE RESIDENT. I have reviewed the documentation, discussed the case with resident and agree with the resident's documentation except as noted. Also the patient's clinical case was discussed with the patient's nurse. This medical document was created using an electronic medical record system with computerized dictation system. Although this document has been carefully reviewed, there might still be some phonetic and typographical errors. These areas are purely typographical due to imperfections of the software programs, and do not reflect any compromise in the patient's medical care. Late signature. Plan discussed with: Patient, Other (RN; the patient's sister) My Orders My Orders Orders - FAISAL ERNANDEZ Procedure Category Date Status Time Communication Order ORDERS 05/08/25 Transmitted 11:10 * Radiologist Consult CONS 05/08/25 Transmitted 11:20 Dietary Evaluation Review Comments: Nutrition Recommendation: 1) Artie 1 pk BID 2) Monitor PO intake, lab values, weight trend, and I/O Expected Outcomes/Goals: Wound to improve Lab values to improve FU 3-5 days Date of Service: May 08, 2025 Billing Provider: ABUNDIO KHOURY MD Common Visit Codes: 02922-[id number] INP/OBS CARE(HIGH) FAISAL ERNANDEZ RESIDENT May 08, 2025 19:59 ABUNDIO KHOURY MD May 09, 2025 08:41
[2025-05-08 20:00] VITALS: PULSE 72; RESP 18; O2SAT 100
[2025-05-08 21:00] VITALS: BP 136/72; PULSE 72; RESP 18; TEMP 96.8; O2SAT 100
[2025-05-08 21:46] LABS: Hemoglobin 8.1 g/dL (12.2-16.2)
[2025-05-08 21:48] LABS: Hematocrit 24.8 % (36.0-46.0)
[2025-05-08] MEDS: D5W 5% 1,000 ML IV SCH (23:07)
[2025-05-09 01:00] VITALS: BP 129/69; PULSE 72; RESP 17; TEMP 97.5; O2SAT 98
[2025-05-09 04:30] VITALS: BP 127/73; PULSE 78; RESP 18; TEMP 97.4; O2SAT 99
[2025-05-09 06:33] LABS: Hematocrit 24.9 % (36.0-46.0); Hemoglobin 8.2 g/dL (12.2-16.2); Mean Corpuscular Hemoglobin 29.1 pg (28.0-32.0); Mean Corpuscular Volume 88.8 fL (80.0-100.0); Nucleated Red Blood Cells % 0.9 %
[2025-05-09 06:37] LABS: Alanine Aminotransferase 17 U/L (7-40); Alkaline Phosphatase 100 U/L (46-116); Anion Gap 10 (5-15); BUN/Creatinine Ratio 8.4 (10.0-20.0); Bilirubin, Total 0.5 mg/dL (0.2-1.0); Blood Urea Nitrogen 20 mg/dL (9-23); Carbon Dioxide 26 mmol/L (20-31); Glucose 93 mg/dL (74-106); Potassium 3.6 mmol/L (3.5-5.1)
[2025-05-09 06:42] LABS: Albumin 1.9 g/dL (3.2-4.8); Calcium 7.5 mg/dL (8.7-10.4); Chloride 113 mmol/L (98-107); Sodium 149 mmol/L (136-145); Total Protein 4.8 g/dL (5.7-8.2)
[2025-05-09 09:00] VITALS: BP 123/54; PULSE 79; RESP 20; TEMP 97.4; O2SAT 100
[2025-05-09] MEDS: DOXYCYCLINE 100MG/100ML 100 ML IV SCH (10:15)
--- NOTE | 2025-05-09 12:19 | DVHPN2 ---
Progress Note Date Seen: May 09, 2025 Medical Necessity Reason Pt with a Central, PICC or Fol: Yes Objective vital signs Vital Sign Date Time Temp Pulse Resp B/P (MAP) Pulse Ox O2 Delivery O2 Flow Rate FiO2 05/09/25 09:00 97.4 79 20 123/54 (77) 100 97.4 05/09/25 08:05 Room Air* 0 21 Total Intake and Output 05/08/25 05/08/25 05/09/25 15:00 23:00 07:00 Intake Total 0 ml 0 ml Output Total 250 ml Balance -250 ml 0 ml medications Current Medications Medications Dose Ordered Sig/Jon Route Start Time Stop Time Status Last Admin Dose Admin Acetaminophen/ Hydrocodone Bitart 1 tab Q4HP PRN PO 04/28/25 03:45 Hold Acetaminophen 650 mg Q6HP PRN PO 04/28/25 03:45 Hold Gabapentin 300 mg HS PO 04/28/25 22:00 05/06/25 22:17 300 MG Atorvastatin Calcium 20 mg HS PO 04/28/25 22:00 05/06/25 22:17 20 MG Magnesium Oxide 800 mg BID PO 05/01/25 22:00 05/07/25 10:45 800 MG Ondansetron HCl 4 mg Q8HP PRN PO 05/04/25 16:45 Dextrose 1,000 ml @ 100 mls/hr Q10H IV 05/08/25 17:45 05/09/25 11:25 100 MLS/HR Doxycycline Hyclate 100 ml @ 50 mls/hr Q12H IV 05/09/25 10:15 05/09/25 10:15 50 MLS/HR Examination: GENERAL:Abnormal, ABDOMEN:Abnormal laboratory and microbiology Laboratory Tests 05/09/25 05:43 Test 05/09/25 05:43 Range/Units Serum Glucose 93 74-106 mg/dL Microbiology Date/Time Source Procedure Growth Status 05/02/25 17:00 Blood Blood Culture - Final NO GROWTH AFTER 5 DAYS OF INCUBATION. Complete Problem List/Assessment/Plan Problem List/Assessment/Plan Acute kidney injury secondary to vanco toxicity Vancomycin toxicity Anemia due to blood loss Vaginal bleeding Hypernatremia due to dehydration Hypokalemia due to potassium loss Hypoalbuminemia + CA 125 Morbidly obesity Recommendations d5w iv for Na correction Renal function slow improvement baseline normal has not recovered but dialysis not indicated at this time primary team rec PEG tube placement for nutrition Plan discussed with: Patient Dietary Evaluation Review Comments: Nutrition Recommendation: 1) Artie 1 pk BID 2) Monitor PO intake, lab values, weight trend, and I/O Expected Outcomes/Goals: Wound to improve Lab values to improve FU 3-5 days JULISSA PASCAL MD May 09, 2025 12:19
[2025-05-09 14:04] LABS: Hemoglobin 8.0 g/dL (12.2-16.2)
[2025-05-09 14:07] LABS: Hematocrit 24.7 % (36.0-46.0)
[2025-05-09 17:00] VITALS: BP 106/86; PULSE 87; RESP 20; TEMP 97.9; O2SAT 99
--- NOTE | 2025-05-09 17:56 | DVHPNRES ---
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 The patient came to [facility] via EMS with the chief complaint of 4 days of abdominal pain, 04/01, localized in the pelvic region, cramp-like, with no irradiation, no alleviation or agravating factors; Associated with vaginal bleeding, red-brownish color, soaking 3 diapers per yesterday. On further questioning, the patient had her last menstrual period around 20 years ago. The bleeding did not stop and the abdominal pain persisted 04/01, this prompted her visit to the ED. The patient denies any fever, chills, nausea or vomiting and recent weight loss. In the ED a pelvic ultrasound was ordered and showed endometrial thickness 4.8 mm. Abdomen/pelvis CT showed no acute abdominal or pelvic findings. The patient was admitted for further diagnosed and management. Past medical history: CVA with residual left hemiplegia on Eliquis at home, hypertension, hyperlipidemia, chronically bedridden,diverticulosis Past surgical history: Cholecystectomy Social & Personal history: denies alcohol, smoking and drugs Allergies: acetaminophen, aspirin, tomatoes Hospital course: 04/29/25- The patient was seen at bedside today. Her vancomycin trough was 59, so vancomycin was stopped. She was started on D5W with bicarb at 100ml/hr. Patient refused blood draw for evaluation of thrombocytopenia and pink stain. The nurse will collect urine sample for UA and culture with straight cath as patient refuses catheterisation. 04/30/25- The patient was seen at bedside today. Her potassium form last night was 3 and it was replenished. She refused blood draw for morning labs. She was explained the importance of collecting the urine sample and blood draw for helping diagnosis and evaluation, which she agreed to. We tried to reach the family on multiple occasions, but were unable to do so. Family called the nurse and got updates from them about the patients's status. 05/01/25- The patient was evaluated and examined at bedside today. VS, laboratories and chart was reviewed. The patient reports feeling better, her pelvic pain is improving, She is still reporting of active vaginal bleeding. Her potassium is 3.1 and was replenished and magnesium 800mg po was added today. The Hb is 6.9 this morning, 1 RBC unit was ordered and administered. We will continue evaluating with periodic H&H. Gynecology is on board, they recommend endometrial biopsy as an outpatient. I was informed that the patient is refusing blood draws and urine sample collection; I spoke with the patient and explained the importance of collecting the urine sample and blood draw for helping diagnosis and evaluation, which she agreed to. I have spoken with Mrs. Mendoza sister, I have address her concerns and responds to all her questions, the patient's sister agrees with the current management. Due to low GFR and high creatinine a nephrology consult was placed Vancomycin was discontinued. Blood cultures growth: Gram positive coccus in cluster, in order to cover those microorganisms, oral doxycycline 100mg po bid was started today. We will follow up with the progress of this patient. 05/02/25- The patient was seen at bedside today. Bedside swallow evaluation was tried yesterday and the patient aspirated and developed aspiration pneumonia. We will keep her NPO. There were 75cc nasogastric secretions. The patient was initially refusing all blood draws and urine sample collection. We called her family and discussed the possibility of placing the patient on hospice, but the family did not agree to this. They called the patient and convinced her to agree to blood draws and urine sample collection. Salomon catheter was pleased, urine sample was collected and blood was drawn for repeat blood culture. Possible discharge tomorrow to SNF. Nephrology was consulted and recommended close monitoring of fluid and electrolytes, avoiding nephrotoxic medications and continuing with D5W. We placed a request for PT evaluation. 05/03/25- The patient was seen and evaluated at bedside today. Patient had hypokalemia and potassium was repleted. NG tube drainage collection was 75cc overnight. Swallow evaluation was done by speech therapist and she was able to tolerate thin liquids with a straw and puree diet with small bites with no overt signs or symptoms of aspiration and was given aspiration risk, feeding instruction, and safe position education. Patient was started on pureed diet. Her urine studies came back and FeNa was calculated as 0.6% pointing to prerenal cause of FRANK. Blood culture showed no growth after 24 hours of incubation. Extensive discussion was held with the daughter at bedside and all evaluation, management and plans were discussed with her. Possible discharge home tomorrow with resumption of home health was discussed with the patient and her daughter. Her daughter mentioned patient was on gtube feeding for 4 months post her stroke, which was discontinued in september 2024. 05/04/25- the patient was seen at bedside today. The plan was to discharge her home,but the family appealed against the discharge stating that she is not being able to swallow and eat. Extensive discussion was held with the family over call and all recommendations were explained to them. 05/05/25- the patient was seen and evaluated at bedside today. The caregiver was explained that there is no indication for placement of G-tube as the patient passed the swallow evaluation. The caregiver mentioned she is aware that the patient has passed the swallow evaluation test, but is unwilling to eat or drink anything and they want her to get G-tube placed to facilitate her feeding. Family was explained that no active intervention can be done at this time, and it shall be considered once the appeal is resolved. 05/06/25- The patient was seen at bedside today. Per nurse Milian, patient swallowed her pills with water and had apple sauce. Waiting for decision on the appeal. We will continue monitoring her. NO ACTIVE INTERVENTIONS OR LABS. 05/07/25- the patient was seen and evaluated at bedside today. Denied patient's family appeal initially and process for discharge was initiated. Repeat swallow evaluation was done later this afternoon and patient failed it. Patient will be kept NPO. We have consulted GI for possible G-tube placement evaluation. We will inform family about the same. On 05/08/25, the patient was evaluated and examined at bedside. Dr. Kinsey has discussed the case with Dr. Fry. The patient failed the swallow test. Dr. Fry has decided to cancel the discharge and has requested a new order to consult IR for G-tube placement. The patient reports feeling well today, but still with difficulty to swallow. The patient will continue NPO. New orders for H&H have been placed to evaluate the patient's Hb; New CBC and CMP will be ordered to determinate the patient's need for antibiotics. The blood culture continues negative at the moment. The patient will be followed with the new results. 05/09/2025-patient was seen today at bedside, left chest reviewed. Interventional radiology consultation was done for PEG tube placement but it was postponed to today due to thrombocytopenia with platelet [id number]. Ordered a transfusion. Differential also recommended for NG tube feeding but patient and her sister refused. Patient is being followed by Nephrology, reconciled reviewed and appreciated. As per nephrology Renal function slow improvement baseline normal has not recovered but dialysis not indicated at this time. Objective vital signs Vital Sign Date Time Temp Pulse Resp B/P (MAP) Pulse Ox O2 Delivery O2 Flow Rate FiO2 05/09/25 17:00 97.9 87 20 106/86 (93) 99 97.9 05/09/25 08:05 Room Air* 0 21 Total Intake and Output 05/08/25 05/08/25 05/09/25 15:00 23:00 07:00 Intake Total 0 ml 0 ml Output Total 250 ml Balance -250 ml 0 ml medications Current Medications Medications Dose Ordered Sig/Jon Route Start Time Stop Time Status Last Admin Dose Admin Acetaminophen/ Hydrocodone Bitart 1 tab Q4HP PRN PO 04/28/25 03:45 Hold Acetaminophen 650 mg Q6HP PRN PO 04/28/25 03:45 Hold Gabapentin 300 mg HS PO 04/28/25 22:00 05/06/25 22:17 300 MG Atorvastatin Calcium 20 mg HS PO 04/28/25 22:00 05/06/25 22:17 20 MG Magnesium Oxide 800 mg BID PO 05/01/25 22:00 05/07/25 10:45 800 MG Ondansetron HCl 4 mg Q8HP PRN PO 05/04/25 16:45 Dextrose 1,000 ml @ 100 mls/hr Q10H IV 05/08/25 17:45 05/09/25 11:25 100 MLS/HR Doxycycline Hyclate 100 ml @ 50 mls/hr Q12H IV 05/09/25 10:15 05/09/25 10:15 50 MLS/HR Examination General Appearance: Alert, Oriented X3, not in acute distress, the patient refused to talk in occasions when questioning. Head Exam: Normal inspection Neck Exam: Normal inspection. Non-tender. Normal alignment Pulmonary/Respiratory: Chest non-tender. Clear bilateral breath sounds, no crackles, no wheezing. Cardiovascular/Chest: Regular rate and rhythm. No murmurs. No JVD. Peripheral Pulses: 2+ Radial (R). 2+ Radial (L). 2+ Pedal (R). 2+ Pedal (L) Vaginal evaluation: patient did not consent it. Abdominal Exam: Prominent, normal bowel sounds, no tender to deep palpation. Lower extremities: Negative lower extremity edema Neuro: Motor deficit: Left upper extremity 3/5 motor deficit, sensation preserved Left lower extremity 2/5 motor deficit, sensation preserved. Skin Exam: sacral ulcer on right buttock around 2cm stage 1-2. Normal inspection. laboratory and microbiology Laboratory Tests 05/09/25 13:25 05/09/25 05:43 Test 05/09/25 05:43 Range/Units Serum Glucose 93 74-106 mg/dL Microbiology Date/Time Source Procedure Growth Status 05/02/25 17:00 Blood Blood Culture - Final NO GROWTH AFTER 5 DAYS OF INCUBATION. Complete Problem List/Assessment/Plan Problem List/Assessment/Plan Problem List/Assessment/Plan- # Acute on chronic severe normocytic anemia, secondary to acute vaginal bleeding # Acute post menopausal bleeding secondary to endometrial hyperplasia, rule out uterine malignanc # thrombocytopenia - History of anticoagulant use, currently on hold due to the active bleeding -Pelvic ultrasound showed endometrial thickness 4.8mm -OBGYN consult- outpatient endometrial biopsy and follow up was recommended -is status post PRBC and platelet transfusion -we will follow up with CBC, CMP -Platelets transfusion today: patient will need PEG tube for DC, per IR, platelets level must be 80 # dysphagia, failed swallow evaluation -GI recommended for PEG placement -intervention radiology was consulted for PEG tube placement but postponed to the G-tube thrombocytopenia, platelet [id number] -interim interruption was recommended for NG tube placement but patient and her sister refused NG tube -plan is to do PEG tube placement after operative count [place] more [place] 14749 as per IR -ordered platelet transfusion #Bacteremia, possible due pneumonia possible gram +/- - restarted IV doxycycline - Echo to ruled out infective endocarditis: EF is 50-55%, mild AI, TR and MR - Blood cultures from05/02/25 negative. 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 #Severe protein caloric malnutrition -albumin 2.2 #Acute on Chronic Severe Thrombocytopenia s/p 1 platelet transfusion -ordered platelet transfusion today #Chronic Stage 1-2 sacral ulcer -Ulcer was present on admission - Wound care consult #Acute Hypokalemia-replenished -monitor BMP #Chronic CVA with left hemiplegia -Repeat Swallow Evaluation later on May 07, 2025: Patient failed to swallow. -NPO -IR consult for G-Tube placement (05/08/25) # Morbid obesity BMI 62.7 Counseling about healthy life style >10min DVT prophylaxis: held because of bleeding Diet: NPO due to fail of swallowing test on 05/07/25 Goals of care: DNR/DNI,only chemical code PCP: Angeline Medel Plan discussed with patient and patient's sister. Plan discussed with Dr Gutierrez Late signature. Plan discussed with: Patient, Other (RN; the patient's sister) Plan discussed with: Patient (Sister, RN), Other (RN, SISTER) My Orders My Orders Orders - JONH URENA RESIDENT Procedure Category Date Status Time Place Ng ORDERS 05/09/25 Transmitted 12:50 Type And Screen BBK 05/09/25 In Process 12:52 Dietary Evaluation Review Comments: Nutrition Recommendation: 1) Artie 1 pk BID 2) Monitor PO intake, lab values, weight trend, and I/O Expected Outcomes/Goals: Wound to improve Lab values to improve FU 3-5 days Date of Service: May 09, 2025 Billing Provider: EVA GUTIERREZ DO Common Visit Codes: [id number] INP/OBS CARE(HIGH) JONH URENA RESIDENT May 09, 2025 17:56 KALPESH RING RESIDENT May 09, 2025 18:44 EVA GUTIERREZ DO May 11, 2025 07:28
[2025-05-09] MEDS: predniSONE 20 MG TAB PO ONE (18:56)
[2025-05-09 20:00] VITALS: PULSE 79; RESP 18; O2SAT 100
[2025-05-09 21:00] VITALS: BP 132/59; PULSE 79; RESP 18; TEMP 97; O2SAT 99
[2025-05-10] VITALS (11 sets, daily range): BP systolic 105–134; BP diastolic 60–86; PULSE 72–98; RESP 16–20; TEMP 96.9–98.2; O2SAT 90–100
[2025-05-10] MEDS: ONDANSETRON HCL 4 MG/2 ML VIAL IV ONE (02:21)
[2025-05-10 06:56] LABS: Sodium 145 mmol/L (136-145)
[2025-05-10 06:57] LABS: Anion Gap 11 (5-15); Carbon Dioxide 24 mmol/L (20-31)
[2025-05-10 06:58] LABS: Calcium 7.3 mg/dL (8.7-10.4); Chloride 110 mmol/L (98-107); Potassium 3.3 mmol/L (3.5-5.1)
[2025-05-10 07:02] LABS: Glucose 84 mg/dL (74-106); Hematocrit 25.5 % (36.0-46.0); Hemoglobin 8.4 g/dL (12.2-16.2); Magnesium 1.9 mg/dL (1.6-2.6); Mean Corpuscular Hemoglobin 28.9 pg (28.0-32.0); Mean Corpuscular Volume 88.1 fL (80.0-100.0); Nucleated Red Blood Cells % 1.2 %
[2025-05-10 07:03] LABS: BUN/Creatinine Ratio 8.7 (10.0-20.0); Blood Urea Nitrogen 19 mg/dL (9-23)
[2025-05-10] MEDS ORDERED: POTASSIUM CHL 20MEQ/100ML 100 ML IV SCH (08:00)
--- NOTE | 2025-05-10 09:04 | DVHPN2 ---
Progress Note Date Seen: May 10, 2025 Medical Necessity Reason Pt with a Central, PICC or Fol: Yes Objective vital signs Vital Sign Date Time Temp Pulse Resp B/P (MAP) Pulse Ox O2 Delivery O2 Flow Rate FiO2 05/10/25 04:01 96.9 79 16 124/66 96.9 05/10/25 01:00 95 05/09/25 20:00 Room Air* 0 21 Total Intake and Output 05/09/25 05/09/25 05/10/25 15:00 23:00 07:00 Intake Total 0 ml 1566 ml Output Total 350 ml Balance -350 ml 1566 ml medications Current Medications Medications Dose Ordered Sig/Jon Route Start Time Stop Time Status Last Admin Dose Admin Acetaminophen/ Hydrocodone Bitart 1 tab Q4HP PRN PO 04/28/25 03:45 Hold Acetaminophen 650 mg Q6HP PRN PO 04/28/25 03:45 Hold Gabapentin 300 mg HS PO 04/28/25 22:00 05/06/25 22:17 300 MG Atorvastatin Calcium 20 mg HS PO 04/28/25 22:00 05/06/25 22:17 20 MG Magnesium Oxide 800 mg BID PO 05/01/25 22:00 05/07/25 10:45 800 MG Ondansetron HCl 4 mg Q8HP PRN PO 05/04/25 16:45 Dextrose 1,000 ml @ 100 mls/hr Q10H IV 05/08/25 17:45 05/09/25 23:45 100 MLS/HR Doxycycline Hyclate 100 ml @ 50 mls/hr Q12H IV 05/09/25 10:15 05/09/25 22:27 50 MLS/HR Potassium Chloride 100 ml @ 50 mls/hr Q2H IV 05/10/25 08:00 05/10/25 11:59 Examination: GENERAL:Abnormal, ABDOMEN:Abnormal laboratory and microbiology Laboratory Tests 05/10/25 06:19 Test 05/10/25 06:19 Range/Units Serum Glucose 84 74-106 mg/dL Microbiology Date/Time Source Procedure Growth Status 05/02/25 17:00 Blood Blood Culture - Final NO GROWTH AFTER 5 DAYS OF INCUBATION. Complete Problem List/Assessment/Plan Problem List/Assessment/Plan Acute kidney injury secondary to vanco toxicity Vancomycin toxicity Anemia due to blood loss Vaginal bleeding Hypernatremia due to dehydration Hypokalemia due to potassium loss Hypoalbuminemia + CA 125 Morbidly obesity Recommendations d5w iv for Na correction,reduced dose to minimum Renal function slow improvement baseline normal has not recovered but dialysis not indicated at this time primary team nutrition plan deferred Plan discussed with: Patient My Orders My Orders Orders - JULISSA PASCAL MD Procedure Category Date Status Time D5w 5% PHA 05/10/25 Verified 09:15 Dietary Evaluation Review Comments: Nutrition Recommendation: 1) Artie 1 pk BID 2) Monitor PO intake, lab values, weight trend, and I/O Expected Outcomes/Goals: Wound to improve Lab values to improve FU 3-5 days JULISSA PASCAL MD May 10, 2025 09:04
[2025-05-10] MEDS: MAGNESIUM SULFATE 1GM/100ML 100 ML IV ONE (09:19)
[2025-05-10] MEDS: POTASSIUM CHL 20MEQ/100ML 100 ML IV SCH (09:37)
[2025-05-10] MEDS: D5W 5% 1,000 ML IV SCH (09:39)
[2025-05-10 11:18] LABS: Anisocytosis Slight
--- NOTE | 2025-05-10 14:34 | DVHPNRES ---
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 The patient came to [facility] via EMS with the chief complaint of 4 days of abdominal pain, 04/01, localized in the pelvic region, cramp-like, with no irradiation, no alleviation or agravating factors; Associated with vaginal bleeding, red-brownish color, soaking 3 diapers per yesterday. On further questioning, the patient had her last menstrual period around 20 years ago. The bleeding did not stop and the abdominal pain persisted 04/01, this prompted her visit to the ED. Her sister mentioned patient was on gtube feeding for 4 months post her stroke, which was discontinued in september 2024.. In the ED a pelvic ultrasound was ordered and showed endometrial thickness 4.8 mm. Abdomen/pelvis CT showed no acute abdominal or pelvic findings.n1 RBC unit and Platelates transfusion was ordered and administered due to severe anemia and thrombocytopenia... Gynecology recommend endometrial biopsy as an outpatient. Due to low GFR and high creatinine a nephrology consult was done. Blood cultures growth: Gram positive coccus in cluster, on 07/02/24- The patient was seen at bedside today. Patient developed aspiration pneumonia and doing bedside follow up evaluation.. Repeat swallow evaluation was done and patient failed it. Patient will be kept NPO. We have consulted GI for possible G-tube placement evaluation. Due to morbid obesity GI recommended IR guided PEG tube placement. Interventional radiology consultation was done for PEG tube placement but it was postponed to today due to thrombocytopenia with platelet [id number]. Ordered platelates transfusion. Radiology also recommended for NG tube feeding but patient and her sister refused. Later on interventional radiology recommended they can not do PEG tube placement due to morbid obesity and recommended for surgery consult. Past medical history: CVA with residual left hemiplegia on Eliquis at home, hypertension, hyperlipidemia, chronically bedridden,diverticulosis Past surgical history: Cholecystectomy Social & Personal history: denies alcohol, smoking and drugs Allergies: acetaminophen, aspirin, tomatoes Patient was seen today at bedside, less than chart reviewed. Patient had platelet transfusion early in the morning, repeat platelet count 83923. Ordered another 2 units of platelet transfusion. Intubation Radiology recommended to consult surgery for PEG tube placement as they are not able to do PEG tube placement due to morbid obesity of the patient. Ordered surgery consult for PEG tube placement. Objective vital signs Vital Sign Date Time Temp Pulse Resp B/P (MAP) Pulse Ox O2 Delivery O2 Flow Rate FiO2 05/10/25 13:00 97.8 80 20 115/68 (84) 100 97.8 05/10/25 08:05 Room Air* 0 21 Total Intake and Output 05/09/25 05/09/25 05/10/25 15:00 23:00 07:00 Intake Total 0 ml 1566 ml Output Total 350 ml Balance -350 ml 1566 ml medications Current Medications Medications Dose Ordered Sig/Jon Route Start Time Stop Time Status Last Admin Dose Admin Acetaminophen/ Hydrocodone Bitart 1 tab Q4HP PRN PO 04/28/25 03:45 Hold Acetaminophen 650 mg Q6HP PRN PO 04/28/25 03:45 Hold Gabapentin 300 mg HS PO 04/28/25 22:00 05/06/25 22:17 300 MG Atorvastatin Calcium 20 mg HS PO 04/28/25 22:00 05/06/25 22:17 20 MG Magnesium Oxide 800 mg BID PO 05/01/25 22:00 05/07/25 10:45 800 MG Ondansetron HCl 4 mg Q8HP PRN PO 05/04/25 16:45 Doxycycline Hyclate 100 ml @ 50 mls/hr Q12H IV 05/09/25 10:15 05/10/25 10:15 50 MLS/HR Dextrose 1,000 ml @ 40 mls/hr Q24H IV 05/10/25 09:15 05/10/25 09:39 40 MLS/HR Examination General Appearance: Alert, Oriented X3, not in acute distress, the patient refused to talk in occasions when questioning. Head Exam: Normal inspection Neck Exam: Normal inspection. Non-tender. Normal alignment Pulmonary/Respiratory: Chest non-tender. Clear bilateral breath sounds, no crackles, no wheezing. Cardiovascular/Chest: Regular rate and rhythm. No murmurs. No JVD. Peripheral Pulses: 2+ Radial (R). 2+ Radial (L). 2+ Pedal (R). 2+ Pedal (L) Vaginal evaluation: patient did not consent it. Abdominal Exam: Prominent, normal bowel sounds, no tender to deep palpation. Lower extremities: Negative lower extremity edema Neuro: Motor deficit: Left upper extremity 3/5 motor deficit, sensation preserved Left lower extremity 2/5 motor deficit, sensation preserved. Skin Exam: sacral ulcer on right buttock around 2cm stage 1-2. Normal inspection. laboratory and microbiology Laboratory Tests 05/10/25 06:19 Test 05/10/25 06:19 Range/Units Serum Glucose 84 74-106 mg/dL Microbiology Date/Time Source Procedure Growth Status 05/02/25 17:00 Blood Blood Culture - Final NO GROWTH AFTER 5 DAYS OF INCUBATION. Complete Problem List/Assessment/Plan Problem List/Assessment/Plan Problem List/Assessment/Plan- # Acute on chronic severe normocytic anemia, secondary to acute vaginal bleeding # Acute post menopausal bleeding secondary to endometrial hyperplasia, rule out uterine malignanc # thrombocytopenia - History of anticoagulant use, currently on hold due to the active bleeding -Pelvic ultrasound showed endometrial thickness 4.8mm -OBGYN consult- outpatient endometrial biopsy and follow up was recommended -is status post PRBC and platelet transfusion - Monitor CBC, # dysphagia, failed swallow evaluation -GI recommended for PEG placement, not able to do the absolute because of the morbid obesity -intervention radiology was consulted for PEG tube placement but postponed to the G-tube thrombocytopenia, platelet 41843 -interim interruption was recommended for NG tube placement but patient and her sister refused NG tube -plan is to do PEG tube placement -intervention Radiology refused to do PEG tube placed spent due to morbid obesity -ordered surgery consult for PEG tube placement - Patient and family refused NG tube even after explained with a temporary need of NG tube before placing PEG tube -ordered platelet transfusion - We will repeat CBC after blood transfusion - Monitor CBC #Bacteremia, possible due pneumonia possible gram +/- - continue IV doxycycline as prescribes - Echo to ruled out infective endocarditis: EF is 50-55%, mild AI, TR and MR - Blood cultures from05/02/25 negative. 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 #Severe protein caloric malnutrition -- Pending. PEG Tube placement #Acute on Chronic Severe Thrombocytopenia s/p 1 platelet transfusion -ordered platelet transfusion today #Chronic Stage 1-2 sacral ulcer - Wound care consult #Acute Hypokalemia-replenished -monitor BMP #Chronic CVA with left hemiplegia -Repeat Swallow Evaluation later on May 07, 2025: Patient failed to swallow. -NPO - Ordered surgery consult for PEG tube placement # Morbid obesity BMI 62.7 - Counseled about the effect of obesity on health, healthy lifestyle PCP: Angeline Medel Goals of care, Code status DNR/DNI,only chemical code ; discussed with >15 minutes PUD prophylaxis: SCD DVT prophylaxis: Pantoprazole Plan discussed with Dr Mason , nursing staff, Sister Total time spent on patient evaluation, chart review, assessment and plan, discussion discussion >35 minutes Plan discussed with: Patient, Other (RN) My Orders My Orders Orders - JONH URENA Procedure Category Date Status Time * Surgical Consult CONS 05/10/25 Transmitted Dietary Evaluation Review Comments: Nutrition Recommendation: 1) Artie 1 pk BID 2) Monitor PO intake, lab values, weight trend, and I/O Expected Outcomes/Goals: Wound to improve Lab values to improve FU 3-5 days Date of Service: May 10, 2025 Billing Provider: EVA GUTIERREZ DO Common Visit Codes: [id number] INP/OBS CARE(HIGH) JONH URENA May 10, 2025 14:34 EVA GUTIERREZ DO May 14, 2025 20:52
[2025-05-10 19:01] LABS: Hematocrit 24.4 % (36.0-46.0); Hemoglobin 7.9 g/dL (12.2-16.2); Mean Corpuscular Hemoglobin 29.1 pg (28.0-32.0); Mean Corpuscular Volume 89.8 fL (80.0-100.0); Nucleated Red Blood Cells % 0.8 %
[2025-05-10] MEDS: methylPREDNISolone SOD SUCC 40 MG/ML VL IV ONE (22:49)
[2025-05-11 01:00] VITALS: BP 113/72; PULSE 78; RESP 18; TEMP 98.3; O2SAT 100
[2025-05-11 05:00] VITALS: BP 140/70; PULSE 82; RESP 18; TEMP 98.1; O2SAT 97
[2025-05-11 06:04] LABS: Hematocrit 24.2 % (36.0-46.0); Hemoglobin 8.0 g/dL (12.2-16.2); Mean Corpuscular Hemoglobin 29.4 pg (28.0-32.0); Mean Corpuscular Volume 89.2 fL (80.0-100.0); Nucleated Red Blood Cells % 1.1 %
[2025-05-11 06:22] LABS: Alanine Aminotransferase 16 U/L (7-40); Alkaline Phosphatase 102 U/L (46-116); Anion Gap 10 (5-15); BUN/Creatinine Ratio 7.9 (10.0-20.0); Blood Urea Nitrogen 17 mg/dL (9-23); Carbon Dioxide 25 mmol/L (20-31); Glucose 103 mg/dL (74-106); Potassium 3.9 mmol/L (3.5-5.1)
[2025-05-11 06:23] LABS: Albumin 2.0 g/dL (3.2-4.8); Bilirubin, Total 0.6 mg/dL (0.2-1.0); Calcium 7.4 mg/dL (8.7-10.4); Chloride 110 mmol/L (98-107); Sodium 145 mmol/L (136-145); Total Protein 5.0 g/dL (5.7-8.2)
[2025-05-11 09:00] VITALS: BP 117/56; PULSE 77; RESP 16; TEMP 98.6; O2SAT 91
--- NOTE | 2025-05-11 10:17 | DVHPN2 ---
Progress Note Medical Necessity Reason Pt with a Central, PICC or Fol: Yes Objective vital signs Vital Sign Date Time Temp Pulse Resp B/P (MAP) Pulse Ox O2 Delivery O2 Flow Rate FiO2 05/11/25 09:00 98.6 77 16 117/56 (76) 91 98.6 05/10/25 20:00 Room Air* 0 21 Total Intake and Output 05/10/25 05/10/25 05/11/25 15:00 23:00 07:00 Intake Total 300 ml 249 ml Output Total 750 ml 600 ml Balance 300 ml -501 ml -600 ml medications Current Medications Medications Dose Ordered Sig/Jon Route Start Time Stop Time Status Last Admin Dose Admin Acetaminophen/ Hydrocodone Bitart 1 tab Q4HP PRN PO 04/28/25 03:45 Hold Acetaminophen 650 mg Q6HP PRN PO 04/28/25 03:45 Hold Gabapentin 300 mg HS PO 04/28/25 22:00 05/06/25 22:17 300 MG Atorvastatin Calcium 20 mg HS PO 04/28/25 22:00 05/06/25 22:17 20 MG Magnesium Oxide 800 mg BID PO 05/01/25 22:00 05/07/25 10:45 800 MG Ondansetron HCl 4 mg Q8HP PRN PO 05/04/25 16:45 Doxycycline Hyclate 100 ml @ 50 mls/hr Q12H IV 05/09/25 10:15 05/10/25 22:49 50 MLS/HR Dextrose 1,000 ml @ 40 mls/hr Q24H IV 05/10/25 09:15 05/10/25 09:39 40 MLS/HR laboratory and microbiology Laboratory Tests 05/11/25 05:47 Test 05/11/25 05:47 Range/Units Serum Glucose 103 74-106 mg/dL Microbiology Date/Time Source Procedure Growth Status 05/02/25 17:00 Blood Blood Culture - Final NO GROWTH AFTER 5 DAYS OF INCUBATION. Complete Problem List/Assessment/Plan Problem List/Assessment/Plan Problem List/Assessment/Plan- # Acute on chronic severe normocytic anemia, secondary to acute vaginal bleeding # Acute post menopausal bleeding secondary to endometrial hyperplasia, rule out uterine malignanc # thrombocytopenia - History of anticoagulant use, currently on hold due to the active bleeding -Pelvic ultrasound showed endometrial thickness 4.8mm -OBGYN consult- outpatient endometrial biopsy and follow up was recommended -is status post PRBC and platelet transfusion -we will follow up with CBC, CMP -Platelets transfusion today: patient will need PEG tube for DC, per IR, platelets level must be 80 # dysphagia, failed swallow evaluation -GI recommended for PEG placement -intervention radiology was consulted for PEG tube placement but postponed to the G-tube thrombocytopenia, platelet [id number] -interim interruption was recommended for NG tube placement but patient and her sister refused NG tube -plan is to do PEG tube placement after operative count is more than 65663 as per IR -ordered platelet transfusion #Bacteremia, possible due pneumonia possible gram +/- - restarted IV doxycycline - Echo to ruled out infective endocarditis: EF is 50-55%, mild AI, TR and MR - Blood cultures from05/02/25 negative. 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 #Severe protein caloric malnutrition -albumin 2.2 #Acute on Chronic Severe Thrombocytopenia s/p 1 platelet transfusion -ordered platelet transfusion today #Chronic Stage 1-2 sacral ulcer -Ulcer was present on admission - Wound care consult #Acute Hypokalemia-replenished -monitor BMP #Chronic CVA with left hemiplegia -Repeat Swallow Evaluation later on May 07, 2025: Patient failed to swallow. -NPO -IR consult for G-Tube placement (05/08/25) # Morbid obesity BMI 62.7 Counseling about healthy life style >10min DVT prophylaxis: held because of bleeding Diet: NPO due to fail of swallowing test on 05/07/25 Goals of care: DNR/DNI,only chemical code PCP: Angeline Medel Plan discussed with patient and patient's sister. Plan discussed with Dr Neema kinney. Plan discussed with: Patient, Other (RN; the patient's sister) My Orders My Orders Orders - KALPESH RING Procedure Category Date Status Time * Swallow Request ST 05/11/25 Transmitted 09:47 Dietary Evaluation Review Comments: Nutrition Recommendation: 1) Artie 1 pk BID 2) Monitor PO intake, lab values, weight trend, and I/O Expected Outcomes/Goals: Wound to improve Lab values to improve FU 3-5 days KALPESH RING RESIDENT May 11, 2025 10:16
[2025-05-11 13:00] VITALS: BP 101/52; PULSE 92; RESP 20; TEMP 98.6; O2SAT 100
--- NOTE | 2025-05-11 13:33 | DVHPN2 ---
Progress Note Date Seen: May 11, 2025 Medical Necessity Reason Pt with a Central, PICC or Fol: Yes The following are medically ne: Salomon Catheter Objective vital signs Vital Sign Date Time Temp Pulse Resp B/P (MAP) Pulse Ox O2 Delivery O2 Flow Rate FiO2 05/11/25 09:00 98.6 77 16 117/56 (76) 91 98.6 05/10/25 20:00 Room Air* 0 21 Total Intake and Output 05/10/25 05/10/25 05/11/25 15:00 23:00 07:00 Intake Total 300 ml 249 ml Output Total 750 ml 600 ml Balance 300 ml -501 ml -600 ml medications Current Medications Medications Dose Ordered Sig/Jon Route Start Time Stop Time Status Last Admin Dose Admin Acetaminophen/ Hydrocodone Bitart 1 tab Q4HP PRN PO 04/28/25 03:45 Hold Acetaminophen 650 mg Q6HP PRN PO 04/28/25 03:45 Hold Gabapentin 300 mg HS PO 04/28/25 22:00 05/06/25 22:17 300 MG Atorvastatin Calcium 20 mg HS PO 04/28/25 22:00 05/06/25 22:17 20 MG Magnesium Oxide 800 mg BID PO 05/01/25 22:00 05/07/25 10:45 800 MG Ondansetron HCl 4 mg Q8HP PRN PO 05/04/25 16:45 Doxycycline Hyclate 100 ml @ 50 mls/hr Q12H IV 05/09/25 10:15 05/11/25 10:15 50 MLS/HR Dextrose 1,000 ml @ 40 mls/hr Q24H IV 05/10/25 09:15 05/10/25 09:39 40 MLS/HR Examination: GENERAL:Abnormal, ABDOMEN:Abnormal, :Abnormal laboratory and microbiology Laboratory Tests 05/11/25 05:47 Test 05/11/25 05:47 Range/Units Serum Glucose 103 74-106 mg/dL Microbiology Date/Time Source Procedure Growth Status 05/02/25 17:00 Blood Blood Culture - Final NO GROWTH AFTER 5 DAYS OF INCUBATION. Complete Problem List/Assessment/Plan Problem List/Assessment/Plan Acute kidney injury secondary to vanco toxicity Vancomycin toxicity Anemia due to blood loss Vaginal bleeding Hypernatremia due to dehydration Hypokalemia due to potassium loss Hypoalbuminemia + CA 125 Morbidly obesity Recommendations d5w iv for Na correction,reduced dose to minimum Renal function slow improvement baseline normal has not recovered but dialysis not indicated at this time primary team nutrition plan deferred recommend trial of void prior to DC Plan discussed with: Patient Dietary Evaluation Review Comments: Nutrition Recommendation: 1) Artie 1 pk BID 2) Monitor PO intake, lab values, weight trend, and I/O Expected Outcomes/Goals: Wound to improve Lab values to improve FU 3-5 days JULISSA PASCAL MD May 11, 2025 13:33
--- NOTE | 2025-05-11 15:19 | DVHPNRES ---
Progress Note Date Seen: May 11, 2025 Resident Creating Document: KALPESH RING RESIDENT Has the PT tested + for MRSA If YES, has PT been informed?: No Medical Necessity Reason Pt with a Central, PICC or Fol: Yes The following are medically ne: Salomon Catheter Subjective Review of Systems Karolina Parnell is a 65-year old female, with past medical history of CVA (2023 with residual left hemiplegia, bedbond) hypertension, hyperlipidemia and diverticulosis. The patient came to [facility] via EMS with the chief complaint of 4 days of abdominal pain, 04/01, localized in the pelvic region, cramp-like, with no irradiation, no alleviation or agravating factors; Associated with vaginal bleeding, red-brownish color, soaking 3 diapers per yesterday. On further questioning, the patient had her last menstrual period around 20 years ago. The bleeding did not stop and the abdominal pain persisted 04/01, this prompted her visit to the ED. Her sister mentioned patient was on gtube feeding for 4 months post her stroke, which was discontinued in september 2024.. In the ED a pelvic ultrasound was ordered and showed endometrial thickness 4.8 mm. Abdomen/pelvis CT showed no acute abdominal or pelvic findings.n1 RBC unit and Platelates transfusion was ordered and administered due to severe anemia and thrombocytopenia... Gynecology recommend endometrial biopsy as an outpatient. Due to low GFR and high creatinine a nephrology consult was done. Blood cultures growth: Gram positive coccus in cluster, on 07/02/24- The patient was seen at bedside today. Patient developed aspiration pneumonia and doing bedside follow up evaluation.. Repeat swallow evaluation was done and patient failed it. Patient will be kept NPO. We have consulted GI for possible G-tube placement evaluation. Due to morbid obesity GI recommended IR guided PEG tube placement. Interventional radiology consultation was done for PEG tube placement but it was postponed to today due to thrombocytopenia with platelet [id number]. Ordered platelates transfusion. Radiology also recommended for NG tube feeding but patient and her sister refused. Later on interventional radiology recommended they can not do PEG tube placement due to morbid obesity and recommended for surgery consult. Past medical history: CVA with residual left hemiplegia on Eliquis at home, hypertension, hyperlipidemia, chronically bedridden,diverticulosis Past surgical history: Cholecystectomy Social & Personal history: denies alcohol, smoking and drugs Allergies: acetaminophen, aspirin, tomatoes 05/11/25: Patient was seen today at bedside, less than chart reviewed. GI, IR and surgery (Dr Curtis) stated PEG tube will not be possible, high risk due to thrombocytopenia and obesity, new swallow evaluation is ordered to define permanent nutrition form Objective vital signs Vital Sign Date Time Temp Pulse Resp B/P (MAP) Pulse Ox O2 Delivery O2 Flow Rate FiO2 05/11/25 13:00 98.6 92 20 101/52 (68) 100 98.6 05/10/25 20:00 Room Air* 0 21 Total Intake and Output 05/10/25 05/10/25 05/11/25 15:00 23:00 07:00 Intake Total 300 ml 249 ml Output Total 750 ml 600 ml Balance 300 ml -501 ml -600 ml medications Current Medications Medications Dose Ordered Sig/Jon Route Start Time Stop Time Status Last Admin Dose Admin Acetaminophen/ Hydrocodone Bitart 1 tab Q4HP PRN PO 04/28/25 03:45 Hold Acetaminophen 650 mg Q6HP PRN PO 04/28/25 03:45 Hold Gabapentin 300 mg HS PO 04/28/25 22:00 05/06/25 22:17 300 MG Atorvastatin Calcium 20 mg HS PO 04/28/25 22:00 05/06/25 22:17 20 MG Magnesium Oxide 800 mg BID PO 05/01/25 22:00 05/07/25 10:45 800 MG Ondansetron HCl 4 mg Q8HP PRN PO 05/04/25 16:45 Doxycycline Hyclate 100 ml @ 50 mls/hr Q12H IV 05/09/25 10:15 05/11/25 10:15 50 MLS/HR Dextrose 1,000 ml @ 40 mls/hr Q24H IV 05/10/25 09:15 05/10/25 09:39 40 MLS/HR laboratory and microbiology Laboratory Tests 05/11/25 05:47 Test 05/11/25 05:47 Range/Units Serum Glucose 103 74-106 mg/dL Microbiology Date/Time Source Procedure Growth Status 05/02/25 17:00 Blood Blood Culture - Final NO GROWTH AFTER 5 DAYS OF INCUBATION. Complete Problem List/Assessment/Plan Problem List/Assessment/Plan Problem List/Assessment/Plan- # Acute on chronic severe normocytic anemia, secondary to acute vaginal bleeding # Acute post menopausal bleeding secondary to endometrial hyperplasia, rule out uterine malignanc # thrombocytopenia - History of anticoagulant use, currently on hold due to the active bleeding -Pelvic ultrasound showed endometrial thickness 4.8mm -OBGYN consult- outpatient endometrial biopsy and follow up was recommended -is status post PRBC and platelet transfusion -we will follow up with CBC, CMP 05/10/25: Platelets transfusion today: patient will need PEG tube for DC, per IR, platelets level must be 80 05/11/25: Patient was seen today at bedside, less than chart reviewed. GI, IR and surgery (Dr Curtis) stated PEG tube will not be possible, high risk due to thrombocytopenia and obesity, new swallow evaluation is ordered to define permanent nutrition form # dysphagia, failed swallow evaluation -GI recommended for PEG placement -intervention radiology was consulted for PEG tube placement but postponed to the G-tube thrombocytopenia, platelet [id number] -interim interruption was recommended for NG tube placement but patient and her sister refused NG tube -plan is to do PEG tube placement after operative count is more than 28560 as per IR 05/11/25: Patient was seen today at bedside, less than chart reviewed. GI, IR and surgery (Dr Curtis) stated PEG tube will not be possible, high risk due to thrombocytopenia and obesity, new swallow evaluation is ordered to define permanent nutrition form #Bacteremia, possible due pneumonia possible gram +/- - restarted IV doxycycline - Echo to ruled out infective endocarditis: EF is 50-55%, mild AI, TR and MR - Blood cultures from05/02/25 negative. 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 #Severe protein caloric malnutrition -albumin 2.2 #Acute on Chronic Severe Thrombocytopenia s/p 3 platelet transfusion #Chronic Stage 1-2 sacral ulcer -Ulcer was present on admission - Wound care consult #Acute Hypokalemia-replenished -monitor BMP #Chronic CVA with left hemiplegia -Repeat Swallow Evaluation later on May 07, 2025: Patient failed to swallow. -NPO -IR consult for G-Tube placement (05/08/25) # Morbid obesity BMI 62.7 Counseling about healthy life style >10min DVT prophylaxis: held because of bleeding Diet: NPO due to fail of swallowing test on 05/07/25 Goals of care: DNR/DNI,only chemical code PCP: Angeline Medel Plan discussed with patient and patient's sister. Plan discussed with Dr Coleman Plan discussed with: Patient, Other (rn) My Orders My Orders Orders - KALPESH RING Procedure Category Date Status Time * Swallow Request ST 05/11/25 Transmitted 09:47 Dietary Evaluation Review Comments: Nutrition Recommendation: 1) Artie 1 pk BID 2) Monitor PO intake, lab values, weight trend, and I/O Expected Outcomes/Goals: Wound to improve Lab values to improve FU 3-5 days KALPESH RING RESIDENT May 11, 2025 15:19
[2025-05-11 17:23] VITALS: BP 113/50; PULSE 97; RESP 20; TEMP 98.8; O2SAT 100
[2025-05-11] MEDS ORDERED: MORPHINE SULFATE INJ 2 MG/ml SYRG IV PRN ×2 (17:45→18:30)
[2025-05-11] MEDS: MORPHINE SULFATE INJ 2 MG/ml SYRG IV PRN (18:58)
[2025-05-11 21:00] VITALS: BP 171/127; PULSE 92; RESP 17; TEMP 98; O2SAT 100
[2025-05-12] VITALS (7 sets, daily range): BP systolic 122–141; BP diastolic 67–72; PULSE 77–83; RESP 16–18; TEMP 97.5–98.2; O2SAT 96–100
[2025-05-12 10:39] LABS: Potassium 4.7 mmol/L (3.5-5.1)
[2025-05-12 10:40] LABS: Anion Gap 11 (5-15); Carbon Dioxide 24 mmol/L (20-31)
[2025-05-12 10:45] LABS: BUN/Creatinine Ratio 9.3 (10.0-20.0); Blood Urea Nitrogen 19 mg/dL (9-23); Glucose 103 mg/dL (74-106)
[2025-05-12 11:01] LABS: Calcium 7.5 mg/dL (8.7-10.4); Chloride 112 mmol/L (98-107); Sodium 147 mmol/L (136-145)
[2025-05-12] MEDS: ONDANSETRON HCL 4 MG/2 ML VIAL ONE (11:05)
--- NOTE | 2025-05-12 13:42 | DVHPN2 ---
Progress Note Date Seen: May 12, 2025 Has the PT tested + for MRSA If YES, has PT been informed?: No Medical Necessity Reason Pt with a Central, PICC or Fol: Yes The following are medically ne: Salomon Catheter Objective vital signs Vital Sign Date Time Temp Pulse Resp B/P (MAP) Pulse Ox O2 Delivery O2 Flow Rate FiO2 05/12/25 12:55 86 18 135/76 05/12/25 09:00 97.5 99 97.5 05/12/25 08:00 Room Air* 0 21 Total Intake and Output 05/11/25 05/11/25 05/12/25 15:00 23:00 07:00 Intake Total 0 ml 0 ml Output Total 200 ml 300 ml Balance -200 ml -300 ml medications Current Medications Medications Dose Ordered Sig/Jon Route Start Time Stop Time Status Last Admin Dose Admin Acetaminophen/ Hydrocodone Bitart 1 tab Q4HP PRN PO 04/28/25 03:45 Hold Acetaminophen 650 mg Q6HP PRN PO 04/28/25 03:45 Hold Gabapentin 300 mg HS PO 04/28/25 22:00 05/06/25 22:17 300 MG Atorvastatin Calcium 20 mg HS PO 04/28/25 22:00 05/06/25 22:17 20 MG Magnesium Oxide 800 mg BID PO 05/01/25 22:00 05/07/25 10:45 800 MG Doxycycline Hyclate 100 ml @ 50 mls/hr Q12H IV 05/09/25 10:15 05/12/25 10:50 50 MLS/HR Dextrose 1,000 ml @ 40 mls/hr Q24H IV 05/10/25 09:15 05/11/25 09:15 40 MLS/HR Morphine Sulfate 2 mg Q4HPRN PRN IV 05/11/25 18:15 05/12/25 12:55 2 MG Ondansetron HCl 4 mg Q4HPRN PRN IV 05/12/25 11:45 UNV laboratory and microbiology Laboratory Tests 05/12/25 10:00 Test 05/12/25 10:00 Range/Units Serum Glucose 103 74-106 mg/dL Microbiology Date/Time Source Procedure Growth Status 05/02/25 17:00 Blood Blood Culture - Final NO GROWTH AFTER 5 DAYS OF INCUBATION. Complete Problem List/Assessment/Plan Problem List/Assessment/Plan Acute kidney injury secondary to vanco toxicity Vancomycin toxicity Anemia due to blood loss Vaginal bleeding Hypernatremia due to dehydration Hypokalemia due to potassium loss Hypoalbuminemia + CA 125 Morbidly obesity Recommendations d5w iv for Na correction,reduced dose to minimum Renal function slow improvement baseline normal has not recovered but dialysis not indicated at this time primary team nutrition plan deferred recommend trial of void prior to DC, PEG cancelled no new renal recs will sign off Plan discussed with: Patient Dietary Evaluation Review Comments: Nutrition Recommendation: 1) Artie 1 pk BID 2) Monitor PO intake, lab values, weight trend, and I/O Expected Outcomes/Goals: Wound to improve Lab values to improve FU 3-5 days JULISSA PASCAL MD May 12, 2025 13:42
[2025-05-12 14:58] LABS: Hemoglobin 8.7 g/dL (12.2-16.2)
[2025-05-12 14:59] LABS: Hematocrit 26.8 % (36.0-46.0); Mean Corpuscular Hemoglobin 29.3 pg (28.0-32.0); Mean Corpuscular Volume 90.6 fL (80.0-100.0); Nucleated Red Blood Cells % 1.8 %
--- NOTE | 2025-05-12 17:12 | DVHPNRES ---
Progress Note Date Seen: May 12, 2025 Resident Creating Document: JONH URENA RESIDENT Has the PT tested + for MRSA If YES, has PT been informed?: No Medical Necessity Reason Pt with a Central, PICC or Fol: Yes The following are medically ne: Salomon Catheter Subjective Review of Systems Karolina aPrnell is a 65-year old female, with past medical history of CVA (2023 with residual left hemiplegia, bedbond) hypertension, hyperlipidemia and diverticulosis. The patient came to [facility] via EMS with the chief complaint of 4 days of abdominal pain, 04/01, localized in the pelvic region, cramp-like, with no irradiation, no alleviation or agravating factors; Associated with vaginal bleeding, red-brownish color, soaking 3 diapers per yesterday. On further questioning, the patient had her last menstrual period around 20 years ago. The bleeding did not stop and the abdominal pain persisted 04/01, this prompted her visit to the ED. Her sister mentioned patient was on gtube feeding for 4 months post her stroke, which was discontinued in september 2024.. In the ED a pelvic ultrasound was ordered and showed endometrial thickness 4.8 mm. Abdomen/pelvis CT showed no acute abdominal or pelvic findings.n1 RBC unit and Platelates transfusion was ordered and administered due to severe anemia and thrombocytopenia... Gynecology recommend endometrial biopsy as an outpatient. Due to low GFR and high creatinine a nephrology consult was done. Blood cultures growth: Gram positive coccus in cluster, on 07/02/24- The patient was seen at bedside today. Patient developed aspiration pneumonia and doing bedside follow up evaluation.. Repeat swallow evaluation was done and patient failed it. Patient will be kept NPO. We have consulted GI for possible G-tube placement evaluation. Due to morbid obesity GI recommended IR guided PEG tube placement. Interventional radiology consultation was done for PEG tube placement but it was postponed to today due to thrombocytopenia with platelet [id number]. Ordered platelates transfusion. Radiology also recommended for NG tube feeding but patient and her sister refused. Later on interventional radiology recommended they can not do PEG tube placement due to morbid obesity and recommended for surgery consult. Past medical history: CVA with residual left hemiplegia on Eliquis at home, hypertension, hyperlipidemia, chronically bedridden,diverticulosis Past surgical history: Cholecystectomy Social & Personal history: denies alcohol, smoking and drugs Allergies: acetaminophen, aspirin, tomatoes Patient was seen today at bedside, less than chart reviewed. Spoke to patient's daughter Josh, ordered hospice consult, pending repeat swallow evaluation. Objective vital signs Vital Sign Date Time Temp Pulse Resp B/P (MAP) Pulse Ox O2 Delivery O2 Flow Rate FiO2 05/12/25 13:00 97.7 77 18 122/71 (88) 96 97.7 05/12/25 08:00 Room Air* 0 21 Total Intake and Output 05/11/25 05/11/25 05/12/25 15:00 23:00 07:00 Intake Total 0 ml 0 ml Output Total 200 ml 300 ml Balance -200 ml -300 ml medications Current Medications Medications Dose Ordered Sig/Jon Route Start Time Stop Time Status Last Admin Dose Admin Acetaminophen/ Hydrocodone Bitart 1 tab Q4HP PRN PO 04/28/25 03:45 Hold Acetaminophen 650 mg Q6HP PRN PO 04/28/25 03:45 Hold Gabapentin 300 mg HS PO 04/28/25 22:00 05/06/25 22:17 300 MG Atorvastatin Calcium 20 mg HS PO 04/28/25 22:00 05/06/25 22:17 20 MG Magnesium Oxide 800 mg BID PO 05/01/25 22:00 05/07/25 10:45 800 MG Doxycycline Hyclate 100 ml @ 50 mls/hr Q12H IV 05/09/25 10:15 05/12/25 10:50 50 MLS/HR Dextrose 1,000 ml @ 40 mls/hr Q24H IV 05/10/25 09:15 05/11/25 09:15 40 MLS/HR Morphine Sulfate 2 mg Q4HPRN PRN IV 05/11/25 18:15 05/12/25 12:55 2 MG Ondansetron HCl 4 mg Q4HPRN PRN IV 05/12/25 11:45 Examination General Appearance: Alert, Oriented X3, not in acute distress, the patient refused to talk in occasions when questioning. Head Exam: Normal inspection Neck Exam: Normal inspection. Non-tender. Normal alignment Pulmonary/Respiratory: Chest non-tender. Clear bilateral breath sounds, no crackles, no wheezing. Cardiovascular/Chest: Regular rate and rhythm. No murmurs. No JVD. Peripheral Pulses: 2+ Radial (R). 2+ Radial (L). 2+ Pedal (R). 2+ Pedal (L) Vaginal evaluation: patient did not consent it. Abdominal Exam: Prominent, normal bowel sounds, no tender to deep palpation. Lower extremities: Negative lower extremity edema Neuro: Motor deficit: Left upper extremity 3/5 motor deficit, sensation preserved Left lower extremity 2/5 motor deficit, sensation preserved. Skin Exam: sacral ulcer on right buttock around 2cm stage 1-2. Normal inspection. laboratory and microbiology Laboratory Tests 05/12/25 14:50 05/12/25 10:00 Test 05/12/25 10:00 Range/Units Serum Glucose 103 74-106 mg/dL Microbiology Date/Time Source Procedure Growth Status 05/02/25 17:00 Blood Blood Culture - Final NO GROWTH AFTER 5 DAYS OF INCUBATION. Complete Problem List/Assessment/Plan Problem List/Assessment/Plan Problem List/Assessment/Plan- # Acute on chronic severe normocytic anemia, secondary to acute vaginal bleeding # Acute post menopausal bleeding secondary to endometrial hyperplasia, rule out uterine malignanc # thrombocytopenia - History of anticoagulant use, currently on hold due to the active bleeding -Pelvic ultrasound showed endometrial thickness 4.8mm -OBGYN consult- outpatient endometrial biopsy and follow up was recommended -is status post PRBC and platelet transfusion - Monitor CBC, # dysphagia, failed swallow evaluation -GI recommended for PEG placement, not able to do the absolute because of the morbid obesity -intervention radiology was consulted for PEG tube placement but postponed to the G-tube thrombocytopenia, platelet 28160 -interim interruption was recommended for NG tube placement but patient and her sister refused NG tube -plan is to do PEG tube placement -intervention Radiology refused to do PEG tube placed spent due to morbid obesity -Gastroenterology/intubation Radiology/surgery denied to do PEG tube due to patient's thrombocytopenia and morbid obesity - Patient and family refused NG tube even after explained with a temporary need of NG tube before placing PEG tube -status post PRBC/platelet transfusion - Monitor CBC -Ordered hospice consult -pending repeat swallow eval #Bacteremia, possible due pneumonia possible gram +/- - continue IV doxycycline as prescribes - Echo to ruled out infective endocarditis: EF is 50-55%, mild AI, TR and MR - Blood cultures from05/02/25 negative. 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 #Severe protein caloric malnutrition -- Pending. PEG Tube placement #Acute on Chronic Severe Thrombocytopenia s/p 1 platelet transfusion -ordered platelet transfusion today #Chronic Stage 1-2 sacral ulcer - Wound care consult #Acute Hypokalemia-replenished -monitor BMP #Chronic CVA with left hemiplegia -Repeat Swallow Evaluation later on May 07, 2025: Patient failed to swallow. -NPO - Ordered surgery consult for PEG tube placement # Morbid obesity BMI 62.7 - Counseled about the effect of obesity on health, healthy lifestyle PCP: Angeline Medel Goals of care, Code status DNR/DNI,only chemical code ; discussed with >15 minutes PUD prophylaxis: SCD DVT prophylaxis: Pantoprazole Plan discussed with Dr Bethea , nursing staff, Sister Total time spent on patient evaluation, chart review, assessment and plan, discussion discussion >35 minutes Plan discussed with: Patient, Daughter, Other (RN) My Orders My Orders Orders - JONH URENA RESIDENT Procedure Category Date Status Time Ondansetron Hcl PHA 05/12/25 In Process (Zofran) 11:45 Complete Blood Count LAB 05/13/25 Verified 04:00 Basic Metabolic Panel LAB 05/13/25 Verified 04:00 Dietary Evaluation Review Comments: Nutrition Recommendation: 1) Artie 1 pk BID 2) Monitor PO intake, lab values, weight trend, and I/O Expected Outcomes/Goals: Wound to improve Lab values to improve FU 3-5 days JONH URENA RESIDENT May 12, 2025 17:12
[2025-05-12] MEDS: ONDANSETRON HCL 4 MG/2 ML VIAL IV PRN (17:39)
[2025-05-12] MEDS: ALBUTEROL SULF 2.5 MG/0.5ML(0.5%) NEB SOLN NEB ONE (18:21)
[2025-05-13] VITALS (7 sets, daily range): BP systolic 125–150; BP diastolic 54–66; PULSE 84–90; RESP 15–20; TEMP 96.2–97.6; O2SAT 97–100
--- NOTE | 2025-05-13 11:49 | DVH ---
CLINICAL HISTORY: PANCREATITIS/abdominal pain TECHNIQUE: CT of the abdomen and pelvis was performed without IV contrast. This exam was performed according to our departmental dose optimization program. Up-to-date CT equipment and radiation dose reduction techniques are utilized as appropriate. CTDI 36 DLP 1906 COMPARISON: CT CT AB PEL WO CON-NO ORAL OR IV on DOS: 04/28/25, US PELVIC on DOS: 04/27/25 FINDINGS: Abdomen/Pelvis: The spleen, pancreas, adrenal glands, liver, and uterus are grossly unremarkable. The gallbladder is absent. There is mild right and minimal left peripheral renal cortical scarring. A hypodense right anterior renal lesion is incompletely characterized due to lack of IV contrast. The abdominal aorta is normal in course and caliber. There are no significant atherosclerotic calcifications. There is no free intraperitoneal air or fluid. There is no enlarged abdominal pelvic lymph node. There is no bowel wall thickening or dilatation. The appendix is normal. There is colonic diverticulosis, moderate at the sigmoid segment. There is a high density clip of the right paramedian pelvis. Other: The imaged lower thorax demonstrates mild cardiomegaly with coronary artery calcifications and a small right pleural effusion. There is a trace left pleural effusion. There is mild bilateral lower lobe atelectasis. No acute osseous abnormality is evident. Impression: No acute noncontrast CT abnormality in the abdomen/pelvis. Cholecystectomy. Colonic diverticulosis. Small right and trace left pleural effusions.
--- NOTE | 2025-05-13 15:00 | DVH ---
CLINICAL INFORMATION: Cough and shortness of breath. TECHNIQUE: Single AP portable chest radiograph was obtained. COMPARISON: XY CHEST XRAY 1 VIEW on DOS: 05/02/25, XY CHEST XRAY 1 VIEW on DOS: 04/28/25 FINDINGS: Lungs: Bilateral perihilar interstitial opacities. No focal consolidation visualized. Likely atelectasis in the lung bases. Cardiac: [id number] cardiomegaly. Pulmonary vasculature: Prominence of the pulmonary vasculature. Mediastinum/teddy: Unremarkable. Bones: No acute osseous abnormality identified. Other: No other significant findings. IMPRESSION: Findings described above are consistent with pulmonary vascular congestion and interstitial pulmonary edema in the appropriate clinical setting. Correlate with clinical findings. Minimal change compared to the prior exam.
--- NOTE | 2025-05-13 15:01 | DVHPNRES ---
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 The patient came to [facility] via EMS with the chief complaint of 4 days of abdominal pain, 04/01, localized in the pelvic region, cramp-like, with no irradiation, no alleviation or agravating factors; Associated with vaginal bleeding, red-brownish color, soaking 3 diapers per yesterday. On further questioning, the patient had her last menstrual period around 20 years ago. The bleeding did not stop and the abdominal pain persisted 04/01, this prompted her visit to the ED. Her sister mentioned patient was on gtube feeding for 4 months post her stroke, which was discontinued in september 2024.. In the ED a pelvic ultrasound was ordered and showed endometrial thickness 4.8 mm. Abdomen/pelvis CT showed no acute abdominal or pelvic findings.n1 RBC unit and Platelates transfusion was ordered and administered due to severe anemia and thrombocytopenia... Gynecology recommend endometrial biopsy as an outpatient. Due to low GFR and high creatinine a nephrology consult was done. Blood cultures growth: Gram positive coccus in cluster, on 07/02/24- The patient was seen at bedside today. Patient developed aspiration pneumonia and doing bedside follow up evaluation.. Repeat swallow evaluation was done and patient failed it. Patient will be kept NPO. We have consulted GI for possible G-tube placement evaluation. Due to morbid obesity GI recommended IR guided PEG tube placement. Interventional radiology consultation was done for PEG tube placement but it was postponed to today due to thrombocytopenia with platelet [id number]. Ordered platelates transfusion. Radiology also recommended for NG tube feeding but patient and her sister refused. Later on interventional radiology recommended they can not do PEG tube placement due to morbid obesity and recommended for surgery consult. Past medical history: CVA with residual left hemiplegia on Eliquis at home, hypertension, hyperlipidemia, chronically bedridden,diverticulosis Past surgical history: Cholecystectomy Social & Personal history: denies alcohol, smoking and drugs Allergies: acetaminophen, aspirin, tomatoes Patient was seen today at bedside, less than chart reviewed. Patient has completed abdominal pain, CT abdomen and pelvis today revealed-No acute noncontrast CT abnormality in the abdomen/pelvis. Cholecystectomy. Colonic diverticulosis.Small right and trace left pleural effusions. CBC revealed thrombocytopenia with platelets 11, hemoglobin 8.9. Sodium 147, serum creatinine 2.20. Lipase 15. Ordered platelet transfusion. Objective vital signs Vital Sign Date Time Temp Pulse Resp B/P (MAP) Pulse Ox O2 Delivery O2 Flow Rate FiO2 05/13/25 12:59 97.6 87 15 136/65 (88) 100 97.6 05/13/25 08:00 Nasal Cannula* 2 28 Total Intake and Output 05/12/25 05/12/25 05/13/25 15:00 23:00 07:00 Intake Total 100 ml 40 ml 0 ml Output Total 400 ml 350 ml Balance 100 ml -360 ml -350 ml medications Current Medications Medications Dose Ordered Sig/Jon Route Start Time Stop Time Status Last Admin Dose Admin Acetaminophen/ Hydrocodone Bitart 1 tab Q4HP PRN PO 04/28/25 03:45 Hold Acetaminophen 650 mg Q6HP PRN PO 04/28/25 03:45 Hold Gabapentin 300 mg HS PO 04/28/25 22:00 05/06/25 22:17 300 MG Atorvastatin Calcium 20 mg HS PO 04/28/25 22:00 05/06/25 22:17 20 MG Magnesium Oxide 800 mg BID PO 05/01/25 22:00 05/07/25 10:45 800 MG Doxycycline Hyclate 100 ml @ 50 mls/hr Q12H IV 05/09/25 10:15 05/13/25 10:28 50 MLS/HR Morphine Sulfate 2 mg Q4HPRN PRN IV 05/11/25 18:15 05/13/25 10:30 2 MG Ondansetron HCl 4 mg Q4HPRN PRN IV 05/12/25 11:45 05/13/25 10:29 4 MG Dextrose 1,000 ml @ 60 mls/hr [id number] IV 05/13/25 10:00 Examination General Appearance: Alert, Oriented X3, not in acute distress, the patient refused to talk in occasions when questioning. Head Exam: Normal inspection Neck Exam: Normal inspection. Non-tender. Normal alignment Pulmonary/Respiratory: Chest non-tender. Clear bilateral breath sounds, no crackles, no wheezing. Cardiovascular/Chest: Regular rate and rhythm. No murmurs. No JVD. Peripheral Pulses: 2+ Radial (R). 2+ Radial (L). 2+ Pedal (R). 2+ Pedal (L) Vaginal evaluation: patient did not consent it. Abdominal Exam: Prominent, normal bowel sounds, no tender to deep palpation. Lower extremities: Negative lower extremity edema Neuro: Motor deficit: Left upper extremity 3/5 motor deficit, sensation preserved Left lower extremity 2/5 motor deficit, sensation preserved. Skin Exam: sacral ulcer on right buttock around 2cm stage 1-2. Normal inspection. laboratory and microbiology Test 05/13/25 14:44 Range/Units Serum Glucose Pending Microbiology Date/Time Source Procedure Growth Status 05/02/25 17:00 Blood Blood Culture - Final NO GROWTH AFTER 5 DAYS OF INCUBATION. Complete Problem List/Assessment/Plan Problem List/Assessment/Plan Problem List/Assessment/Plan- # Acute on chronic severe normocytic anemia, secondary to acute vaginal bleeding # Acute post menopausal bleeding secondary to endometrial hyperplasia, rule out uterine malignanc # thrombocytopenia - History of anticoagulant use, currently on hold due to the active bleeding/anemia -Pelvic ultrasound showed endometrial thickness 4.8mm -OBGYN consult- outpatient endometrial biopsy and follow up was recommended - status post PRBC and platelet transfusion -ordered platelet transfusion - Monitor CBC, # dysphagia, failed swallow evaluation -GI recommended for PEG placement, not able to do the PEG tube placement because of the morbid obesity -intervention Radiology /surgery/Gastroenterology refused to do PEG tube placement due to morbid obesity and thrombocytopenia -status post PRBC/platelet transfusion - Monitor CBC - repeat swallow eval-as per speech therapy patient was able to safely swallow a nd recommended puree diet with nectar thick liquid. #Bacteremia, possible due pneumonia possible gram +/- - continue IV doxycycline as prescribes - Echo to ruled out infective endocarditis: EF is 50-55%, mild AI, TR and MR - Blood cultures from05/02/25 negative. 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 -continue IV fluid as prescribed #Severe protein caloric malnutrition -- - repeat swallow eval-as per speech therapy patient was able to safely swallow and recommended puree diet with nectar thick liquid. #Acute on Chronic Severe Thrombocytopenia s/p platelet transfusion #Chronic Stage 1-2 sacral ulcer - Wound care consult #Acute Hypokalemia-replenished -monitor BMP #Chronic CVA with left hemiplegia -- repeat swallow eval-as per speech therapy patient was able to safely swallow and recommended puree diet with nectar thick liquid. # Morbid obesity BMI 62.7 - Counseled about the effect of obesity on health PCP: Angeline Medel Goals of care, Code status DNR/DNI,only chemical code ; discussed with >15 minutes PUD prophylaxis: SCD DVT prophylaxis: Pantoprazole Plan discussed with Dr. Coleman , nursing staff, Sister Total time spent on patient evaluation, chart review, assessment and plan, discussion discussion >35 minutes Plan discussed with: Patient, Daughter, Other (RN) My Orders My Orders Orders - JONH URENA Procedure Category Date Status Time Complete Blood Count LAB 05/13/25 In Process 04:00 Basic Metabolic Panel LAB 05/13/25 In Process 04:00 Pureed DIET 05/12/25 Transmitted Dinner D5w 5% (Dextrose 5%) PHA 05/13/25 In Process 10:00 Ct Ab Pel Wo Con-No CT 05/13/25 Transmitted Oral Or Iv 10:39 Ct Ab Pel Wo Con-No CT 05/13/25 Resulted Oral Or Iv 10:40 Dietary Evaluation Review Comments: Nutrition Recommendation: 1) Artie 1 pk BID 2) Monitor PO intake, lab values, weight trend, and I/O Expected Outcomes/Goals: Wound to improve Lab values to improve FU 3-5 days JONH URENA RESIDENT May 13, 2025 15:00
[2025-05-13 15:10] LABS: Hematocrit 28.3 % (36.0-46.0); Hemoglobin 8.9 g/dL (12.2-16.2); Mean Corpuscular Hemoglobin 29.3 pg (28.0-32.0); Mean Corpuscular Volume 92.6 fL (80.0-100.0); Nucleated Red Blood Cells % 1.7 %
[2025-05-13 15:17] LABS: Potassium 4.1 mmol/L (3.5-5.1)
[2025-05-13 15:18] LABS: Anion Gap 11 (5-15); Carbon Dioxide 24 mmol/L (20-31)
[2025-05-13 15:24] LABS: BUN/Creatinine Ratio 10.9 (10.0-20.0); Blood Urea Nitrogen 24 mg/dL (9-23); Calcium 7.8 mg/dL (8.7-10.4); Chloride 112 mmol/L (98-107); Glucose 91 mg/dL (74-106); Sodium 147 mmol/L (136-145)
[2025-05-13] MEDS: PANTOPRAZOLE 40 MG/10 ML VIAL INJ IV SCH (16:30)
[2025-05-13] MEDS: CYANOCOBALAMIN 500 MCG TAB PO SCH (18:46)
[2025-05-13] MEDS: D5W 5% 1,000 ML IV SCH (22:52)
[2025-05-14] VITALS (8 sets, daily range): BP systolic 117–150; BP diastolic 55–76; PULSE 57–94; RESP 18–20; TEMP 97.5–98.1; O2SAT 100
[2025-05-14 07:41] LABS: Hemoglobin 7.7 g/dL (12.2-16.2)
[2025-05-14 07:43] LABS: Hematocrit 23.6 % (36.0-46.0); Mean Corpuscular Hemoglobin 29.4 pg (28.0-32.0); Mean Corpuscular Volume 90.3 fL (80.0-100.0); Nucleated Red Blood Cells % 1.8 %
[2025-05-14 08:07] LABS: Alanine Aminotransferase 17 U/L (7-40); Albumin 2.0 g/dL (3.2-4.8); Alkaline Phosphatase 84 U/L (46-116); Anion Gap 11 (5-15); BUN/Creatinine Ratio 8.6 (10.0-20.0); Bilirubin, Total 0.6 mg/dL (0.2-1.0); Blood Urea Nitrogen 18 mg/dL (9-23); Calcium 7.6 mg/dL (8.7-10.4); Carbon Dioxide 23 mmol/L (20-31); Chloride 112 mmol/L (98-107); Glucose 80 mg/dL (74-106); Magnesium 2.1 mg/dL (1.6-2.6); Potassium 3.7 mmol/L (3.5-5.1); Sodium 146 mmol/L (136-145); Total Protein 4.9 g/dL (5.7-8.2)
[2025-05-14] MEDS: MAALOX PLUS or MAALOX 30 ML PO PRN (10:14)
--- NOTE | 2025-05-14 11:50 | DVHPN2 ---
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 The patient came [facility] via EMS with the chief complaint of 4 days of abdominal pain, 04/01, localized in the pelvic region, cramp-like, with no irradiation, no alleviation or agravating factors; Associated with vaginal bleeding, red-brownish color, soaking 3 diapers per yesterday. On further questioning, the patient had her last menstrual period around 20 years ago. The bleeding did not stop and the abdominal pain persisted 04/01, this prompted her visit to the ED. Her sister mentioned patient was on gtube feeding for 4 months post her stroke, which was discontinued in september 2024.. In the ED a pelvic ultrasound was ordered and showed endometrial thickness 4.8 mm. Abdomen/pelvis CT showed no acute abdominal or pelvic findings.n1 RBC unit and Platelates transfusion was ordered and administered due to severe anemia and thrombocytopenia... Gynecology recommend endometrial biopsy as an outpatient. Due to low GFR and high creatinine a nephrology consult was done. Blood cultures growth: Gram positive coccus in cluster, on 07/02/24- The patient was seen at bedside today. Patient developed aspiration pneumonia and doing bedside follow up evaluation.. Repeat swallow evaluation was done and patient failed it. Patient will be kept NPO. We have consulted GI for possible G-tube placement evaluation. Due to morbid obesity GI recommended IR guided PEG tube placement. Interventional radiology consultation was done for PEG tube placement but it was postponed to today due to thrombocytopenia with platelet [id number]. Ordered platelates transfusion. Radiology also recommended for NG tube feeding but patient and her sister refused. Later on interventional radiology recommended they can not do PEG tube placement due to morbid obesity and recommended for surgery consult. Past medical history: CVA with residual left hemiplegia on Eliquis at home, hypertension, hyperlipidemia, chronically bedridden,diverticulosis Past surgical history: Cholecystectomy Social & Personal history: denies alcohol, smoking and drugs Allergies: acetaminophen, aspirin, tomatoes 05/14/25: normal abdomen CT scan, patient passed swallow evaluation, family agrees on hospice, we are f/u sr. social media & mobile manager for hospice arrangements Objective vital signs Vital Sign Date Time Temp Pulse Resp B/P (MAP) Pulse Ox O2 Delivery O2 Flow Rate FiO2 05/14/25 10:14 88 18 124/68 05/14/25 08:00 100 Nasal Cannula* 2 28 05/14/25 05:29 98.0 98.0 Total Intake and Output 05/13/25 05/13/25 05/14/25 15:00 23:00 07:00 Intake Total 1000 ml 100 ml Output Total 500 ml 575 ml Balance 500 ml -475 ml medications Current Medications Medications Dose Ordered Sig/Jon Route Start Time Stop Time Status Last Admin Dose Admin Acetaminophen/ Hydrocodone Bitart 1 tab Q4HP PRN PO 04/28/25 03:45 Hold Acetaminophen 650 mg Q6HP PRN PO 04/28/25 03:45 Hold Gabapentin 300 mg HS PO 04/28/25 22:00 05/06/25 22:17 300 MG Atorvastatin Calcium 20 mg HS PO 04/28/25 22:00 05/06/25 22:17 20 MG Magnesium Oxide 800 mg BID PO 05/01/25 22:00 05/07/25 10:45 800 MG Doxycycline Hyclate 100 ml @ 50 mls/hr Q12H IV 05/09/25 10:15 05/14/25 10:13 50 MLS/HR Morphine Sulfate 2 mg Q4HPRN PRN IV 05/11/25 18:15 05/14/25 10:14 2 MG Ondansetron HCl 4 mg Q4HPRN PRN IV 05/12/25 11:45 05/14/25 10:14 4 MG Dextrose 1,000 ml @ 60 mls/hr [id number] IV 05/13/25 10:00 05/13/25 22:52 60 MLS/HR Pantoprazole Sodium 40 mg DAILY IV 05/13/25 16:30 05/14/25 10:13 40 MG Al Hydrox/Mg Hydrox/Simethicone 15 ml Q8HP PRN PO 05/13/25 16:30 05/14/25 10:14 15 ML Cyanocobalamin 500 mcg DAILY PO 05/13/25 17:00 Examination General Appearance: Alert, Oriented X3, not in acute distress, the patient refused to talk in occasions when questioning. Head Exam: Normal inspection Neck Exam: Normal inspection. Non-tender. Normal alignment Pulmonary/Respiratory: Chest non-tender. Clear bilateral breath sounds, no crackles, no wheezing. Cardiovascular/Chest: Regular rate and rhythm. No murmurs. No JVD. Peripheral Pulses: 2+ Radial (R). 2+ Radial (L). 2+ Pedal (R). 2+ Pedal (L) Vaginal evaluation: patient did not consent it. Abdominal Exam: Prominent, normal bowel sounds, no tender to deep palpation. Lower extremities: Negative lower extremity edema Neuro: Motor deficit: Left upper extremity 3/5 motor deficit, sensation preserved Left lower extremity 2/5 motor deficit, sensation preserved. Skin Exam: sacral ulcer on right buttock around 2cm stage 1-2. Normal inspection. laboratory and microbiology Laboratory Tests 05/14/25 06:29 Test 05/14/25 06:29 Range/Units Serum Glucose 80 74-106 mg/dL Microbiology Date/Time Source Procedure Growth Status 05/02/25 17:00 Blood Blood Culture - Final NO GROWTH AFTER 5 DAYS OF INCUBATION. Complete Problem List/Assessment/Plan Problem List/Assessment/Plan Problem List/Assessment/Plan- # Acute on chronic severe normocytic anemia, secondary to acute vaginal bleeding # Acute post menopausal bleeding secondary to endometrial hyperplasia, rule out uterine malignanc # thrombocytopenia - History of anticoagulant use, currently on hold due to the active bleeding -Pelvic ultrasound showed endometrial thickness 4.8mm -OBGYN consult- outpatient endometrial biopsy and follow up was recommended -is status post PRBC and platelet transfusion -we will follow up with CBC, CMP 05/10/25: Platelets transfusion today: patient will need PEG tube for DC, per IR, platelets level must be 80 05/11/25: Patient was seen today at bedside, less than chart reviewed. GI, IR and surgery (Dr Curtis) stated PEG tube will not be possible, high risk due to thrombocytopenia and obesity, new swallow evaluation is ordered to define permanent nutrition form 05/14/25: normal abdomen CT scan, patient passed swallow evaluation, family agrees on hospice, we are f/u sr. social media & mobile manager for hospice arrangements Yesterday she received 1 platelet apheresis # dysphagia, failed swallow evaluation -GI recommended for PEG placement -intervention radiology was consulted for PEG tube placement but postponed to the G-tube thrombocytopenia, platelet [id number] -interim interruption was recommended for NG tube placement but patient and her sister refused NG tube -plan is to do PEG tube placement after [place] [id number] as per IR 05/11/25: Patient was seen today at bedside, less than chart reviewed. GI, IR and surgery (Dr Curtis) stated PEG tube will not be possible, high risk due to thrombocytopenia and obesity, new swallow evaluation is ordered to define permanent nutrition form #Bacteremia, possible due pneumonia possible gram +/- - restarted IV doxycycline - Echo to ruled out infective endocarditis: EF is 50-55%, mild AI, TR and MR - Blood cultures from05/02/25 negative. 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 #Severe protein caloric malnutrition #Acute on Chronic Severe Thrombocytopenia s/p 4 platelet transfusion #Chronic Stage 1-2 sacral ulcer -Ulcer was present on admission - Wound care consult #Acute Hypokalemia-replenished -monitor BMP #Chronic CVA with left hemiplegia # Morbid obesity BMI 62.7 Counseling about healthy life style >10min DVT prophylaxis: held because of bleeding Diet: puree diet Goals of care: DNR/DNI,only chemical code PCP: Angeline Medel Plan discussed with patient and patient's sister. Plan discussed with Dr Coleman Plan discussed with: Patient, Other (POA daughter ) My Orders My Orders Orders - KALPESH RING Procedure Category Date Status Time Pantoprazole PHA 05/13/25 In Process (Protonix) 16:30 Alum & Mag PHA 05/13/25 In Process Hydrox-Simethicone 16:30 * Fiber Drier Operator CONS 05/14/25 Transmitted Consult Dietary Evaluation Review Comments: Nutrition Recommendation: 1) Artie 1 pk BID 2) Monitor PO intake, lab values, weight trend, and I/O Expected Outcomes/Goals: Wound to improve Lab values to improve FU 3-5 days Date of Service: May 14, 2025 Billing Provider: JUVE COLEMAN MD Common Visit Codes: 54522-[id number] INP/OBS CARE(HIGH) KALPESH RING RESIDENT May 14, 2025 11:50
[2025-05-15 04:43] VITALS: BP 160/64; PULSE 98; RESP 18; TEMP 97.8; O2SAT 100
[2025-05-15 09:00] VITALS: BP 135/60; PULSE 87; RESP 18; TEMP 98; O2SAT 100
--- NOTE | 2025-05-15 10:55 | DVHPN2 ---
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 The patient came to [facility] via EMS with the chief complaint of 4 days of abdominal pain, 04/01, localized in the pelvic region, cramp-like, with no irradiation, no alleviation or agravating factors; Associated with vaginal bleeding, red-brownish color, soaking 3 diapers per yesterday. On further questioning, the patient had her last menstrual period around 20 years ago. The bleeding did not stop and the abdominal pain persisted 04/01, this prompted her visit to the ED. Her sister mentioned patient was on gtube feeding for 4 months post her stroke, which was discontinued in september 2024.. In the ED a pelvic ultrasound was ordered and showed endometrial thickness 4.8 mm. Abdomen/pelvis CT showed no acute abdominal or pelvic findings.n1 RBC unit and Platelates transfusion was ordered and administered due to severe anemia and thrombocytopenia... Gynecology recommend endometrial biopsy as an outpatient. Due to low GFR and high creatinine a nephrology consult was done. Blood cultures growth: Gram positive coccus in cluster, on 07/02/24- The patient was seen at bedside today. Patient developed aspiration pneumonia and doing bedside follow up evaluation.. Repeat swallow evaluation was done and patient failed it. Patient will be kept NPO. We have consulted GI for possible G-tube placement evaluation. Due to morbid obesity GI recommended IR guided PEG tube placement. Interventional radiology consultation was done for PEG tube placement but it was postponed to today due to thrombocytopenia with platelet [id number]. Ordered platelates transfusion. Radiology also recommended for NG tube feeding but patient and her sister refused. Later on interventional radiology recommended they can not do PEG tube placement due to morbid obesity and recommended for surgery consult. Past medical history: CVA with residual left hemiplegia on Eliquis at home, hypertension, hyperlipidemia, chronically bedridden,diverticulosis Past surgical history: Cholecystectomy Social & Personal history: denies alcohol, smoking and drugs Allergies: acetaminophen, aspirin, tomatoes Patient was seen today at bedside, labd and chart reviewed. No acute complaint. As per social service " Spoke with pt's daughters who both decided on [facility]". Discharge order in place. Objective vital signs Vital Sign Date Time Temp Pulse Resp B/P (MAP) Pulse Ox O2 Delivery O2 Flow Rate FiO2 05/15/25 09:00 98.0 87 18 135/60 (85) 100 98.0 05/14/25 20:00 Nasal Cannula* 2 28 Total Intake and Output 05/14/25 05/14/25 05/15/25 15:00 23:00 07:00 Intake Total 0 ml 100 ml Output Total 500 ml 600 ml Balance -500 ml -500 ml medications Current Medications Medications Dose Ordered Sig/Jon Route Start Time Stop Time Status Last Admin Dose Admin Acetaminophen/ Hydrocodone Bitart 1 tab Q4HP PRN PO 04/28/25 03:45 Hold Acetaminophen 650 mg Q6HP PRN PO 04/28/25 03:45 Hold Gabapentin 300 mg HS PO 04/28/25 22:00 05/06/25 22:17 300 MG Atorvastatin Calcium 20 mg HS PO 04/28/25 22:00 05/06/25 22:17 20 MG Magnesium Oxide 800 mg BID PO 05/01/25 22:00 05/07/25 10:45 800 MG Doxycycline Hyclate 100 ml @ 50 mls/hr Q12H IV 05/09/25 10:15 05/14/25 21:18 50 MLS/HR Morphine Sulfate 2 mg Q4HPRN PRN IV 05/11/25 18:15 05/14/25 17:11 2 MG Ondansetron HCl 4 mg Q4HPRN PRN IV 05/12/25 11:45 05/14/25 16:21 4 MG Dextrose 1,000 ml @ 60 mls/hr [id number] IV 05/13/25 10:00 05/15/25 00:04 60 MLS/HR Pantoprazole Sodium 40 mg DAILY IV 05/13/25 16:30 05/14/25 10:13 40 MG Al Hydrox/Mg Hydrox/Simethicone 15 ml Q8HP PRN PO 05/13/25 16:30 05/14/25 10:14 15 ML Cyanocobalamin 500 mcg DAILY PO 05/13/25 17:00 Examination General Appearance: Alert, Oriented X3, not in acute distress, the patient refused to talk in occasions when questioning. Head Exam: Normal inspection Neck Exam: Normal inspection. Non-tender. Normal alignment Pulmonary/Respiratory: Chest non-tender. Clear bilateral breath sounds, no crackles, no wheezing. Cardiovascular/Chest: Regular rate and rhythm. No murmurs. No JVD. Peripheral Pulses: 2+ Radial (R). 2+ Radial (L). 2+ Pedal (R). 2+ Pedal (L) Vaginal evaluation: patient did not consent it. Abdominal Exam: Prominent, normal bowel sounds, no tender to deep palpation. Lower extremities: Negative lower extremity edema Neuro: Motor deficit: Left upper extremity 3/5 motor deficit, sensation preserved Left lower extremity 2/5 motor deficit, sensation preserved. Skin Exam: sacral ulcer on right buttock around 2cm stage 1-2. Normal inspection. laboratory and microbiology Laboratory Tests 05/14/25 06:29 Test 05/14/25 06:29 Range/Units Serum Glucose 80 74-106 mg/dL Microbiology Date/Time Source Procedure Growth Status 05/02/25 17:00 Blood Blood Culture - Final NO GROWTH AFTER 5 DAYS OF INCUBATION. Complete Problem List/Assessment/Plan Problem List/Assessment/Plan Problem List/Assessment/Plan- # Acute on chronic severe normocytic anemia, secondary to acute vaginal bleeding # Acute post menopausal bleeding secondary to endometrial hyperplasia, rule out uterine malignanc # thrombocytopenia - History of anticoagulant use, currently on hold due to the active bleeding/anemia -Pelvic ultrasound showed endometrial thickness 4.8mm -OBGYN consult- outpatient endometrial biopsy and follow up was recommended - status post PRBC and platelet transfusion -S/P platelet transfusion - Monitor CBC, Patient was discharged to hospice care on 05/14/2025, waiting for the family to decide which hospice care with a prefer. Family was given couple of choices. # dysphagia, failed swallow evaluation -GI recommended for PEG placement, not able to do the PEG tube placement because of the morbid obesity -intervention Radiology /surgery/Gastroenterology refused to do PEG tube placement due to morbid obesity and thrombocytopenia -status post PRBC/platelet transfusion - Monitor CBC - repeat swallow eval-as per speech therapy patient was able to safely swallow and recommended puree diet with nectar thick liquid. #Bacteremia, possible due pneumonia possible gram +/- - continue IV doxycycline as prescribes - Echo to ruled out infective endocarditis: EF is 50-55%, mild AI, TR and MR - Blood cultures from05/02/25 negative. 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 -continue IV fluid as prescribed #Severe protein caloric malnutrition -- - repeat swallow eval-as per speech therapy patient was able to safely swallow and recommended puree diet with nectar thick liquid. #Acute on Chronic Severe Thrombocytopenia s/p platelet transfusion #Chronic Stage 1-2 sacral ulcer - Wound care consult #Acute Hypokalemia-replenished -monitor BMP #Chronic CVA with left hemiplegia -- repeat swallow eval-as per speech therapy patient was able to safely swallow and recommended puree diet with nectar thick liquid. # Morbid obesity BMI 62.7 - Counseled about the effect of obesity on health PCP: Angeline Medel Goals of care, Code status DNR/DNI,only chemical code ; discussed with >15 minutes PUD prophylaxis: SCD DVT prophylaxis: Pantoprazole Plan discussed with Dr. Coleman , nursing staff, Sister Total time spent on patient evaluation, chart review, assessment and plan, discussion discussion >35 minutes Plan discussed with: Patient, Daughter, Other (RN) Dietary Evaluation Review Comments: Nutrition Recommendation: 1) Artie 1 pk BID 2) Monitor PO intake, lab values, weight trend, and I/O Expected Outcomes/Goals: Wound to improve Lab values to improve FU 3-5 days Date of Service: May 15, 2025 Billing Provider: JUVE COLEMAN MD Common Visit Codes: 75660-[id number] INP/OBS CARE(HIGH) JONH URENA RESIDENT May 15, 2025 10:55
[2025-05-15 17:00] VITALS: BP 136/55; PULSE 85; RESP 18; TEMP 97.1; O2SAT 100
[2025-05-15 21:00] VITALS: BP 149/53; PULSE 92; RESP 18; TEMP 97.6; O2SAT 100
[2025-05-16 08:00] VITALS: PULSE 82
[2025-05-16 09:00] VITALS: BP 143/50; PULSE 82; RESP 20; TEMP 97.6; O2SAT 100
[2025-05-16 13:00] VITALS: BP 147/47; PULSE 86; RESP 19; TEMP 97.1; O2SAT 100
--- NOTE | 2025-05-16 14:55 | DVHPN2 ---
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 The [facility] with the chief complaint of 4 days of abdominal pain, 04/01, localized in the pelvic region, cramp-like, with no irradiation, no alleviation or agravating factors; Associated with vaginal bleeding, red-brownish color, soaking 3 diapers per yesterday. On further questioning, the patient had her last menstrual period around 20 years ago. The bleeding did not stop and the abdominal pain persisted 04/01, this prompted her visit to the ED. Her sister mentioned patient was on gtube feeding for 4 months post her stroke, which was discontinued in september 2024.. In the ED a pelvic ultrasound was ordered and showed endometrial thickness 4.8 mm. Abdomen/pelvis CT showed no acute abdominal or pelvic findings.n1 RBC unit and Platelates transfusion was ordered and administered due to severe anemia and thrombocytopenia... Gynecology recommend endometrial biopsy as an outpatient. Due to low GFR and high creatinine a nephrology consult was done. Blood cultures growth: Gram positive coccus in cluster, on 07/02/24- The patient was seen at bedside today. Patient developed aspiration pneumonia and doing bedside follow up evaluation.. Repeat swallow evaluation was done and patient failed it. Patient will be kept NPO. We have consulted GI for possible G-tube placement evaluation. Due to morbid obesity GI recommended IR guided PEG tube placement. Interventional radiology consultation was done for PEG tube placement but it was postponed to today due to thrombocytopenia with platelet [id number]. Ordered platelates transfusion. Radiology also recommended for NG tube feeding but patient and her sister refused. Later on interventional radiology recommended they can not do PEG tube placement due to morbid obesity and recommended for surgery consult. Past medical history: CVA with residual left hemiplegia on Eliquis at home, hypertension, hyperlipidemia, chronically bedridden,diverticulosis Past surgical history: Cholecystectomy Social & Personal history: denies alcohol, smoking and drugs Allergies: acetaminophen, aspirin, tomatoes Patient was seen today at bedside. Spoke to social service recommended hospice, social service note revealed "family are looking at board and cares now. Fannie GODINEZ was on the phone with me and heard Dianne's choice. I informed Dianne to call me and let me know once they decide on board and care." Objective vital signs Vital Sign Date Time Temp Pulse Resp B/P (MAP) Pulse Ox O2 Delivery O2 Flow Rate FiO2 05/16/25 13:00 97.1 86 19 147/47 (80) 100 97.1 05/15/25 20:00 Nasal Cannula* 2 28 Total Intake and Output 05/15/25 05/15/25 05/16/25 15:00 23:00 07:00 Intake Total 100 ml 0 ml 100 ml Output Total 500 ml Balance 100 ml -500 ml 100 ml medications Current Medications Medications Dose Ordered Sig/Jon Route Start Time Stop Time Status Last Admin Dose Admin Acetaminophen/ Hydrocodone Bitart 1 tab Q4HP PRN PO 04/28/25 03:45 Hold Acetaminophen 650 mg Q6HP PRN PO 04/28/25 03:45 Hold Gabapentin 300 mg HS PO 04/28/25 22:00 05/06/25 22:17 300 MG Atorvastatin Calcium 20 mg HS PO 04/28/25 22:00 05/06/25 22:17 20 MG Magnesium Oxide 800 mg BID PO 05/01/25 22:00 05/16/25 09:21 800 MG Doxycycline Hyclate 100 ml @ 50 mls/hr Q12H IV 05/09/25 10:15 05/16/25 09:21 50 MLS/HR Morphine Sulfate 2 mg Q4HPRN PRN IV 05/11/25 18:15 05/15/25 11:02 2 MG Ondansetron HCl 4 mg Q4HPRN PRN IV 05/12/25 11:45 05/16/25 09:20 4 MG Dextrose 1,000 ml @ 60 mls/hr [id number] IV 05/13/25 10:00 05/15/25 00:04 60 MLS/HR Pantoprazole Sodium 40 mg DAILY IV 05/13/25 16:30 05/16/25 09:20 40 MG Al Hydrox/Mg Hydrox/Simethicone 15 ml Q8HP PRN PO 05/13/25 16:30 05/14/25 10:14 15 ML Cyanocobalamin 500 mcg DAILY PO 05/13/25 17:00 05/16/25 09:21 500 MCG laboratory and microbiology Laboratory Tests 05/14/25 06:29 Test 05/14/25 06:29 Range/Units Serum Glucose 80 74-106 mg/dL Microbiology Date/Time Source Procedure Growth Status 05/02/25 17:00 Blood Blood Culture - Final NO GROWTH AFTER 5 DAYS OF INCUBATION. Complete Problem List/Assessment/Plan Problem List/Assessment/Plan Problem List/Assessment/Plan- # Acute on chronic severe normocytic anemia, secondary to acute vaginal bleeding # Acute post menopausal bleeding secondary to endometrial hyperplasia, rule out uterine malignanc # thrombocytopenia - History of anticoagulant use, currently on hold due to the active bleeding/anemia -Pelvic ultrasound showed endometrial thickness 4.8mm -OBGYN consult- outpatient endometrial biopsy and follow up was recommended - status post PRBC and platelet transfusion -S/P platelet transfusion - Monitor CBC, Patient was discharged to hospice care on 05/14/2025, waiting for the family to decide which hospice care with a prefer. Family was given couple of choices. # dysphagia, failed swallow evaluation -GI recommended for PEG placement, not able to do the PEG tube placement because of the morbid obesity -intervention Radiology /surgery/Gastroenterology refused to do PEG tube placement due to morbid obesity and thrombocytopenia -status post PRBC/platelet transfusion - Monitor CBC - repeat swallow eval-as per speech therapy patient was able to safely swallow and recommended puree diet with nectar thick liquid. #Bacteremia, possible due pneumonia possible gram +/- - continue IV doxycycline as prescribes - Echo to ruled out infective endocarditis: EF is 50-55%, mild AI, TR and MR - Blood cultures from05/02/25 negative. 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 -continue IV fluid as prescribed #Severe protein caloric malnutrition -- - repeat swallow eval-as per speech therapy patient was able to safely swallow and recommended puree diet with nectar thick liquid. #Acute on Chronic Severe Thrombocytopenia s/p platelet transfusion #Chronic Stage 1-2 sacral ulcer - Wound care consult #Acute Hypokalemia-replenished -monitor BMP #Chronic CVA with left hemiplegia -- repeat swallow eval-as per speech therapy patient was able to safely swallow and recommended puree diet with nectar thick liquid. # Morbid obesity BMI 62.7 - Counseled about the effect of obesity on health PCP: Angeline Medel Goals of care, Code status DNR/DNI,only chemical code ; discussed with >15 minutes PUD prophylaxis: SCD DVT prophylaxis: Pantoprazole Plan discussed with Dr. Coleman , nursing staff, Sister Total time spent on patient evaluation, chart review, assessment and plan, discussion discussion >35 minutes Plan discussed with: Patient, Other (RN, SISTER) Dietary Evaluation Review Comments: Nutrition Recommendation: 1) Artie 1 pk BID 2) Monitor PO intake, lab values, weight trend, and I/O Expected Outcomes/Goals: Wound to improve Lab values to improve FU 3-5 days Date of Service: May 16, 2025 Billing Provider: JUVE COLEMAN MD Common Visit Codes: [id number] INP/OBS CARE(HIGH) KALPESH RING RESIDENT 05/17/25 1439: JONH URENA RESIDENT May 16, 2025 14:55 KALPESH RING RESIDENT May 17, 2025 14:39
[2025-05-16 16:30] VITALS: BP 157/54; PULSE 99; RESP 21; TEMP 97.8; O2SAT 100
[2025-05-16 21:00] VITALS: BP 150/61; PULSE 94; RESP 20; TEMP 98.2; O2SAT 100
[2025-05-17] MEDS: MORPHINE SULFATE 4 MG/ML SYR/VIAL IV PRN (00:30)
[2025-05-17 01:00] VITALS: BP 152/59; PULSE 106; RESP 19; TEMP 98.3; O2SAT 100
[2025-05-17 05:00] VITALS: BP 148/58; PULSE 91; RESP 19; TEMP 98.6; O2SAT 100
[2025-05-17 08:00] VITALS: PULSE 93
[2025-05-17 09:30] VITALS: BP 148/57; PULSE 93; RESP 20; TEMP 97.9; O2SAT 100
--- NOTE | 2025-05-17 10:58 | ECG ---
[facility] Test Date: 2025-05-14 Test Time: 09:27:29 Pat Name: ROMINA COMER Department: Room: 0218 B Gender: F [employer]: ESTEBAN : 1960 Requested By: KALPESH MAY Order Number: [id number] Reading MD: Chuck Marcus Measurements Intervals [place] Rate: 85 P: 32 ND: 113 QRS: 7 QRSD: 101 T: 26 QT: 418 QTc: 497 Interpretive Statements Sinus rhythm Borderline short ND interval Left ventricular hypertrophy Borderline prolonged QT interval Electronically Signed On 05-18-2025 17:36:47 PST by Chuck Marcus Please click the below link to view image of tracing.
[2025-05-17 12:38] VITALS: BP 111/68; PULSE 93; RESP 19; TEMP 98; O2SAT 96
[2025-05-17 13:53] VITALS: BP 148/57; PULSE 93; RESP 20; TEMP 97.9; O2SAT 100
--- NOTE | 2025-05-17 14:53 | DVHPNRES ---
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 The patient came to [facility]S AT [facility] via EMS with the chief complaint of 4 days of abdominal pain, 04/01, localized in the pelvic region, cramp-like, with no irradiation, no alleviation or agravating factors; Associated with vaginal bleeding, red-brownish color, soaking 3 diapers per yesterday. On further questioning, the patient had her last menstrual period around 20 years ago. The bleeding did not stop and the abdominal pain persisted 04/01, this prompted her visit to the ED. Her sister mentioned patient was on gtube feeding for 4 months post her stroke, which was discontinued in september 2024.. In the ED a pelvic ultrasound was ordered and showed endometrial thickness 4.8 mm. Abdomen/pelvis CT showed no acute abdominal or pelvic findings.n1 RBC unit and Platelates transfusion was ordered and administered due to severe anemia and thrombocytopenia... Gynecology recommend endometrial biopsy as an outpatient. Due to low GFR and high creatinine a nephrology consult was done. Blood cultures growth: Gram positive coccus in cluster, on 07/02/24- The patient was seen at bedside today. Patient developed aspiration pneumonia and doing bedside follow up evaluation.. Repeat swallow evaluation was done and patient failed it. Patient will be kept NPO. We have consulted GI for possible G-tube placement evaluation. Due to morbid obesity GI recommended IR guided PEG tube placement. Interventional radiology consultation was done for PEG tube placement but it was postponed to today due to thrombocytopenia with platelet 11304. Ordered platelates transfusion. Radiology also recommended for NG tube feeding but patient and her sister refused. Later on interventional radiology recommended they can not do PEG tube placement due to morbid obesity and recommended for surgery consult. Past medical history: CVA with residual left hemiplegia on Eliquis at home, hypertension, hyperlipidemia, chronically bedridden,diverticulosis Past surgical history: Cholecystectomy Social & Personal history: denies alcohol, smoking and drugs Allergies: acetaminophen, aspirin, tomatoes Patient was seen today at bedside, no acute complaint. Social service wrote"She[facility] at [facility] patient will be placed at [facility] place [place] [address] [facility] [address]. All equipment will be delivered today between 1130am and 130pm. Transport will be with [facility] transport between 230pm and 330pm. Dianne MACIEL and daughter has been notified as well as Christina GOMEZ." Objective vital signs Vital Sign Date Time Temp Pulse Resp B/P (MAP) Pulse Ox O2 Delivery O2 Flow Rate FiO2 05/17/25 13:53 97.9 93 20 100 05/17/25 12:38 111/68 (82) 05/17/25 08:00 Nasal Cannula* 2 28 Total Intake and Output 05/16/25 05/16/25 05/17/25 15:00 23:00 07:00 Intake Total 100 ml 0 ml 100 ml Output Total 500 ml 600 ml Balance 100 ml -500 ml -500 ml medications Current Medications Medications Dose Ordered Sig/Jon Route Start Time Stop Time Status Last Admin Dose Admin Acetaminophen/ Hydrocodone Bitart 1 tab Q4HP PRN PO 04/28/25 03:45 Hold Acetaminophen 650 mg Q6HP PRN PO 04/28/25 03:45 Hold Gabapentin 300 mg HS PO 04/28/25 22:00 05/06/25 22:17 300 MG Atorvastatin Calcium 20 mg HS PO 04/28/25 22:00 05/06/25 22:17 20 MG Magnesium Oxide 800 mg BID PO 05/01/25 22:00 05/17/25 09:28 800 MG Doxycycline Hyclate 100 ml @ 50 mls/hr Q12H IV 05/09/25 10:15 05/17/25 09:32 50 MLS/HR Ondansetron HCl 4 mg Q4HPRN PRN IV 05/12/25 11:45 05/17/25 09:27 4 MG Dextrose 1,000 ml @ 60 mls/hr [id number] IV 05/13/25 10:00 05/15/25 00:04 60 MLS/HR Pantoprazole Sodium 40 mg DAILY IV 05/13/25 16:30 05/17/25 09:27 40 MG Al Hydrox/Mg Hydrox/Simethicone 15 ml Q8HP PRN PO 05/13/25 16:30 05/14/25 10:14 15 ML Cyanocobalamin 500 mcg DAILY PO 05/13/25 17:00 05/17/25 09:28 500 MCG Morphine Sulfate 2 mg Q4HPRN PRN IV 05/16/25 23:50 05/17/25 00:30 2 MG Examination General Appearance: Alert, Oriented X3, not in acute distress, the patient refused to talk in occasions when questioning. Head Exam: Normal inspection Neck Exam: Normal inspection. Non-tender. Normal alignment Pulmonary/Respiratory: Chest non-tender. Clear bilateral breath sounds, no crackles, no wheezing. Cardiovascular/Chest: Regular rate and rhythm. No murmurs. No JVD. Peripheral Pulses: 2+ Radial (R). 2+ Radial (L). 2+ Pedal (R). 2+ Pedal (L) Vaginal evaluation: patient did not consent it. Abdominal Exam: Prominent, normal bowel sounds, no tender to deep palpation. Lower extremities: Negative lower extremity edema Neuro: Motor deficit: Left upper extremity 3/5 motor deficit, sensation preserved Left lower extremity 2/5 motor deficit, sensation preserved. Skin Exam: sacral ulcer on right buttock around 2cm stage 1-2. Normal inspection. laboratory and microbiology Laboratory Tests 05/14/25 06:29 Test 05/14/25 06:29 Range/Units Serum Glucose 80 74-106 mg/dL Microbiology Date/Time Source Procedure Growth Status 05/02/25 17:00 Blood Blood Culture - Final NO GROWTH AFTER 5 DAYS OF INCUBATION. Complete Problem List/Assessment/Plan Problem List/Assessment/Plan Problem List/Assessment/Plan- # Acute on chronic severe normocytic anemia, secondary to acute vaginal bleeding # Acute post menopausal bleeding secondary to endometrial hyperplasia, rule out uterine malignanc # thrombocytopenia - History of anticoagulant use, currently on hold due to the active bleeding/anemia -Pelvic ultrasound showed endometrial thickness 4.8mm -OBGYN consult- outpatient endometrial biopsy and follow up was recommended - status post PRBC and platelet transfusion -S/P platelet transfusion - Monitor CBC, Patient was discharged to hospice care on 05/14/2025, waiting for the family to decide which hospice care with a prefer. Family was given couple of choices. # dysphagia, failed swallow evaluation -GI recommended for PEG placement, not able to do the PEG tube placement because of the morbid obesity -intervention Radiology /surgery/Gastroenterology refused to do PEG tube placement due to morbid obesity and thrombocytopenia -status post PRBC/platelet transfusion - Monitor CBC - repeat swallow eval-as per speech therapy patient was able to safely swallow and recommended puree diet with nectar thick liquid. #Bacteremia, possible due pneumonia possible gram +/- - continue IV doxycycline as prescribes - Echo to ruled out infective endocarditis: EF is 50-55%, mild AI, TR and MR - Blood cultures from05/02/25 negative. 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 -continue IV fluid as prescribed #Severe protein caloric malnutrition -- - repeat swallow eval-as per speech therapy patient was able to safely swallow and recommended puree diet with nectar thick liquid. #Acute on Chronic Severe Thrombocytopenia s/p platelet transfusion #Chronic Stage 1-2 sacral ulcer - Wound care consult #Acute Hypokalemia-replenished -monitor BMP #Chronic CVA with left hemiplegia -- repeat swallow eval-as per speech therapy patient was able to safely swallow and recommended puree diet with nectar thick liquid. # Morbid obesity BMI 62.7 - Counseled about the effect of obesity on health PCP: Angeline Medel Goals of care, Code status DNR/DNI,only chemical code ; discussed with >15 minutes PUD prophylaxis: SCD DVT prophylaxis: Pantoprazole Plan discussed with Dr. Coleman , nursing staff, Sister Total time spent on patient evaluation, chart review, assessment and plan, discussion discussion >35 minutes Plan discussed with: Patient, Other (RN, sister) Dietary Evaluation Review Comments: Nutrition Recommendation: 1) Artie 1 pk BID 2) Monitor PO intake, lab values, weight trend, and I/O Expected Outcomes/Goals: Wound to improve Lab values to improve FU 3-5 days Date of Service: May 17, 2025 Billing Provider: JUVE COLEMAN MD Common Visit Codes: 05147-[id number] INP/OBS CARE(HIGH) JONH URENA RESIDENT May 17, 2025 14:53
== END 2025-05-17 14:50 | disposition hospice, home (50) | DRG 760 ==
LOC: ER 19:25 → EDUNIT# 19:25 → EDBD 19:25 → OVERFLOW 04-28 03:35 → TELE-CENTR 04-28 14:09 → CENTRAL 04-29 23:10
PROVIDERS: ADMIT Internal Medicine Geriatric Medicine; ATTEND Internal Medicine Geriatric Medicine
PROC: 30233R1 Transfusion of Nonautologous Platelets into Peripheral Vein, Percutaneous Approach (ICD-10-PCS; 2025-04-28)
PROC: 30233N1 Transfusion of Nonautologous Red Blood Cells into Peripheral Vein, Percutaneous Approach (ICD-10-PCS; principal; 2025-05-01)
DX: N85.00 Endometrial hyperplasia, unspecified (principal); E43 Unspecified severe protein-calorie malnutrition; N17.0 Acute kidney failure with tubular necrosis; J15.69 Pneumonia due to other Gram-negative bacteria; J15.9 Unspecified bacterial pneumonia; L89.152 Pressure ulcer of sacral region, stage 2; Z66 Do not resuscitate; D69.6 Thrombocytopenia, unspecified; C55 Malignant neoplasm of uterus, part unspecified; Z79.01 Long term (current) use of anticoagulants; Z68.44 Body mass index [BMI] 60.0-69.9, adult; I69.354 Hemiplegia and hemiparesis following cerebral infarction affecting left non-dominant side; D63.1 Anemia in chronic kidney disease; D50.0 Iron deficiency anemia secondary to blood loss (chronic); E11.22 Type 2 diabetes mellitus with diabetic chronic kidney disease; I12.9 Hypertensive chronic kidney disease with stage 1 through stage 4 chronic kidney disease, or unspecified chronic kidney disease; N18.9 Chronic kidney disease, unspecified; E87.1 Hypo-osmolality and hyponatremia; E87.0 Hyperosmolality and hypernatremia; E83.39 Other disorders of phosphorus metabolism; E88.09 Other disorders of plasma-protein metabolism, not elsewhere classified; N95.0 Postmenopausal bleeding; N93.9 Abnormal uterine and vaginal bleeding, unspecified; E87.6 Hypokalemia; E66.01 Morbid (severe) obesity due to excess calories; E86.0 Dehydration; T36.8X5A Adverse effect of other systemic antibiotics, initial encounter; E78.5 Hyperlipidemia, unspecified; Z74.01 Bed confinement status; Z88.6 Allergy status to analgesic agent; Z91.018 Allergy to other foods; Z90.49 Acquired absence of other specified parts of digestive tract; Z98.51 Tubal ligation status; Y92.89 Other specified places as the place of occurrence of the external cause; Z83.3 Family history of diabetes mellitus; Z82.49 Family history of ischemic heart disease and other diseases of the circulatory system; Z80.1 Family history of malignant neoplasm of trachea, bronchus and lung
CPT/HCPCS: 36415; 70450; 71045; 74176; 76775; 76856; 80048; 80053; 80076; 80202; 80307; 81001; 82270; 82306; 82570; 82607; 82728; 83540; 83550; 83605; 83690; 83735; 83880; 83930; 84100; 84132; 84156; 84300; 84443; 85014; 85018; 85025; 85049; 85610; 85730; 86304; 86850; 86900; 86901; 86920; 87040; 87077; 87186; 92507; 92610; 93005; 93306; 94640; 97110; 97162; G0378; J1756; J2003; J2405; J2470; J3480